=== PATIENT | female | born 1950 | race Caucasian/White ===

== ENCOUNTER → 2019-01-06 06:35 | Outpatient (CLI) | payer MEDICARE, SELFPAY ==
[2018-12-30 09:38] VITALS: BMI 32.7
--- NOTE | 2019-01-06 10:01 | STRESSREP ---
Stress Test Report Date: 01-06-2019 Procedure: Pharmacologic stress nuclear imaging study Indications: Chest pain; shortness of breath/dyspnea Consent: Per the patient Procedure: The patient underwent pharmacologic (Regadenoson) evaluation with a peak heart rate of 81 beats per minute (54% predicted maximal heart rate) and a peak blood pressure of 158/92 mmHg. The baseline ECG demonstrated Normal sinus rhythm . The peak pharmacologic ECG demonstrated no obvious ECG changes . There were no cardiac dysrhythmias pretest, during pharmacologic infusion, or recovery. There was no complaint of chest discomfort during pharmacologic infusion or recovery. The examination was discontinued secondary to completion of protocol. Impression: 1. Pharmacologic (Regadenoson) evaluation 2. Peak pharmacologic ECG with No obvious ECG changes . 3. There were no cardiac dysrhythmias pretest, during pharmacologic infusion, or recovery. 4. Nuclear images pending Myocardial perfusion imaging study: Technique: The patient was injected with 11.7 millicuries of technetium 99m Cardiolite and subsequently rest SPECT Cardiolite nuclear imaging was obtained in the horizontal long, vertical long, and short axis views. The patient underwent pharmacologic (Regadenoson) evaluation with a peak heart rate of 81 beats per minute (54 % percent predicted maximal heart rate) and a peak blood pressure of 158/92 mmHg. The patient was injected with 33.1 millicuries of technetium 99m Cardiolite and subsequently stress SPECT Cardiolite nuclear imaging was obtained in the horizontal long, vertical long, and short axis views. A gated Cardiolite study at peak stress was obtained. Interpretation: Rest and stress SPECT Cardiolite nuclear imaging status post realignment, normalization, and attenuation correction demonstrate relative uniform tracer uptake and myocardial perfusion appearing within normal limits . There is end systolic thickening and brightening. The gated Cardiolite study demonstrates myocardial thickening and inward wall motion. The reported LVEF is 91 %. Impression: 1. Rest and stress SPECT Cardiolite nuclear imaging demonstrate relative uniform tracer uptake and myocardial perfusion appearing within normal limits. 2. The gated Cardiolite study reports an LVEF of 91 %. This note was generated with [employer] software. It may contain incorrect words, spelling, and punctuation that were not noted in checking the note before signing.
== END ==
PROVIDERS: Referring Provider Physician Assistant Medical; Visit Provider Physician Assistant Medical
DX: R07.9 Chest pain, unspecified (principal); I10 Essential (primary) hypertension; E78.5 Hyperlipidemia, unspecified
CPT/HCPCS: 78452; 93017; A9500; A4216; J2785

== ENCOUNTER → 2019-03-18 10:51 | Outpatient (CLI) | payer MEDICARE, SELFPAY ==
[2019-01-28 15:16] VITALS: BMI 32.1
--- NOTE | 2019-03-18 11:13 | ART_ITS ---
Reason For Study: Pain in legs Procedure A bilateral lower extremity continuous wave Doppler with analog waveform analysis,segmental pressures,and ankle brachial indexes with exercise. Left Segmental Pressures Left brachial= 191mmHg. Left posterior tibial artery = 227mmHg. Left dorsalis pedis artery = 218mmHg. The left dorsalis pedis waveforms are triphasic. The left posterior tibial artery waveforms are triphasic. Right Segmental Pressures Right brachial= 195mmHg. Right posterior tibial artery = 240mmHg. Right dorsalis pedis artery = 208mmHg. The right dorsalis pedis waveforms are triphasic. The right posterior tibial artery waveforms are triphasic. Indices The right ankle brachial index by the dorsalis pedis is 1.07. The right ankle brachial index by the posterior tibial artery is 1.23. The right post exercise ankle brachial index is 1.45. The left ankle brachial index by the dorsalis pedis is 1.12. The left ankle brachial index by the posterior tibial artery is 1.16. The left post exercise ankle brachial index is 1.38. Interpretation Summary Triphasic Doppler waveforms are noted at ankle level bilaterally. Pulse-volume recording waveforms appear satisfactory at all levels bilaterally, including low-thigh, calf, ankle, and digital levels. Resting ankle-brachial indices are normal bilaterally. Following 5 minutes of exercise, ankle pressures augment bilaterally, which is a normal physiological response. There is no evidence of significant arterial occlusive disease in the lower extremities bilaterally. Ordering Physician: MIRANDA MORRELL Referring Physician: MIRANDA MORRELL Performed By: Franci Askew RVT
== END ==
DX: M79.606 Pain in leg, unspecified (principal); I79.8 Other disorders of arteries, arterioles and capillaries in diseases classified elsewhere
CPT/HCPCS: 93924

== ENCOUNTER → 2019-07-05 15:46 | Outpatient (CLI) | payer MEDICARE, SELFPAY ==
[2019-01-28 15:16] VITALS: BMI 32.1
== END ==
PROVIDERS: Referring Provider Family Medicine; Visit Provider Family Medicine
DX: E28.39 Other primary ovarian failure (principal)

== ENCOUNTER → 2019-07-12 14:19 | Outpatient (CLI) | payer MEDICARE, SELFPAY ==
[2019-01-28 15:16] VITALS: BMI 32.1
--- NOTE | 2019-07-12 14:22 | BI_ITS ---
MAMMOGRAPHY - BILATERAL SCREENING REASON FOR EXAM: Female, 68 years old. Routine annual screening examination. PERTINENT HISTORY: Non-contributory. TECHNIQUE: Digital bilateral breast kemar (3D mammographic acquisition) in the CC and MLO projections. 2-D mediolateral oblique (MLO) and craniocaudad (CC) views of both breasts were obtained. CAD: Full Field Digital Mammography with Computer Added Detection was performed. COMPARISON: Comparison is made with prior study dated May 06, 2012. FINDINGS: Breast Composition: There are scattered areas of fibroglandular density. There are no dominant masses or suspicious calcifications. Stable scattered bilateral calcifications more prominent on the left side. No other significant abnormalities are identified. There has been no significant change since the prior study. BI/SCREEN MAMM (CAD) W/KEMAR BILAT IMPRESSION: Stable bilateral screening mammogram. Yearly follow-up mammogram recommended. (A) ASSESSMENT CATEGORY: BIRADS Category 2: Benign. A letter regarding these results will be sent to the patient by the facility within 30 days. Approximately 10% of breast cancers are not detected by mammography. A normal mammogram should not delay biopsy of a clinically suspicious abnormality. [id number] Electronically Signed: Carlos Taylor, at 15:31 EDT , Service support ,
--- NOTE | 2019-07-12 14:44 | BD_ITS ---
STUDY: DUAL ENERGY X-RAY ABSORPTIOMETRY / DXA REASON FOR EXAM: Female, 68 years old. The patient is postmenopausal. Loss of height. TECHNIQUE: Bone Mineral Density (BMD) measurements of lumbar spine and bilateral hips were obtained. COMPARISON: None. FINDINGS: Lumbar Spine (L1-L4): g/cm2 (0.975) / T-score (-1.7) / Z-score (0.0) Findings are suggestive of osteopenia with a moderate fracture risk. Left Femur Total: g/cm2 (0.896) / T-score (-0.9) / Z-score (0.6) Left Femoral Neck: g/cm2 (0.790) / T-score (-1.8) / Z-score (-0.1) Right Femur Total: g/cm2 (0.886) / T-score (-1.0) / Z-score (0.5) Right Femoral Neck: g/cm2 (0.846) / T-score (-1.4) / Z-score (0.3) BD/Dexa Bone Density Study IMPRESSION: The patient is considered osteopenic as outlined below according to World [employer] Organization (WHO) criteria with a moderate fracture risk. Reference Information: The T-score is the number of standard deviations above or below the standard which is normal for young adults at their peak bone mineral density. The World Health Organization (WHO) interprets the T-scores as follows: Above -1 Normal bone density Between -1 and -2.5 Osteopenia Equal to / or below -2.5 Osteoporosis As a practical clinical guideline, osteopenia may be graded as follows: Mild -1 through -1.5 Moderate -1.6 through -2.0 Severe -2.1 through -2.4 The Z-score is the number of standard deviations above or below age-matched controls. A Z-score of less than -1.5 would be considered abnormal. References: 1. NIH Osteoporosis and Related Bone Diseases http://www.osteo.org 2. International Society for Clinical Densitometry http://www.iscd.org 3. National Osteoporosis Foundation http://www.nof.org Electronically Signed: Carlos Taylor, at 15:04 EDT , Service support ,
== END ==
PROVIDERS: Referring Provider Family Medicine; Visit Provider Family Medicine
DX: Z12.31 Encounter for screening mammogram for malignant neoplasm of breast (principal); Z78.0 Asymptomatic menopausal state; E28.39 Other primary ovarian failure
CPT/HCPCS: 77063; 77067; 77080

== ENCOUNTER → 2019-08-30 11:31 | Outpatient (CLI) | payer MEDICARE, SELFPAY ==
[2019-08-29 15:26] VITALS: BMI 32.0
[2019-08-30 12:33] LABS: AST(SGOT) 17 U/L (15-37); Alanine Aminotransfer ALT/SGPT 20 U/L (13-56); Albumin, Serum 4.3 g/dL (3.2-5.0); Alkaline Phosphatase 77 U/L (45-117); Bilirubin, Direct 0.15 mg/dL (0.00-0.30); Cholesterol 197 mg/dL (200); Globulin 3.4 g/dL (2.2-4.2); High Density Lipoprotein 54 mg/dL; Protein, Total 7.7 g/dL (6.4-8.2); Triglycerides 182 mg/dL; Very Low Density Lipoprotein 36 mg/dL (5-40)
== END ==
PROVIDERS: Referring Provider Internal Medicine Cardiovascular Disease; Visit Provider Internal Medicine Cardiovascular Disease
DX: E78.00 Pure hypercholesterolemia, unspecified (principal)
CPT/HCPCS: 80061; 80076

== ENCOUNTER → 2019-12-05 16:12 | Outpatient (CLI) | payer MEDICARE, SELFPAY ==
[2019-12-05 15:38] VITALS: BMI 32.7
--- NOTE | 2019-12-05 16:15 | RAD_ITS ---
STUDY: X-RAY CHEST REASON FOR EXAM: Female, 69 years old. Chest pain TECHNIQUE: Frontal and lateral views of the chest COMPARISON: 02/06/2015 FINDINGS: There is patchy airspace opacity in the right lower lobe. The lungs are otherwise clear. There are no pleural effusions. There is no pneumothorax. The heart is normal in size. The visualized osseous structures are within normal limits. RAD/Chest PA and Lateral IMPRESSION: Patchy airspace opacity in the right lower lobe which is likely infectious in etiology. Electronically Signed: Jason Clemons, at 15:22 EST Tel , Service support ,
== END ==
PROVIDERS: PCP Family Medicine; Visit Provider Physician Assistant Medical
DX: R07.89 Other chest pain (principal)
CPT/HCPCS: 71046

== ENCOUNTER → 2020-01-30 17:40 | Outpatient (CLI) | payer MEDICARE, MEDICAID, SELFPAY ==
[2019-12-05 15:38] VITALS: BMI 32.7
--- NOTE | 2020-01-30 18:00 | RAD_ITS ---
STUDY: X-RAY CHEST REASON FOR EXAM: Female, 69 years old. Follow-up pneumonia. No chest complaints currently. TECHNIQUE: PA and lateral views of the chest. COMPARISON: December 05, 2019. FINDINGS: The lungs are clear and expanded. There is no demonstrated pleural abnormality. Normal size heart. Normal mediastinum and theo. Normal visualized pulmonary arteries. There is atherosclerotic calcification of the aortic arch with tortuosity. There are diffuse degenerative changes of the visualized thoracic spine. There is degenerative osteoarthritis of the bilateral shoulders. There is no demonstrated abnormality of the visualized soft tissue structures of the upper abdomen. RAD/Chest PA and Lateral IMPRESSION: Degenerative changes, as described above. No demonstrated acute cardiopulmonary process. Electronically Signed: Sarmad Han DO at 22:44 EDT Tel [phone], Service support ,
== END ==
PROVIDERS: PCP Family Medicine
DX: J18.9 Pneumonia, unspecified organism (principal)
CPT/HCPCS: 71046

== ENCOUNTER → 2020-07-24 11:54 | Outpatient (CLI) | payer MEDICARE, SELFPAY ==
[2020-06-29 16:12] VITALS: BMI 31.4
--- NOTE | 2020-07-24 11:56 | BI_ITS ---
MAMMOGRAPHY - BILATERAL SCREENING REASON FOR EXAM: Female, 69 years old. Routine annual screening examination. PERTINENT HISTORY: Non-contributory. TECHNIQUE: Digital bilateral breast kemar (3D mammographic acquisition) in the CC and MLO projections. 2-D mediolateral oblique (MLO) and craniocaudad (CC) views of both breasts were obtained. CAD: Full Field Digital Mammography with Computer Added Detection was performed. COMPARISON: Comparison is made with prior study dated 07/12/2019 and 05/06/2012. FINDINGS: Breast Composition: There are scattered areas of fibroglandular density. There are no dominant masses or suspicious calcifications. Stable small benign appearing bilateral axillary lymph nodes. Stable scattered bilateral calcifications suggestive of secretory calcifications more prominent on the right side. A tissue clip marker is seen in the inferior central portion of the right breast. No other significant abnormalities are identified. There has been no significant change since the prior study. BI/SCREEN MAMM (CAD) W/KEMAR BILAT IMPRESSION: Stable bilateral screening mammogram. Yearly follow-up mammogram recommended. (A) ASSESSMENT CATEGORY: BIRADS Category 2: Benign. A letter regarding these results will be sent to the patient by the facility within 30 days. Approximately 10% of breast cancers are not detected by mammography. A normal mammogram should not delay biopsy of a clinically suspicious abnormality. [id number] Electronically Signed: Carlos Taylor, at 13:03 EDT , Service support ,
== END ==
PROVIDERS: PCP Family Medicine
DX: Z12.31 Encounter for screening mammogram for malignant neoplasm of breast (principal)
CPT/HCPCS: 77063; 77067

== ENCOUNTER 2021-02-24 11:46 | Emergency (ER) | payer MEDICARE, SELFPAY ==
[2020-06-29 16:12] VITALS: BMI 31.4
[2021-02-24 11:47] VITALS: BP 140/73; PULSE 58; RESP 18; TEMP 36.3; O2SAT 97; BMI 31.6
--- NOTE | 2021-02-24 12:33 | ED.DCSUM_ITS ---
History of Present Illness Chief Complaint: Lower Extremity Injury Informant: Patient Onset: Month(s) - multiple Context: Gradual Onset Timing: Continuous Quality: sharp Location: throughout BLE Current Severity: Severe Maximum Severity: Severe Worsened by: movement and walking Relieved by: rest. tylenol, ibuprofen not helping. Associated Symptoms: occ tingling in toes. no weakness. no back pain. no bowel/bladder dysfxn. Narrative: Patient has been having pain stocking glove distribution throughout both legs in their entirety. Not more in the anterior or posterior aspect, seems less in the joints though. She states the pain is sharp, does not burn or tingle except in her toes she occasionally feels some tingling. She denies any weakness. Moving while walking 10 feet hurts no less then walking a block or 2. She denies any pain in her back. She is already seen her doctor for this, states that she had an ultrasound of the veins that looked fine, as well as ABIs that were normal. She is due to follow-up later this week but states the pain has been so bad this weekend that she presents for pain control. - Past Medical History (1) Anxiety Status: Chronic (2) Essential hypertension Status: Chronic (3) Hypothyroidism Status: Chronic (4) Pure hypercholesterolemia Status: Chronic Past Medical History - Allergies and Home Meds Allergies/Adverse Reactions: Allergies No Known Allergies Allergy (Verified 02/24/21 11:46) Primary Care Physician: Omar Reyes MD [Primary Care Provider] - Smoking Status: Never smoker Review of Systems General: Denies: Chills, Fever, Sweats Eyes: Denies: Visual changes - bilaterally, Diplopia ENT: Denies: Rhinorrhea, Sore throat Cardiovascular: Denies: Chest pain, Palpitations Respiratory: Denies: Dyspnea, Cough, Dyspnea on exertion Gastrointestinal: Denies: Abdominal pain, Nausea, Vomiting, Diarrhea, Melena, Hematochezia Genitourinary: Denies: Dysuria, Hematuria, Frequency Musculoskeletal: Reports: Extremity Pain. Denies: Back pain, Swelling Skin: Denies: Rash, Wounds Neurological: Reports: Parasthesia. Denies: Headache, Weakness, Numbness Physical Exam Vital Signs/Narrative: Vital Signs Temp Pulse Resp BP Pulse Ox 02/24/21 11:47 97.4 F L 58 L 18 140/73 H 97 Inital Vital Signs reviewed: Yes General: Well nourished, Well developed, Obese, No Acute Distress Head: Normocephalic, Atraumatic Respiratory: No distress Back: Nontender, Normal Inspection Extremities: Nontender, No edema, - - All compartments soft. Bounding 2+/4 dorsalis pedis pulses bilaterally and symmetric. No palpable cords. Muscle compartments nontender on palpation.. Negative for: Calf Tenderness Skin: Normal color, No rash Neurological: Alert, Oriented x3, Cranial nerves II-XII grossly intact, Normal Strength, Normal Sensation, Normal DTR - With downgoing toes and no clonus bilaterally Psychological: Normal affect, Normal Mood Diagnostic/Tx/Re-eval - Medical Decision Making Patient was reassured she does not seem to be having claudication and this is certainly atypical for neurologic pain. It may be muscular in nature and she agrees with the way it feels. There is no neurovascular compromise at this time and I am comfortable prescribing her a short course of tramadol to use as needed for the pain and she is comfortable with that plan following up as scheduled this week with her doctor. ED Disposition - Plan for ED Patient: Disposition: Home or Assisted Living Diagnosis: Chronic lower limb pain Instructions: ED Muscle Strain, Extremity Prescriptions: traMADol [Ultram] 50 mg PO Q4H PRN PRN 3 Days #20 tablet PRN Reason: pain Transmission Status: Sent to [id number] Referrals: Omar Reyes MD [Primary Care Provider] - Keep Marvin appointment
[2021-02-24] MEDS: traMADol 50 MG Tablet PO (12:37)
[2021-02-24 12:50] VITALS: BP 137/66; PULSE 72; RESP 15; O2SAT 98
== END 2021-02-24 12:51 | disposition home or self-care (01) ==
LOC: ED 12:50
PROVIDERS: Emergency Provider Emergency Medicine; PCP Family Medicine
DX: M79.605 Pain in left leg (principal); E66.9 Obesity, unspecified; G89.29 Other chronic pain; F41.9 Anxiety disorder, unspecified; I10 Essential (primary) hypertension; E03.9 Hypothyroidism, unspecified; E78.00 Pure hypercholesterolemia, unspecified
CPT/HCPCS: 99282

== ENCOUNTER → 2021-03-05 07:42 | Outpatient (CLI) | payer MEDICARE, SELFPAY ==
--- NOTE | 2021-03-05 07:50 | RAD_ITS ---
STUDY: X-RAY - LUMBOSACRAL SPINE REASON FOR EXAM: Female, 70 years old. BILATERAL LEG PAIN/NEUROGENIC CLAUDICATION TECHNIQUE: 8 view(s) of the lumbosacral spine were obtained including oblique views and flexion-extension views.. COMPARISON: None FINDINGS: Normal lumbar lordosis. There is a mild levoscoliosis of the lumbar spine. Minimal anterior listhesis of L4 on L5. There is multilevel endplate spondylosis of the lumbar vertebrae. There is multi-level degenerative disc disease with multi-level disc space narrowing. Normal bilateral sacral ala, sacroiliac joints, and visualized sacrum. There is atherosclerotic calcification of the abdominal aorta without a demonstrated aneurysm. RAD/L/S Spine w Bend Min 6 Vw IMPRESSION: Degenerative changes of the spine, as detailed above. Minimal anterior listhesis of L4 on L5. On the flexion view, this measures 6.9 mm and on the extension view and measures 5.6 mm. Electronically Signed: Carlos Taylor MD at 15:21 EDT , Service support ,
== END ==
PROVIDERS: PCP Family Medicine; Visit Provider Family Medicine
DX: M79.604 Pain in right leg (principal); M48.062 Spinal stenosis, lumbar region with neurogenic claudication
CPT/HCPCS: 72114

== ENCOUNTER 2021-03-21 17:25 | Emergency (ER) | payer MEDICARE, MEDICAID, SELFPAY ==
[2021-03-21 17:27] VITALS: BP 154/89; PULSE 71; RESP 15; TEMP 35.8; O2SAT 98; BMI 29.2
--- NOTE | 2021-03-21 18:29 | RAD_ITS ---
STUDY: X-RAY - LEFT KNEE REASON FOR EXAM: Female, 70 years old. Injury/Pain TECHNIQUE: 2 view(s) of the knee. COMPARISON: None. FINDINGS: Normal visualized distal femur. Normal visualized proximal tibia and fibula. Normal proximal tibiofibular articulation. There is no demonstrated fracture. There is moderate narrowing of the medial femorotibial compartment. Normal lateral femorotibial compartment. Normal patellofemoral articulation. There is no demonstrated joint effusion. The soft tissue structures are unremarkable. RAD/Knee 1 or 2 Views IMPRESSION: No acute abnormality. Moderate narrowing of the medial tibiofemoral compartment. Electronically Signed: Salvador Calabrese MD at 19:37 EDT , Service support ,
--- NOTE | 2021-03-21 18:29 | RAD_ITS ---
STUDY: X-RAY - RIGHT KNEE REASON FOR EXAM: Female, 70 years old. Injury/Pain TECHNIQUE: 2 view(s) of the knee. COMPARISON: None. FINDINGS: Normal visualized distal femur. Normal visualized proximal tibia and fibula. Normal proximal tibiofibular articulation. There is no demonstrated fracture. There is moderate degenerative arthrosis of the medial femorotibial compartment with moderate joint space narrowing. Normal lateral femorotibial compartment. There is moderate to severe degenerative arthrosis of the patellofemoral articulation. There is no demonstrated joint effusion. The soft tissue structures are unremarkable. RAD/Knee 1 or 2 Views IMPRESSION: No acute fracture or dislocation. Degenerative changes. Electronically Signed: Salvador Calabrese MD at 19:44 EDT , Service support ,
--- NOTE | 2021-03-21 19:21 | ED.VIS.LOWEX ---
HPI History of Present Illness Chief Complaint: Lower Extremity Injury Narrative Narrative: 70-year-old patient of Dr. Reyes. She is a poor informant. She reports that she has bilateral knee pain for the past 2 weeks.'s an aching pain is 10-10 at worst 9-10 currently. Is worsened by walking. She is taking diclofenac without relief. She was also on a prednisone taper last month without relief. She denies any trauma. No fall, MVA, or change in activity. [facility] Medical History (Updated 03/21/21 @ 19:[address] Brady Blakely MD) Anxiety Depression Essential hypertension Hypothyroidism Palpitations Pure hypercholesterolemia Home Medications aspirin 81 mg tablet,delayed release 81 mg PO QDAY 06/28/18 [History Last Taken Unknown] levothyroxine 75 mcg capsule 75 mcg PO QDAY 06/28/18 [History Last Taken Unknown] atorvastatin 20 mg tablet 20 mg PO QHS tablet 12/05/19 [History Last Taken Unknown] amlodipine 5 mg tablet 5 mg PO DAILY #90 tablet 06/21/20 [Rx Last Taken Unknown] hydrochlorothiazide 25 mg tablet 25 mg PO DAILY #90 tablet 06/21/20 [Rx Last Taken Unknown] isosorbide mononitrate 60 mg tablet,extended release 24 hr 60 mg PO DAILY #90 tablet 06/21/20 [Rx Last Taken Unknown] atenolol 50 mg tablet 50 mg PO DAILY #90 tablet 07/03/20 [Rx Last Taken Unknown] tramadol 50 mg tablet 50 mg PO Q4H PRN tablet 02/28/21 [History Last Taken Unknown] potassium chloride 20 mEq tablet,extended release 20 meq PO DAILY 03/07/21 [History Last Taken Unknown] hydrocodone-acetaminophen 1 tab PO Q6H PRN 3 Days #10 tab 03/21/21 [Rx Last Taken Unknown] sennosides [senna] 8.6 mg PO DAILY #7 cap 03/21/21 [Rx Last Taken Unknown] Allergy/AdvReac Type Severity Reaction Status Date / Time No Known Allergies Allergy Verified 02/28/21 13:54 Family History Father , Age 65 Myocardial infarction Mother , Age 84 Dementia Sister Hypertension Sister Hypertension Sister Hyperlipidemia Surgical History History of left heart catheterization (~1993) History of partial hysterectomy Social History Smoking Status: Never smoker how long ago did patient quit smokin years ago alcohol intake: never caffeine: No ROS ROS ED Constitutional Constitutional ED: Denies chills, fever(s) or sweats Eyes Eyes: Denies change in vision ENT ENT ED: Denies sore throat Cardiovascular Cardiovascular: Denies chest pain Respiratory/Chest Respiratory/Chest: Denies cough, dyspnea or dyspnea on exertion Gastrointestinal Gastrointestinal: Denies abdominal pain, diarrhea, melena, nausea or vomiting Genitourinary Genitourinary ED: Denies dysuria or urinary frequency Musculoskeletal Musculoskeletal: Denies myalgias Integumentary Denies rash Neurologic Neurologic: Denies headache(s), paresthesias or weakness EXAM Physical Exam Const Vital Signs: 03/21/21 17:27 Temperature 96.5 F L Temperature Source Temporal Pulse Rate 71 Respiratory Rate 15 Blood Pressure 154/89 H Blood Pressure Mean 110 Pulse Ox 98 Oxygen Delivery Method Room Air Positive well nourished and well developed General Appearance ED: well developed HEENT Reports normocephalic and head/scalp atraumatic Eyes PERRL Neck no lymphadenopathy, supple and no JVD General: Negative for tenderness Resp normal respiratory effort and clear to auscultation bilaterally Cardio regular rate, regular rhythm and no murmurs GI normal to inspection, nondistended, normoactive bowel sounds and non-tender GI Narrative: No guarding, rebound, or peritoneal signs. Palpation: soft Back/Spine Back/Spine Narrative: Nontender. Extremity Extremity Narrative: Moderate tenderness palpation is diffuse over her knees bilaterally. There is a small joint effusion on the left. No appreciable joint effusion on the right. There is no overlying erythema or warmth to suggest a septic joint. She has no pain with short arc movements. She has pain, but no ligamentous instability with anterior/posterior drawer or medial/lateral stress bilaterally. She does have a 2+ dorsalis pedis pulse bilaterally normal sensation light touch. General Extremety ED: Negative for edema or tenderness General Extremity: Negative for edema Neuro oriented x3, CN's II-XII intact bilaterally and no sensory deficits noted Sensorium / Orientation: alert Motor Exam: strength 5/5 throughout Psych mental status grossly normal Skin no rashes or lesions noted MDM MDM Radiography Diagnostic Testing: Bilateral knee x-rays read by myself show degenerative changes. No acute disease. Treatment and Re-Evaluation Comments:: Emergency department course: Patient was treated with Tylenol. She is resting comfortably. Treatment plan: I had a prolonged scratch that I suspect the patient's pain is due to arthritis. She will be discharged instructions to follow-up with Dr. Casiano within 1 week for another exam. She will be given a prescription for [place] and senna. Return to the emergency department for any worsening symptoms. This note was generated with [employer] dictation software. It may contain incorrect words, spelling, and punctuation that were not noted in review of the chart prior to signing. Discharge Plan Triage Chief Complaint: Lower Extremity Injury ED Provider: Brady Blakely Dx/Rx/DC Orders Clinical Impression: Arthritis of knee, right, Arthritis of knee, left Instructions: ED Osteoarthritis Prescriptions: New hydrocodone-acetaminophen 5-325 mg tablet 1 tab PO Q6H PRN (Reason: pain) 3 Days Qty: 10 RF: 0 senna 8.6 mg capsule 8.6 mg PO DAILY Qty: 7 RF: 0 No Action aspirin [Adult Low Dose Aspirin] 81 mg tablet,delayed release (DR/EC) 81 mg PO QDAY RF: 0 levothyroxine 75 mcg capsule 75 mcg capsule 75 mcg PO QDAY RF: 0 atorvastatin 20 mg tablet 20 mg PO QHS RF: 0 tramadol 50 mg tablet 50 mg PO Q4H PRNRF: 0 amlodipine 5 mg tablet 5 mg PO DAILY Qty: 90 RF: 3 isosorbide mononitrate 60 mg tablet extended release 24 hr 60 mg PO DAILY Qty: 90 RF: 3 hydrochlorothiazide 25 mg tablet 25 mg PO DAILY Qty: 90 RF: 3 atenolol 50 mg tablet 50 mg PO DAILY Qty: 90 RF: 4 potassium chloride 20 mEq tablet extended release 20 meq PO DAILY RF: 0 Primary Care Provider: Omar Reyes Referrals: Omar Reyes MD [Primary Care Provider] - James Casiano DO [STAFF PHYSICIAN] - 1 Week
[2021-03-21] MEDS: Acetaminophen 500 MG Tablet 1000 MG PO (19:40)
== END 2021-03-21 19:44 | disposition home or self-care (01) ==
PROVIDERS: Emergency Provider Emergency Medicine; PCP Family Medicine
DX: M17.0 Bilateral primary osteoarthritis of knee (principal); Z87.891 Personal history of nicotine dependence
CPT/HCPCS: 73560; 99283

== ENCOUNTER → 2021-07-25 15:09 | Outpatient (CLI) | payer MEDICARE, MEDICAID, SELFPAY ==
--- NOTE | 2021-07-25 15:12 | BI_ITS ---
MAMMOGRAPHY - BILATERAL SCREENING REASON FOR EXAM: Female, 70 years old. Routine annual screening examination. PERTINENT HISTORY: Non-contributory. TECHNIQUE: Digital bilateral breast kemar (3D mammographic acquisition) in the CC and MLO projections. 2-D mediolateral oblique (MLO) and craniocaudad (CC) views of both breasts were obtained. CAD: Full Field Digital Mammography with Computer Added Detection was performed. COMPARISON: Comparison is made with prior examination dated 07/24/2020 and 07/12/2000 FINDINGS: Breast Composition: There are scattered areas of fibroglandular density. There are no dominant masses or suspicious calcifications. Stable benign-appearing secretory calcifications more prominent on the right side. Stable small benign-appearing axillary lymph nodes. A tissue clip marker is once again seen in the inferior central portion of the right No other significant abnormalities are identified. There has been no significant change since the prior study. BI/SCRN MAMM (CAD)W/KEMAR BILAT IMPRESSION: Stable bilateral screening mammogram. Yearly follow-up mammogram recommended. (A) ASSESSMENT CATEGORY: BIRADS Category 2: Benign. A letter regarding these results will be sent to the patient by the facility within 30 days. Approximately 10% of breast cancers are not detected by mammography. A normal mammogram should not delay biopsy of a clinically suspicious abnormality. [id number] Electronically Signed: Carlos Taylor MD at 7:52 EDT , Service support ,
--- NOTE | 2021-07-25 15:20 | BD_ITS ---
STUDY: DUAL ENERGY X-RAY ABSORPTIOMETRY / DXA REASON FOR EXAM: Female, 70 years old. M810. Patient is postmenopausal. TECHNIQUE: Bone Mineral Density (BMD) measurements of lumbar spine and bilateral hips were obtained. COMPARISON: Comparison is made with prior study 07/12/2019. FINDINGS: Lumbar Spine (L1-L4): g/cm2 (0.946) / T-score (-0.9) / Z-score (1.4) Findings are suggestive of normal bone density with a low fracture risk. Left Femur Total: g/cm2 (0.813) / T-score (-1.1) / Z-score (0.6) Left Femoral Neck: g/cm2 (0.674) / T-score (-1.6) / Z-score (0.4) Right Femur Total: g/cm2 (0.818) / T-score (-1.0) / Z-score (0.6) Right Femoral Neck: g/cm2 (0.694) / T-score (-1.4) / Z-score (0.6) The T-Scores on the most recent prior examination were: Lumbar Spine (L1-L4): There has been improvement of bone density since the previous examination. Left Femur Total: which represents a worsening of 2.4%. Right Femur Total: which represents a worsening of 0.6%. BD/Dexa Bone Density Study IMPRESSION: The patient is considered osteopenic as outlined below according to World [employer] Organization (WHO) criteria with a moderate fracture risk. There has been worsening of bone density since the previous examination. Reference Information: The T-score is the number of standard deviations above or below the standard which is normal for young adults at their peak bone mineral density. The World Health Organization (WHO) interprets the T-scores as follows: Above -1 Normal bone density Between -1 and -2.5 Osteopenia Equal to / or below -2.5 Osteoporosis As a practical clinical guideline, osteopenia may be graded as follows: Mild -1 through -1.5 Moderate -1.6 through -2.0 Severe -2.1 through -2.4 The Z-score is the number of standard deviations above or below age-matched controls. A Z-score of less than -1.5 would be considered abnormal. References: 1. NIH Osteoporosis and Related Bone Diseases www osteo.org 2. International Society for Clinical Densitometry www iscd.org 3. National Osteoporosis Foundation www nof.org Electronically Signed: Carlos Taylor MD at 12:54 EDT , Service support ,
== END ==
PROVIDERS: PCP Family Medicine; Referring Provider Family Medicine; Visit Provider Family Medicine
DX: Z12.31 Encounter for screening mammogram for malignant neoplasm of breast (principal); Z13.820 Encounter for screening for osteoporosis; Z78.0 Asymptomatic menopausal state
CPT/HCPCS: 77063; 77067; 77080

== ENCOUNTER 2021-12-23 03:40 | Emergency (ER) | payer MEDICARE, MEDICAID, SELFPAY ==
[2021-12-23 03:42] VITALS: BP 141/77; PULSE 93; RESP 17; TEMP 36.6; O2SAT 97; BMI 30.1
--- NOTE | 2021-12-23 04:17 | CT_ITS ---
EXAM: CT HEAD WITHOUT INTRAVENOUS CONTRAST CLINICAL INDICATION: headache TECHNIQUE: Multiple axial images were obtained of the head without intravenous contrast. CTDIvol = ( 44.99 ) mGy, DLP = ( 745.45 ) mGycm This CT exam was performed using one or more of the following dose reduction techniques: automated exposure control, adjustment of the mA and/or kV according to patient size, and/or use of iterative reconstruction technique. This report was created using [employer] report generation technology. COMPARISON: None. FINDINGS: BRAIN AND EXTRA-AXIAL SPACES: Unremarkable. No intra- or extra-axial hemorrhage. No evidence of acute infarct. No intracranial mass or mass effect. There is preservation of the agustin/white matter interface. Posterior fossa structures are unremarkable. Ventricles are appropriate for age. No hydrocephalus. Basal cisterns are patent. BONES/JOINTS: Unremarkable. No discrete lytic or blastic abnormalities. SINUSES: Unremarkable as visualized. Clear. MASTOID AIR CELLS: Unremarkable. Clear. ORBITS: Visualized globes, extraocular muscles, optic nerves and retrobulbar fat appear unremarkable. CT/Brain/Head without Contrast IMPRESSION: Negative head/brain CT without intravenous contrast. Electronically Signed: Julián Bran MD at 4:50 EST ,
[2021-12-23] MEDS: DiphenhydrAMINE 50 MG/ML Syringe 25 MG IV (05:16)
[2021-12-23] MEDS: Ketorolac 15 MG/ML Vial IV (05:16)
[2021-12-23] MEDS: Metoclopramide 10 MG/2 ML Vial IV (05:16)
--- NOTE | 2021-12-23 05:24 | EDS_ITS ---
HPI History of Present Illness Chief Complaint: General Illness Narrative Narrative: Patient is a 71-year-old female who states about 2 weeks ago she was walking when she was not paying attention and ran into the corner of a wall. She denies knocking herself out or any history of bleeding disorder or blood thinner use. She states since that time she has had a persistent headache and went and saw her family doctor who advised her to treat it with [id number] medication. She denies any repeat trauma but states the headache has persisted and secondary to this comes to the hospital for evaluation [facility] Medical History (Updated 12/23/21 @ 05:[address] Julián Coronel, DO) Anxiety Depression Essential hypertension Hypothyroidism Palpitations Pure hypercholesterolemia Home Medications aspirin 81 mg tablet,delayed release 81 mg PO QDAY 06/28/18 [History Last Taken Unknown] levothyroxine 75 mcg capsule 75 mcg PO QDAY 06/28/18 [History Last Taken Unknown] atorvastatin 20 mg tablet 20 mg PO QHS tablet 12/05/19 [History Last Taken Unknown] potassium chloride 20 mEq tablet,extended release 20 meq PO DAILY 03/07/21 [History Last Taken Unknown] hydrochlorothiazide 25 mg tablet 25 mg PO DAILY #90 tablet 06/10/21 [Rx Last Taken Unknown] isosorbide mononitrate 60 mg tablet,extended release 24 hr 60 mg PO DAILY #90 tablet 07/05/21 [Rx Last Taken Unknown] amlodipine 5 mg tablet 5 mg PO DAILY #90 tablet 08/27/21 [Rx Last Taken Unknown] atenolol 50 mg tablet 50 mg PO DAILY #90 tablet 08/27/21 [Rx Last Taken Unknown] calcium carbonate 600 mg calcium (1,500 mg) tablet 600 mg PO DAILY 08/27/21 [History Last Taken Unknown] Allergy/AdvReac Type Severity Reaction Status Date / Time No Known Allergies Allergy Verified 12/23/21 03:49 Family History Father , Age 65 Myocardial infarction Mother , Age 84 Dementia Sister Hypertension Sister Hypertension Sister Hyperlipidemia Surgical History History of left heart catheterization (~1993) History of partial hysterectomy Social History Smoking Status: Never smoker how long ago did patient quit smokin years ago alcohol intake: never caffeine: No ROS ROS ED Constitutional Constitutional ED: Denies chills or fever(s) Eyes Eyes: Denies change in vision ENT ENT ED: Denies sore throat Cardiovascular Cardiovascular: Denies chest pain Respiratory/Chest Respiratory/Chest: Denies cough or dyspnea Gastrointestinal Gastrointestinal: Denies abdominal pain, diarrhea, nausea or vomiting Genitourinary Genitourinary ED: Denies dysuria Musculoskeletal Musculoskeletal: Denies myalgias Integumentary Reports Abrasions; Denies rash Neurologic Neurologic: Reports headache(s) Hematologic/Lymphatic Hematologic/Lymphatic: Denies easy bleeding or easy bruising EXAM Physical Exam Const Vital Signs: 12/23/21 03:41 12/23/21 03:42 Temperature 97.8 F Temperature Source Temporal Pulse Rate 93 Respiratory Rate 17 Respiratory Effort Normal Blood Pressure 141/77 H Blood Pressure Mean 98 Pulse Ox 97 Oxygen Delivery Method Room Air Positive well nourished and well developed General Appearance ED: well developed HEENT HEENT Narrative: No signs of depressed or basilar skull fracture Eyes PERRL and EOMs intact bilaterally Neck supple Neck Narrative: No bony deformity or step-off of the cervical spine no midline pain with palpation. No meningeal signs Resp normal respiratory effort and clear to auscultation bilaterally Cardio regular rate and regular rhythm Extremity normal to inspection Neuro oriented x3 and CN's II-XII intact bilaterally Neuro Narrative: NIH stroke scale score of 0 Sensorium / Orientation: alert Motor Exam: strength 5/5 throughout Psych mental status grossly normal Skin no rashes or lesions noted Skin Narrative: Patient does have healing superficial abrasions to the midportion of her forehead consistent with trauma but no secondary changes to suggest infection MDM MDM MDM Narrative Medical decision making narrative: Patient presented to the ER in no acute distress with stable vitals and no signs of depressed or basilar skull fracture. She reported a headache after walking into the corner of a wall that have been persistent and therefore elected to perform a head CT to ensure there is no underlying trauma. Head CT revealed no acute findings and after treatment with IV fluids Toradol Benadryl and Reglan patient reported resolution of her headache and her neuro exam remained normal. Therefore at this time with normal head CT normal neurologic exam and resolution of symptoms patient can be discharged and follow-up with family doctor for further evaluation Radiography Diagnostic Testing: Clinical Impression(s) from Imaging Studies Brain CT 12/23/21 04:17 IMPRESSION: Negative head/brain CT without intravenous contrast. Electronically Signed: Julián Bran MD at 4:50 EST , Discharge Plan Triage Chief Complaint: General Illness ED Provider: Julián Coronel Dx/Rx/DC Orders Clinical Impression: Cephalalgia Instructions: Understanding Headache Pain Prescriptions: No Action aspirin [Adult Low Dose Aspirin] 81 mg tablet,delayed release (DR/EC) 81 mg PO QDAY RF: 0 levothyroxine 75 mcg capsule 75 mcg capsule 75 mcg PO QDAY RF: 0 atorvastatin 20 mg tablet 20 mg PO QHS RF: 0 calcium carbonate [Calcium 600] 600 mg calcium (1,500 mg) tablet 600 mg PO DAILY RF: 0 amlodipine 5 mg tablet 5 mg PO DAILY Qty: 90 RF: 3 atenolol 50 mg tablet 50 mg PO DAILY Qty: 90 RF: 4 potassium chloride 20 mEq tablet extended release 20 meq PO DAILY RF: 0 hydrochlorothiazide 25 mg tablet 25 mg PO DAILY Qty: 90 RF: 3 isosorbide mononitrate 60 mg tablet extended release 24 hr 60 mg PO DAILY Qty: 90 RF: 3 Primary Care Provider: Omar Reyes Referrals: Omar Reyes MD [Primary Care Provider] - Activity Restrictions/Additional Instructions: If your headache returns please take Tylenol and/or Motrin and if it persists please talk to your family doctor about a neurology referral as well as MRI and/or return to the ER for repeat evaluation Disposition Disposition: Home, Self Care
[2021-12-23 05:36] VITALS: BP 115/56; PULSE 74; RESP 16; O2SAT 96
[2021-12-23 06:17] VITALS: O2SAT 98
== END 2021-12-23 06:28 | disposition home or self-care (01) ==
PROVIDERS: Emergency Provider Emergency Medicine; PCP Family Medicine; Visit Provider Emergency Medicine
DX: R51.9 Headache, unspecified (principal); I10 Essential (primary) hypertension; E78.00 Pure hypercholesterolemia, unspecified; E03.9 Hypothyroidism, unspecified; Z79.82 Long term (current) use of aspirin
CPT/HCPCS: 70450; 96361; 96374; 96375; 99283; J7030; A4216

== ENCOUNTER 2022-02-05 10:17 | Outpatient (CLI) | payer MEDICARE, MEDICAID, SELFPAY ==
[2022-02-05 11:58] LABS: BNP,B-Type NATRIURETIC PEPTIDE 37.5 pg/mL (0-100)
[2022-02-05 11:59] LABS: Anion Gap 8 (5-15); BUN 13 mg/dL (7-18); BUN/Creat Ratio 17.6 RATIO (10-20); Calcium,Total 9.1 mg/dL (8.5-10.1); Chloride 101 mmol/L (98-107); Creatinine, Serum 0.74 mg/dL (0.55-1.02); EST Glomerular Filtration Rate 82 mL/min (>60); Est Glom Filt Rate - Afr Amer 99 mL/min (>60); Glucose 140 mg/dL (74-106); Potassium 2.8 mmol/L (3.5-5.1); Sodium Level 139 mmol/L (136-145)
== END 2022-02-05 23:59 | disposition home or self-care (01) ==
LOC: LAB 10:18
PROVIDERS: PCP Family Medicine; Referring Provider Nurse Practitioner Family; Visit Provider Nurse Practitioner Family
DX: R06.00 Dyspnea, unspecified (principal); R07.89 Other chest pain; I10 Essential (primary) hypertension; E78.00 Pure hypercholesterolemia, unspecified
CPT/HCPCS: 36415; 80048; 83880

== ENCOUNTER → 2022-03-05 | Outpatient (CLI) | payer MEDICARE, MEDICAID, SELFPAY ==
--- NOTE | 2022-03-05 07:57 | ECHOD_ITS ---
Reason For Study: Dyspnea/SOB Procedure This was a 2D Doppler, Color Flow transthoracic echocardiogram. The exam was of adequate technical quality. Exam performed in department. Left Ventricle Normal LV size. Left ventricular systolic function is normal. The estimated ejection fraction is 65 %. No evidence for diastolic dysfunction. No regional wall motion abnormalities noted. Right Ventricle Normal RV size. Normal systolic function. Atria Normal left atrium. Normal right atrium. No doppler evidence for ASD. Mitral Valve There is no mitral annular calcification. Normal mitral valve. Mild (1+) mitral valve insufficiency. Tricuspid Valve Normal tricuspid valve. Trivial tricuspid valve insufficiency. Right ventricular systolic pressure estimated to be 34 mmHg. Aortic Valve Trisinus/trileaflet aortic valve. Normal aortic valve. Mild (1+) aortic valve insufficiency. Pulmonic Valve The pulmonic valve is not well visualized. Great Vessels Normal sized aortic root. Pericardium/Pleural No pericardial effusion. MMode/2D Measurements & Calculations LVIDd: 4.5 cm IVSd: 0.79 cm Ao root diam: 3.3 cm LVIDs: 2.4 cm LVPWd: 1.1 cm LA dimension: 3.6 cm FS: 45.7 % LAV(MOD-bp): 45.2 ml LA A4 area: 16.6 cm2 RA A4 area: 10.8 cm2 LAV(MOD-bp) Indexed: 26.3 ml/m2 LAV(MOD-sp2): 42.8 ml LAV(MOD-sp4): 44.9 ml Time Measurements MV dec time: 0.21 sec Doppler Measurements & Calculations MV E max estevan: 89.5 cm/sec Lat Peak E' Estevan: 6.6 cm/sec Med Peak E' Estevan: 6.7 cm/sec MV A max estevan: 96.0 cm/sec E/E' lat: 13.5 E/E' med: 13.3 MV E/A: 0.93 MV V2 max: 110.0 cm/sec MV P1/2t max estevan: 88.6 cm/sec Ao V2 max: 148.5 cm/sec MV max P.8 mmHg MV P1/2t: 88.5 msec Ao max P.8 mmHg MV V2 mean: 49.1 cm/sec MV dec slope: 293.5 cm/sec2 MV mean P.2 mmHg MVA(P1/2t): 2.5 cm2 MV V2 VTI: 33.9 cm AI max estevan: 374.5 cm/sec LV V1 max: 121.9 cm/sec PA V2 max: 112.7 cm/sec AI max P.1 mmHg LV V1 max P.9 mmHg AI dec slope: 153.8 cm/sec2 AI P1/2t: 713.1 msec TR max estevan: 278.3 cm/sec TR max P.0 mmHg ECHO/Echo Complete Interpretation Summary Left ventricular systolic function is normal. The estimated ejection fraction is 65 %. Mild (1+) mitral valve insufficiency. Trivial tricuspid valve insufficiency. Mild (1+) aortic valve insufficiency. Right ventricular systolic pressure estimated to be 34 mmHg. No evidence for diastolic dysfunction. Ordering Physician: Efrain Hill Referring Physician: Omar Reyes Performed By: Yaw García RCS
== END | disposition home or self-care (01) ==
PROVIDERS: PCP Family Medicine; Referring Provider Nurse Practitioner Family; Visit Provider Nurse Practitioner Family
DX: R07.89 Other chest pain (principal); R06.00 Dyspnea, unspecified; Z98.890 Other specified postprocedural states
CPT/HCPCS: 93306

== ENCOUNTER → 2022-04-21 | Outpatient (CLI) | payer MEDICARE, MEDICAID, SELFPAY ==
--- NOTE | 2022-04-21 08:51 | STRESSREP_ITS ---
Stress Test Report Date: 04/21/2022 Procedure: Pharmacologic stress nuclear imaging study Indications: Chest pain; shortness of breath/dyspnea; palpitations; h yperlipidemia; hypertension Consent: Per the patient Procedure: The patient underwent pharmacologic (Regadenoson 0.4mg ) evaluation with a peak heart rate of 109 beats per minute (74%predicted maximal heart rate) and a peak blood pressure of 152/88 mmHg. The baseline ECG demonstrated normal sinus rhythm. The peak pharmacologic ECG demonstrated no obvious ECG changes. There were no cardiac dysrhythmias pretest, during pharmacologic infusion, or recovery. There was no complaint of chest discomfort during pharmacologic infusion or recovery. The examination was discontinued secondary to completion of protocol. Impression: 1. Pharmacologic (Regadenoson) evaluation 2. Peak pharmacologic ECG with no obvious ECG changes. 3. There were no cardiac dysrhythmias pretest, during pharmacologic infusion, or recovery. 4. Nuclear images pending Myocardial perfusion imaging study: Technique: The patient was injected with 11.0 millicuries of technetium 99m Cardiolite and subsequently rest SPECT Cardiolite nuclear imaging was obtained in the horizontal long, vertical long, and short axis views. The patient underwent pharmacologic (Regadenoson) evaluation with a peak heart rate of 109 beats per minute (74% percent predicted maximal heart rate) and a peak blood pressure of 152/80 mmHg. The patient was injected with 33.9 millicuries of technetium 99m Cardiolite and subsequently stress SPECT Cardiolite nuclear imaging was obtained in the horizontal long, vertical long, and short axis views. A gated Cardiolite study at peak stress was obtained. Interpretation: Rest and stress SPECT Cardiolite nuclear imaging status post realignment and normalization demonstrate relative uniform tracer uptake and myocardial perfusion appearing within normal limits. There is end systolic thickening and brightening. The gated Cardiolite study demonstrates myocardial thickening and inward wall motion. The reported LVEF is 90%. Impression: 1. Rest and stress SPECT Cardiolite nuclear imaging demonstrate relative uniform tracer uptake and myocardial perfusion appearing within normal limits. 2. The gated Cardiolite study reports an LVEF of 90%. This note was generated with [email or web address] software. It may contain incorrect words, spelling, and punctuation that were not noted in checking the note before signing.
== END | disposition home or self-care (01) ==
LOC: CVS 06:23
PROVIDERS: PCP Family Medicine; Referring Provider Nurse Practitioner Family; Visit Provider Nurse Practitioner Family
DX: R07.89 Other chest pain (principal); R06.02 Shortness of breath; E78.00 Pure hypercholesterolemia, unspecified; I10 Essential (primary) hypertension; R00.2 Palpitations
CPT/HCPCS: 78452; 93017; A9500; A4216; J2785

== ENCOUNTER → 2022-07-30 | Outpatient (CLI) | payer MEDICARE, MEDICAID, SELFPAY ==
--- NOTE | 2022-07-30 10:27 | BI_ITS ---
MAMMOGRAPHY - BILATERAL SCREENING REASON FOR EXAM: Female, 71 years old. Routine annual screening examination. PERTINENT HISTORY: Non-contributory. TECHNIQUE: Digital bilateral breast kemar (3D mammographic acquisition) in the CC and MLO projections. 2-D mediolateral oblique (MLO) and craniocaudad (CC) views of both breasts were obtained. CAD: Full Field Digital Mammography with Computer Added Detection was performed. COMPARISON: Comparison is made with prior study dated 07/25/2021. FINDINGS: Breast Composition: There are scattered areas of fibroglandular density. There are no dominant masses or suspicious calcifications. Stable appearance of the scattered bilateral microcalcifications more prominent in the upper outer aspect of the right breast. Stable small benign-appearing bilateral axillary lymph nodes. A tissue clip marker is once again seen in the inferior central portion of the right breast. No other significant abnormalities are identified. There has been no significant change since the prior study. BI/SCRN MAMM (CAD)W/KEMAR BILAT IMPRESSION: Stable bilateral screening mammogram. Yearly follow-up mammogram recommended. (A) ASSESSMENT CATEGORY: BIRADS Category 2: Benign. A letter regarding these results will be sent to the patient by the facility within 30 days. Approximately 10% of breast cancers are not detected by mammography. A normal mammogram should not delay biopsy of a clinically suspicious abnormality. [id number] Electronically Signed: Carlos Taylor MD at 11:23 EDT ,
== END | disposition home or self-care (01) ==
PROVIDERS: PCP Family Medicine; Referring Provider Family Medicine; Visit Provider Family Medicine
DX: Z12.31 Encounter for screening mammogram for malignant neoplasm of breast (principal)
CPT/HCPCS: 77063; 77067

== ENCOUNTER → 2023-01-01 | Outpatient (CLI) | payer MEDICARE, MEDICAID, SELFPAY ==
[2023-01-01 11:09] LABS: Hematocrit 46.3 % (37-47); Hemoglobin 15.3 g/dL (12.0-15.0); Mean Corpuscular Hgb 30.5 pg (27.0-32.0); Mean Corpuscular Volume 92.4 fL (81-99); Mean Platelet Vol. 9.5 fl (6.2-12.0); Platelet Count 178 K/mm3 (150-450); RBC Distribution Width CV 13.3 % (11.6-14.6); RBC Distribution Width SD 44.9 fl (35.1-43.9); Red Blood Count 5.01 M/mm3 (4.2-5.4); White Blood Count 4.7 K/mm3 (4.4-11.0)
[2023-01-01 11:46] LABS: Anion Gap 9 (5-15); BUN 15 mg/dL (7-18); Calcium,Total 9.6 mg/dL (8.5-10.1); Chloride 105 mmol/L (98-107); Creatinine, Serum 0.94 mg/dL (0.55-1.02); EST Glomerular Filtration Rate 62 mL/min (>60); Est Glom Filt Rate - Afr Amer 75 mL/min (>60); Glucose 142 mg/dL (74-106); Magnesium 2.3 mg/dL (1.6-2.6); Potassium 3.3 mmol/L (3.5-5.1); Sodium Level 141 mmol/L (136-145); Thyroid Stim Hormone (TSH) 0.71 uIU/mL (0.358-3.74)
== END | disposition home or self-care (01) ==
PROVIDERS: PCP Family Medicine; Referring Provider Nurse Practitioner Family; Visit Provider Nurse Practitioner Family
DX: E87.6 Hypokalemia (principal); R00.2 Palpitations; R06.02 Shortness of breath; R07.89 Other chest pain; R60.9 Edema, unspecified; E03.9 Hypothyroidism, unspecified
CPT/HCPCS: 36415; 80048; 83735; 84443; 85027; 93225; 93226

== ENCOUNTER → 2023-01-15 | Outpatient (CLI) | payer MEDICARE, MEDICAID, SELFPAY ==
[2023-01-15 10:50] LABS: Anion Gap 5 (5-15); BUN 21 mg/dL (7-18); BUN/Creat Ratio 31.2 RATIO (10-20); Calcium,Total 9.1 mg/dL (8.5-10.1); Chloride 111 mmol/L (98-107); Creatinine, Serum 0.67 mg/dL (0.55-1.02); EST Glomerular Filtration Rate 91 mL/min (>60); Est Glom Filt Rate - Afr Amer 110 mL/min (>60); Glucose 142 mg/dL (74-106); Potassium 3.6 mmol/L (3.5-5.1); Sodium Level 143 mmol/L (136-145)
== END | disposition home or self-care (01) ==
LOC: LAB 08:49
PROVIDERS: PCP Family Medicine; Referring Provider Nurse Practitioner Family; Visit Provider Nurse Practitioner Family
DX: E87.6 Hypokalemia (principal)
CPT/HCPCS: 36415; 80048

== ENCOUNTER 2023-04-10 21:56 | Emergency (ER) | payer MEDICARE, MEDICAID, SELFPAY ==
[2023-04-10 21:56] VITALS: BP 137/86; PULSE 89; RESP 16; TEMP 36.8; O2SAT 98; BMI 26.9
--- NOTE | 2023-04-11 00:06 | EDS_ITS ---
HPI History of Present Illness Chief Complaint: Lower Extremity Injury Informant: patient and family Narrative Narrative: Patient is a 72-year-old female with past medical history of hypertension hypothyroidism and anxiety. She states this evening she began with muscle spasms mainly in her left leg. She states she has been no recent trauma or excessive activity. She states she also noticed that her leg was slightly swollen compared to the right and has concern for a blood clot. She denies any recent surgery travel or history of DVT/PE but secondary to her spasms and pain and swelling she was concerned and therefore comes in for evaluation [facility] Medical History Anxiety Depression Essential hypertension Head injury (12/23/21) Hypothyroidism Palpitations Pure hypercholesterolemia Home Medications aspirin 81 mg tablet,delayed release (Adult Low Dose Aspirin) 81 mg PO QDAY 06/28/18 [History Last Taken Unknown] atorvastatin 20 mg tablet 20 mg PO QHS 12/05/19 [History Last Taken Unknown] levothyroxine 88 mcg tablet 88 mcg PO DAILY 02/05/22 [History Last Taken Unkn own] turmeric root extract 500 mg capsule 500 mg PO DAILY 02/05/22 [History Last Taken Unknown] isosorbide mononitrate 60 mg tablet,extended release 24 hr 60 mg PO DAILY this is a dose increase #90 tabs 07/01/22 [Rx Last Taken Unknown] calcium carbonate 600 mg calcium (1,500 mg) tablet (Calcium) 600 mg PO DAILY 09/03/22 [History Last Taken Unknown] cholecalciferol (vitamin D3) 25 mcg (1,000 unit) tablet 25 mcg PO DAILY 09/03/22 [History Last Taken Unknown] magnesium 250 mg tablet 250 mg PO DAILY 09/03/22 [History Last Taken Unknown] atenolol 50 mg tablet 50 mg PO DAILY #90 tabs 12/09/22 [Rx Last Taken Unknown] amlodipine 10 mg tablet 10 mg PO DAILY #90 tabs 01/01/23 [Rx Last Taken Unknown] methocarbamol 500 mg tablet 500 mg PO 4X/DAY PRN PRN Muscle pain/spasm #40 tabs 04/11/23 [Rx Last Taken Unknown] Allergy/AdvReac Type Severity Reaction Status Date / Time hydrochlorothiazide AdvReac Intermediate Hypokalemia Verified 04/10/23 21:59 even on 40 meq daily Family History Father , Age 65 Myocardial infarction Mother , Age 84 Dementia Sister Hypertension Sister Hypertension Sister Hyperlipidemia Surgical History History of left heart catheterization (~1993) History of partial hysterectomy Social History Smoking Status: Former smoker how long ago did patient quit smokin years ago alcohol intake: never substance use type: does not use caffeine: No ROS ROS ED Constitutional Constitutional ED: Denies chills or fever(s) ENT ENT ED: Denies rhinorrhea or sore throat Cardiovascular Cardiovascular: Denies chest pain or racing heartbeat Respiratory/Chest Respiratory/Chest: Denies cough or dyspnea Gastrointestinal Gastrointestinal: Denies abdominal pain, diarrhea, nausea or vomiting Genitourinary Genitourinary ED: Denies dysuria Musculoskeletal Musculoskeletal: Reports other Details: Positive muscle spasm ; Denies back pain Integumentary Denies rash Neurologic Neurologic: Denies headache(s), paresthesias or weakness Hematologic/Lymphatic Hematologic/Lymphatic: Denies easy bleeding or easy bruising EXAM Physical Exam Const Vital Signs: 04/10/23 21:56 Temperature 98.2 F Temperature Source Temporal Pulse Rate 89 Respiratory Rate 16 Blood Pressure 137/86 H Blood Pressure Mean 103 Pulse Ox 98 Oxygen Delivery Method Room Air Positive well nourished and well developed General Appearance ED: well developed Eyes PERRL and EOMs intact bilaterally Neck supple and no JVD Resp normal respiratory effort and clear to auscultation bilaterally Cardio regular rate and regular rhythm Rate: other Other Details: Radial pulses are plus 2 out of 4 bilaterally are equal and symmetric Extremity Extremity Narrative: There is trace asymmetric swelling of the left leg compared to right. No bony deformity or joint effusion. No overlying erythema or warmth. Negative Homans' sign bilaterally Neuro oriented x3, CN's II-XII intact bilaterally and no sensory deficits noted Sensorium / Orientation: alert Psych mental status grossly normal Skin no rashes or lesions noted MDM MDM MDM Narrative Medical decision making narrative: Patient presented to the ER with stable vitals and reported left leg pain and spasm and swelling with no known injury. Differential diagnosis includes muscle tension/spasm versus a strain/sprain versus overlying soft tissue infection such as cellulitis versus DVT. The patient's history and exam is consistent with a muscular spasm as she is low risk for DVT/PE and does not have any chest pain or hypoxia. Therefore this time I do not feel there is need for emergent imaging or laboratory studies. Based on the asymmetric swelling patient will require a venous duplex but I cannot perform one at this time night. Therefore should be covered with Lovenox for cardiovascular protection and we discharged home given order form to have a venous duplex obtained in the morning. History & Record Review Discussion w/independent historian: Patient and Family Discharge Plan Triage Chief Complaint: Lower Extremity Injury ED Provider: Julián Coronel Dx/Rx/DC Orders Clinical Impression: Peripheral edema, Muscle spasm Instructions: ED Muscle Spasm Prescriptions: New methocarbamol 500 mg tablet 500 mg PO 4X/DAY PRN PRN (Reason: Muscle pain/spasm) Qty: 40 0RF No Action aspirin [Adult Low Dose Aspirin] 81 mg tablet,delayed release (DR/EC) 81 mg PO QDAY atorvastatin 20 mg tablet 20 mg PO QHS cholecalciferol (vitamin D3) 25 mcg (1,000 unit) tablet 25 mcg PO DAILY magnesium 250 mg tablet 250 mg PO DAILY calcium carbonate [Calcium 600] 600 mg calcium (1,500 mg) tablet 600 mg PO DAILY levothyroxine 88 mcg tablet 88 mcg PO DAILY turmeric root extract 500 mg capsule 500 mg PO DAILY isosorbide mononitrate 60 mg tablet extended release 24 hr 60 mg PO DAILY Qty: 90 3RF atenolol 50 mg tablet 50 mg PO DAILY Qty: 90 4RF amlodipine 10 mg tablet 10 mg PO DAILY Qty: 90 3RF Other Ambulatory Orders: Venous Duplex US, Unilateral (Stat) Facility: [facility] - Location: [facility] Ordered By: Dr. Julián Coronel Primary Care Provider: Omar Reyes Referrals: Omar Reyes MD [Primary Care Provider] - Activity Restrictions/Additional Instructions: Please return to the hospital for the venous duplex/ultrasound to rule out blood clot/DVT in your left leg. You were given Lovenox which is a blood thinner to protect you for the next 24-hours. Also begin taking the muscle relaxer that was prescribed to help control/reduce any spasms Disposition Disposition: Home, Self Care Discharge Date/Time: 04/11/23 00:47
[2023-04-11] MEDS: Ketorolac 15 MG/ML Vial IM (00:16)
[2023-04-11] MEDS: Enoxaparin 100 MG/ML Syringe SC (00:17)
[2023-04-11] MEDS: Orphenadrine 60 MG/2 ML Ampul IM (00:17)
== END 2023-04-11 00:47 | disposition home or self-care (01) ==
PROVIDERS: Emergency Provider Emergency Medicine; PCP Family Medicine; Visit Provider Emergency Medicine
DX: M62.838 Other muscle spasm (principal); F41.9 Anxiety disorder, unspecified; Z87.891 Personal history of nicotine dependence; E78.00 Pure hypercholesterolemia, unspecified; I10 Essential (primary) hypertension; R60.0 Localized edema; E03.9 Hypothyroidism, unspecified; Z79.82 Long term (current) use of aspirin
CPT/HCPCS: 99282

== ENCOUNTER → 2023-04-11 | Outpatient (CLI) | payer MEDICARE, MEDICAID, SELFPAY ==
--- NOTE | 2023-04-11 10:50 | VDLE_ITS ---
Reason For Study: LLE PAIN RIGHT LEFT CFV is compressible, spontaneous, phasic, GSV is normal. competent and demonstrates normal CFV is compressible, spontaneous, phasic, augmentation. competent, and demonstrates normal Procedure augmentation. This is a venous duplex using B-mode, color FV is compressible, spontaneous, phasic, flow and spectral Doppler. competent and demonstrates normal Exam performed in department. augmentation. The exam was diagnostic. POP V is compressible, spontaneous, phasic, A preliminary report was called and/or faxed competent and demonstrates normal to DR. Omar Reyes @ [phone] @ 11:30 augmentation. am. T/P Trunk is compressible. PTV is compressible. LT PerV is compressible. VL/Venous Duplex US, Unilateral Interpretation Summary Deep veins of the left lower extremity are patent and compressible segmentally. There is no evidence of left lower extremity deep vein thrombosis. Valvular competence appears intac t within the proximal deep venous system on the left . The left great saphenous vein appears patent a nd compressible segmentally. The right common femoral vein is patent and compressible . Ordering Physician: Julián Coronel Referring Physician: Omar Reyes Performed By: Paula Ware, ADELINE, RVT
== END | disposition home or self-care (01) ==
PROVIDERS: PCP Family Medicine; Visit Provider Emergency Medicine
DX: M79.605 Pain in left leg (principal)
CPT/HCPCS: 93971

== ENCOUNTER → 2023-04-17 | Outpatient (CLI) | payer MEDICARE, MEDICAID, SELFPAY ==
[2023-04-17 15:41] LABS: Anion Gap 6 (5-15); BUN 22 mg/dL (7-18); BUN/Creat Ratio 25.1 RATIO (10-20); Calcium,Total 9.5 mg/dL (8.5-10.1); Chloride 108 mmol/L (98-107); Creatinine, Serum 0.88 mg/dL (0.55-1.02); EST Glomerular Filtration Rate 67 mL/min (>60); Est Glom Filt Rate - Afr Amer 81 mL/min (>60); Glucose 134 mg/dL (74-106); Magnesium 1.8 mg/dL (1.6-2.6); Potassium 3.2 mmol/L (3.5-5.1); Sodium Level 141 mmol/L (136-145)
== END | disposition home or self-care (01) ==
PROVIDERS: PCP Family Medicine; Referring Provider Nurse Practitioner Family; Visit Provider Nurse Practitioner Family
DX: M62.838 Other muscle spasm (principal)
CPT/HCPCS: 36415; 80048; 83735

== ENCOUNTER → 2023-04-24 | Outpatient (CLI) | payer MEDICARE, MEDICAID, SELFPAY ==
[2023-04-24 08:09] LABS: Anion Gap 8 (5-15); BUN 23 mg/dL (7-18); BUN/Creat Ratio 26.7 RATIO (10-20); Calcium,Total 9.6 mg/dL (8.5-10.1); Chloride 106 mmol/L (98-107); Creatinine, Serum 0.86 mg/dL (0.55-1.02); EST Glomerular Filtration Rate 68 mL/min (>60); Est Glom Filt Rate - Afr Amer 83 mL/min (>60); Glucose 142 mg/dL (74-106); Potassium 3.8 mmol/L (3.5-5.1); Sodium Level 139 mmol/L (136-145)
== END | disposition home or self-care (01) ==
PROVIDERS: PCP Family Medicine; Referring Provider Nurse Practitioner Family; Visit Provider Nurse Practitioner Family
DX: M62.838 Other muscle spasm (principal); E87.6 Hypokalemia
CPT/HCPCS: 36415; 80048

== ENCOUNTER 2023-05-06 15:48 | Emergency (ER) | payer MEDICARE, MEDICAID, SELFPAY ==
[2023-05-06 15:50] VITALS: BP 107/80; PULSE 83; RESP 14; TEMP 36.1; O2SAT 98; BMI 27.3
--- NOTE | 2023-05-06 16:00 | EX.ED.VIS.HA ---
HPI History of Present Illness Chief Complaint: Headache Informant: patient Onset/Context/Timing Onset: Month(s) Narrative Narrative: Patient presents secondary to chronic headaches. She states she hit her head early last year and since that time has had right frontal headaches. She is scheduled to see a neurologist to [place] next week, but states because of the pain she could not wait another week. She states her family doctor has seen her multiple times and told her to take Tylenol or ibuprofen. She states those medicines do not work. She denies light sensitivity, nausea, vomiting, or vision changes. She has had no recent head injuries. She was seen here after her initial head injury in December of last year and had a negative CT scan. Patient was observed ambulating to her room without difficulty. [facility] Medical History Anxiety Depression Essential hypertension Head injury (12/23/21) Hypothyroidism Palpitations Pure hypercholesterolemia Home Medications aspirin 81 mg tablet,delayed release (Adult Low Dose Aspirin) 81 mg PO QDAY 06/28/18 [History Last Taken Unknown] atorvastatin 20 mg tablet 20 mg PO QHS 12/05/19 [History Last Taken Unknown] levothyroxine 88 mcg tablet 88 mcg PO DAILY 02/05/22 [History Last Taken Unknown] turmeric root extract 500 mg capsule 500 mg PO DAILY 02/05/22 [History Last Taken Unknown] isosorbide mononitrate 60 mg tablet,extended release 24 hr 60 mg PO DAILY this is a dose increase #90 tabs 07/01/22 [Rx Last Taken Unknown] calcium carbonate 600 mg calcium (1,500 mg) tablet (Calcium) 600 mg PO DAILY 09/03/22 [History Last Taken Unknown] cholecalciferol (vitamin D3) 25 mcg (1,000 unit) tablet 25 mcg PO DAILY 09/03/22 [History Last Taken Unknown] magnesium 250 mg tablet 250 mg PO DAILY 09/03/22 [History Last Taken Unknown] atenolol 50 mg tablet 50 mg PO DAILY #90 tabs 12/09/22 [Rx Last Taken Unknown] amlodipine 10 mg tablet 10 mg PO DAILY #90 tabs 01/01/23 [Rx Last Taken Unknown] methocarbamol 500 mg tablet 500 mg PO 4X/DAY PRN PRN Muscle pain/spasm #40 tabs 04/11/23 [Rx Last Taken Unknown] potassium chloride 20 mEq tablet,extended release 20 meq PO DAILY #30 tabs 04/17/23 [Rx Last Taken Unknown] diphenhydramine HCl 25 mg capsule (Benadryl) 25 mg PO BID PRN PRN headache #10 caps 05/06/23 [Rx Last Taken Unknown] ketorolac 10 mg tablet 10 mg PO BID PRN PRN headache #10 tabs 05/06/23 [Rx Last Taken Unknown] prochlorperazine maleate 5 mg tablet (Compazine) 5 mg PO BID PRN headache #10 tabs 05/06/23 [Rx Last Taken Unknown] Allergy/AdvReac Type Severity Reaction Status Date / Time hydrochlorothiazide AdvReac Intermediate Hypokalemia Verified 05/06/23 15:50 even on 40 meq daily Family History Father , Age 65 Myocardial infarction Mother , Age 84 Dementia Sister Hypertension Sister Hypertension Sister Hyperlipidemia Surgical History History of left heart catheterization (~1993) History of partial hysterectomy Social History Smoking Status: Former smoker how long ago did patient quit smokin years ago alcohol intake: never substance use type: does not use caffeine: No ROS ROS ED Constitutional Constitutional ED: Denies chills or fever(s) Eyes Eyes: Denies change in vision or discharge from eye(s) ENT ENT ED: Denies discharge from eye(s), rhinorrhea or sore throat Cardiovascular Cardiovascular: Denies chest pain or palpitations Respiratory/Chest Respiratory/Chest: Denies cough or dyspnea Gastrointestinal Gastrointestinal: Denies abdominal pain, nausea or vomiting Genitourinary Genitourinary ED: Denies dysuria Musculoskeletal Musculoskeletal: Denies back pain or extremity pain Integumentary Denies Abrasions or rash Neurologic Neurologic: Reports headache(s); Denies paresthesias or weakness Psychiatric Psychiatric: Denies anxiety or depression Allergic/Immunologic Allergic/Immunologic ED: Denies lip swelling or urticaria EXAM Physical Exam Narrative Exam Narrative: Patient sitting upright in bed no well lit room. She is pleasant and talkative. No acute distress. Const Vital Signs: 05/06/23 15:50 05/06/23 16:18 Temperature 97 F L Temperature Source Temporal Temporal Pulse Rate 83 Respiratory Rate 14 Blood Pressure 107/80 Blood Pressure Mean 89 Pulse Ox 98 Oxygen Delivery Method Room Air Positive well nourished and well developed General Appearance ED: well developed HEENT Reports normocephalic and moist mucous membranes Eyes EOMs intact bilaterally Neck no lymphadenopathy Resp normal respiratory effort and clear to auscultation bilaterally Cardio regular rate and regular rhythm GI non-tender Auscultation: normoactive bowel sounds Extremity normal to inspection Neuro oriented x3 and no sensory deficits noted Sensorium / Orientation: alert Speech: speech normal Motor Exam: strength 5/5 throughout Psych mental status grossly normal MDM MDM MDM Narrative Medical decision making narrative: Patient given 15 mg of Toradol, 5 mg of Compazine, 12.5 mg of Benadryl IV. She is also given a 500 cc IV fluid bolus. On repeat evaluation patient states that she feels significantly improved. She will be given p.o. meds that she can use as needed this week until she is seen by neurology. Return instructions given. Discharge Plan Triage Chief Complaint: Headache ED Provider: Frieda Wiseman Dx/Rx/DC Orders Clinical Impression: Cephalgia Instructions: ED Headache Unspecified Prescriptions: New ketorolac 10 mg tablet 10 mg PO BID PRN PRN (Reason: headache) Qty: 10 0RF prochlorperazine maleate [Compazine] 5 mg tablet 5 mg PO BID PRN (Reason: headache) Qty: 10 0RF diphenhydramine HCl [Benadryl] 25 mg capsule 25 mg PO BID PRN PRN (Reason: headache) Qty: 10 0RF No Action aspirin [Adult Low Dose Aspirin] 81 mg tablet,delayed release (DR/EC) 81 mg PO QDAY atorvastatin 20 mg tablet 20 mg PO QHS cholecalciferol (vitamin D3) 25 mcg (1,000 unit) tablet 25 mcg PO DAILY magnesium 250 mg tablet 250 mg PO DAILY calcium carbonate [Calcium 600] 600 mg calcium (1,500 mg) tablet 600 mg PO DAILY levothyroxine 88 mcg tablet 88 mcg PO DAILY turmeric root extract 500 mg capsule 500 mg PO DAILY methocarbamol 500 mg tablet 500 mg PO 4X/DAY PRN PRN (Reason: Muscle pain/spasm) Qty: 40 0RF isosorbide mononitrate 60 mg tablet extended release 24 hr 60 mg PO DAILY Qty: 90 3RF atenolol 50 mg tablet 50 mg PO DAILY Qty: 90 4RF amlodipine 10 mg tablet 10 mg PO DAILY Qty: 90 3RF potassium chloride 20 mEq tablet extended release 20 meq PO DAILY Qty: 30 11RF Primary Care Provider: Omar Reyes Referrals: Omar Reyes MD [Primary Care Provider] - Activity Restrictions/Additional Instructions: Follow-up with your neurologist next week as scheduled. Disposition Disposition: Home, Self Care
[2023-05-06] MEDS: proCHLORPERazine 10 MG/2 ML Vial 5 MG IV (16:07)
[2023-05-06] MEDS: Ketorolac 15 MG/ML Vial IV (16:07)
[2023-05-06] MEDS: DiphenhydrAMINE 50 MG/ML Syringe 12.5 MG IV (16:07)
== END 2023-05-06 17:16 | disposition home or self-care (01) ==
PROVIDERS: Emergency Provider Emergency Medicine; PCP Family Medicine; Visit Provider Emergency Medicine
DX: R51.9 Headache, unspecified (principal); I10 Essential (primary) hypertension; Z87.891 Personal history of nicotine dependence; E78.00 Pure hypercholesterolemia, unspecified; Z79.82 Long term (current) use of aspirin; E03.9 Hypothyroidism, unspecified; Z90.710 Acquired absence of both cervix and uterus
CPT/HCPCS: 96361; 96374; 96375; 99282; J7040; A4216

== ENCOUNTER → 2023-06-05 | Outpatient (CLI) | payer MEDICARE, MEDICAID, SELFPAY ==
[2023-06-05 12:34] LABS: Anion Gap 7 (5-15); BUN 20 mg/dL (7-18); BUN/Creat Ratio 19.8 RATIO (10-20); Calcium,Total 9.6 mg/dL (8.5-10.1); Chloride 107 mmol/L (98-107); Creatinine, Serum 1.01 mg/dL (0.55-1.02); EST Glomerular Filtration Rate 57 mL/min (>60); Est Glom Filt Rate - Afr Amer 69 mL/min (>60); Glucose 118 mg/dL (74-106); Sodium Level 141 mmol/L (136-145)
== END | disposition home or self-care (01) ==
PROVIDERS: PCP Family Medicine; Referring Provider Internal Medicine Cardiovascular Disease; Visit Provider Internal Medicine Cardiovascular Disease
DX: R60.0 Localized edema (principal); E78.5 Hyperlipidemia, unspecified; R06.02 Shortness of breath; I10 Essential (primary) hypertension
CPT/HCPCS: 36415; 80048

== ENCOUNTER 2023-06-09 12:38 | Emergency (ER) | payer MEDICARE, MEDICAID, SELFPAY ==
[2023-06-09 12:40] VITALS: BP 141/86; PULSE 84; RESP 18; TEMP 36.1; O2SAT 98; BMI 27.5
--- NOTE | 2023-06-09 13:10 | ED.VIS.CHEST ---
HPI History of Present Illness Chief Complaint: Chest Pain [facility] Medical History Anxiety Depression Essential hypertension Head injury (12/23/21) Hypothyroidism Palpitations Pure hypercholesterolemia Home Medications aspirin 81 mg tablet,delayed release (Adult Low Dose Aspirin) 81 mg PO QDAY 06/28/18 [History Last Taken Unknown] atorvastatin 20 mg tablet 20 mg PO QHS 12/05/19 [History Last Taken Unknown] levothyroxine 88 mcg tablet 88 mcg PO DAILY 02/05/22 [History Last Taken Unknown] turmeric root extract 500 mg capsule 500 mg PO DAILY 02/05/22 [History Last Taken Unknown] isosorbide mononitrate 60 mg tablet,extended release 24 hr 60 mg PO DAILY this is a dose increase #90 tabs 07/01/22 [Rx Last Taken Unknown] calcium carbonate 600 mg calcium (1,500 mg) tablet (Calcium) 600 mg PO DAILY 09/03/22 [History Last Taken Unknown] cholecalciferol (vitamin D3) 25 mcg (1,000 unit) tablet 25 mcg PO DAILY 09/03/22 [History Last Taken Unknown] magnesium 250 mg tablet 250 mg PO DAILY 09/03/22 [History Last Taken Unknown] atenolol 50 mg tablet 50 mg PO DAILY #90 tabs 12/09/22 [Rx Last Taken Unknown] methocarbamol 500 mg tablet 500 mg PO 4X/DAY PRN PRN Muscle pain/spasm #40 tabs 04/11/23 [Rx Last Taken Unknown] diphenhydramine HCl 25 mg capsule (Benadryl) 25 mg PO BID PRN PRN headache #10 caps 05/06/23 [Rx Last Taken Unknown] prochlorperazine maleate 5 mg tablet (Compazine) 5 mg PO BID PRN headache #10 tabs 05/06/23 [Rx Last Taken Unknown] tizanidine 4 mg capsule 4 mg PO QHS PRN 05/14/23 [History Last Taken Unknown] triamterene 37.5 mg-hydrochlorothiazide 25 mg tablet 1 tab PO DAILY 05/14/23 [History Last Taken Unknown] losartan 50 mg tablet 50 mg PO DAILY #90 tabs 05/29/23 [Rx Last Taken Unknown] potassium chloride 20 mEq tablet,extended release 20 meq PO DAILY 05/29/23 [History Last Taken Unknown] riboflavin (vitamin B2) 400 mg tablet 400 mg PO DAILY 05/29/23 [History Last Taken Unknown] zonisamide 25 mg capsule 25 mg PO DAILY 05/29/23 [History Last Taken Unknown] meloxicam 7.5 mg tablet 7.5 mg PO DAILY #30 tabs 06/09/23 [Rx Last Taken Unknown] Allergy/AdvReac Type Severity Reaction Status Date / Time hydrochlorothiazide AdvReac Intermediate Hypokalemia Verified 06/09/23 12:40 even on 40 meq daily Family History Father , Age 65 Myocardial infarction Mother , Age 84 Dementia Sister Hypertension Sister Hypertension Sister Hyperlipidemia Surgical History History of left heart catheterization (~1993) History of partial hysterectomy Social History Smoking Status: Former smoker how long ago did patient quit smokin years ago alcohol intake: never substance use type: does not use caffeine: No EXAM Physical Exam Const Vital Signs: 06/09/23 12:40 06/09/23 13:26 06/09/23 15:27 Temperature 96.9 F L Temperature Source Temporal Pulse Rate 84 58 L Respiratory Rate 18 14 Blood Pressure 141/86 H 113/72 Blood Pressure Mean 104 85 Pulse Ox 98 96 97 Oxygen Delivery Method Room Air Room Air Room Air Heart Score History: Slightly/Non-Suspicious ECG: Normal Age: >/= 65 years Risk Factors: >/= 3 Risk Factors or History of CAD Troponin: </= Normal Limit Score: 4 MDM MDM MDM Narrative Medical decision making narrative: HISTORY OF PRESENT ILLNESS: 72-year-old female here with chest pain. Patient states she had years of chest pain. Does not endorse it significantly getting worse no shortness of breath no obvious fatigue or syncope. States he has a stress test scheduled for June. Denies any cough. The patient denies recent surgery in the last 4 weeks or immobilization in the last 3 days, denies previous diagnosis of DVT or PE, hemoptysis, unilateral leg swelling or malignancy with treatment the last 6 months. No estrogen use noted. Patient denies sudden onset of pain, no tearing sensation, no migratory symptoms, no new numbness, weakness or loss of sensation. Patient denies family history or personal history of Marfan syndrome or Travis-Danlos REVIEW OF SYSTEMS: Pertinent positives: Chest pain Pertinent negatives: [Syncope or focal deficit PHYSICAL EXAM: Nursing triage notes reviewed, Vital signs reviewed Constitutional: please see mdm HENT: MMM Eyes: Pupils equal round and reactive to light, Extraocular muscles intact Neck: No stridor, no JVD, full neck ROM Lungs: Clear to auscultation, No wheezing or rales. No increased work of breathing, no conversational dyspnea, no accessory muscle use, no nasal flaring. No respiratory distress noted Heart: Regular rate and rhythm, No murmurs, No rubs and No gallops, 2+ distal pulses (radial, femoral, posterior tibial) in all extremities Abdomen: Soft, there is no tenderness, rigidity, rebound or guarding, no obvious peritoneal signs, no palpable pulsatile abdominal masses, no auscultated abdominal bruit : No CVAT Extremities: No edema Neuro: No focal neurological deficits, cranial nerves II through XII intact, 5/5 strength in all extremities. Intact sensation to light touch in all extremities, 2+ reflexes bilateral patella tendons. Normal gait. No ataxia. Skin: No rash or lesions noted MEDICAL DECISION MAKING: Chief Complaint: Chest pain External records reviewed: Stress test in 2021 shows normal perfusion. EF is 90% Factors affecting care: Hypertension, palpitations, hyperlipidemia, status post left heart cath ALL IMAGES (IF OBTAINED) HAVE BEEN PERSONALLY REVIEWED AND INTERPRETED BY MYSELF. EKG with normal sinus rhythm, left axis deviation, no intervals, no STEMI [facility] Narrative: Patient was hemodynamically stable, afebrile, nontoxic-appearing. Exam I considered the following differential diagnosis: PE less likely given low risk Wells score. Aortic dissection is thought to be less likely given no sudden ripping or tearing pain, migratory pain, palpable pulse inequalities, no focal neurologic deficits concurrent with chest pain. Chance of dissection less than 11/1999. Pericarditis less likely given no pathognomonic EKG changes (no diffuse ST elevations, AL depressions). GI etiology (i.e. Boerhaave syndrome) less likely given no chest or neck crepitus, no vomiting or forced retching. I obtained labs images to further elucidate the etiology of change patient complaint. Calculated heart score. Initial EKG showed no evidence of myocardial ischemia. Initial troponin was negative. Gave aspirin for mortality benefit. Chest x-ray without evidence of intrathoracic abnormalities. Troponins were negative x2. Patient's heart score is 4. Did offer admission for confirmatory testing of the patient refused Sara to follow-up as an outpatient to start taking meloxicam for anti-inflammatory effect. Risk and benefits of admission versus discharge were discussed. The patient was alert and oriented x3 no capacity make own decisions and chose to be discharged home with close outpatient follow-up. Patient is appropriate for discharge home. The patient and/or family, caregivers express understanding. The patient and/or family, caregivers agrees with the plan. Shared decision making: I will have a discussion with the patient and or visitors regarding risk/benefits of further testing or admission. They will be made aware of of the risk/benefits inherent in this decision they will be given the opportunity to voice understanding. Total critical care time today provided was at least 0 minutes. This excludes separately billable procedures. Critical care time (if documented) is secondary to the patient having high probability of clinically significant/life threatening deterioration in the patient's condition which required my urgent intervention. Lab Data Attestation: I reviewed the patient's lab results. Lab results narrative: CBC without leukocytosis, severe anemia, no thrombocytopenia. BMP without evidence of significant electrolyte abnormalities, no anion gap, no acute kidney injury. Troponin is negative, no evidence of myocardial ischemia, negative x2 Labs: Laboratory Results - last 24 hr 06/09/23 13:20 WBC 4.6 RBC 4.70 Hgb 14.6 Hct 43.8 MCV 93.2 MCH 31.1 MCHC 33.3 RDW Std Deviation 45.1 H RDW Coeff of Emiliana 13.1 Plt Count 162 MPV 9.5 Immature Gran % (Auto) 0.200 Neut % (Auto) 64.8 Lymph % (Auto) 26.1 Pierce % (Auto) 7.4 Eos % (Auto) 1.1 Baso % (Auto) 0.4 Absolute Neuts (auto) 3.0 Absolute Lymphs (auto) 1.20 Nucleated RBC % 0 Sodium 139 Potassium 3.6 Chloride 106 Carbon Dioxide 27.0 Anion Gap 6 BUN 17 Creatinine 1.08 H Estim Creat Clear Calc 34.49 Est GFR (MDRD) Af Amer 64 Est GFR (MDRD) Non-Af 53 L BUN/Creatinine Ratio 15.7 Glucose 133 H Calcium 10.0 Troponin I High Sens < 3 L Radiography Chest X-Ray - ED: Read by ED Physician Diagnostic Testing: Clinical Impression(s) from Imaging Studies Chest X-Ray 06/09/23 13:30 IMPRESSION: The lungs are clear. Prominence of the central pulmonary arteries. Electronically Signed: Carlos Taylor MD at 14:03 EDT , I have personally reviewed the patient's chest x-ray. Chest x-ray is unremarkable for pulmonary edema, pneumothorax, pneumonia or focal cardiopulmonary abnormality. Discharge Plan Triage Chief Complaint: Chest Pain ED Provider: Juan Monae Dx/Rx/DC Orders Clinical Impression: Chest pain Instructions: Chest Pain [facility] Prescriptions: New meloxicam 7.5 mg tablet 7.5 mg PO DAILY Qty: 30 0RF No Action aspirin [Adult Low Dose Aspirin] 81 mg tablet,delayed release (DR/EC) 81 mg PO QDAY atorvastatin 20 mg tablet 20 mg PO QHS cholecalciferol (vitamin D3) 25 mcg (1,000 unit) tablet 25 mcg PO DAILY magnesium 250 mg tablet 250 mg PO DAILY calcium carbonate [Calcium 600] 600 mg calcium (1,500 mg) tablet 600 mg PO DAILY levothyroxine 88 mcg tablet 88 mcg PO DAILY turmeric root extract 500 mg capsule 500 mg PO DAILY tizanidine 4 mg capsule 4 mg PO QHS PRN triamterene-hydrochlorothiazid 37.5-25 mg tablet 1 tab PO DAILY zonisamide 25 mg capsule 25 mg PO DAILY Patient Comments: TAKE 1 CAPSULE BY MOUTH ONCE DAILY riboflavin (vitamin B2) 400 mg tablet 400 mg PO DAILY potassium chloride 20 mEq tablet extended release 20 meq PO DAILY losartan 50 mg tablet 50 mg PO DAILY Qty: 90 1RF methocarbamol 500 mg tablet 500 mg PO 4X/DAY PRN PRN (Reason: Muscle pain/spasm) Qty: 40 0RF prochlorperazine maleate [Compazine] 5 mg tablet 5 mg PO BID PRN (Reason: headache) Qty: 10 0RF diphenhydramine HCl [Benadryl] 25 mg capsule 25 mg PO BID PRN PRN (Reason: headache) Qty: 10 0RF isosorbide mononitrate 60 mg tablet extended release 24 hr 60 mg PO DAILY Qty: 90 3RF atenolol 50 mg tablet 50 mg PO DAILY Qty: 90 4RF Primary Care Provider: Omar Reyes Referrals: Omar Reyes MD [Primary Care Provider] - Activity Restrictions/Additional Instructions: Thank you for trusting us with your care today! Please take Tylenol (2 pills, 650 mg) and meloxicam daily every 6 hours as needed for pain and fever control. Please return to the emergency department if your symptoms change or worsen. Please follow with your primary care physician for further outpatient evaluation and management. Disposition Disposition: Home, Self Care
--- NOTE | 2023-06-09 13:11 | EKG12_ITS ---
Test Reason : CP Blood Pressure : / mmHG Vent. Rate : 065 BPM Atrial Rate : 065 BPM P-R Int : 172 ms QRS Dur : 074 ms QT Int : 408 ms P-R-T Axes : 018 -13 016 degrees QTc Int : 424 ms Normal sinus rhythm Normal ECG Confirmed by RADHA SAUNDERS, JELLY ([id number]), medical transcription editor MUKESH NORMAN ([id number]) on 06/10/2023 2:25:50 PM Referred By: SABINO/ALVA Confirmed By:JELLY GARCIA MD
[2023-06-09] MEDS: Aspirin 81 MG TAB.CHEW 324 MG PO (13:23)
[2023-06-09 13:26] VITALS: O2SAT 96
--- NOTE | 2023-06-09 13:30 | RAD_ITS ---
STUDY: X-RAY CHEST REASON FOR EXAM: Female, 72 years old. Chest pain TECHNIQUE: COMPARISON: None. FINDINGS: The lungs are clear and expanded. There is no demonstrated pleural abnormality. Normal size heart. Normal mediastinum and theo. There is prominence of the pulmonary hilar arteries without peripheral pulmonary vascular congestion, suggesting pulmonary hypertension. There is atherosclerotic calcification of the aortic arch with tortuosity. There are diffuse degenerative changes of the visualized thoracic spine. Normal visualized ribs, clavicles, and shoulders. There is no demonstrated abnormality of the visualized soft tissue structures of the upper abdomen. RAD/Chest 1 View (Portable) IMPRESSION: The lungs are clear. Prominence of the central pulmonary arteries. Electronically Signed: Carlos Taylor MD at 14:03 EDT ,
[2023-06-09 13:43] LABS: Basophil# 0.02 X10^3/uL; Basophil% 0.4 % (0-1); Eosinophil# 0.05 X10^3/uL; Eosinophils% 1.1 % (0-5); Hematocrit 43.8 % (37-47); Hemoglobin 14.6 g/dL (12.0-15.0); Lymphocyte % 26.1 % (19-41); Mean Corp Hgb Conc 33.3 g/dL (32-36); Mean Corpuscular Hgb 31.1 pg (27.0-32.0); Mean Corpuscular Volume 93.2 fL (81-99); Mean Platelet Vol. 9.5 fl (6.2-12.0); Monocyte# 0.34 X10^3/uL; Monocyte% 7.4 % (0-10); NRBC Flagged by Analyzer 0 % (0-5); Neutrophil # 2.98 X10^3/uL (2.7-7.7); Neutrophil % 64.8 % (47-70); Platelet Count 162 K/mm3 (150-450); RBC Distribution Width CV 13.1 % (11.6-14.6); RBC Distribution Width SD 45.1 fl (35.1-43.9); White Blood Count 4.6 K/mm3 (4.4-11.0)
[2023-06-09 13:56] LABS: Anion Gap 6 (5-15); BUN 17 mg/dL (7-18); BUN/Creat Ratio 15.7 RATIO (10-20); Chloride 106 mmol/L (98-107); Creatinine, Serum 1.08 mg/dL (0.55-1.02); EST Glomerular Filtration Rate 53 mL/min (>60); Est Glom Filt Rate - Afr Amer 64 mL/min (>60); Estimated Creatinine Clearance 34.49 ml/min; Glucose 133 mg/dL (74-106); Potassium 3.6 mmol/L (3.5-5.1); Sodium Level 139 mmol/L (136-145); Troponin-I HS (w/2H Reflex) < 3 pg/mL (3.0-54.0)
[2023-06-09 15:27] VITALS: BP 113/72; PULSE 58; RESP 14; O2SAT 97
[2023-06-09 15:36] LABS: Reflex Troponin-HS? (from REC) Y
[2023-06-09 16:12] LABS: Troponin-I HS < 3 pg/mL (3.0-54.0)
[2023-06-09 16:46] VITALS: BP 135/70; PULSE 56; RESP 16; O2SAT 97
== END 2023-06-09 16:48 | disposition home or self-care (01) ==
PROVIDERS: Emergency Provider Emergency Medicine; PCP Family Medicine; Visit Provider Emergency Medicine
DX: R07.9 Chest pain, unspecified (principal); I10 Essential (primary) hypertension; E78.00 Pure hypercholesterolemia, unspecified; Z87.891 Personal history of nicotine dependence; E03.9 Hypothyroidism, unspecified; Z79.82 Long term (current) use of aspirin; Z82.49 Family history of ischemic heart disease and other diseases of the circulatory system
CPT/HCPCS: 71045; 80048; 84484; 85025; 93005; 99283; A4216

== ENCOUNTER 2023-06-11 12:34 | Emergency (ER) | payer MEDICARE, MEDICAID, SELFPAY ==
[2023-06-11 12:34] VITALS: BP 133/83; PULSE 68; RESP 18; TEMP 35.9; O2SAT 99; BMI 27.0
--- NOTE | 2023-06-11 13:05 | ED.RN ---
EMS CALLED REPORT OF HYPERTENSIVE PATIENT [address] CAMARENA CONSULTED AND DECISION WAS MADE TO SEE PATIENT IN THE ED DUE TO CHIEF COMPLAINT OF NOSEBLEED. OB NOTIFIED AND AGREED WITH PLAN TO SEE PT IN ED.
[2023-06-11 13:25] VITALS: O2SAT 98
--- NOTE | 2023-06-11 14:00 | EKG12_ITS ---
Test Reason : Blood Pressure : / mmHG Vent. Rate : 059 BPM Atrial Rate : 059 BPM P-R Int : 164 ms QRS Dur : 072 ms QT Int : 422 ms P-R-T Axes : 008 -25 019 degrees QTc Int : 417 ms Sinus bradycardia Otherwise normal ECG Confirmed by RADHA SAUNDERS, JELLY ([id number]), editorial director DIXON ROBLEDO ([id number]) on 06/12/2023 9:17:23 AM Referred By: KENNA Confirmed By:JELLY GARCIA MD
[2023-06-11 14:07] VITALS: BP 117/70; PULSE 60; RESP 19; TEMP 36.9; O2SAT 98
[2023-06-11 14:24] LABS: Absolute Neutrophil Count 4.2 X10^3/uL (2.0-7.7); Basophil# 0.02 X10^3/uL; Basophil% 0.3 % (0-1); Eosinophil# 0.05 X10^3/uL; Eosinophils% 0.8 % (0-5); Hematocrit 43.6 % (37-47); Hemoglobin 14.9 g/dL (12.0-15.0); Lymphocyte % 20.3 % (19-41); Mean Corp Hgb Conc 34.2 g/dL (32-36); Mean Corpuscular Hgb 32.1 pg (27.0-32.0); Mean Platelet Vol. 9.6 fl (6.2-12.0); Monocyte# 0.43 X10^3/uL; Monocyte% 7.3 % (0-10); NRBC Flagged by Analyzer 0 % (0-5); Neutrophil # 4.19 X10^3/uL (2.7-7.7); Platelet Count 164 K/mm3 (150-450); RBC Distribution Width CV 13.3 % (11.6-14.6); RBC Distribution Width SD 45.3 fl (35.1-43.9); Red Blood Count 4.64 M/mm3 (4.2-5.4); White Blood Count 5.9 K/mm3 (4.4-11.0)
[2023-06-11 14:37] LABS: D-Dimer Quantitative (DVT/PE) 0.35 FEU/ug/m (0.27-0.49)
[2023-06-11 14:43] LABS: Anion Gap 8 (5-15); BUN 20 mg/dL (7-18); BUN/Creat Ratio 18.7 RATIO (10-20); Calcium,Total 10.3 mg/dL (8.5-10.1); Chloride 107 mmol/L (98-107); Creatinine, Serum 1.07 mg/dL (0.55-1.02); EST Glomerular Filtration Rate 53 mL/min (>60); Est Glom Filt Rate - Afr Amer 64 mL/min (>60); Estimated Creatinine Clearance 34.81 ml/min; Glucose 118 mg/dL (74-106); Potassium 4.1 mmol/L (3.5-5.1); Sodium Level 140 mmol/L (136-145); Troponin-I HS 4 pg/mL (3.0-54.0)
[2023-06-11 16:16] VITALS: BP 111/68; BP 120/71; BP 124/76; BP 126/86; PULSE 63; PULSE 66; PULSE 79; RESP 16; O2SAT 97
[2023-06-11 16:28] VITALS: O2SAT 98
--- NOTE | 2023-06-11 16:52 | EX.ED.DYSGE1 ---
HPI History of Present Illness Chief Complaint: General Illness Informant: patient Narrative Narrative: Patient is a 72-year-old female with history of anxiety, hypothyroidism, hyperlipidemia, and hypertension presenting for multiple complaints including ongoing dizziness, headache, chest discomfort and now shortness of breath. Patient states she had a head injury about a year ago and has been having dizziness and frontal head pressure since. She states she follows with neurology and actually has an MRI scheduled for 2 weeks from now (June 30). She denies any recent change or dizziness. She also notes that for a while which she states is months she has been having ongoing discomfort in her epigastric region/lower chest. She does have an echo/stress test ordered by her primary care doctor. For the past few days she elicits some some increase shortness of breath and dyspnea on exertion. She denies any associated cough, wheezing, nausea, vomiting, reflux or abdominal pain. She states has been sleeping well at night. She notes she has had some mild edema of her feet. Denies any recent travel. Patient was seen in our ER 2 days ago for evaluation of her chest pain and she is also been seen in our ER multiple times for headache. She had a cardiac work-up including delta high-sensitivity troponins, EKG and chest x-ray which were normal. Patient states she might of forgotten to mention about her shortness of breath when she was seen in the ER 2 days ago. No other acute complaints at this time. Patient states that she was very concerned that it was not safe for her to wait for her outpatient testing which is why she came back to the emergency room. [facility] Medical History Anxiety Depression Essential hypertension Head injury (12/23/21) Hypothyroidism Palpitations Pure hypercholesterolemia Home Medications aspirin 81 mg tablet,delayed release (Adult Low Dose Aspirin) 81 mg PO QDAY 06/28/18 [History Last Taken Unknown] atorvastatin 20 mg tablet 20 mg PO QHS 12/05/19 [History Last Taken Unknown] levothyroxine 88 mcg tablet 88 mcg PO DAILY 02/05/22 [History Last Taken Unknown] turmeric root extract 500 mg capsule 500 mg PO DAILY 02/05/22 [History Last Taken Unknown] isosorbide mononitrate 60 mg tablet,extended release 24 hr 60 mg PO DAILY this is a dose increase #90 tabs 07/01/22 [Rx Last Taken Unknown] calcium carbonate 600 mg calcium (1,500 mg) tablet (Calcium) 600 mg PO DAILY 09/03/22 [History Last Taken Unknown] cholecalciferol (vitamin D3) 25 mcg (1,000 unit) tablet 25 mcg PO DAILY 09/03/22 [History Last Taken Unknown] magnesium 250 mg tablet 250 mg PO DAILY 09/03/22 [History Last Taken Unknown] atenolol 50 mg tablet 50 mg PO DAILY #90 tabs 12/09/22 [Rx Last Taken Unknown] methocarbamol 500 mg tablet 500 mg PO 4X/DAY PRN PRN Muscle pain/spasm #40 tabs 04/11/23 [Rx Last Taken Unknown] diphenhydramine HCl 25 mg capsule (Benadryl) 25 mg PO BID PRN PRN headache #10 caps 05/06/23 [Rx Last Taken Unknown] prochlorperazine maleate 5 mg tablet (Compazine) 5 mg PO BID PRN headache #10 tabs 05/06/23 [Rx Last Taken Unknown] tizanidine 4 mg capsule 4 mg PO QHS PRN 05/14/23 [History Last Taken Unknown] triamterene 37.5 mg-hydrochlorothiazide 25 mg tablet 1 tab PO DAILY 05/14/23 [History Last Taken Unknown] losartan 50 mg tablet 50 mg PO DAILY #90 tabs 05/29/23 [Rx Last Taken Unknown] potassium chloride 20 mEq tablet,extended release 20 meq PO DAILY 05/29/23 [History Last Taken Unknown] riboflavin (vitamin B2) 400 mg tablet 400 mg PO DAILY 05/29/23 [History Last Taken Unknown] zonisamide 25 mg capsule 25 mg PO DAILY 05/29/23 [History Last Taken Unknown] meloxicam 7.5 mg tablet 7.5 mg PO DAILY #30 tabs 06/09/23 [Rx Last Taken Unknown] Allergy/AdvReac Type Severity Reaction Status Date / Time hydrochlorothiazide AdvReac Intermediate Hypokalemia Verified 06/11/23 12:37 even on 40 meq daily Family History Father , Age 65 Myocardial infarction Mother , Age 84 Dementia Sister Hypertension Sister Hypertension Sister Hyperlipidemia Surgical History History of left heart catheterization (~1993) History of partial hysterectomy Social History Smoking Status: Former smoker how long ago did patient quit smokin years ago alcohol intake: never substance use type: does not use caffeine: No ROS ROS ED Constitutional Constitutional ED: Denies chills or fever(s) Eyes Eyes: Denies change in vision or diplopia ENT ENT ED: Denies rhinorrhea or sore throat Cardiovascular Cardiovascular: Reports chest pain; Denies palpitations Respiratory/Chest Respiratory/Chest: Reports dyspnea and dyspnea on exertion; Denies cough Gastrointestinal Gastrointestinal: Denies abdominal pain, diarrhea, nausea or vomiting Genitourinary Genitourinary ED: Denies dysuria Musculoskeletal Musculoskeletal: Denies arthralgias or myalgias Integumentary Denies rash Neurologic Neurologic: Reports headache(s); Denies paresthesias or weakness Psychiatric Psychiatric: Denies anxiety EXAM Physical Exam Const Vital Signs: 06/11/23 12:34 06/11/23 13:20 06/11/23 13:25 Temperature 96.7 F L Temperature Source Temporal Pulse Rate 68 Pulse Rate [Lying] Pulse Rate [Sitting (for 1 minute prior to obtaining)] Pulse Rate [Standing (for 1 minute prior to obtaining)] Respiratory Rate 18 Respiratory Effort Non-Labored Short of Breath Non-Labored Short of Breath Respiratory Depth Normal Respiratory Pattern Normal Blood Pressure 133/83 H Blood Pressure [Lying] Blood Pressure [Sitting (for 1 minute prior to obtaining)] Blood Pressure [Standing (for 1 minute prior to obtaining)] Blood Pressure Mean 99 Blood Pressure Mean [Lying] Blood Pressure Mean [Sitting (for 1 minute prior to obtaining)] Blood Pressure Mean [Standing (for 1 minute prior to obtaining)] Pulse Ox 99 Oxygen Delivery Method Room Air Room Air 06/11/23 14:07 06/11/23 16:16 06/11/23 16:16 Temperature 98.4 F Temperature Source Temporal Pulse Rate 60 66 Pulse Rate [Lying] 63 Pulse Rate [Sitting (for 1 minute prior to obtaining)] 66 Pulse Rate [Standing (for 1 minute prior to obtaining)] 79 Respiratory Rate 19 H 16 Respiratory Effort Respiratory Depth Respiratory Pattern Blood Pressure 117/70 111/68 Blood Pressure [Lying] 120/71 Blood Pressure [Sitting (for 1 minute prior to obtaining)] 126/86 H Blood Pressure [Standing (for 1 minute prior to obtaining)] 124/76 H Blood Pressure Mean 85 82 Blood Pressure Mean [Lying] 87 Blood Pressure Mean [Sitting (for 1 minute prior to obtaining)] 99 Blood Pressure Mean [Standing (for 1 minute prior to obtaining)] 92 Pulse Ox 98 97 Oxygen Delivery Method Room Air Room Air Positive well nourished and well developed General Appearance ED: well developed and NAD HEENT Reports moist mucous membranes Eyes PERRL and EOMs intact bilaterally Neck supple and no JVD Chest Wall inspection of chest normal and palpation of chest normal Resp normal respiratory effort and clear to auscultation bilaterally Resp Narrative: No crackles appreciated Auscultation: Negative for wheezes or diminished lung sounds Cardio regular rate, regular rhythm and no murmurs GI normal to inspection, nondistended, normoactive bowel sounds, non-tender and non-distended Extremity Extremity Narrative: 1+ bilateral pedal edema General Extremety ED: Negative for tenderness Neuro oriented x3 Sensorium / Orientation: alert Motor Exam: Negative for general weakness Psych mental status grossly normal Mood & Affect: anxious Skin no rashes or lesions noted and no wounds MDM MDM MDM Narrative Medical decision making narrative: Patient is evaluated for ongoing dizziness, chest discomfort and shortness of breath. Patient had a cardiac work-up 2 days ago and was discharged home. At that time patient felt that she was comfortable waiting for outpatient follow-up. Work-up from 2 days ago reviewed which was largely normal. She had negative high-sensitivity delta troponin. Chest x-ray showed clear lungs with prominence of central pulmonary arteries. Patient CBC is largely normal with no anemia or leukocytosis. Platelets are normal. D-dimer is normal and she is otherwise low risk for PE so I do not think she requires a CTA. Clinically she does not have findings consistent with a DVT. BMP largely unremarkable. Creatinine mildly elevated at 1.07 however this is stable over the past month. Its been slowly increasing over the past 7 months but do not think she requires admission for this. Her TSH is normal. Her high-sensitivity troponin is 4. Given that the symptoms and ongoing for days I feel that this effectively rules out ACS especially she does not have ischemic sounding pain or ischemic EKG. clinically patient does not appear to be fluid overloaded on her chest x-ray and her BNP is normal. I do not think a repeat chest x-ray is indicated at this time as she has had one 2 days ago. Her chest x-ray from 2 days ago did show prominent central pulmonary arteries which begs a question if she does have some mild underlying pulmonary hypertension. Patient's orthostatics are negative in the ER and she does not have any desaturation with ambulation. I feel that she is stable for outpatient follow-up. Encouraged to drink more water and follow-up with her PCP/cardiology after she has her stress test and to follow-up with neurology with her MRI for her chronic headaches/dizziness. Patient's had no new head injury and I do not think she requires repeat emergent imaging. Given return precautions. Patient verbalizes agreement understand this plan. Lab Data Attestation: I reviewed the patient's lab results. Labs: Laboratory Results - last 24 hr 06/11/23 06/11/23 14:05 16:25 WBC 5.9 RBC 4.64 Hgb 14.9 Hct 43.6 MCV 94.0 MCH 32.1 H MCHC 34.2 RDW Std Deviation 45.3 H RDW Coeff of Emiliana 13.3 Plt Count 164 MPV 9.6 Immature Gran % (Auto) 0.300 Neut % (Auto) 71.0 H Lymph % (Auto) 20.3 Woodson % (Auto) 7.3 Eos % (Auto) 0.8 Baso % (Auto) 0.3 Absolute Neuts (auto) 4.2 Absolute Lymphs (auto) 1.20 Nucleated RBC % 0 D-Dimer Quant (PE/DVT) 0.35 Sodium 140 Potassium 4.1 Chloride 107 Carbon Dioxide 25.0 Anion Gap 8 BUN 20 H Creatinine 1.07 H Estim Creat Clear Calc 34.81 Est GFR (MDRD) Af Amer 64 Est GFR (MDRD) Non-Af 53 L BUN/Creatinine Ratio 18.7 Glucose 118 H Calcium 10.3 H Troponin I High Sens 4 B-Natriuretic Peptide 27.2 TSH 0.50 Rhythm Strip Rhythm Strip: Sinus Rhythm Rate: 59 Ectopy: None EKG Initial EKG: Attestation: I personally reviewed and interpreted this EKG as follows: Interpretation: Sinus Bradycardia Comments: Sinus bradycardia rate of 59 bpm Normal axis Normal intervals Normal ST segments Nonspecific T wave inversion in 3, V1 and V2 which could be normal variants No change prior to prior EKG Discharge Plan Triage Chief Complaint: General Illness Other Complaint: Shortness of Breath ED Provider: Mona Schmid Dx/Rx/DC Orders Clinical Impression: Lower extremity edema, Dyspnea on exertion, Atypical chest pain Instructions: ED Chest Pain, Uncertain Cause, ED Dyspnea Prescriptions: No Action aspirin [Adult Low Dose Aspirin] 81 mg tablet,delayed release (DR/EC) 81 mg PO QDAY atorvastatin 20 mg tablet 20 mg PO QHS cholecalciferol (vitamin D3) 25 mcg (1,000 unit) tablet 25 mcg PO DAILY magnesium 250 mg tablet 250 mg PO DAILY calcium carbonate [Calcium 600] 600 mg calcium (1,500 mg) tablet 600 mg PO DAILY levothyroxine 88 mcg tablet 88 mcg PO DAILY turmeric root extract 500 mg capsule 500 mg PO DAILY tizanidine 4 mg capsule 4 mg PO QHS PRN triamterene-hydrochlorothiazid 37.5-25 mg tablet 1 tab PO DAILY zonisamide 25 mg capsule 25 mg PO DAILY Patient Comments: TAKE 1 CAPSULE BY MOUTH ONCE DAILY riboflavin (vitamin B2) 400 mg tablet 400 mg PO DAILY potassium chloride 20 mEq tablet extended release 20 meq PO DAILY losartan 50 mg tablet 50 mg PO DAILY Qty: 90 1RF methocarbamol 500 mg tablet 500 mg PO 4X/DAY PRN PRN (Reason: Muscle pain/spasm) Qty: 40 0RF prochlorperazine maleate [Compazine] 5 mg tablet 5 mg PO BID PRN (Reason: headache) Qty: 10 0RF diphenhydramine HCl [Benadryl] 25 mg capsule 25 mg PO BID PRN PRN (Reason: headache) Qty: 10 0RF meloxicam 7.5 mg tablet 7.5 mg PO DAILY Qty: 30 0RF isosorbide mononitrate 60 mg tablet extended release 24 hr 60 mg PO DAILY Qty: 90 3RF atenolol 50 mg tablet 50 mg PO DAILY Qty: 90 4RF Primary Care Provider: Omar Reyes Referrals: Omar Reyes MD [Primary Care Provider] - Activity Restrictions/Additional Instructions: Your work-up was largely normal today. I do recommend you drink some more water. There is no signs of pneumonia, COVID, heart attack, fluid overload or blood clot in your legs or your lungs. I feel that it is safe for you to follow-up with your specialist as we discussed. If you have a progression or change or symptoms please return to the emergency room.
[2023-06-11 17:08] LABS: BNP,B-Type NATRIURETIC PEPTIDE 27.2 pg/mL (0-100)
[2023-06-11 17:19] VITALS: BP 97/75; PULSE 63; RESP 16; O2SAT 95
== END 2023-06-11 17:22 | disposition home or self-care (01) ==
PROVIDERS: Emergency Provider Emergency Medicine; PCP Family Medicine; Visit Provider Emergency Medicine
DX: R07.89 Other chest pain (principal); R60.0 Localized edema; E78.00 Pure hypercholesterolemia, unspecified; Z87.891 Personal history of nicotine dependence; I10 Essential (primary) hypertension; E03.9 Hypothyroidism, unspecified; Z79.899 Other long term (current) drug therapy; Z79.82 Long term (current) use of aspirin; Z90.710 Acquired absence of both cervix and uterus; R06.00 Dyspnea, unspecified
CPT/HCPCS: 80048; 83880; 84443; 84484; 85025; 85379; 87811; 93005; 99285; A4216

== ENCOUNTER 2023-06-15 10:09 | Emergency (ER) | payer MEDICARE, MEDICAID, SELFPAY ==
[2023-06-15 10:10] VITALS: BP 152/85; PULSE 65; RESP 14; TEMP 36.1; O2SAT 99; BMI 27.1
--- NOTE | 2023-06-15 10:30 | EKG12_ITS ---
Test Reason : SOB Blood Pressure : / mmHG Vent. Rate : 058 BPM Atrial Rate : 058 BPM P-R Int : 146 ms QRS Dur : 074 ms QT Int : 420 ms P-R-T Axes : -03 -07 044 degrees QTc Int : 412 ms Sinus bradycardia Otherwise normal ECG Confirmed by RADHA SAUNDERS, JELLY ([id number]), art editor DIXON ROBLEDO ([id number]) on 06/16/2023 11:01:56 AM Referred By: SIMEON/YANN Confirmed By:JELLY GARCIA MD
--- NOTE | 2023-06-15 11:26 | ED.VIS.DYS ---
HPI History of Present Illness Chief Complaint: Shortness of Breath Narrative Narrative: 72-year-old female presenting with shortness of breath. This is worse on exertion. She denies any chest pain today. No cough or fever. No nausea or vomiting. She is eating and drinking normally. She states she is making normal urine and stool. Other than feeling short of breath she feels well. She states he is able to walk a couple 100 feet without much difficulty but then gets short of breath. She was seen by cardiology on the scheduled for stress test next Thursday and echocardiogram as well. She has been seen on the and this month in the ER for chest pain and shortness of breath and both work-ups were negative. She states he came back today because she still feels like she is little short of breath and she cannot get into her doctor's office. Her PCP is Dr. Reyes. [facility] Medical History Anxiety Depression Essential hypertension Head injury (12/23/21) Hypothyroidism Palpitations Pure hypercholesterolemia Home Medications aspirin 81 mg tablet,delayed release (Adult Low Dose Aspirin) 81 mg PO QDAY 06/28/18 [History Last Taken Unknown] atorvastatin 20 mg tablet 20 mg PO QHS 12/05/19 [History Last Taken Unknown] levothyroxine 88 mcg tablet 88 mcg PO DAILY 02/05/22 [History Last Taken Unknown] turmeric root extract 500 mg capsule 500 mg PO DAILY 02/05/22 [History Last Taken Unknown] isosorbide mononitrate 60 mg tablet,extended release 24 hr 60 mg PO DAILY this is a dose increase #90 tabs 07/01/22 [Rx Last Taken Unknown] calcium carbonate 600 mg calcium (1,500 mg) tablet (Calcium) 600 mg PO DAILY 09/03/22 [History Last Taken Unknown] cholecalciferol (vitamin D3) 25 mcg (1,000 unit) tablet 25 mcg PO DAILY 09/03/22 [History Last Taken Unknown] magnesium 250 mg tablet 250 mg PO DAILY 09/03/22 [History Last Taken Unknown] atenolol 50 mg tablet 50 mg PO DAILY #90 tabs 12/09/22 [Rx Last Taken Unknown] methocarbamol 500 mg tablet 500 mg PO 4X/DAY PRN PRN Muscle pain/spasm #40 tabs 04/11/23 [Rx Last Taken Unknown] diphenhydramine HCl 25 mg capsule (Benadryl) 25 mg PO BID PRN PRN headache #10 caps 05/06/23 [Rx Last Taken Unknown] prochlorperazine maleate 5 mg tablet (Compazine) 5 mg PO BID PRN headache #10 tabs 05/06/23 [Rx Last Taken Unknown] tizanidine 4 mg capsule 4 mg PO QHS PRN 05/14/23 [History Last Taken Unknown] triamterene 37.5 mg-hydrochlorothiazide 25 mg tablet 1 tab PO DAILY 05/14/23 [History Last Taken Unknown] losartan 50 mg tablet 50 mg PO DAILY #90 tabs 05/29/23 [Rx Last Taken Unknown] potassium chloride 20 mEq tablet,extended release 20 meq PO DAILY 05/29/23 [History Last Taken Unknown] riboflavin (vitamin B2) 400 mg tablet 400 mg PO DAILY 05/29/23 [History Last Taken Unknown] zonisamide 25 mg capsule 25 mg PO DAILY 05/29/23 [History Last Taken Unknown] meloxicam 7.5 mg tablet 7.5 mg PO DAILY #30 tabs 06/09/23 [Rx Last Taken Unknown] Allergy/AdvReac Type Severity Reaction Status Date / Time hydrochlorothiazide AdvReac Intermediate Hypokalemia Verified 06/15/23 10:10 even on 40 meq daily methocarbamol AdvReac Intermediate DIZZINESS Verified 06/15/23 10:12 Family History Father , Age 65 Myocardial infarction Mother , Age 84 Dementia Sister Hypertension Sister Hypertension Sister Hyperlipidemia Surgical History History of left heart catheterization (~1993) History of partial hysterectomy Social History Smoking Status: Former smoker how long ago did patient quit smokin years ago alcohol intake: never substance use type: does not use caffeine: No ROS ROS ED Constitutional Constitutional ED: Denies chills, fever(s) or sweats Eyes Eyes: Denies blurry vision or change in vision ENT ENT ED: Denies ear pain or sore throat Cardiovascular Cardiovascular: Denies chest pain, palpitations or racing heartbeat Respiratory/Chest Respiratory/Chest: Reports dyspnea; Denies cough or sputum Gastrointestinal Gastrointestinal: Denies abdominal pain, constipation, diarrhea, nausea or vomiting Genitourinary Genitourinary ED: Denies dysuria, hematuria or urinary frequency Musculoskeletal Musculoskeletal: Denies arthralgias, myalgias or neck pain Integumentary Denies abscess, Abrasions or rash Neurologic Neurologic: Denies headache(s), paresthesias or weakness Psychiatric Psychiatric: Denies anxiety, depression, suicidal ideation or suicidal thoughts Endocrine Endocrinology: Denies polydipsia or polyuria EXAM Physical Exam Const Vital Signs: 06/15/23 10:10 06/15/23 10:32 Temperature 96.9 F L Temperature Source Temporal Pulse Rate 65 Respiratory Rate 14 Respiratory Depth Normal Respiratory Pattern Normal Blood Pressure 152/85 H Blood Pressure Mean 107 Pulse Ox 99 Oxygen Delivery Method Room Air MDM MDM MDM Narrative Medical decision making narrative: Patient presenting with dyspnea. She had 2 work-ups here in the ED which were both negative. Her BNP was normal. Her troponins were normal. A chest x-ray was normal. Her D-dimer was normal. Vital signs of been stable and she is afebrile. I attempted a walker with a pulse ox because I do not think she needs a work-up and she states she already does at her last visit and she did fine. I was able to speak with Dr. Reyes regarding this patient he states he will work her into his schedule this week and that his medication for couple of weeks. He also states that on his last visit with her he recommended her follow-up with cardiology and she had followed up with cardiology and again she has a scheduled stress test for Thursday. This is all discussed with her and she is amenable to being discharged home with follow-up with Dr. Reyes this week as well as cardiology on Thursday return precautions were again given. Impression: 1. Dyspnea Discharge Plan Triage Chief Complaint: Shortness of Breath ED Provider: Randy Medina Dx/Rx/DC Orders Clinical Impression: Dyspnea Instructions: ED Dyspnea Prescriptions: No Action aspirin [Adult Low Dose Aspirin] 81 mg tablet,delayed release (DR/EC) 81 mg PO QDAY atorvastatin 20 mg tablet 20 mg PO QHS cholecalciferol (vitamin D3) 25 mcg (1,000 unit) tablet 25 mcg PO DAILY magnesium 250 mg tablet 250 mg PO DAILY calcium carbonate [Calcium 600] 600 mg calcium (1,500 mg) tablet 600 mg PO DAILY levothyroxine 88 mcg tablet 88 mcg PO DAILY turmeric root extract 500 mg capsule 500 mg PO DAILY tizanidine 4 mg capsule 4 mg PO QHS PRN triamterene-hydrochlorothiazid 37.5-25 mg tablet 1 tab PO DAILY zonisamide 25 mg capsule 25 mg PO DAILY Patient Comments: TAKE 1 CAPSULE BY MOUTH ONCE DAILY riboflavin (vitamin B2) 400 mg tablet 400 mg PO DAILY potassium chloride 20 mEq tablet extended release 20 meq PO DAILY losartan 50 mg tablet 50 mg PO DAILY Qty: 90 1RF methocarbamol 500 mg tablet 500 mg PO 4X/DAY PRN PRN (Reason: Muscle pain/spasm) Qty: 40 0RF prochlorperazine maleate [Compazine] 5 mg tablet 5 mg PO BID PRN (Reason: headache) Qty: 10 0RF diphenhydramine HCl [Benadryl] 25 mg capsule 25 mg PO BID PRN PRN (Reason: headache) Qty: 10 0RF meloxicam 7.5 mg tablet 7.5 mg PO DAILY Qty: 30 0RF isosorbide mononitrate 60 mg tablet extended release 24 hr 60 mg PO DAILY Qty: 90 3RF atenolol 50 mg tablet 50 mg PO DAILY Qty: 90 4RF Primary Care Provider: Omar Reyes Referrals: Omar Reyes MD [Primary Care Provider] - Disposition Disposition: Home, Self Care
== END 2023-06-15 11:29 | disposition home or self-care (01) ==
PROVIDERS: Emergency Provider Student in an Organized Health Care Education/Training Program; PCP Family Medicine; Visit Provider Student in an Organized Health Care Education/Training Program
DX: R06.00 Dyspnea, unspecified (principal); I10 Essential (primary) hypertension; Z87.891 Personal history of nicotine dependence; E78.00 Pure hypercholesterolemia, unspecified; Z79.899 Other long term (current) drug therapy; Z79.82 Long term (current) use of aspirin; E03.9 Hypothyroidism, unspecified; Z90.710 Acquired absence of both cervix and uterus
CPT/HCPCS: 93005; 99282

== ENCOUNTER → 2023-06-22 | Outpatient (CLI) | payer MEDICARE, MEDICAID, SELFPAY ==
--- NOTE | 2023-06-22 06:03 | ECHOD_ITS ---
Reason For Study: CHESTPAIN Procedure This was a 2D Doppler, Color Flow transthoracic echocardiogram. Exam performed in department. Left Ventricle Normal size and thickness. The left ventricular ejection fraction is 60 %. Stage 2 diastolic dysfunction. Right Ventricle Normal right ventricle. Atria The left atrium is moderately enlarged. Normal right atrium. Mitral Valve Mild (1+) mitral valve insufficiency. Tricuspid Valve Mild tricuspid valve insufficiency. Right ventricular systolic pressure estimated to be 41 mmHg. Aortic Valve Aortic sclerosis, no stenosis. Mild (1+) aortic valve insufficiency. Pulmonic Valve The pulmonic valve is not well visualized. Great Vessels Normal sized aortic root. Pericardium/Pleural No pericardial effusion. MMode/2D Measurements & Calculations LVIDd: 4.9 cm IVSd: 0.95 cm Ao root diam: 2.4 cm LVIDs: 2.7 cm LVPWd: 0.95 cm FS: 45.3 % LAV(MOD-bp): 53.1 ml LVAd ap4: 24.6 cm2 SV(MOD-sp4): 50.7 ml LAV(MOD-bp) Indexed: 32.4 ml/m2 LVLd ap4: 7.3 cm LAV(MOD-sp2): 57.4 ml EDV(MOD-sp4): 68.6 ml LAV(MOD-sp4): 42.3 ml EDV(sp4-el): 70.4 ml LVAs ap4: 10.5 cm2 LVLs ap4: 5.6 cm ESV(MOD-sp4): 17.9 ml ESV(sp4-el): 16.7 ml EF(MOD-sp4): 73.9 % EF(sp4-el): 76.3 % SV(sp4-el): 53.7 ml LA A4 area: 16.5 cm2 LA dimension(2D): 3.5 cm RA A4 area: 10.0 cm2 TAPSE: 1.9 cm Time Measurements MV dec time: 0.26 sec Doppler Measurements & Calculations MV E max estevan: 74.9 cm/sec Lat Peak E' Estevan: 6.0 cm/sec Med Peak E' Estevan: 3.9 cm/sec MV A max estevan: 84.4 cm/sec E/E' lat: 12.6 E/E' med: 19.2 MV E/A: 0.89 MV V2 max: 82.7 cm/sec Ao V2 max: 146.9 cm/sec MV max P.7 mmHg MV dec slope: 286.7 cm/sec2 Ao max P.6 mmHg MV V2 mean: 47.5 cm/sec Ao V2 mean: 92.8 cm/sec MV mean P.0 mmHg Ao mean P.0 mmHg MV V2 VTI: 36.9 cm Ao V2 VTI: 36.5 cm AV (velocity ratio): 0.79 AI max estevan: 328.0 cm/sec LV V1 max: 110.2 cm/sec PA V2 max: 91.2 cm/sec AI max P.0 mmHg LV V1 max P.9 mmHg PA V2 mean: 60.4 cm/sec LV V1 mean P.4 mmHg AI dec slope: 95.4 cm/sec2 LV V1 mean: 71.6 cm/sec AI P1/2t: 1007 msec LV V1 VTI: 28.8 cm TR max estevan: 264.6 cm/sec TR max P.0 mmHg ECHO/Echo Complete Interpretation Summary The left ventricular ejection fraction is 60 %. Stage 2 diastolic dysfunction. The left atrium is moderately enlarged. Mild tricuspid valve insufficiency. Right ventricular systolic pressure estimated to be 41 mmHg. Aortic sclerosis, no stenosis. Mild (1+) aortic valve insufficiency. Ordering Physician: Mili Barnett Referring Physician: Mili Barnett Performed By: Ruchi Bliss RCS
--- NOTE | 2023-06-25 12:59 | STRESSREP ---
Stress Test Report Date: 06/22/2023 Procedure: Pharmacologic stress nuclear imaging study Indications: Chest pain Consent: Per the patient Procedure: The patient underwent pharmacologic (Regadenoson 0.4mg ) evaluation with a peak heart rate of 86 beats per minute (58%predicted maximal heart rate) and a peak blood pressure of 138/82 mmHg. The baseline ECG demonstrated sinus rhythm. The peak pharmacologic ECG demonstrated no ischemic change. Rare PVC noted postinfusion. There was no complaint of chest discomfort during pharmacologic infusion or recovery. The patient was injected with 11.7 millicuries of technetium 99m Cardiolite and subsequently rest SPECT Cardiolite nuclear imaging was obtained in the horizontal long, vertical long, and short axis views. The patient underwent pharmacologic (Regadenoson) evaluation. The patient was injected with 33.3 millicuries of technetium 99m Cardiolite and subsequently stress SPECT Cardiolite nuclear imaging was obtained in the horizontal long, vertical long, and short axis views. A gated Cardiolite study at peak stress was obtained. The examination was stopped secondary to completion of protocol. Rest and stress SPECT Cardiolite nuclear imaging status post realignment, normalization, and attenuation correction demonstrate no fixed or reversible perfusion defects. There is end systolic thickening and brightening. The gated Cardiolite study demonstrates myocardial thickening and inward wall motion. The reported LVEF is 80%. Impression: 1. Pharmacologic (Regadenoson) evaluation 2. Peak pharmacologic ECG with no ischemic change. 3. Rare PVC noted. 5. Rest and stress SPECT Cardiolite nuclear imaging demonstrate relative uniform tracer uptake and myocardial perfusion appearing within normal limits. 6. The gated Cardiolite study reports an LVEF of 80%. This note was generated with [email or web address] software. It may contain incorrect words, spelling, and punctuation that were not noted in checking the note before signing.
== END | disposition home or self-care (01) ==
PROVIDERS: PCP Family Medicine; Referring Provider Internal Medicine Cardiovascular Disease; Visit Provider Internal Medicine Cardiovascular Disease
DX: R07.89 Other chest pain (principal); R60.0 Localized edema; R06.02 Shortness of breath; R00.2 Palpitations
CPT/HCPCS: 78452; 93017; 93306; A9500; A4216; J2785

== ENCOUNTER → 2023-07-06 | Outpatient (CLI) | payer MEDICARE, MEDICAID, SELFPAY | END | disposition home or self-care (01) | LOC: PSN 06:32 | PROVIDERS: PCP Family Medicine; Referring Provider Nurse Practitioner Family; Visit Provider Nurse Practitioner Family | DX: R00.2 Palpitations (principal) | CPT/HCPCS: 93225; 93226 ==

== ENCOUNTER → 2023-08-12 | Outpatient (CLI) | payer MEDICARE, MEDICAID, SELFPAY ==
--- NOTE | 2023-08-12 10:28 | BI_ITS ---
MAMMOGRAPHY - BILATERAL SCREENING REASON FOR EXAM: Female, 72 years old. Routine annual screening examination. PERTINENT HISTORY: Non-contributory. TECHNIQUE: Digital bilateral breast kemar (3D mammographic acquisition) in the CC and MLO projections. 2-D mediolateral oblique (MLO) and craniocaudad (CC) views of both breasts were obtained. CAD: Full Field Digital Mammography with Computer Added Detection was performed. COMPARISON: Comparison is made with prior study dated July 30, 2022 and July 25, 2021. FINDINGS: Breast Composition: There are scattered areas of fibroglandular density. There are no dominant masses or suspicious calcifications. Stable scattered bilateral microcalcifications most likely representing secretory calcification. A tissue clip marker is once again seen in the inferior central portion of the right breast. No other significant abnormalities are identified. There has been no significant change since the prior study. BI/SCRN MAMM (CAD)W/KEMAR BILAT IMPRESSION: Stable bilateral screening mammogram. Yearly follow-up mammogram recommended. (A) ASSESSMENT CATEGORY: BIRADS Category 2: Benign. A letter regarding these results will be sent to the patient by the facility within 30 days. Approximately 10% of breast cancers are not detected by mammography. A normal mammogram should not delay biopsy of a clinically suspicious abnormality. [id number] Electronically Signed: Carlos Taylor MD at 14:26 EDT ,
--- NOTE | 2023-08-12 10:30 | BD_ITS ---
STUDY: DUAL ENERGY X-RAY ABSORPTIOMETRY / DXA REASON FOR EXAM: Female, 72 years old. V780 TECHNIQUE: Bone Mineral Density (BMD) measurements of lumbar spine and bilateral hips were obtained. COMPARISON: Comparison is made with prior study July 25, 2021. FINDINGS: Lumbar Spine (L1-L4): g/cm2 (0.946) / T-score (-0.8) / Z-score (1.6) Findings are suggestive of normal bone density with a low fracture risk. Left Femur Total: g/cm2 (0.69) / T-score (-2.0) / Z-score (-0.2) Left Femoral Neck: g/cm2 (0.624) / T-score (-2.0) / Z-score (0.0) Right Femur Total: g/cm2 (0.731) / T-score (-1.7) / Z-score (0.0) Right Femoral Neck: g/cm2 (0.647) / T-score (-1.8) / Z-score (0.3) The T-Scores on the most recent prior examination were: Lumbar Spine (L1-L4): There has been improvement of bone density since the previous examination. Left Femur Total: which represents a worsening of 14.2%. Right Femur Total: which represents a worsening of 10.7%. BD/Dexa Bone Density Study IMPRESSION: The patient is considered osteopenic as outlined below according to World [employer] Organization (WHO) criteria with a moderate fracture risk. There has been worsening of bone density since the previous examination. Reference Information: The T-score is the number of standard deviations above or below the standard which is normal for young adults at their peak bone mineral density. The World Health Organization (WHO) interprets the T-scores as follows: Above -1 Normal bone density Between -1 and -2.5 Osteopenia Equal to / or below -2.5 Osteoporosis As a practical clinical guideline, osteopenia may be graded as follows: Mild -1 through -1.5 Moderate -1.6 through -2.0 Severe -2.1 through -2.4 The Z-score is the number of standard deviations above or below age-matched controls. A Z-score of less than -1.5 would be considered abnormal. References: 1. NIH Osteoporosis and Related Bone Diseases www osteo.org 2. International Society for Clinical Densitometry www iscd.org 3. National Osteoporosis Foundation www nof.org Electronically Signed: Carlos Taylor MD at 15:09 EDT ,
== END | disposition home or self-care (01) ==
LOC: OPBD 10:26
PROVIDERS: PCP Family Medicine
DX: Z12.31 Encounter for screening mammogram for malignant neoplasm of breast (principal); Z78.0 Asymptomatic menopausal state
CPT/HCPCS: 77063; 77067; 77080

== ENCOUNTER → 2023-10-27 | Outpatient (CLI) | payer MEDICARE, MEDICAID, SELFPAY ==
--- NOTE | 2023-10-27 10:00 | PET_ITS ---
EXAMINATION: FDG PET/CT ? 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 ? COMPARISON EXAMINATION: None available ? INDEX LESION SIZE SUV INTERPRETATION Left and right thyroid colloid? 12.7 mm 7.3 Warrants further investigation with thyroid ultrasound secondary to the quantitative degree of uptake ? TECHNIQUE: Following the intravenous administration of 14.06 mCi of F-18 deoxyglucose via the left antecubital fossa, multiplanar image acquisitions of the head, neck, chest, abdomen and pelvis to the level of the midthigh, bilateral lower extremities to the level of the forefoot obtained at one-hour post radiopharmaceutical administration contemporaneously interpreted with the current CT of the chest, abdomen and pelvis dated 10/27/2023 via coregistration reveal: SERUM GLUCOSE LEVEL:? 106 mg/dL? HEIGHT:?? 62 inches WEIGHT:?? 144 pounds ? FINDINGS: ? HEAD/NECK:? Facilitated radiopharmaceutical concentration is defined in the right and left thyroid colloid generating a calculated maximum standard uptake value of 7.3. The largest metabolic, morphologic abnormality demonstrates a maximal axial diameter of 12.7 mm. ? The visualized portion of the cerebral cortical-subcortical structures demonstrate symmetric and preserved glucose metabolism. ? CHEST:? There is no quantitative scintigraphic evidence of abnormal increased glucose metabolism within the context of the bilateral hemithorax pulmonary parenchyma, right and left hemithorax at the pleural interface, mediastinal structures, and left-right thoracic perihilum. Prominent tracer uptake is defined in the descending thoracic aorta commensurate with activated leukocytes associated with atherosclerotic plaque formation.? (Bao et al, Clinical Nuclear Medicine 29:93, 2003). ? CT of the chest demonstrates the following anatomic characteristics: Atherosclerotic calcification is defined in the thoracic aorta without evidence of dilatation, aneurysm formation. Coronary artery calcification is observed. Subcentimeter right and left axillary soft tissue densities reveal no evidence of quantitatively significant increased FDG uptake. There are no parenchymal densities-nodules defined in the right and left hemithorax with quantitatively significant increased glucose concentration. ? ABDOMEN/PELVIS:? Normal physiologic distribution of the radiopharmaceutical is identified in the hepatic (3.3) and splenic parenchyma, both renal units, urinary bladder, and visualized intestinal tract. Diffuse intestinal tract is identified in all four quadrants of the abdominal-pelvic mesentery. ? CT of the abdomen and pelvis is remarkable for the following: A prolapsed uterus is defined. Extensive colonic diverticulosis is noted without evidence of diverticulitis. Atherosclerotic calcification is defined in the abdominal aorta without evidence of dilatation, aneurysm formation. Pelvic arterial calcification is observed. Cholelithiasis is identified. ? SKELETAL:? Degenerative changes defined in the thoracic and lumbar spine demonstrate no evidence of increased glucose metabolism. Accentuated soft tissue uptake of the radiopharmaceutical is noted in the right lower extremity extending from the knee to the ankle articulation involving the right midfoot. ? PET/PET/CT Tumor WB Initial IMPRESSION: 1. The increase in radiopharmaceutical concentration defined in the anterior neck bilaterally associated with the right and left thyroid colloid may be further investigated with thyroid ultrasound secondary to the quantitative degree of uptake. 2. No quantitatively scintigraphic evidence of metastatic disease is defined on the present examination. Electronic Signature Edin Nixon D.O. Accurate Quantification of SUVs for this report are calculated using the exclusive [employer] Technology. ([place] Patent No. [id number] B2 [phone] [place] patent [phone] [id number] [phone]). Standardization and correction of the FDG SUV metric via [employer] technology allow for vendor non-specific objective quantitative examination comparison and optimization of the sensitivity and specificity of the FDG PET-CT examination. . [email or web address] Electronically Signed: Edin Nixon DO at 23:48 EST ,
== END | disposition home or self-care (01) ==
LOC: ONC 09:39
PROVIDERS: PCP Family Medicine
DX: R94.02 Abnormal brain scan (principal)
CPT/HCPCS: 78816; A9552

== ENCOUNTER → 2023-11-21 | Outpatient (CLI) | payer MEDICARE, MEDICAID, SELFPAY ==
--- NOTE | 2023-11-21 10:24 | US_ITS ---
STUDY: THYROID ULTRASOUND REASON FOR EXAM: Female, 73 years old. ABN PT SCAN TECHNIQUE: Ultrasound evaluation of the thyroid was performed with real-time and static agustin-scale imaging. COMPARISON: PET CT scan 10/27/2023 FINDINGS: RIGHT LOBE: The right lobe of the thyroid gland measures 3.6 x 1.1 x 1.5 cm. There is a heterogeneous echotexture. There are no demonstrated solid, cystic or complex lesions. LEFT LOBE: The left lobe of the thyroid gland measures 4.3 x 0.9 x 1.3 cm. There is a homogeneous echotexture. Nodule 1:8 x 9 x 12 mm solid hypoechoic wider than tall ill-defined margin nodule with no echogenic foci (TR 4) in the mid left lobe and follow-up ultrasound is recommended in one year. Nodule 2:14 x 12 x 14 mm solid isoechoic wider than tall ill-defined margin nodule with no echogenic foci (TR 3) in the inferior left lobe consistent with an adenoma. ISTHMUS: The isthmus measures 3 mm thick. . The regional lymph nodes are normal. US/Thyroid IMPRESSION: 2 dominant nodule left lobe and follow-up ultrasound is recommended in one year. The more inferior nodule may correspond to the focus of the hypermetabolism seen on PET CT scan. Electronically Signed: Edin Hughes MD at 22:05 EST ,
--- OUTSIDE RECORDS SUMMARY | 2023-11-21 10:26 | XMS RPT_ITS | CCD ---
Author Name Unknown Address [address] [place] [address] Organization [facility] Care Team Providers Care Polysomnographer Name Role Phone DeFinis, Harumi Y Unavailable Unavailable DeFinis, Harumi Y Unavailable Unavailable Armin Reynaga Unavailable Unavailable DeFinis, Harumi Y Unavailable Unavailable DeFinis, Harumi Y Unavailable Unavailable Unavailable Primary Care Provider Unavailabl e Unavailable Primary Care Provider Unavailabl e Jessica Reyes MD Primary Care Provider Jessica Reyes MD Primary Care Provider JESSICA REYES Attending Unavailable SRIDHAR, JESSICA Referring Unavailable SRIDHAR, JESSICA Primary Care Unavailable SRIDHAR, JESSICA Attending Unavailable SRIDHAR, JESSICA Referring Unavailable SRIDHAR, JESSICA Primary Care Unavailable DAKOTAH, WING Y Referring Unavailable DAKOTAH, WING Y Referring Unavailable DAKOTAH, WING Y Referring Unavailable DAKOTAH, WING Y Attending Unavailable SESE, CHAN T Referring Unavailable DAKOTAH, WING Y Referring Unavailable DAKOTAH, WING Y Attending Unavailable DAKOTAH, WING Y Referring Unavailable DAKOTAH, WING Y Attending Unavailable DAKOTAH, WING Y Attending Unavailable DAKOTAH, WING Y Attending Unavailable Medications Current Medications Medication Drug Class(es) Dates Sig (Normalized) Sig (Original) enteric contrast (will be provided with radiology test) (1 source) Start: 08-25-2023 End: 08-26-2023 enteric contrast (will be provided with radiology test) For CT CHESTABD/PEL W IVCON Routine order Administer, As Directed One Time Only, via Oral, Rectal, both Oral and Rectal, Enteric Tube, Stoma or Indwelling Catheter, Enteric Contrast as designated per enteric contrast guidelines 1 Each 0 08/25/2023 08/26/2023 Active Completed/Discontinued Medications Medication Drug Class(es) Dates Sig (Normalized) Sig (Original) amLODIPine 2.5 mg oral tablet (20 sources) Dihydropyridine Calcium Channel Sherry Start: 02-15-2014 take 1 tablet by mouth once daily AMLODIPINE BESYLATE 2.5 MG TABS One tablet by mouth daily AMLODIPINE BESYLATE [id number] Sondra Vallecillo PA-C Problems Active Problems Problem Classification Problem Date Documented Date Episodic/Chronic Disorders of lipid metabolism (5 sources) Hyperlipidemia; Translations: [Hyperlipidemia, unspecified] Onset: 02-15-2014 02-15-2014 Chronic Essential hypertension (15 sources) Hypertensive disorder; Translations: [Essential (primary) hypertension] Onset: 07-14-2013 02-15-2014 Chronic Headache; including migraine (1 source) Intractable chronic headache following trauma; 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, intractable] 09-15-2023 Chronic Headache; including migraine (5 sources) Posttraumatic headache; Translations: [Post-traumatic headache, unspecified, not intractable] Onset: 08-04-2023 Episodic Other acquired deformities (4 sources) Lumbar spondylolisthesis; Translations: [Spondylolisthesis, lumbar region] Onset: 04-22-2023 04-22-2023 Episodic Other acquired deformities (1 source) Spondylolisthesis, lumbar region; Translations: [Spondylolisthesis, lumbar region] Onset: 04-22-2023 Episodic Other connective tissue disease (3 sources) Pain in left foot; Translations: [Pain in left foot] Onset: 03-25-2023 Episodic Other connective tissue disease (1 source) Pain in left foot; Translations: [Pain in left foot] Onset: 03-25-2023 Episodic Other nervous system disorders (1 source) Lesion of brain; Translations: [Disorder of brain, unspecified] 08-25-2023 Chronic Other nervous system disorders (1 source) Disorder of brain, unspecified; Translations: [Brain lesion] Onset: 09-03-2023 Chronic Other nutritional; endocrine; and metabolic disorders (9 sources) Body mass index (BMI) 32.0-32.9, adult; Translations: [Body mass index (BMI) 30.0-30.9, adult] Onset: 02-16-2014 08-15-2016 Chronic Other nutritional; endocrine; and metabolic disorders (1 source) Body mass index (BMI) 30.0-30.9, adult; Translations: [Body mass index (BMI) 30.0-30.9, adult] Onset: 02-16-2014 02-16-2014 Chronic Peritonitis and intestinal abscess (2 sources) Infectious disease of abdomen; Translations: [Peritonitis, unspecified] Onset: 09-03-2023 08-25-2023 Episodic Spondylosis; intervertebral disc disorders; other back problems (5 sources) Lumbar radiculopathy; Translations: [Radiculopathy, lumbar region] Onset: 04-22-2023 04-22-2023 Episodic Superficial injury; contusion (4 sources) Contusion of left foot; Translations: [Contusion of left foot, initial encounter] Onset: 03-25-2023 Episodic Past or Other Problems Problem Classification Problem Date Documented Da te Episodic/Chronic Cardiac dysrhythmias (5 sources) Palpitations; Translations: [Palpitations] Onset: 02-15-2014 02-15-2014 Episodic Nonspecific chest pain (5 sources) Chest pain, unspecified; Translations: [Chest pain, unspecified] Onset: 02-15-2014 02-15-2014 Episodic Other aftercare (13 sources) Other group home (current) drug therapy; Translations: [Long-term (current) use of other medications] Onset: 11-20-2014 Resolved: 05-16-2015 05-16-2015 Episodic Other lower respiratory disease (5 sources) Dyspnea; Translations: [Shortness of breath] Onset: 02-15-2014 02-15-2014 Episodic Residual codes; unclassified (1 source) Family history of ischemic heart disease and other diseases of the circulatory system; Translations: [Family history of ischemic heart disease and other diseases of the circulatory system] 04-13-2014 Episodic Residual codes; unclassified (1 source) FH: Raised blood lipids; Translations: [Family history of other endocrine, nutritional and metabolic diseases] 06-07-2015 Episodic Residual codes; unclassified (1 source) Family history of stroke; Translations: [Family history of stroke] 04-13-2014 Episodic Unclassified (17 sources) FH: Hypertension; Translations: [Family history of stroke] 06-07-2015 Episodic Unclassified (2 sources) Long-term drug therapy; Translations: [Long-term (current) use of other medications] Onset: 11-20-2014 Resolved: 05-16-2015 11-20-2014 Results Test Name Value Interpretation Reference Range Facil ity Vital Signs Date Time Vital Sign Value Performing Clinician Garth zaragoza 09-15-2023 11:38-0400 Body height 154.9 cm Wing Johnson MD Work Phone: [facility] 09-15-2023 11:38-0400 Body weight 65.77 kg Wing Johnson MD Work Phone: [facility] 09-15-2023 11:38-0400 Diastolic blood pressure 64 mm[Hg] Wing Johnson MD Work Phone: [facility] 09-15-2023 11:38-0400 Heart rate 57 /min Wing Johnson MD Work Phone: [facility] 09-15-2023 11:38-0400 Respiratory rate 16 /min Wing Johnson MD Work Phone: [facility] 09-15-2023 11:38-0400 SaO2% (BldA) [Mass fraction] 98 % Wing Johnson MD Work Phone: [facility] 09-15-2023 11:38-0400 Systolic blood pressure 138 mm[Hg] Wing Johnson MD Work Phone: [facility] 08-28-2023 10:28-0400 Body height 125 cm Wing Johnson MD Work Phone: [facility] 08-28-2023 10:28-0400 Body weight 61.24 kg Wing Johnson MD Work Phone: [facility] 08-28-2023 10:28-0400 Diastolic blood pressure 85 mm[Hg] Wing Johnson MD Work Phone: [facility] 08-28-2023 10:28-0400 Heart rate 61 /min Wing Johnson MD Work Phone: [facility] 08-28-2023 10:28-0400 Respiratory rate 16 /min Wing Johnson MD Work Phone: [facility] 08-28-2023 10:28-0400 SaO2% (BldA) [Mass fraction] 98 % Wing Johnson MD Work Phone: [facility] 08-28-2023 10:28-0400 Systolic blood pressure 131 mm[Hg] Wing Johnson MD Work Phone: [facility] 07-02-2023 10:21-0400 Body height 157.5 cm Wing Johnson MD Work Phone: [facility] 07-02-2023 10:21-0400 Body weight 63.5 kg Wing Johnson MD Work Phone: [facility] 07-02-2023 10:21-0400 Diastolic blood pressure 82 mm[Hg] Wing Johnson MD Work Phone: [facility] 07-02-2023 10:21-0400 Heart rate 56 /min Wing Johnson MD Work Phone: [facility] 07-02-2023 10:21-0400 Respiratory rate 16 /min Wing Johnson MD Work Phone: [facility] 07-02-2023 10:21-0400 SaO2% (BldA) [Mass fraction] 98 % Wing Johnson MD Work Phone: [facility] 07-02-2023 10:21-0400 Systolic blood pressure 142 mm[Hg] Wing Johnson MD Work Phone: [facility] 02-06-2023 07:46-0400 Body height 157.5 cm Wing Johnson MD Work Phone: [facility] 02-06-2023 07:46-0400 Body weight 74.84 kg Wing Johnson MD Work Phone: [facility] 02-06-2023 07:46-0400 Diastolic blood pressure 73 mm[Hg] Wing Johnson MD Work Phone: [facility] 02-06-2023 07:46-0400 Heart rate 57 /min Wing Johnson MD Work Phone: [facility] 02-06-2023 07:46-0400 SaO2% (BldA) [Mass fraction] 98 % Wing Johnson MD Work Phone: [facility] 02-06-2023 07:46-0400 Systolic blood pressure 138 mm[Hg] Wing Johnson MD Work Phone: [facility] 06-24-2017 15:59-0400 BMI (Body Mass Index) 32.37 kg/m2 Armin Nolasco [facility] Work Phone: 06-24-2017 15:59-0400 BP Diastolic 88 mm[Hg] Armin Reynaga [facility] Work Phone: 06-24-2017 15:59-0400 BP Systolic 164 mm[Hg] Armin Reynaga [facility] Work Phone: 06-24-2017 15:59-0400 Height 157.48 cm Armin Reynaga [facility] Work Phone: 06-24-2017 15:59-0400 Pulse (Heart Rate) 68 /min Armin Reynaga [facility] Work Phone: 06-24-2017 15:59-0400 Respiratory Rate 18 /min Armin Reynaga [facility] Work Phone: 06-24-2017 15:59-0400 Weight 80.29 kg Armin Reynaga [facility] Work Phone: 08-15-2016 14:09-0400 Heart rate 77 /min Cheng Fisher [facility] Work Phone: 08-15-2016 12:39-0400 BMI (Body Mass Index) 32.26 kg/m2 Cheng Fisher [facility] Work Phone: 08-15-2016 12:39-0400 BP Diastolic 88 mm[Hg] Harumi DeFinis [facility] Work Phone: 08-15-2016 12:39-0400 BP Diastolic 100 mm[Hg] Harumi DeFinis [facility] Work Phone: 08-15-2016 12:39-0400 BP Systolic 145 mm[Hg] Harumi Unified Socialis [facility] Work Phone: 08-15-2016 12:39-0400 BP Systolic 190 mm[Hg] Harpatience Unified Socialis [facility] Work Phone: 08-15-2016 12:39-0400 BSA (Body Surface Area) 1.81 m2 [facility]Panteais [facility] Work Phone: 08-15-2016 12:39-0400 Pulse (Heart Rate) 76 /min Harumi Unified Socialis [facility] Work Phone: 08-15-2016 12:39-0400 Respiratory Rate 16 /min HarPanteais [facility] Work Phone: 08-15-2016 12:39-0400 Weight 80.02 kg Harpatience [facility] Work Phone: 02-16-2014 14:01-0400 Height 157.48 cm [facility] Work Phone: Encounters Encounter Date Encounter Type Care Provider Facility Start: 09-22-2023 Telephone encounter Wing ureña MD Work Phone: Neurology Start: 09-21-2023 Telephone encounter Diego aguiar DO Work Phone: Hematology/Oncology Procedures Date Procedure Procedure Detail Performing Clinician Start: 10-16-2021 Dup-scan xtr veins c omplete bilateral study Jessica Reyes MD Work Phone: Start: 04-05-2021 EMG REPORT Tyrese rosales MD Work Phone: Start: 06-24-2017 End: 06-24-2017 Dietary management education, guidance, and counseling Cheng Fisher Start: 06-24-2017 End: 06-24-2017 Follow Up Appt 1 year Diego Smith Start: 06-24-2017 End: 06-24-2017 Follow Up Appt Other Diego Lilly MD Start: 06-24-2017 End: 06-24-2017 PFM Diego Lilly MD Start: 08-15-2016 End: 08-15-2016 Electrocardiogram, complete Tyler Zapata Casey [employer]-C Start: 08-15-2016 End: 08-15-2016 Follow Up Appt 9 months Tyler Zapata Casey [employer]OM[employer] ASSIST[employer] -C Start: 08-15-2016 End: 08-15-2016 PFM Tyler Casey [employer]OMETRIC ASSISTANT-C Start: 04-28-2016 Lipid 1996 panel - S johny or Sean Johnson MD Work Phone: Start: 04-28-2016 End: 06-26-2017 Lipid panel [AGGREGATE] Sondra carrera PA-C Work Phone: Start: 12-12-2015 End: 12-13-2015 Follow Up Appt 6 months Diego Lilly MD Start: 12-12-2015 End: 12-13-2015 MMM Diego Lilly MD Start: 10-16-2015 End: 10-24-2015 *Hepatic Function Panel Lio Márquez Start: 10-16-2015 End: 10-24-2015 Lipid panel [AGGREGATE] Lio Márquez Start: 06-07-2015 End: 06-08-2015 Documentation of current medications Sondra Vallecillo PA-C Work Phone: Start: 06-07-2015 End: 06-07-2015 Follow Up Appt 6 months Sondra carrera PA-C Work Phone: Start: 06-07-2015 End: 06-07-2015 Follow Up BP Check Sondra Vallecillo PA-C Work Phone: Start: 06-07-2015 End: 06-07-2015 PFM Sondra Vallecillo PA-C Work Phone: Start: 05-16-2015 End: 05-16-2015 *Hepatic Function Panel Lio Márquez Start: 05-16-2015 End: 05-16-2015 Lipid panel [AGGREGATE] Lio Márquez Start: 02-14-2015 End: 02-15-2015 Documentation of current medications Diego Lilly MD Start: 02-14-2015 End: 02-14-2015 Follow Up Appt 6 months Diego Lilly MD Start: 02-14-2015 End: 02-14-2015 MMM Diego Lilly MD Start: 02-14-2015 End: 06-07-2015 Nuclear stress test -exercise Diego Lilly MD Start: 10-30-2014 End: 11-20-2014 *Hepatic Function Panel Diego Lilly MD Start: 10-30-2014 End: 10-30-2014 Follow Up Appt 6 months Diego Lilly MD Start: 10-30-2014 End: 11-20-2014 Lipid panel [AGGREGATE] Diego Lilly MD Start: 10-30-2014 End: 10-30-2014 MMM Diego Lilly MD Start: 04-13-2014 End: 04-13-2014 Follow Up Appt 6 months Sondra carrera PA-C Work Phone: Start: 04-13-2014 End: 04-13-2014 PFM Sondra Vallecillo PA-C Work Phone: Start: 02-16-2014 End: 02-16-2014 Electrocardiogram, complete Diego logan MD Start: 02-16-2014 End: 02-16-2014 Follow Up Appt 6 weeks Diego Lilly MD Start: 02-16-2014 End: 02-16-2014 Follow Up Appt Other Diego Lilly MD Start: 02-16-2014 End: 02-16-2014 MMM Diego Lilly MD Start: 08-16-2013 Lipid 1996 panel - S johny or Plasma Chan Avila MD Work Phone: Plan of Treatment Date Care Activity Detail Author Start: 12-05-2029 DTaP/Tdap/Td vaccine (2 - Td or Tdap) DTaP/Tdap/Td vaccine (2 - Td or Tdap) [facility] Start: 12-05-2029 DTaP/Tdap/Td vaccine (2 - Td) DTaP/Tdap/Td vaccine (2 - Td) [facility] Work Phone: Start: 12-05-2029 DTaP/Tdap/Td Vaccine s (2 - Td or Tdap) DTaP/Tdap/Td Vaccines (2 - Td or Tdap) [facility] Start: 12-05-2029 Urine microalbumin profile DTaP,Tdap,Td Vaccine (2 - Td or Tdap) [facility] Start: 09-02-2026 Diabetes Screening Diabetes Screenin g [facility] Start: 08-25-2023 End: 10-25-2023 CREATININE BLD CREATININE BLD Lab Routine Brain lesion Expected: 08/25/2023, Expires: 10/25/2023 [facility] Work Phone: Immunizations Immunization Date Immunization Notes Care Provider Fa [facility] 09-11-2022 influenza virus vacc ine, unspecified formulation Jessica Reyes MD Work Phone: [facility] 08-15-2013 influenza virus vacc ine, unspecified formulation Wing Johnson MD Work Phone: [facility] Payers Date Payer Category Payer Medicaid [id number] 2022 Medicaid [id number] 2022 Medicaid [id number] 2019 Medicare [id number] 2019 Medicare AN[employer]M MEDICARE ADVANTAGE BETTINA ARRIAZA [id number] 2019-Present [address] [place] [address] Medicare HMO [id number] 2019 Unknown ANTHEM BLUE [facility] S AND BLUE SHIELD ANTHEM MEDIBLUE HMO [id number] 2019-Present [phone] [address] [place] [id number] HMO [id number] Social History Date Type Detail Facility Tobacco smoking stat [facility] Unknown if ever smoked [employer] Work Phone: Start: 1950 Sex Assigned At Not on file S [employer] Work Phone: Tobacco smoking stat [facility] Tobacco smoking consumption unknown [employer] Phone: Start: 02-06-2023 Tobacco smoking stat [facility] Ex-smoker [facility] End: 07-14-1993 History of tobacco use Current smoker [facility] End: 07-14-1993 History of tobacco use Cigarette Smoker [facility] Start: 02-06-2023 End: 05-14-2023 Cigarettes smoked current (pack per day) - Reported 1 [facility] Start: 02-06-2023 Tobacco use and exposure Smokeless tobacco non-user [facility] Start: 02-06-2023 End: 09-15-2023 Alcohol intake Current non-drinker of alcohol (finding) [facility] Start: 03-15-2023 End: 04-22-2023 Exposure to SARS-CoV-2 (event) Not sure [facility] Start: 05-14-2023 End: 09-15-2023 Gender identity Not on file [facility] National Score (1-10 0), lower number is lower risk 52 [facility] Clinical Notes 02-06-2023 to 09-23-2023 Telephone Encounter - Alix Kang LPN - 09/23/2023 10:06 AM ESTTelephone Encounter - Alix Kang LPN - 09/21/2023 2:46 PM ESTTelephone Encounter - Janice Myers - 09/21/2023 12:49 PM EST Note Date & Type Note Facility 09-23-2023 Miscellaneous Notes Spoke with Dr. Mcfarland office, informed if they see something on images , or labs without a specific diagnosis of cancer, then pt. Needs to be worked up before sending to Oncology. Office nurse will inform Dr. Mcfarland to send for appropriate work up. Alix Kang LPN Left detailed message on nurse monitored voicemail as to why this pt. Was referred to to Oncology, with a DX; of chronic post traumatic headache. Spoke also with pt. She stated she didn't know why she was referred. Will await call back from Dr. Mcfarland office. Alix Kang LPN Patient presented at [facility] front desk auxiliary to schedule consultation. She has 2 referrals in for our department. Please review and advise re: scheduling. .me documented in this encounter [facility] 09-23-2023 Miscellaneous Notes Call to [place] at Dr. Jc's office. She is asking if patient already has a cancer diagnosis, advised no this is for work up. The nurse [place] states that primary care doctor needs to do work up, once primary care has completed work up and/or patient has a cancer diagnosis, then hematology/oncology can see them. Call to patient to explain above. Patient's PCP is Dr. Reyes with [facility]. Phone number : . Call to Dr. Reyes's office. Spoke to nurse Newton. Explained above, that PCP would need to do workup for possibility of metastatic disease which may include PET scan. Once PCP has exhausted workup and is unsure, or a confirmed cancer diagnosis is made, then patient could see Dr. Jc. This is per phone conversation with Dr. Jc's office. Nurse Newton verbalizes understanding and will provide information to Dr Almonte, and contact patient to schedule appointment. Janice please talk to me about that This has been explained many times in every visit to the patient The CT BRAIN showed possibility of metastatic disease because of this lesion on CT and mri Brain that was found incidentally and is not clear with all the tests we did ,may be she needs PET Oncology for checking for this possibility ,checking for malignancy (Work up for malignancy ) Patient didn't want to go ,for this visit Patient is calling to follow up on message below. Patient is hoping the provider will contact [facility] to discuss reasons why referral was placed. Patient is feeling very confused and anxious about her follow up care. Received call from [facility] from Hosea Cortez MD, [facility] LEDESMA ([phone]) calling to ascertain reason for patient's referral to Hematology/Oncology. Reason for Exam listed as Intractable chronic post-traumatic headache which Dr. Jc evaluate or treat. Is there another reason or possible dx that the referral was placed for? Return call to CALLIE Coleman, direct line [phone]. Routing to provider for review. documented in this encounter [facility] 09-15-2023 Note HNO ID: [id number] Author: Wing Johnson MD Service: ? Author Type: Physician Type: Progress Notes Filed: 09/20/2023 6:07 PM Note Text: Intermittent headache at the trauma site Above the right eye Not constant ,not daily Tylenol doesn't work Zonegran helps with breakthrough episodes Discussed test results in details TO DISCUSS TEST RESULT and clinical presentation Headache progression,s/p head trauma Follow up visit Postconcussion headache,today headache is improving, Two days a week of pressure sensation ,short time than goes away at the trauma site ,no vision changes and no change in [place] No memory changes ,no new complaint Has been doing everything at home that she was doing before . FUNCTIONAL at home as usual. She didn't know that zonegran is daily but took it as needed only. That has been discussed ,also with granddaughter Headache after head trauma ,not recalling headache before this head trauma No previous frequent headache or migraine . Pressure where she hits her head ,headache two times a week ,since the head trauma 1,5 years ago Headache is not positional,can be anywhere , lying sitting walking . Memory still same functioning normally at home Nothing new ,no falls Lab test not done ESR,CRP New prescription written,for headache control Subjective HISTORY AND PHYSICAL Avis Stallings 72 year old woman , who is complaining of post concussion headache . A year ago she bumped her head against the wall while she was going to the bathroom at night She was bruised around her right eye at that time, after this head trauma she experienced severe headache Mainly above the right eyebrow, she had steroids ice packs Tylenol Gradually pain got better, and became less frequent She never had a previous headache or migraine she had 2 CAT scans which were normal Now this headache improved she can feel it very infrequently It does not bother her and not needing medication for that There is no vision changes with this headache, no speech change no focal weakness or numbness Given the soreness of the right eye improved She is here to be checked if anything else needs to be done, also when she had this appointment Few months ago her headache was still a bit but now headache resolved Review of Systems Objective 09/15/23 1138 BP: 138/64 BP Site: Left Arm BP Position: Sitting BP Cuff Size: Regular Adult Pulse: (!) 57 Resp: 16 SpO2: 98% Weight: 65.8 kg (145 lb) Height: 154.9 cm (5' 1 ) Physical Exam EXAM: Neck supple and no adenopathy CHEST: Normal chest wall exam Neurological Exam MENTAL STATUS: Alert, oriented to person, place and time and Follows commands CRANIAL NERVES: EOM's intact, Visual gill intact to confrontation, Extraocular movements intact, Facial sensation intact, Face symmetric, No facial droop or ptosis, Hearing intact to finger rub bilaterally, No dysarthria, Palate elevates symmetrically, Tongue protrudes midline, and Shoulder shrug intact and symmetric MOTOR: No drift MOTOR STRENGTH: Upper and lower extremity 5/5 bilaterally REFLEXES: UE and LE reflexes are equal and reactive SENSATION: Intact light touch COORDINATION: Finger-to- nose-finger intact bilaterally GAIT: Normal-based PAST MEDICAL HISTORY Diagnosis Date Abnormal EKG @[facility] Hyperlipidemia Hypertension Current Outpatient Medications Medication Sig Dispense Refill atorvastatin (LIPITOR) 20 mg tablet Take 1 tablet by mouth every afternoon. riboflavin, vitamin B2, (VITAMIN B-2 ORAL) Take by mouth. sertraline (ZOLOFT) 50 mg tablet 1/2 tablet Orally Once a day Magnesium Oxide 500 mg tab 1 tablet with supper orally once a day zonisamide (ZONEGRAN) 25 mg capsule Take 1 capsule by mouth two times a day. 60 capsule 2 diclofenac (VOLTAREN) 1 % topical gel APPLY 2GM TO EACH FOOT EXTERNALLY TWICE DAILY FOR 30 DAYS potassium chloride ER (KLOR-CON) 20 mEq tablet Take 20 mEq by mouth once daily. triamterene-hydroCHLOROthiazide (MAXZIDE-25) 37.5-25 mg per tablet TAKE 1 TABLET BY MOUTH ONCE DAILY IN THE MORNING turmeric root extract 500 mg cap Take 500 mg by mouth. isosorbide dinitrate (ISORDIL, SORBITRATE) 30 mg tablet Take 30 mg by mouth four times daily. aspirin, enteric coated 81 mg EC tablet Take 1 tablet by mouth once daily. 0 CALCIUM CARBONATE/VITAMIN D3 (CALCIUM + D ORAL) Take by mouth. levothyroxine (SYNTHROID) 50 mcg tablet Take 50 mcg by mouth once daily. Taking 88 mg daily 0 atenolol 50 mg tablet Take 1 tablet by mouth once daily. 0 multivitamin tablet Take 1 tablet by mouth once daily. 0 omeprazole (PRILOSEC) 40 mg capsule (Patient not taking: Reported on 09/15/2023) potassium chloride 20 mEq TbER 1 tablet with food Orally Once a day (Patient not taking: Reported on 09/15/2023) hydroCHLOROthiazide 25 mg tablet Take 25 mg by mouth once daily. (Patient not taking: Reported on 07/02/2023) methocarbamol (more content not included)... [facility] 09-15-2023 History of Presen t illness Narrative Intermittent headache at the trauma site Above the right eye Not constant ,not daily Tylenol doesn't work Zonegran helps with breakthrough episodes Discussed test results in details TO DISCUSS TEST RESULT and clinical presentation Headache progression,s/p head trauma Follow up visit Postconcussion headache,today headache is improving, Two days a week of pressure sensation ,short time than goes away at the trauma site ,no vision changes and no change in [place] No memory changes ,no new complaint Has been doing everything at home that she was doing before . FUNCTIONAL at home as usual. She didn't know that zonegran is daily but took it as needed only. That has been discussed ,also with granddaughter Headache after head trauma ,not recalling headache before this head trauma No previous frequent headache or migraine . Pressure where she hits her head ,headache two times a week ,since the head trauma 1,5 years ago Headache is not positional,can be anywhere , lying sitting walking . Memory still same functioning normally at home Nothing new ,no falls Lab test not done ESR,CRP New prescription written,for headache control Subjective HISTORY AND PHYSICAL Avis Stallings 72 year old woman , who is complaining of post concussion headache . A year ago she bumped her head against the wall while she was going to the bathroom at night She was bruised around her right eye at that time, after this head trauma she experienced severe headache Mainly above the right eyebrow, she had steroids ice packs Tylenol Gradually pain got better, and became less frequent She never had a previous headache or migraine she had 2 CAT scans which were normal Now this headache improved she can feel it very infrequently It does not bother her and not needing medication for that There is no vision changes with this headache, no speech change no focal weakness or numbness Given the soreness of the right eye improved She is here to be checked if anything else needs to be done, also when she had this appointment Few months ago her headache was still a bit but now headache resolved Review of Systems Objective 09/15/23 1138 BP: 138/64 BP Site: Left Arm BP Position: Sitting BP Cuff Size: Regular Adult Pulse: (!) 57 Resp: 16 SpO2: 98% Weight: 65.8 kg (145 lb) Height: 154.9 cm (5' 1 ) Physical Exam EXAM: Neck supple and no adenopathy CHEST: Normal chest wall exam Neurological Exam MENTAL STATUS: Alert, oriented to person, place and time and Follows commands CRANIAL NERVES: EOM's intact, Visual igll intact to confrontation, Extraocular movements intact, Facial sensation intact, Face symmetric, No facial droop or ptosis, Hearing intact to finger rub bilaterally, No dysarthria, Palate elevates symmetrically, Tongue protrudes midline, and Shoulder shrug intact and symmetric MOTOR: No drift MOTOR STRENGTH: Upper and lower extremity 5/5 bilaterally REFLEXES: UE and LE reflexes are equal and reactive SENSATION: Intact light touch COORDINATION: Finger-to- nose-finger intact bilaterally GAIT: Normal-based PAST MEDICAL HISTORY Diagnosis Date Abnormal EKG @[facility] Hyperlipidemia Hypertension Current Outpatient Medications Medication Sig Dispense Refill atorvastatin (LIPITOR) 20 mg tablet Take 1 tablet by mouth every afternoon. riboflavin, vitamin B2, (VITAMIN B-2 ORAL) Take by mouth. sertraline (ZOLOFT) 50 mg tablet 1/2 tablet Orally Once a day Magnesium Oxide 500 mg tab 1 tablet with supper orally once a day zonisamide (ZONEGRAN) 25 mg capsule Take 1 capsule by mouth two times a day. 60 capsule 2 diclofenac (VOLTAREN) 1 % topical gel APPLY 2GM TO EACH FOOT EXTERNALLY TWICE DAILY FOR 30 DAYS potassium chloride ER (KLOR-CON) 20 mEq tablet Take 20 mEq by mouth once daily. triamterene-hydroCHLOROthiazide (MAXZIDE-25) 37.5-25 mg per tablet TAKE 1 TABLET BY MOUTH ONCE DAILY IN THE MORNING turmeric root extract 500 mg cap Take 500 mg by mouth. isosorbide dinitrate (ISORDIL, SORBITRATE) 30 mg tablet Take 30 mg by mouth four times daily. aspirin, enteric coated 81 mg EC tablet Take 1 tablet by mouth once daily. 0 CALCIUM CARBONATE/VITAMIN D3 (CALCIUM + D ORAL) Take by mouth. levothyroxine (SYNTHROID) 50 mcg tablet Take 50 mcg by mouth once daily. Taking 88 mg daily 0 atenolol 50 mg tablet Take 1 tablet by mouth once daily. 0 multivitamin tablet Take 1 tablet by mouth once daily. 0 omeprazole (PRILOSEC) 40 mg capsule (Patient not taking: Reported on 09/15/2023) potassium chloride 20 mEq TbER 1 tablet with food Orally Once a day (Patient not taking: Reported on 09/15/2023) hydroCHLOROthiazide 25 mg tablet Take 25 mg by mouth once daily. (Patient not taking: Reported on 07/02/2023) methocarbamol (ROBAXIN) 500 mg tablet Take 1 tablet by mouth twice daily as needed (headache). (Patient not taking: Reported on 09/15/2023) 60 tablet 2 amLODIPine (NORVASC) 2.5 mg tablet Take 2.5 mg by mouth once daily. (Patient not taking: Reported on 08/28/2023) fluticasone (FLOVENT) 110 mcg/actuation inhaler Inhale 1 Puff as instructed twice daily. PRN (Patient not taking: Reported on 09/15/2023) polyethylene glycol 3350 17 gram/dose powder Take by mouth once daily. (Patient not taking: Reported on 09/15/2023) OMEGA-3 FATTY ACIDS (FISH OIL CONCENTRATE ORAL) Take by mouth. (Patient not taking: Reported on 02/06/2023) valsartan (DIOVAN) 160 mg tablet Take 160 mg by mouth once daily. (Patient not taking: Reported on 09/15/2023) 0 pravastatin (PRAVACHOL) 40 mg tablet Take 1 tablet by mouth daily at bedtime. (Patient not taking: Reported on 02/06/2023) 0 naproxen 500 mg tablet Take 1 tablet by mouth twice daily as needed. FOR PAIN. TAKE WITH FOOD. (Patient not taking: Reported on 05/14/2023) 0 No current facility-administered medications for this visit. Social Connections: Not on file No diagnosis found. CT brain done locally is within normal limits Assessment and Plan Patient is 72 years old woman with posttraumatic headache mainly above the right eye, which was severe after head trauma But now it is feeling it improved and she has no other symptoms She also has no other complaint MRI of the brain with contrast as recommended ,by radiologist Due to non specific abnormality on MRI ESR CRP, reordered to be done Requesting all previous records done locally Total time in minutes spent with patient, reviewing records, labs, imaging, formulating plan, and documentin minutes with more than 50% of the time spent in patient education/counselling/coordinati ng care with the patient and /or family. Wing Johnson M.D. [facility] [place] Department of Neurology documented in this encounter [facility] 09-03-2023 Note HNO ID: [id number] Author: Jen Moore RT(R) Service: ? Author Type: Client Renewal Specialist Type: Progress Notes Filed: 09/03/2023 3:54 PM Note Text: Radiology Service Progress Note DATE OF SERVICE: September 03, 2023 TIME: 3:53 PM PATIENT IDENTITY VERIFICATION COMPLETED USING TWO (2) STANDARD IDENTIFIERS: Name and Date of confirmed by patient verbally. FALL SCREENING: Has the patient had 2 falls in the last year or 1 fall with injury or currently using an Ambulatory Assistive Device (Walker, Cane, Wheelchair, Crutches, etc.)? No PATIENT GENDER DATA: Female. status: : No status: NO. PATIENT RELEVANT IMPLANT DATA REVIEWED: Yes ALLERGIES: Reviewed and unchanged CONTRAST ALLERGY: NO. EXAM: CT -CONTRAST INDUCED NEPHROPATHY RISK FACTORS: Patient age > 60 years CREATININE: Creatinine Date Value Ref Range Status 09/02/2023 1.04 (H) 0.58 - 0.96 mg/dL Final 08/15/2013 0.77 0.70 - 1.40 mg/dL Final 08/15/2013 0.74 0.70 - 1.40 mg/dL Final Estimated Glomerular Filtration Rate Date Value Ref Range Status 09/02/2023 57 (L) >=60 mL/min/1.73m? Final Comment: Estimated Glomerular Filtration Rate (eGFR) is calculated using the 2020 CKD-EPI creatinine equation. This equation utilizes serum creatinine, sex, and age as parameters. The creatinine assay has traceable calibration to isotope dilution-mass spectrometry. Refer to KDIGO guidelines for clinical interpretation. In patients with unstable renal function, e.g. those with acute kidney injury, the eGFR may not accurately reflect actual GFR. P.O.C.T. RESULTS: POC done: Yes, See Lab Tab September 03, 2023 TREATMENT: N/A PERIPHERAL IV DATA: Ambulatory: A peripheral IV was started in the Left antecubital site with a Angio cath: 22 gauge. RADIOLOGY DEPARTMENT: CT; Exam(s) Completed: Chest Abdomen Pelvis SIGNATURE: RT Abel(R) PATIENT NAME: Avis Stallings DATE: September 03, 2023 TIME: 3:[address] [facility] 08-28-2023 Note HNO ID: [id number] Author: Wing Johnson MD Service: ? Author Type: Physician Type: Progress Notes Filed: 09/19/2023 8:55 PM Note Text: Follow-up visit to discuss test results Intermittent headache at the trauma site She comes today for follow-up to discuss test results Above the right eye Not constant ,not daily Tylenol doesn't work She had a CAT scan of the chest abdomen pelvis which did not show any suspicious lesion. She states that she is feeling good her headache got much better under control with Zonegran She receives her oncologist for any possible malignancy In the previous visit Follow up visit Postconcussion headache,today headache is improving, Two days a week of pressure sensation ,short time than goes away at the trauma site ,no vision changes and no change in [place] No memory changes ,no new complaint Has been doing everything at home that she was doing before . FUNCTIONAL at home as usual. She didn't know that zonegran is daily but took it as needed only. That has been discussed ,also with granddaughter Headache after head trauma ,not recalling headache before this head trauma No previous frequent headache or migraine . Pressure where she hits her head ,headache two times a week ,since the head trauma 1,5 years ago Headache is not positional,can be anywhere , lying sitting walking . Memory still same functioning normally at home Nothing new ,no falls Lab test not done ESR,CRP New prescription written,for headache control Subjective HISTORY AND PHYSICAL Avis Stallings 72 year old woman , who is complaining of post concussion headache . A year ago she bumped her head against the wall while she was going to the bathroom at night She was bruised around her right eye at that time, after this head trauma she experienced severe headache Mainly above the right eyebrow, she had steroids ice packs Tylenol Gradually pain got better, and became less frequent She never had a previous headache or migraine she had 2 CAT scans which were normal Now this headache improved she can feel it very infrequently It does not bother her and not needing medication for that There is no vision changes with this headache, no speech change no focal weakness or numbness Given the soreness of the right eye improved She is here to be checked if anything else needs to be done, also when she had this appointment Few months ago her headache was still a bit but now headache resolved Review of Systems Objective 08/28/23 1028 BP: 131/85 BP Site: Left Arm BP Position: Sitting BP Cuff Size: Large Adult Pulse: 61 Resp: 16 SpO2: 98% Weight: 61.2 kg (135 lb) Height: 125 cm (4' 1.2 ) Physical Exam EXAM: Neck supple and no adenopathy CHEST: Normal chest wall exam Neurological Exam MENTAL STATUS: Alert, oriented to person, place and time and Follows commands CRANIAL NERVES: EOM's intact, Visual gill intact to confrontation, Extraocular movements intact, Facial sensation intact, Face symmetric, No facial droop or ptosis, Hearing intact to finger rub bilaterally, No dysarthria, Palate elevates symmetrically, Tongue protrudes midline, and Shoulder shrug intact and symmetric MOTOR: No drift MOTOR STRENGTH: Upper and lower extremity 5/5 bilaterally REFLEXES: UE and LE reflexes are equal and reactive SENSATION: Intact light touch COORDINATION: Finger-to- nose-finger intact bilaterally GAIT: Normal-based PAST MEDICAL HISTORY Diagnosis Date Abnormal E[facility] [place] Hyperlipidemia Hypertension Current Outpatient Medications Medication Sig Dispense Refill diclofenac (VOLTAREN) 1 % topical gel APPLY 2GM TO EACH FOOT EXTERNALLY TWICE DAILY FOR 30 DAYS potassium chloride ER (KLOR-CON) 20 mEq tablet Take 20 mEq by mouth once daily. turmeric root extract 500 mg cap Take 500 mg by mouth. methocarbamol (ROBAXIN) 500 mg tablet Take 1 tablet by mouth twice daily as needed (headache). (Patient not taking: Reported on 09/15/2023) 60 tablet 2 isosorbide dinitrate (ISORDIL, SORBITRATE) 30 mg tablet Take 30 mg by mouth four times daily. fluticasone (FLOVENT) 110 mcg/actuation inhaler Inhale 1 Puff as instructed twice daily. PRN (Patient not taking: Reported on 09/15/2023) polyethylene glycol 3350 17 gram/dose powder Take by mouth once daily. (Patient not taking: Reported on 09/15/2023) aspirin, enteric coated 81 mg EC tablet Take 1 tablet by mouth once daily. 0 CALCIUM CARBONATE/VITAMIN D3 (CALCIUM + D ORAL) Take by mouth. levothyroxine (SYNTHROID) 50 mcg tablet Take 50 mcg by mouth once daily. Taking 88 mg daily 0 atenolol 50 mg tablet Take 1 tablet by mouth once daily. 0 multivitamin tablet Take 1 tablet by mouth once daily. 0 atorvastatin (LIPITOR) 20 mg tablet Take 1 tablet by mouth every afternoon. omeprazole (PRILOSEC) 40 mg capsule (Patient not taking: Reported on 09/15/2023) riboflavin, vitamin B2, (VITAMIN B- (more content not included)... [facility] 08-28-2023 Note HNO ID: [id number] Author: Janice Dillard RN Service: ? Author Type: Registered Nurse Type: Progress Notes Filed: 09/19/2023 8:55 PM Note Text: There is no data to display for this encounter [facility] 08-28-2023 Note HNO ID: [id number] Author: Frieda Francois Service: ? Author Type: ? Type: Progress Notes Filed: 09/19/2023 8:55 PM Note Text: There is no data to display for this encounter [facility] 08-28-2023 History of Presen t illness Narrative Follow-up visit to discuss test results Intermittent headache at the trauma site She comes today for follow-up to discuss test results Above the right eye Not constant ,not daily Tylenol doesn't work She had a CAT scan of the chest abdomen pelvis which did not show any suspicious lesion. She states that she is feeling good her headache got much better under control with Zonegran She receives her oncologist for any possible malignancy In the previous visit Follow up visit Postconcussion headache,today headache is improving, Two days a week of pressure sensation ,short time than goes away at the trauma site ,no vision changes and no change in [place] No memory changes ,no new complaint Has been doing everything at home that she was doing before . FUNCTIONAL at home as usual. She didn't know that zonegran is daily but took it as needed only. That has been discussed ,also with granddaughter Headache after head trauma ,not recalling headache before this head trauma No previous frequent headache or migraine . Pressure where she hits her head ,headache two times a week ,since the head trauma 1,5 years ago Headache is not positional,can be anywhere , lying sitting walking . Memory still same functioning normally at home Nothing new ,no falls Lab test not done ESR,CRP New prescription written,for headache control Subjective HISTORY AND PHYSICAL Avis Stallings 72 year old woman , who is complaining of post concussion headache . A year ago she bumped her head against the wall while she was going to the bathroom at night She was bruised around her right eye at that time, after this head trauma she experienced severe headache Mainly above the right eyebrow, she had steroids ice packs Tylenol Gradually pain got better, and became less frequent She never had a previous headache or migraine she had 2 CAT scans which were normal Now this headache improved she can feel it very infrequently It does not bother her and not needing medication for that There is no vision changes with this headache, no speech change no focal weakness or numbness Given the soreness of the right eye improved She is here to be checked if anything else needs to be done, also when she had this appointment Few months ago her headache was still a bit but now headache resolved Review of Systems Objective 08/28/23 1028 BP: 131/85 BP Site: Left Arm BP Position: Sitting BP Cuff Size: Large Adult Pulse: 61 Resp: 16 SpO2: 98% Weight: 61.2 kg (135 lb) Height: 125 cm (4' 1.2 ) Physical Exam EXAM: Neck supple and no adenopathy CHEST: Normal chest wall exam Neurological Exam MENTAL STATUS: Alert, oriented to person, place and time and Follows commands CRANIAL NERVES: EOM's intact, Visual gill intact to confrontation, Extraocular movements intact, Facial sensation intact, Face symmetric, No facial droop or ptosis, Hearing intact to finger rub bilaterally, No dysarthria, Palate elevates symmetrically, Tongue protrudes midline, and Shoulder shrug intact and symmetric MOTOR: No drift MOTOR STRENGTH: Upper and lower extremity 5/5 bilaterally REFLEXES: UE and LE reflexes are equal and reactive SENSATION: Intact light touch COORDINATION: Finger-to- nose-finger intact bilaterally GAIT: Normal-based PAST MEDICAL HISTORY Diagnosis Date Abnormal EKG @[facility] Hyperlipidemia Hypertension Current Outpatient Medications Medication Sig Dispense Refill diclofenac (VOLTAREN) 1 % topical gel APPLY 2GM TO EACH FOOT EXTERNALLY TWICE DAILY FOR 30 DAYS potassium chloride ER (KLOR-CON) 20 mEq tablet Take 20 mEq by mouth once daily. turmeric root extract 500 mg cap Take 500 mg by mouth. methocarbamol (ROBAXIN) 500 mg tablet Take 1 tablet by mouth twice daily as needed (headache). (Patient not taking: Reported on 09/15/2023) 60 tablet 2 isosorbide dinitrate (ISORDIL, SORBITRATE) 30 mg tablet Take 30 mg by mouth four times daily. fluticasone (FLOVENT) 110 mcg/actuation inhaler Inhale 1 Puff as instructed twice daily. PRN (Patient not taking: Reported on 09/15/2023) polyethylene glycol 3350 17 gram/dose powder Take by mouth once daily. (Patient not taking: Reported on 09/15/2023) aspirin, enteric coated 81 mg EC tablet Take 1 tablet by mouth once daily. 0 CALCIUM CARBONATE/VITAMIN D3 (CALCIUM + D ORAL) Take by mouth. levothyroxine (SYNTHROID) 50 mcg tablet Take 50 mcg by mouth once daily. Taking 88 mg daily 0 atenolol 50 mg tablet Take 1 tablet by mouth once daily. 0 multivitamin tablet Take 1 tablet by mouth once daily. 0 atorvastatin (LIPITOR) 20 mg tablet Take 1 tablet by mouth every afternoon. omeprazole (PRILOSEC) 40 mg capsule (Patient not taking: Reported on 09/15/2023) riboflavin, vitamin B2, (VITAMIN B-2 ORAL) Take by mouth. potassium chloride 20 mEq TbER 1 tablet with food Orally Once a day (Patient not taking: Reported on 09/15/2023) sertraline (ZOLOFT) 50 mg tablet 1/2 tablet Orally Once a day Magnesium Oxide 500 mg tab 1 tablet with supper orally once a day zonisamide (ZONEGRAN) 25 mg capsule Take 1 capsule by mouth two times a day. 60 capsule 2 triamterene-hydroCHLOROthiazide (MAXZIDE-25) 37.5-25 mg per tablet TAKE 1 TABLET BY MOUTH ONCE DAILY IN THE MORNING hydroCHLOROthiazide 25 mg tablet Take 25 mg by mouth once daily. (Patient not taking: Reported on 07/02/2023) amLODIPine (NORVASC) 2.5 mg tablet Take 2.5 mg by mouth once daily. (Patient not taking: Reported on 08/28/2023) OMEGA-3 FATTY ACIDS (FISH OIL CONCENTRATE ORAL) Take by mouth. (Patient not taking: Reported on 02/06/2023) valsartan (DIOVAN) 160 mg tablet Take 160 mg by mouth once daily. (Patient not taking: Reported on 09/15/2023) 0 pravastatin (PRAVACHOL) 40 mg tablet Take 1 tablet by mouth daily at bedtime. (Patient not taking: Reported on 02/06/2023) 0 naproxen 500 mg tablet Take 1 tablet by mouth twice daily as needed. FOR PAIN. TAKE WITH FOOD. (Patient not taking: Reported on 05/14/2023) 0 No current facility-administered medications for this visit. Social Connections: Not on file Intractable post-traumatic headache, unspecified chronicity pattern (primary encounter diagnosis) CT brain done locally is within normal limits Assessment and Plan Patient is 72 years old woman with posttraumatic headache mainly above the right eye, which was severe after head trauma But now it is feeling it improved and she has no other symptoms She also has no other complaint MRI of the brain with contrast as recommended ,by radiologist Due to non specific abnormality on MRI ESR CRP, reordered to be done Requesting all previous records done locally Total time in minutes spent with patient, reviewing records, labs, imaging, formulating plan, and documentin minutes with more than 50% of the time spent in patient education/counselling/coordinati ng care with the patient and /or family. Wing Johnson M.D. [facility] [place] Department of Neurology There is no data to display for this encounter There is no data to display for this encounter documented in this encounter [facility] 08-26-2023 Miscellaneous Notes Phone call to patient. Provided information from Dr. Johnson including scheduling CT abd/pelvis, CT chest, and consultation to oncology/hematology. Transferred patient to central scheduling to schedule CT's & consult. Patient verbalizes understanding and will keep appointment with Dr. Johnson for Thursday08-28-23 for further discussion of MRI results. Patient returning phone call, about wanting results from MRI IMPRESSION: when MRI Brain done with and without Still sclerotic lesion , Malignancy work up to r/o primary Marrow replacement lesion in the frontal calvarium without a clear expansile/extraosseous component. Little to no enhancement and hypointense signal on all sequences may indicate a sclerotic lesion, raising concern for metastasis in a patient of this age, however the finding can be further characterized by CT head as a next step. Generalized mild smooth dural thickening is redemonstrated and not substantially changed compared to 06/30/2023, remains nonspecific. No associated nodularity or measurable collection. No evidence of acute dural venous sinus thrombosis. Nonvisualization of the left transverse sinus, favored to be developmental in the setting of dominant right transverse-sigmoid sinus system. COMMUNICATION: Communicated with Dr. Avila covering the service of Dr. Johnson on 08/04/2023 10:56 AM via verbal communication. Mri brain then mri brain with contrast then ct brain Sclerotic lesion stable Will discuss that in more details in the follow up visit documented in this encounter [facility] 08-24-2023 Miscellaneous Notes Patient returned phone call. Can be reached at [phone]. Patient does have appointment Thursday with Dr Johnson however she is nervous about her results now . Thank you! documented in this encounter [facility] 08-24-2023 Note HNO ID: [id number] Author: Jen Moore RT(R) Service: ? Author Type: Client Renewal Specialist Type: Progress Notes Filed: 08/24/2023 8:43 AM Note Text: Radiology Service Progress Note PATIENT NAME: Avis Stallings DATE OF SERVICE: August 24, 2023 TIME: 8:42 AM PATIENT IDENTITY VERIFICATION COMPLETED USING TWO (2) IDENTIFIERS: Name and Date of confirmed by patient verbally. FALL SCREENING: Has the patient had 2 falls in the last year or 1 fall with injury or currently using an Ambulatory Assistive Device (Walker, Cane, Wheelchair, Crutches, etc.)? No PATIENT GENDER DATA: Female. status: : No status: NO. PATIENT RELEVANT IMPLANT DATA REVIEWED: Yes RADIOLOGY DEPARTMENT: CT; Exam(s) Completed: Brain PERIPHERAL IV DATA: Not applicable SIGNED BY: JONATHAN Roman) August 24, 2023 8:[address] [facility] 08-04-2023 Note HNO ID: [id number] Author: Reena Galaviz RT(R) Service: ? Author Type: Technologist Type: Progress Notes Filed: 08/04/2023 7:59 AM Note Text: Radiology Service Progress Note DATE OF SERVICE: August 04, 2023 TIME: 7:58 AM PATIENT IDENTITY VERIFICATION COMPLETED USING TWO (2) STANDARD IDENTIFIERS: Name and Date of confirmed by patient verbally. FALL SCREENING: Has the patient had 2 falls in the last year or 1 fall with injury or currently using an Ambulatory Assistive Device (Walker, Cane, Wheelchair, Crutches, etc.)? No PATIENT GENDER DATA: Female. status: : No status: NO. PATIENT RELEVANT IMPLANT DATA REVIEWED: Yes ALLERGIES: Reviewed and unchanged CONTRAST ALLERGY: NO. EXAM: MRI - CONTRAST TYPE: GROUP II PERIPHERAL IV DATA: Ambulatory: A peripheral IV was started in the Left antecubital site with a Angio cath: 22 gauge. RADIOLOGY DEPARTMENT: MR; Exam(s) Completed: Head: Routine Brain Sagittal Sinus MRV SIGNATURE: RT Jude(R) PATIENT NAME: Avis Stallings DATE: August 04, 2023 TIME: 7:[address] [facility] 07-02-2023 Note HNO ID: [id number] Author: Wing Johnson MD Service: ? Author Type: Physician Type: Progress Notes Filed: 07/04/2023 6:53 PM Note Text: July 02, 2023 Accompanied with family member TO DISCUSS TEST RESULT and clinical presentation Headache progression,s/p head trauma Follow up visit Postconcussion headache,today headache is improving, Two days a week of pressure sensation ,short time than goes away at the trauma site ,no vision changes and no change in [place] No memory changes ,no new complaint Has been doing everything at home that she was doing before . FUNCTIONAL at home as usual. She didn't know that zonegran is daily but took it as needed only. That has been discussed ,also with granddaughter Headache after head trauma ,not recalling headache before this head trauma No previous frequent headache or migraine . Pressure where she hits her head ,headache two times a week ,since the head trauma 1,5 years ago Headache is not positional,can be anywhere , lying sitting walking . Memory still same functioning normally at home Nothing new ,no falls Lab test not done ESR,CRP New prescription written,for headache control Subjective HISTORY AND PHYSICAL Avis Stallings 72 year old woman , who is complaining of post concussion headache . A year ago she bumped her head against the wall while she was going to the bathroom at night She was bruised around her right eye at that time, after this head trauma she experienced severe headache Mainly above the right eyebrow, she had steroids ice packs Tylenol Gradually pain got better, and became less frequent She never had a previous headache or migraine she had 2 CAT scans which were normal Now this headache improved she can feel it very infrequently It does not bother her and not needing medication for that There is no vision changes with this headache, no speech change no focal weakness or numbness Given the soreness of the right eye improved She is here to be checked if anything else needs to be done, also when she had this appointment Few months ago her headache was still a bit but now headache resolved Review of Systems Objective 07/02/23 1021 BP: 142/82 BP Site: Left Arm BP Position: Sitting BP Cuff Size: Regular Adult Pulse: (!) 56 Resp: 16 SpO2: 98% Weight: 63.5 kg (140 lb) Height: 157.5 cm (5' 2 ) Physical Exam EXAM: Neck supple and no adenopathy CHEST: Normal chest wall exam Neurological Exam MENTAL STATUS: Alert, oriented to person, place and time and Follows commands CRANIAL NERVES: EOM's intact, Visual gill intact to confrontation, Extraocular movements intact, Facial sensation intact, Face symmetric, No facial droop or ptosis, Hearing intact to finger rub bilaterally, No dysarthria, Palate elevates symmetrically, Tongue protrudes midline, and Shoulder shrug intact and symmetric MOTOR: No drift MOTOR STRENGTH: Upper and lower extremity 5/5 bilaterally REFLEXES: UE and LE reflexes are equal and reactive SENSATION: Intact light touch COORDINATION: Finger-to- nose-finger intact bilaterally GAIT: Normal-based PAST MEDICAL HISTORY Diagnosis Date Abnormal EKG @[facility] Hyperlipidemia Hypertension Current Outpatient Medications Medication Sig Dispense Refill diclofenac (VOLTAREN) 1 % topical gel APPLY 2GM TO EACH FOOT EXTERNALLY TWICE DAILY FOR 30 DAYS potassium chloride ER (KLOR-CON) 20 mEq tablet Take 20 mEq by mouth once daily. turmeric root extract 500 mg cap Take 500 mg by mouth. isosorbide dinitrate (ISORDIL, SORBITRATE) 30 mg tablet Take 30 mg by mouth four times daily. fluticasone (FLOVENT) 110 mcg/actuation inhaler Inhale 1 Puff as instructed twice daily. PRN aspirin, enteric coated 81 mg EC tablet Take 1 tablet by mouth once daily. 0 CALCIUM CARBONATE/VITAMIN D3 (CALCIUM + D ORAL) Take by mouth. atenolol 50 mg tablet Take 1 tablet by mouth once daily. 0 multivitamin tablet Take 1 tablet by mouth once daily. 0 zonisamide (ZONEGRAN) 25 mg capsule Take 1 capsule by mouth once daily. 30 capsule 1 triamterene-hydroCHLOROthiazide (MAXZIDE-25) 37.5-25 mg per tablet TAKE 1 TABLET BY MOUTH ONCE DAILY IN THE MORNING hydroCHLOROthiazide 25 mg tablet Take 25 mg by mouth once daily. (Patient not taking: Reported on 07/02/2023) methocarbamol (ROBAXIN) 500 mg tablet Take 1 tablet by mouth twice daily as needed (headache). (Patient not taking: Reported on 07/02/2023) 60 tablet 2 amLODIPine (NORVASC) 2.5 mg tablet Take 2.5 mg by mouth once daily. (Patient not taking: Reported on 07/02/2023) polyethylene glycol 3350 17 gram/dose powder Take by mouth once daily. (Patient not taking: Reported on 05/14/2023) OMEGA-3 FATTY ACIDS (FISH OIL CONCENTRATE ORAL) Take by mouth. (Patient not taking: Reported on 02/06/2023) levothyroxine (SYNTHROID) 50 mcg tablet Take 50 mcg by mouth once daily. Taking 88 mg daily (Patient not taking: Reported on (more content not included)... [facility] 07-02-2023 History of Presen t illness Narrative July 02, 2023 Accompanied with family member TO DISCUSS TEST RESULT and clinical presentation Headache progression,s/p head trauma Follow up visit Postconcussion headache,today headache is improving, Two days a week of pressure sensation ,short time than goes away at the trauma site ,no vision changes and no change in VA No memory changes ,no new complaint Has been doing everything at home that she was doing before . FUNCTIONAL at home as usual. She didn't know that zonegran is daily but took it as needed only. That has been discussed ,also with granddaughter Headache after head trauma ,not recalling headache before this head trauma No previous frequent headache or migraine . Pressure where she hits her head ,headache two times a week ,since the head trauma 1,5 years ago Headache is not positional,can be anywhere , lying sitting walking . Memory still same functioning normally at home Nothing new ,no falls Lab test not done ESR,CRP New prescription written,for headache control Subjective HISTORY AND PHYSICAL Avis Stallings 72 year old woman , who is complaining of post concussion headache . A year ago she bumped her head against the wall while she was going to the bathroom at night She was bruised around her right eye at that time, after this head trauma she experienced severe headache Mainly above the right eyebrow, she had steroids ice packs Tylenol Gradually pain got better, and became less frequent She never had a previous headache or migraine she had 2 CAT scans which were normal Now this headache improved she can feel it very infrequently It does not bother her and not needing medication for that There is no vision changes with this headache, no speech change no focal weakness or numbness Given the soreness of the right eye improved She is here to be checked if anything else needs to be done, also when she had this appointment Few months ago her headache was still a bit but now headache resolved Review of Systems Objective 07/02/23 1021 BP: 142/82 BP Site: Left Arm BP Position: Sitting BP Cuff Size: Regular Adult Pulse: (!) 56 Resp: 16 SpO2: 98% Weight: 63.5 kg (140 lb) Height: 157.5 cm (5' 2 ) Physical Exam EXAM: Neck supple and no adenopathy CHEST: Normal chest wall exam Neurological Exam MENTAL STATUS: Alert, oriented to person, place and time and Follows commands CRANIAL NERVES: EOM's intact, Visual gill intact to confrontation, Extraocular movements intact, Facial sensation intact, Face symmetric, No facial droop or ptosis, Hearing intact to finger rub bilaterally, No dysarthria, Palate elevates symmetrically, Tongue protrudes midline, and Shoulder shrug intact and symmetric MOTOR: No drift MOTOR STRENGTH: Upper and lower extremity 5/5 bilaterally REFLEXES: UE and LE reflexes are equal and reactive SENSATION: Intact light touch COORDINATION: Finger-to- nose-finger intact bilaterally GAIT: Normal-based PAST MEDICAL HISTORY Diagnosis Date Abnormal EKG @[facility] Hyperlipidemia Hypertension Current Outpatient Medications Medication Sig Dispense Refill diclofenac (VOLTAREN) 1 % topical gel APPLY 2GM TO EACH FOOT EXTERNALLY TWICE DAILY FOR 30 DAYS potassium chloride ER (KLOR-CON) 20 mEq tablet Take 20 mEq by mouth once daily. turmeric root extract 500 mg cap Take 500 mg by mouth. isosorbide dinitrate (ISORDIL, SORBITRATE) 30 mg tablet Take 30 mg by mouth four times daily. fluticasone (FLOVENT) 110 mcg/actuation inhaler Inhale 1 Puff as instructed twice daily. PRN aspirin, enteric coated 81 mg EC tablet Take 1 tablet by mouth once daily. 0 CALCIUM CARBONATE/VITAMIN D3 (CALCIUM + D ORAL) Take by mouth. atenolol 50 mg tablet Take 1 tablet by mouth once daily. 0 multivitamin tablet Take 1 tablet by mouth once daily. 0 zonisamide (ZONEGRAN) 25 mg capsule Take 1 capsule by mouth once daily. 30 capsule 1 triamterene-hydroCHLOROthiazide (MAXZIDE-25) 37.5-25 mg per tablet TAKE 1 TABLET BY MOUTH ONCE DAILY IN THE MORNING hydroCHLOROthiazide 25 mg tablet Take 25 mg by mouth once daily. (Patient not taking: Reported on 07/02/2023) methocarbamol (ROBAXIN) 500 mg tablet Take 1 tablet by mouth twice daily as needed (headache). (Patient not taking: Reported on 07/02/2023) 60 tablet 2 amLODIPine (NORVASC) 2.5 mg tablet Take 2.5 mg by mouth once daily. (Patient not taking: Reported on 07/02/2023) polyethylene glycol 3350 17 gram/dose powder Take by mouth once daily. (Patient not taking: Reported on 05/14/2023) OMEGA-3 FATTY ACIDS (FISH OIL CONCENTRATE ORAL) Take by mouth. (Patient not taking: Reported on 02/06/2023) levothyroxine (SYNTHROID) 50 mcg tablet Take 50 mcg by mouth once daily. Taking 88 mg daily (Patient not taking: Reported on 07/02/2023) 0 valsartan (DIOVAN) 160 mg tablet Take 1 tablet by mouth once daily. (Patient not taking: Reported on 02/06/2023) 0 pravastatin (PRAVACHOL) 40 mg tablet Take 1 tablet by mouth daily at bedtime. (Patient not taking: Reported on 02/06/2023) 0 naproxen 500 mg tablet Take 1 tablet by mouth twice daily as needed. FOR PAIN. TAKE WITH FOOD. (Patient not taking: Reported on 05/14/2023) 0 No current facility-administered medications for this visit. Social Connections: Not on file No diagnosis found. CT brain done locally is within normal limits Assessment and Plan Patient is 72 years old woman with posttraumatic headache mainly above the right eye, which was severe after head trauma But now it is feeling it improved and she has no other symptoms She also has no other complaint MRI of the brain with contrast as recommended ,by radiologist Due to non specific abnormality on MRI ESR CRP, reordered to be done Requesting all previous records done locally Total time in minutes spent with patient, reviewing records, labs, imaging, formulating plan, and documentin minutes with more than 50% of the time spent in patient education/counselling/coordinati ng care with the patient and /or family. Wing Johnson M.D. [facility] [place] Department of Neurology documented in this encounter [facility] 06-30-2023 Note HNO ID: [id number] Author: Reena Galaviz RT(Hortensia) Service: ? Author Type: Technologist Type: Progress Notes Filed: 06/30/2023 8:02 AM Note Text: Radiology Service Progress Note PATIENT NAME: Avis Stallings DATE OF SERVICE: June 30, 2023 TIME: 8:02 AM PATIENT IDENTITY VERIFICATION COMPLETED USING TWO (2) IDENTIFIERS: Name and Date of confirmed by patient verbally. FALL SCREENING: Has the patient had 2 falls in the last year or 1 fall with injury or currently using an Ambulatory Assistive Device (Walker, Cane, Wheelchair, Crutches, etc.)? No PATIENT GENDER DATA: Female. status: : No status: NO. PATIENT RELEVANT IMPLANT DATA REVIEWED: Yes RADIOLOGY DEPARTMENT: MR; Exam(s) Completed: Head: Routine Brain PERIPHERAL IV DATA: Not applicable SIGNED BY: RT Jude(R) June 30, 2023 8:[address] [facility] 05-26-2023 Miscellaneous Notes Called and spoke with patient. She is scheduled from Brain MRI on 06/30/2023 and follow up with Dr. Johnson on 07/02/2023 to review medication changes and MRI result. Appointment reminders mailed to address on file per patient's request. Maria Del Carmen Martínez Spoke to patient who was informed of provider's message and recommendations and verbalized understanding. Advised to call back with concerns or additional questions. Routing to scheduling to assist patient with follow up with Dr. Johnson in approximately three weeks. Post concussion headache with migrainous features and has been intractable to most medications tried Consider Botox injection Patient is also taking atenolol 50 mg daily Can add zonegran 25 mg every night Follow up visit to be scheduled after 3 weeks ARIANA: 05/14/23 NOV: 08/19/23 Spoke to patient regarding persistent headaches: Headache assessment questions: Location: same location: forehead above right eye Onset: Headaches are occurring three or four times per week (Minutes, hours, days) Lasting most of day, sometimes a few hours. Pattern: none Severity: Moderate, except 05/23/23, reported as severe. 6. Vision changes? Denies 7. Head injury/ trauma? Yes, history of postraumatic headache 8. Do you have any other symptoms such as fever, viral symptoms: denies Emergent Symptoms: denies Patient taking Methocarbamol 500 mg BID PRN. Patient does not think it is helping with number of occurrences or severity. Asking for other recommendations or another medication. documented in this encounter [facility] 05-14-2023 Note HNO ID: [id number] Author: Wing Johnson MD Service: ? Author Type: Physician Type: Progress Notes Filed: 05/14/2023 9:41 PM Note Text: February 06, 2023 Follow up visit Postconcussion headache She is her for 3 months follow up Not taking robaxin didn't know she has a prescripton She still get breakthrough episodes of headache She gets once a week of headache ,above the right eye ,right frontal At the trauma site She sits down and closes eyes She didn't have this headache before the head trauma She went to ER and was prescribed some medications that made her dizzy So didn't take them Office Visit on 05/14/23 MRI BRAIN WO IVCON New prescription written Subjective HISTORY AND PHYSICAL Avis Stallings 72 year old woman , who is complaining of post concussion headache . A year ago she bumped her head against the wall while she was going to the bathroom at night She was bruised around her right eye at that time, after this head trauma she experienced severe headache Mainly above the right eyebrow, she had steroids ice packs Tylenol Gradually pain got better, and became less frequent She never had a previous headache or migraine she had 2 CAT scans which were normal Now this headache improved she can feel it very infrequently It does not bother her and not needing medication for that There is no vision changes with this headache, no speech change no focal weakness or numbness Given the soreness of the right eye improved She is here to be checked if anything else needs to be done, also when she had this appointment Few months ago her headache was still a bit but now headache resolved Review of Systems Objective 05/14/23 1023 BP: 144/75 BP Site: Left Arm BP Position: Sitting BP Cuff Size: Regular Adult Pulse: 64 SpO2: 98% Weight: 68.1 kg (150 lb 3.2 oz) Height: 157.5 cm (5' 2 ) Physical Exam EXAM: Neck supple and no adenopathy CHEST: Normal chest wall exam Neurological Exam MENTAL STATUS: Alert, oriented to person, place and time and Follows commands CRANIAL NERVES: EOM's intact, Visual gill intact to confrontation, Extraocular movements intact, Facial sensation intact, Face symmetric, No facial droop or ptosis, Hearing intact to finger rub bilaterally, No dysarthria, Palate elevates symmetrically, Tongue protrudes midline, and Shoulder shrug intact and symmetric MOTOR: No drift MOTOR STRENGTH: Upper and lower extremity 5/5 bilaterally REFLEXES: UE and LE reflexes are equal and reactive SENSATION: Intact light touch COORDINATION: Finger-to- nose-finger intact bilaterally GAIT: Normal-based PAST MEDICAL HISTORY Diagnosis Date Abnormal E[facility] [place] [facility] Hyperlipidemia Hypertension Current Outpatient Medications Medication Sig Dispense Refill diclofenac (VOLTAREN) 1 % topical gel APPLY 2GM TO EACH FOOT EXTERNALLY TWICE DAILY FOR 30 DAYS methocarbamol (ROBAXIN) 500 mg tablet Take by mouth. potassium chloride ER (KLOR-CON) 20 mEq tablet Take 20 mEq by mouth once daily. tiZANidine (ZANAFLEX) 4 mg tablet TAKE 1 TO 2 TABLETS BY MOUTH THREE TIMES DAILY NEEDED FOR 10 DAYS triamterene-hydroCHLOROthiazide (MAXZIDE-25) 37.5-25 mg per tablet TAKE 1 TABLET BY MOUTH ONCE DAILY IN THE MORNING turmeric root extract 500 mg cap Take 500 mg by mouth. hydroCHLOROthiazide 25 mg tablet Take 25 mg by mouth once daily. isosorbide dinitrate (ISORDIL, SORBITRATE) 30 mg tablet Take 30 mg by mouth four times daily. amLODIPine (NORVASC) 2.5 mg tablet Take 2.5 mg by mouth once daily. fluticasone (FLOVENT) 110 mcg/actuation inhaler Inhale 1 Puff as instructed twice daily. PRN aspirin, enteric coated 81 mg EC tablet Take 1 tablet by mouth once daily. 0 CALCIUM CARBONATE/VITAMIN D3 (CALCIUM + D ORAL) Take by mouth. levothyroxine (SYNTHROID) 50 mcg tablet Take 50 mcg by mouth once daily. Taking 88 mg daily 0 atenolol 50 mg tablet Take 1 tablet by mouth once daily. 0 multivitamin tablet Take 1 tablet by mouth once daily. 0 polyethylene glycol 3350 17 gram/dose powder Take by mouth once daily. (Patient not taking: Reported on 05/14/2023) OMEGA-3 FATTY ACIDS (FISH OIL CONCENTRATE ORAL) Take by mouth. (Patient not taking: No sig reported) valsartan (DIOVAN) 160 mg tablet Take 1 tablet by mouth once daily. (Patient not taking: No sig reported) 0 pravastatin (PRAVACHOL) 40 mg tablet Take 1 tablet by mouth daily at bedtime. (Patient not taking: No sig reported) 0 naproxen 500 mg tablet Take 1 tablet by mouth twice daily as needed. FOR PAIN. TAKE WITH FOOD. (Patient not taking: Reported on 05/14/2023) 0 No current facility-administered medications for this visit. Social Connections: Not on file No diagnosis found. CT brain done locally is within normal limits Assessment and Plan Patient is 72 years old woman with posttraumatic headache mainly above the right eye, which was severe after head trauma But now it is feelin (more content not included)... [facility] 04-10-2023 Telephone encounter Note S: Patient spoke with [facility] nurse regarding spasms and pain to back of calf's and upper thighs. B: Onset of symptoms/concern Started today.Spoke with office this morning at 09:00 and was told to increase water. A: Pt has taken in 3 16 ounces bottles of water. Pt has urinated 5-6 times today. Pt worried that she has blood clots in calf and that is why she called back again tonight. Pt has never had blood clots. Pt has swelling to lower leg. Pt has pain with flexation and tightness. Pt denies redness at this time. R: Provider paged : Dr Alfonso returned page. Advise ER : Pt will go to [facility] . Patient understands care advice. No further needs at this time. Patient instructed to call back with new or worsening symptoms. TE entered in [facility] at 21:03 Reason for Disposition [1] Muscle jerks or tics without an obvious cause AND [2] brief (seconds, gone now) AND [3] otherwise feels normal (well) Patient sounds very sick or weak to the triager Answer Assessment - Initial Assessment Questions 1. APPEARANCE of MOVEMENT: What did the jerking or twitching look like? (e.g., body area) Back of leg and top of thigh 2. ONSET: When did this start happening? (e.g., hours, days, weeks, months ago) On and off 3. DURATION: How long does the jerk, twitch, or spasm last? Last Spasm today off and on 4. FREQUENCY: How often does this happen? On an off 5. WHEN: When does this happen? (e.g., while awake, while falling asleep, while sleeping) On and off 6. CAUSE: What do you think caused the Not sure ? Not drinking enough fluid 7. OTHER SYMPTOMS: Are there any other symptoms? (e.g., fever, headache) Denies 8. : Is there any chance you are ? When was your last menstrual period? NA Answer Assessment - Initial Assessment Questions 1. ONSET: When did the pain start? Today 2. LOCATION: Where is the pain located? Lower calf 3. PAIN: How bad is the pain? (Scale 1-10; or mild, moderate, severe) - MILD (1-3): doesn't interfere with normal activities - MODERATE (4-7): interferes with normal activities (e.g., work or school) or awakens from sleep, limping - SEVERE (8-10): excruciating pain, unable to do any normal activities, unable to walk Mild 4. WORK OR EXERCISE: Has there been any recent work or exercise that involved this part of the body? Denies 5. CAUSE: What do you think is causing the leg pain? Not sure 6. OTHER SYMPTOMS: Do you have any other symptoms? (e.g., chest pain, back pain, breathing difficulty, swelling, rash, fever, numbness, weakness) Swelling to leg mild and weakness legs today 7. : Is there any chance you are ? When was your last menstrual period? NA Protocols used: Muscle Jerks - Tics - [id number], Leg [id number] [facility] 04-10-2023 Miscellaneous Notes S: Patient spoke with [facility] nurse regarding spasms and pain to back of calf's and upper thighs. B: Onset of symptoms/concern Started today.Spoke with office this morning at 09:00 and was told to increase water. A: Pt has taken in 3 16 ounces bottles of water. Pt has urinated 5-6 times today. Pt worried that she has blood clots in calf and that is why she called back again tonight. Pt has never had blood clots. Pt has swelling to lower leg. Pt has pain with flexation and tightness. Pt denies redness at this time. R: Provider paged : Dr Alfonso returned page. Advise ER : Pt will go to [facility] . Patient understands care advice. No further needs at this time. Patient instructed to call back with new or worsening symptoms. TE entered in [facility] at 21:03 Reason for Disposition [1] Muscle jerks or tics without an obvious cause AND [2] brief (seconds, gone now) AND [3] otherwise feels normal (well) Patient sounds very sick or weak to the triager Answer Assessment - Initial Assessment Questions 1. APPEARANCE of MOVEMENT: What did the jerking or twitching look like? (e.g., body area) Back of leg and top of thigh 2. ONSET: When did this start happening? (e.g., hours, days, weeks, months ago) On and off 3. DURATION: How long does the jerk, twitch, or spasm last? Last Spasm today off and on 4. FREQUENCY: How often does this happen? On an off 5. WHEN: When does this happen? (e.g., while awake, while falling asleep, while sleeping) On and off 6. CAUSE: What do you think caused the Not sure ? Not drinking enough fluid 7. OTHER SYMPTOMS: Are there any other symptoms? (e.g., fever, headache) Denies 8. : Is there any chance you are ? When was your last menstrual period? NA Answer Assessment - Initial Assessment Questions 1. ONSET: When did the pain start? Today 2. LOCATION: Where is the pain located? Lower calf 3. PAIN: How bad is the pain? (Scale 1-10; or mild, moderate, severe) - MILD (1-3): doesn't interfere with normal activities - MODERATE (4-7): interferes with normal activities (e.g., work or school) or awakens from sleep, limping - SEVERE (8-10): excruciating pain, unable to do any normal activities, unable to walk Mild 4. WORK OR EXERCISE: Has there been any recent work or exercise that involved this part of the body? Denies 5. CAUSE: What do you think is causing the leg pain? Not sure 6. OTHER SYMPTOMS: Do you have any other symptoms? (e.g., chest pain, back pain, breathing difficulty, swelling, rash, fever, numbness, weakness) Swelling to leg mild and weakness legs today 7. : Is there any chance you are ? When was your last menstrual period? NA Protocols used: Muscle Jerks - Tics - [id number], Leg [id number] documented in this encounter [facility] 02-06-2023 Note HNO ID: [id number] Author: Wing Johnson MD Service: ? Author Type: Physician Type: Progress Notes Filed: 02/06/2023 5:06 PM Note Text: February 06, 2023 New office visit Postconcussion headache Subjective HISTORY AND PHYSICAL Avis Stallings 72 year old woman , who is complaining of post concussion headache . A year ago she bumped her head against the wall while she was going to the bathroom at night She was bruised around her right eye at that time, after this head trauma she experienced severe headache Mainly above the right eyebrow, she had steroids ice packs Tylenol Gradually pain got better, and became less frequent She never had a previous headache or migraine she had 2 CAT scans which were normal Now this headache improved she can feel it very infrequently It does not bother her and not needing medication for that There is no vision changes with this headache, no speech change no focal weakness or numbness Given the soreness of the right eye improved She is here to be checked if anything else needs to be done, also when she had this appointment Few months ago her headache was still a bit but now headache resolved Review of Systems Review of Systems Constitutional Negative for Fevers, Night Sweats, Weight Gain, Weight Loss and Fatigue Eyes Negative for Change in vison not corrected by glasses and Vision loss or change Hent Negative for Hearing Loss, Difficulty Swallowing, Tinnitus and Recent change in speech or voice Cardiovascular Positive for Lightheadedness and Leg pain with walking Negative for Chest Pain Respiratory Positive for Snoring Negative for SOB at rest, SOB with exertion, Cough and Wheezing GI Negative for Blood in Stool, Abdominal Pain, Diarrhea, Constipation, Nausea/Vomiting and Heartburn Negative for Urgency and Incontinence Endocrine Negative for Heat Intolerance and Excessive Thirst Musculoskeletal Negative for Back Pain, Joint Swelling, Stiff Joints and Muscle Pain Integumentary Negative for Rashes, Itching and Hair Changes Heme/Lymph Negative for Prolonged Bleeding, Easy Bruising and Swelling of Arm or Leg Allergy/Immunologic Negative for Nasal Congestion and Swollen Nodes Neurologic Negative for Memory Problems, Headache, Numbness/Tingling, Weakness, Double Vision, Trouble Swallowing and Slurred Speech Psychiatric Negative for Stress or Conflicts, Depression, Anxiety, Irritability, Hallucinations and Delusions Patient's Review of Systems has been reviewed with the patient and updated as appropriate. Objective 02/06/23 0746 BP: 138/73 BP Site: Left Arm BP Position: Sitting BP Cuff Size: Regular Adult Pulse: (!) 57 SpO2: 98% Weight: 74.8 kg (165 lb) Height: 157.5 cm (5' 2 ) Physical Exam EXAM: Neck supple and no adenopathy CHEST: Normal chest wall exam Neurological Exam MENTAL STATUS: Alert, oriented to person, place and time and Follows commands CRANIAL NERVES: EOM's intact, Visual gill intact to confrontation, Extraocular movements intact, Facial sensation intact, Face symmetric, No facial droop or ptosis, Hearing intact to finger rub bilaterally, No dysarthria, Palate elevates symmetrically, Tongue protrudes midline, and Shoulder shrug intact and symmetric MOTOR: No drift MOTOR STRENGTH: Upper and lower extremity 5/5 bilaterally REFLEXES: UE and LE reflexes are equal and reactive SENSATION: Intact light touch COORDINATION: Finger-to- nose-finger intact bilaterally GAIT: Normal-based PAST MEDICAL HISTORY Diagnosis Date Abnormal EKG @[facility] Hyperlipidemia Hypertension Current Outpatient Medications Medication Sig Dispense Refill isosorbide dinitrate (ISORDIL, SORBITRATE) 30 mg tablet Take 30 mg by mouth four times daily. amLODIPine (NORVASC) 2.5 mg tablet Take 2.5 mg by mouth once daily. fluticasone (FLOVENT) 110 mcg/actuation inhaler Inhale 1 Puff as instructed twice daily. polyethylene glycol 3350 17 gram/dose powder Take by mouth once daily. aspirin, enteric coated 81 mg EC tablet Take 1 tablet by mouth once daily. 0 CALCIUM CARBONATE/VITAMIN D3 (CALCIUM + D ORAL) Take by mouth. levothyroxine (SYNTHROID) 50 mcg tablet Take 1 tablet by mouth once daily. 0 atenolol 50 mg tablet Take 1 tablet by mouth once daily. 0 naproxen 500 mg tablet Take 1 tablet by mouth twice daily as needed. FOR PAIN. TAKE WITH FOOD. 0 multivitamin tablet Take 1 tablet by mouth once daily. 0 OMEGA-3 FATTY ACIDS (FISH OIL CONCENTRATE ORAL) Take by mouth. (Patient not taking: Reported on 02/06/2023) valsartan (DIOVAN) 160 mg tablet Take 1 tablet by mouth once daily. (Patient not taking: Reported on 02/06/2023) 0 pravastatin (PRAVACHOL) 40 mg tablet Take 1 tablet by mouth daily at bedtime. (Patient not taking: Reported on 02/06/2023) 0 No current facility-administered medications for this visit. Social Connections: Not on file No diagnosis foun (more content not included)... [facility] 02-06-2023 History of Presen t illness Narrative February 06, 2023 New office visit Postconcussion headache Subjective HISTORY AND PHYSICAL Avis Stallings 72 year old woman , who is complaining of post concussion headache . A year ago she bumped her head against the wall while she was going to the bathroom at night She was bruised around her right eye at that time, after this head trauma she experienced severe headache Mainly above the right eyebrow, she had steroids ice packs Tylenol Gradually pain got better, and became less frequent She never had a previous headache or migraine she had 2 CAT scans which were normal Now this headache improved she can feel it very infrequently It does not bother her and not needing medication for that There is no vision changes with this headache, no speech change no focal weakness or numbness Given the soreness of the right eye improved She is here to be checked if anything else needs to be done, also when she had this appointment Few months ago her headache was still a bit but now headache resolved Review of Systems Review of Systems Constitutional Negative for Fevers, Night Sweats, Weight Gain, Weight Loss and Fatigue Eyes Negative for Change in vison not corrected by glasses and Vision loss or change Hent Negative for Hearing Loss, Difficulty Swallowing, Tinnitus and Recent change in speech or voice Cardiovascular Positive for Lightheadedness and Leg pain with walking Negative for Chest Pain Respiratory Positive for Snoring Negative for SOB at rest, SOB with exertion, Cough and Wheezing GI Negative for Blood in Stool, Abdominal Pain, Diarrhea, Constipation, Nausea/Vomiting and Heartburn Negative for Urgency and Incontinence Endocrine Negative for Heat Intolerance and Excessive Thirst Musculoskeletal Negative for Back Pain, Joint Swelling, Stiff Joints and Muscle Pain Integumentary Negative for Rashes, Itching and Hair Changes Heme/Lymph Negative for Prolonged Bleeding, Easy Bruising and Swelling of Arm or Leg Allergy/Immunologic Negative for Nasal Congestion and Swollen Nodes Neurologic Negative for Memory Problems, Headache, Numbness/Tingling, Weakness, Double Vision, Trouble Swallowing and Slurred Speech Psychiatric Negative for Stress or Conflicts, Depression, Anxiety, Irritability, Hallucinations and Delusions Patient's Review of Systems has been reviewed with the patient and updated as appropriate. Objective 02/06/23 0746 BP: 138/73 BP Site: Left Arm BP Position: Sitting BP Cuff Size: Regular Adult Pulse: (!) 57 SpO2: 98% Weight: 74.8 kg (165 lb) Height: 157.5 cm (5' 2 ) Physical Exam EXAM: Neck supple and no adenopathy CHEST: Normal chest wall exam Neurological Exam MENTAL STATUS: Alert, oriented to person, place and time and Follows commands CRANIAL NERVES: EOM's intact, Visual gill intact to confrontation, Extraocular movements intact, Facial sensation intact, Face symmetric, No facial droop or ptosis, Hearing intact to finger rub bilaterally, No dysarthria, Palate elevates symmetrically, Tongue protrudes midline, and Shoulder shrug intact and symmetric MOTOR: No drift MOTOR STRENGTH: Upper and lower extremity 5/5 bilaterally REFLEXES: UE and LE reflexes are equal and reactive SENSATION: Intact light touch COORDINATION: Finger-to- nose-finger intact bilaterally GAIT: Normal-based PAST MEDICAL HISTORY Diagnosis Date Abnormal EKG @[facility] Hyperlipidemia Hypertension Current Outpatient Medications Medication Sig Dispense Refill isosorbide dinitrate (ISORDIL, SORBITRATE) 30 mg tablet Take 30 mg by mouth four times daily. amLODIPine (NORVASC) 2.5 mg tablet Take 2.5 mg by mouth once daily. fluticasone (FLOVENT) 110 mcg/actuation inhaler Inhale 1 Puff as instructed twice daily. polyethylene glycol 3350 17 gram/dose powder Take by mouth once daily. aspirin, enteric coated 81 mg EC tablet Take 1 tablet by mouth once daily. 0 CALCIUM CARBONATE/VITAMIN D3 (CALCIUM + D ORAL) Take by mouth. levothyroxine (SYNTHROID) 50 mcg tablet Take 1 tablet by mouth once daily. 0 atenolol 50 mg tablet Take 1 tablet by mouth once daily. 0 naproxen 500 mg tablet Take 1 tablet by mouth twice daily as needed. FOR PAIN. TAKE WITH FOOD. 0 multivitamin tablet Take 1 tablet by mouth once daily. 0 OMEGA-3 FATTY ACIDS (FISH OIL CONCENTRATE ORAL) Take by mouth. (Patient not taking: Reported on 02/06/2023) valsartan (DIOVAN) 160 mg tablet Take 1 tablet by mouth once daily. (Patient not taking: Reported on 02/06/2023) 0 pravastatin (PRAVACHOL) 40 mg tablet Take 1 tablet by mouth daily at bedtime. (Patient not taking: Reported on 02/06/2023) 0 No current facility-administered medications for this visit. Social Connections: Not on file No diagnosis found. CT brain done locally is within normal limits Assessment and Plan Patient is 72 years old woman with posttraumatic headache mainly above the right eye, which was severe after head trauma But now it is feeling it improved and she has no other symptoms She also has no other complaint Recommend MRI of the brain if headache is recurrent Patient understand if she feels recurrent headache or pain she will go to the emergency room Requesting all previous records done locally Total time in minutes spent with patient, reviewing records, labs, imaging, formulating plan, and documentin minutes with more than 50% of the time spent in patient education/counselling/coordinati ng care with the patient and /or family. February 06, 2023 Wing Johnson M.D. [facility] [place] [facility]rology documented in this encounter [facility] documented [facility] encounter [facility]* Diagnosis Contusion of left foot, initial encounter Pain in left foot Pain in soft tissues of limb documented in this encounter [facility] note* Diagnosis Spondylolisthesis, lumbar region Radiculopathy, lumbar region Thoracic or lumbosacral neuritis or radiculitis, unspecified documented in this encounter [facility] note* Diagnosis Contusion of left foot, initial encounter- Primary Pain in left foot Pain in soft tissues of limb Contusion of left foot, initial encounter Pain in left foot Pain in soft tissues of limb documented in this encounter [facility] note* Diagnosis Post-concussion headache- Primary Post-traumatic headache, unspecified documented in this encounter [facility] note* Diagnosis Spondylolisthesis, lumbar region- Primary Radiculopathy, lumbar region Thoracic or lumbosacral neuritis or radiculitis, unspecified documented in this encounter [facility] note* Diagnosis Brain lesion- Primary Other conditions of brain Infection in abdomen (HCC) Unspecified peritonitis [facility] this encounter [facility]* Diagnosis Intractable post-traumatic headache, unspecified chronicity pattern- Primary documented in this encounter [facility] note* Diagnosis Intractable chronic post-traumatic headache- Primary Chronic post-traumatic headache documented in this encounter [facility] Summary Purpose Family History No Family History Records FoundNo Family History Records FoundNo Family History Records FoundNo Family History Records Found Advance Directives No Advanced Directives Records FoundNo Advanced Directives Records FoundNo Advanced Directives Records FoundNo Advanced Directives Records Found Reason for Referral Specialty Diagnoses / Procedures Referred By Nino t Referred To Contact MR IMAGING Diagnoses Post-concussion headache Procedures MRV BRAIN WO IVCON MRA, HEAD W/O CONTRAST Wing Johnson [place] [address] [place] [id number] Referral ID Status Reason Start Date Expiration Date Visits Requested Visits Authorized [id number] Authorized Auto-Generat ed Referral 07/02/2023 07/31/2024 1 1 Specialty Diagnoses / Procedures Referred By Contac t Referred To Contact MR IMAGING Diagnoses Post-concussion headache Procedures MRI BRAIN WO/W IVCON MRI BRAIN BRAIN STEM W/O W/CONTRAST MATERIAL Wing Johnson MD [address] [place] [address] Mr Imaging [id number] Referral ID Status Reason Start Date Expiration Date Visits Requested Visits Authorized [id number] Authorized Auto-Generat ed Referral 07/02/2023 07/31/2024 1 1 Specialty Diagnoses / Procedures Referred By Contac t Referred To Contact CT IMAGING Diagnoses Brain lesion Procedures CT CHEST W IVCON DIAGNOSTIC COMPUTED TOMOGRAPHY THORAX W/CONTRAST Wing Johnson MD [address] [place] [address] Ct [facility] [place] [id number] Referral ID Status Reason Start Date Expiration Date Visits Requested Visits Authorized [id number] Authorized Auto-Generat ed Referral 3 09/23/2024 1 1 Specialty Diagnoses / Procedures Referred By Contac t Referred To Contact CT IMAGING Diagnoses Infection in abdomen (HCC) Procedures CT ABD/PEL W IVCON CT ABD & PELVIS W/CONTRAST Wing Johnson MD [address] [place] [address] Ct [facility] [place] [address] Referral ID Status Reason Start Date Expiration Date Visits Requested Visits Authorized [id number] Authorized Auto-Generat ed Referral 3 09/23/2024 1 1 Specialty Diagnoses / Procedures Referred By Contac t Referred To Contact Diagnoses Brain lesion Procedures CONSULT TO HEMATOLOGY/ONCOLOGY OFFICE/OUTPATIENT [facility] 60-74 MINUTES Wing Johnson MD [address] [place] [address] Referral ID Status Reason Start Date Expiration Date Visits Requested Visits Authorized [id number] Pending Review PCP Requested Referral 3 08/24/2024 1 1 Specialty Diagnoses / Procedures Referred By Contac t Referred To Contact Diagnoses Intractable chronic post-traumatic headache Procedures CONSULT TO HEMATOLOGY/ONCOLOGY OFFICE/OUTPATIENT [facility] 60-74 MINUTES Wing Johnson MD [facility] [place] [address] Referral ID Status Reason Start Date Expiration Date Visits Requested Visits Authorized [id number] Pending Review PCP Requested Referral 3 09/14/2024 1 1 Additional Source Comments INFORMATION SOURCE (unrecogn ized section and content) DATE CREATED AUTHOR AUTHOR'S ORGANIZ ATION 10/22/2021 [facility] DATE CREATED AUTHOR AUTHOR'S ORGANIZ ATION 04/27/2023 [facility] DATE CREATED AUTHOR AUTHOR'S ORGANIZ ATION 09/24/2023 [facility] Source Comments (unrecognize d section and content) In the event this informatio n is protected by the Federal Confidentiality of Alcohol and Drug Abuse Patient Records regulations: The Federal rules restrict any use of the information to criminally investigate or prosecute any alcohol or drug abuse [facility] the event this information is protected by the Federal Confidentiality of Alcohol and Drug Abuse Patient Records regulations: The Federal rules restrict any use of the information to criminally investigate or prosecute any alcohol or drug abuse [facility] the event this information is protected by the Federal Confidentiality of Alcohol and Drug Abuse Patient Records regulations: The Federal rules restrict any use of the information to criminally investigate or prosecute any alcohol or drug abuse [facility] the event this information is protected by the Federal Confidentiality of Alcohol and Drug Abuse Patient Records regulations: The Federal rules restrict any use of the information to criminally investigate or prosecute any alcohol or drug abuse patient.[facility] the event this information is protected by the Federal Confidentiality of Alcohol and Drug Abuse Patient Records regulations: The Federal rules restrict any use of the information to criminally investigate or prosecute any alcohol or drug abuse patient.[facility] the event this information is protected by the Federal Confidentiality of Alcohol and Drug Abuse Patient Records regulations: The Federal rules restrict any use of the information to criminally investigate or prosecute any alcohol or drug abuse patient.[facility] the event this information is protected by the Federal Confidentiality of Alcohol and Drug Abuse Patient Records regulations: The Federal rules restrict any use of the information to criminally investigate or prosecute any alcohol or drug abuse patient.[facility] the event this information is protected by the Federal Confidentiality of Alcohol and Drug Abuse Patient Records regulations: The Federal rules restrict any use of the information to criminally investigate or prosecute any alcohol or drug abuse patient.[facility] the event this information is protected by the Federal Confidentiality of Alcohol and Drug Abuse Patient Records regulations: The Federal rules restrict any use of the information to criminally investigate or prosecute any alcohol or drug abuse patient.[facility] the event this information is protected by the Federal Confidentiality of Alcohol and Drug Abuse Patient Records regulations: The Federal rules restrict any use of the information to criminally investigate or prosecute any alcohol or drug abuse patient.[facility] Reason for Visit (unrecogniz ed section and content) Reason Onset Date Comments Spasms 04/10/2023 2nd call Reason Comments Appointment Reason Comments Follow Up Mri result s Reason Comments Results Called to discuss CT findings. Left message to call me back Reason Comments Results Left message that I will send CT result to her neurologist Dr Johnson and for patient to call her Reason Comments Follow Up Results Reason Comments Follow Up Headaches Reason Comments New Patient Care Teams (unrecognized sec tion and content) Polysomnographer Relationship Specialty Start Date End Date Jessica Reyes MD [address] [place] [address] PCP - General 04/05/21 Polysomnographer Relationship Specialty Start Date End Date Jessica Reyes MD [address] [place] [address] PCP - General 04/05/21 Polysomnographer Relationship Specialty Start Date End Date Jessica Reyes MD [address] [place] [address] PCP - General 04/05/21 FOR RECORDS PERTAINING TO PATIENTS WHO ARE OR HAVE BEEN ENROLLED IN A CHEMICAL DEPENDENCY/SUBSTANCEABUSE PROGRAM, SOME INFORMATION MAY BE OMITTED. This clinical summary was aggregated from multiple sources. Caution should be exercised in using it in the provision of clinical care. This summary normalizes information from multiple sources, and as a consequence, information in this document may materially change the coding, format and clinical context of patient data. In addition, data may be omitted in some cases. CLINICAL DECISIONS SHOULD BE BASED ON THE PRIMARY CLINICAL RECORDS. [facility] [employer] [facility]. provides no warranty or guarantee of the accuracy or completeness of information in this document.
== END | disposition home or self-care (01) ==
LOC: US 10:22
PROVIDERS: PCP Family Medicine; Referring Provider Family Medicine; Visit Provider Family Medicine
DX: R94.6 Abnormal results of thyroid function studies (principal)
CPT/HCPCS: 76536

== ENCOUNTER → 2024-06-30 | Outpatient (CLI) | payer MEDICARE, MEDICAID, SELFPAY | END | disposition home or self-care (01) | LOC: PSN 10:33 | PROVIDERS: PCP Family Medicine; Referring Provider Nurse Practitioner Family; Visit Provider Nurse Practitioner Family | DX: R00.2 Palpitations (principal); E78.00 Pure hypercholesterolemia, unspecified; I10 Essential (primary) hypertension; R06.02 Shortness of breath | CPT/HCPCS: 93225; 93226 ==

== ENCOUNTER → 2024-07-22 | Outpatient (CLI) | payer MEDICARE, MEDICAID, SELFPAY ==
--- NOTE | 2024-07-22 13:00 | ECHOD_ITS ---
Reason For Study: Dyspnea/SOB Procedure This was a 2D Doppler, Color Flow transthoracic echocardiogram. Exam performed in department. Left Ventricle Normal LV size. Left ventricular systolic function is normal. The left ventricular ejection fraction is 70 %. Stage 1 diastolic dysfunction. No regional wall motion abnormalities noted. Right Ventricle Normal RV size. Normal systolic function. Atria Normal left atrium. Normal right atrium. Mitral Valve Normal mitral valve. Tricuspid Valve Normal tricuspid valve. Mild tricuspid valve insufficiency. Pulmonary artery systolic pressure is 24 mmHg. Aortic Valve Trisinus/trileaflet aortic valve. Mild (1+) aortic valve insufficiency. Pulmonic Valve Normal pulmonic valve. Great Vessels Normal aortic root. Pericardium/Pleural No pericardial effusion. MMode/2D Measurements & Calculations LVIDd: 4.2 cm IVSd: 1.4 cm LVOT diam: 1.9 cm LVIDs: 3.2 cm LVPWd: 1.1 cm LVOT area: 2.9 cm2 RVDd: 3.0 cm FS: 23.0 % LAV(MOD-bp): 47.5 ml LVAd ap4: 23.6 cm2 SV(MOD-sp4): 50.9 ml LAV(MOD-bp) Indexed: 27.6 ml/m2 LVLd ap4: 6.8 cm LAV(MOD-sp2): 53.5 ml EDV(MOD-sp4): 67.7 ml LAV(MOD-sp4): 37.3 ml EDV(sp4-el): 69.3 ml LVAs ap4: 10.9 cm2 LVLs ap4: 5.8 cm ESV(MOD-sp4): 16.8 ml ESV(sp4-el): 17.3 ml EF(MOD-sp4): 75.2 % EF(sp4-el): 75.1 % SV(sp4-el): 52.0 ml LA A4 area: 15.4 cm2 RA A4 area: 17.1 cm2 Time Measurements MV dec time: 0.35 sec Doppler Measurements & Calculations MV E max estevan: 57.4 cm/sec Lat Peak E' Estevan: 8.3 cm/sec Med Peak E' Estevan: 6.6 cm/sec MV A max estevan: 89.3 cm/sec E/E' lat: 6.9 E/E' med: 8.7 MV E/A: 0.64 MV V2 max: 112.5 cm/sec MV P1/2t max estevan: 95.3 cm/sec Ao V2 max: 143.3 cm/sec MV max P.1 mmHg MV P1/2t: 112.3 msec Ao max P.2 mmHg MV V2 mean: 50.1 cm/sec Ao V2 mean: 94.5 cm/sec MV mean P.3 mmHg MV dec slope: 248.5 cm/sec2 Ao mean P.1 mmHg MV V2 VTI: 33.1 cm MVA(P1/2t): 2.0 cm2 Ao V2 VTI: 28.9 cm AV (velocity ratio): 0.88 MVA(VTI): 2.2 cm2 WILL(I,D): 2.5 cm2 WILL(V,D): 2.3 cm2 AI max estevan: 394.3 cm/sec LV V1 max: 113.7 cm/sec SV(LVOT): 72.7 ml AI max P.2 mmHg LV V1 max P.2 mmHg AI dec slope: 212.1 cm/sec2 LV V1 mean P.6 mmHg AI P1/2t: 544.5 msec LV V1 mean: 73.8 cm/sec LV V1 VTI: 25.3 cm PA V2 max: 108.0 cm/sec TR max estevan: 232.0 cm/sec PA max PG (full): 2.7 mmHg TR max P.5 mmHg ECHO/Echo Complete Interpretation Summary Normal LV size. Left ventricular systolic function is normal. The left ventricular ejection fraction is 70 %. Stage 1 diastolic dysfunction. Mild (1+) aortic valve insufficiency. Ordering Physician: Efrain Hill Referring Physician: Efrain Hill Performed By: Yaw Lau and Student
== END | disposition home or self-care (01) ==
LOC: PSN 12:58 → CVS 13:00
PROVIDERS: PCP Family Medicine; Referring Provider Nurse Practitioner Family; Visit Provider Nurse Practitioner Family
DX: R06.02 Shortness of breath (principal); R00.2 Palpitations; E78.00 Pure hypercholesterolemia, unspecified; I10 Essential (primary) hypertension
CPT/HCPCS: 93306

== ENCOUNTER → 2024-08-16 | Outpatient (CLI) | payer MEDICARE, MEDICAID, SELFPAY ==
--- NOTE | 2024-08-16 08:28 | BI_ITS ---
MAMMOGRAPHY - BILATERAL SCREENING REASON FOR EXAM: Female, 73 years old. Routine annual screening examination. PERTINENT HISTORY: Non-contributory. TECHNIQUE: Digital bilateral breast kemar (3D mammographic acquisition) in the CC and MLO projections. 2-D mediolateral oblique (MLO) and craniocaudad (CC) views of both breasts were obtained. CAD: Full Field Digital Mammography with Computer Added Detection was performed. COMPARISON: Comparison is made with prior study dated August 12, 2023 and July 30, 2022. FINDINGS: Breast Composition: There are scattered areas of fibroglandular density. There are no dominant masses or suspicious calcifications. Stable bilateral fat containing axillary lymph nodes. Stable scattered bilateral microcalcifications in the retroareolar regions of both breasts suggestive of secretory calcification. A tissue clip marker is once again seen in the inferior central portion of the right breast. No other significant abnormalities are identified. There has been no significant change since the prior study. BI/SCRN MAMM (CAD)W/KEMAR BILAT IMPRESSION: Stable bilateral screening mammogram. Yearly follow-up mammogram recommended. (A) ASSESSMENT CATEGORY: BIRADS Category 2: Benign. A letter regarding these results will be sent to the patient by the facility within 30 days. Approximately 10% of breast cancers are not detected by mammography. A normal mammogram should not delay biopsy of a clinically suspicious abnormality. [id number] Electronically Signed: Carlos Taylor MD at 9:28 EDT ,
== END | disposition home or self-care (01) ==
PROVIDERS: PCP Family Medicine
DX: Z12.31 Encounter for screening mammogram for malignant neoplasm of breast (principal)
CPT/HCPCS: 77063; 77067

== ENCOUNTER → 2025-01-31 | Outpatient (CLI) | payer MEDICARE, MEDICAID, SELFPAY ==
[2025-01-31 13:28] LABS: Anion Gap 8 (5-15); BUN 18 mg/dL (4-19); BUN/Creat Ratio 18.3 RATIO (10-20); Calcium,Total 9.9 mg/dL (7.6-11.0); Carbon Dioxide 24.9 mmol/L (21.0-32.0); Chloride 105 mmol/L (98-108); Creatinine, Serum 0.99 mg/dL (0.70-1.20); EST Glomerular Filtration Rate 59 (>60); Glucose 109 mg/dL (70-99); Potassium 4.4 mmol/L (3.3-5.1); Sodium Level 138 mmol/L (133-145)
== END | disposition home or self-care (01) ==
LOC: LAB 12:50
PROVIDERS: PCP Family Medicine; Referring Provider Internal Medicine Cardiovascular Disease; Visit Provider Internal Medicine Cardiovascular Disease
DX: I10 Essential (primary) hypertension (principal); R00.2 Palpitations; R06.02 Shortness of breath
CPT/HCPCS: 36415; 80048

== ENCOUNTER → 2025-02-23 | Outpatient (CLI) | payer MEDICARE, MEDICAID, SELFPAY ==
--- NOTE | 2025-02-23 07:48 | ECHOD_ITS ---
Reason For Study Reason For Study: Dyspnea/SOB Procedure This was a 2D Doppler, Color Flow transthoracic echocardiogram. Exam performed in department. Left Ventricle Normal size and thickness. The LV systolic function is normal. EF is 65 %. Normal diastology for age. Right Ventricle Mildly dilated right ventricle. Mild global right ventricular systolic dysfunction. Atria The left and right atria are normal. Mitral Valve Mild (1+) mitral valve insufficiency. Tricuspid Valve Mild tricuspid valve insufficiency. Right ventricular systolic pressure estimated to be 39 mmHg. Aortic Valve Trisinus/trileaflet aortic valve. Mild (1+) aortic valve insufficiency. Pulmonic Valve The pulmonic valve is not well visualized. Great Vessels Normal sized aortic root. Pericardium/Pleural No pericardial effusion. MMode/2D Measurements & Calculations LVIDd: 4.5 cm IVSd: 1.0 cm Ao root diam: 3.6 cm LVIDs: 2.2 cm LVPWd: 0.92 cm RVDd: 4.5 cm FS: 51.0 % LAV(MOD-bp): 54.3 ml LVAd ap4: 24.1 cm2 SV(MOD-sp4): 46.3 ml LAV(MOD-bp) Indexed: 31.6 ml/m2 LVLd ap4: 7.1 cm SI(MOD-sp4): 26.9 ml/m2 LAV(MOD-sp2): 55.5 ml EDV(MOD-sp4): 68.6 ml LAV(MOD-sp4): 52.8 ml EDV(sp4-el): 69.4 ml LVAs ap4: 12.2 cm2 LVLs ap4: 5.7 cm ESV(MOD-sp4): 22.4 ml ESV(sp4-el): 22.4 ml EF(MOD-sp4): 67.4 % EF(sp4-el): 67.7 % SV(sp4-el): 47.0 ml LA A4 area: 19.5 cm2 LA dimension(2D): 3.9 cm RA A4 area: 15.1 cm2 TAPSE: 2.3 cm Time Measurements MV dec time: 0.18 sec Doppler Measurements & Calculations MV E max estevan: 76.0 cm/sec Lat Peak E' Estevan: 12.3 cm/sec Med Peak E' Estevan: 7.3 cm/sec MV A max estevan: 82.5 cm/sec E/E' lat: 6.2 E/E' med: 10.4 MV E/A: 0.92 MV V2 max: 106.8 cm/sec MV P1/2t max estevan: 103.9 cm/sec Ao V2 max: 151.9 cm/sec MV max P.6 mmHg MV P1/2t: 70.7 msec Ao max P.2 mmHg MV V2 mean: 48.9 cm/sec Ao V2 mean: 97.9 cm/sec MV mean P.2 mmHg MV dec slope: 430.3 cm/sec2 Ao mean P.7 mmHg MV V2 VTI: 36.0 cm MVA(P1/2t): 3.1 cm2 Ao V2 VTI: 37.3 cm AV (velocity ratio): 0.87 AI max estevan: 380.5 cm/sec LV V1 max: 128.5 cm/sec MR max estevan: 448.6 cm/sec AI max P.9 mmHg LV V1 max P.6 mmHg MR max P.5 mmHg LV V1 mean P.1 mmHg AI dec slope: 151.3 cm/sec2 LV V1 mean: 81.1 cm/sec AI P1/2t: 736.4 msec LV V1 VTI: 32.4 cm PA V2 max: 91.1 cm/sec TR max estevan: 268.6 cm/sec TR max P.9 mmHg ECHO/Echo Complete Interpretation Summary The LV systolic function is normal. EF is 65 %. Mildly dilated right ventricle. Mild global right ventricular systolic dysfunction. Mild (1+) mitral valve insufficiency. Mild tricuspid valve insufficiency. Right ventricular systolic pressure estimated to be 39 mmHg. Mild (1+) aortic valve insufficiency. Ordering Physician: Mili Barnett Referring Physician: Mili Barnett Performed By: Yaw García RCS
== END | disposition home or self-care (01) ==
PROVIDERS: PCP Family Medicine; Referring Provider Internal Medicine Cardiovascular Disease; Visit Provider Internal Medicine Cardiovascular Disease
DX: R06.02 Shortness of breath (principal); I10 Essential (primary) hypertension; R00.2 Palpitations; I35.1 Nonrheumatic aortic (valve) insufficiency
CPT/HCPCS: 93306

== ENCOUNTER → 2025-08-09 | Outpatient (CLI) | payer MEDICARE, MEDICAID, SELFPAY ==
--- OUTSIDE RECORDS SUMMARY | 2025-08-09 07:28 | XMS RPT_ITS | CCD ---
Author Organization [facility] Care Team Providers Care Online Advertising Manager Name Role Phone DeFinis, Harumi Y Unavailable Unavailable DeFinis, Harumi Y Unavailable Unavailable Armin Reynaga Unavailable Unavailable DeFinis, Harumi Y Unavailable Unavailable DeFinis, Harumi Y Unavailable Unavailable Unavailable Primary Care Provider Dr. Jessica Valverde Primary Care Provider Dr. Jessica Reyes Referring Provider Sergio PIEROGI MAKER, PIEROGI MAKER-C Efrain Moore Attending Provider Dr. Diego Lilly Attending Provider Roof PIEROGI MAKER, PIEROGI MAKER-Naseem Moore Referring Provider Roof PIEROGI MAKER, PIEROGI MAKER-C Efrain Moore Other Provider Dr. Jessica Reyes Primary Care Provider Dr. Diego Lilly Attending Provider Dr. Jessica Reyes Primary Care Provider Roof PIEROGI MAKER, PIEROGI MAKER-Naseem Moore Attending Provider Unavailable Primary Care Provider Jessica Valverde MD Primary Care Provider Dr. Jessica Reyes Primary Care Provider Sergio PIEROGI MAKER, BOBY Moore Attending Provider Jessica Reyes MD Primary Care Provider Dr. Jessica Reyes Primary Care Provider Dr. Jessica Reyes Referring Provider Juanpablo BOWIE, PIEROGI MAKERDixieC Treva Attending Provider Dr. Curly Barnettd Attending Provider Anibal, Dr. Garces Referring Provider Anibal, Dr. Garces Other Provider Sergio PIEROGI MAKER, BOBY Moore Attending Provider Anibal, Dr. Garces Referring Provider Unavailable Primary Care Provider Unavailabl e DAKOTAH, WING Y Referring Unavailable DAKOTAH, WING Y Attending Unavailable SESE, JIMMY T Referring Unavailable DAKOTAH, WING Y Attending Unavailable DAKOTAH, WING Y Attending Unavailable DAKOTAH, WING Y Referring Unavailable DAKOTAH, WING Y Referring Unavailable Dr. Jessica Reyes Primary Care Provider Sergio PIEROGI MAKER, BOBY Moore Attending Provider Dr. Jessica Reyes MD Primary Care Provider Amy SAUNDERS, Dr. Nelson Referring Provider Dr. Mili Barnett MD Attending Provider Dr. Mili Barnett MD Referring Provider Amy SAUNDERS, Dr. Nelson Primary Care Physician [phone] Dr. Jessica Reyes MD Referring Provider Dr. Mili Barnett MD Attending Physician Amy, Jessica Referring Unavailable Amy, Jessica Primary Care Unavailable Anibal, Mili Attending Unavailable Anibal, Mili Attending Unavailable Amy, Jessica Primary Care Unavailable Amy, Jessica Primary Care Unavailable ANTONIO, RAFA Attending Unavailable ANTONIO, RAFA Referring Unavailable Amy, Jessica Referring Unavailable Anibla, Mili Attending Unavailable Amy, Jessica Primary Care Unavailable ANTONIO, RAFA Attending Unavailable ANTONIO, RAFA Referring Unavailable Amy, Jessica Primary Care Unavailable Anibal, Mili Attending Unavailable Anibal, Mili Referring Unavailable Amy, Jessica Primary Care Unavailable Anibal, Mili Attending Unavailable Anibal, Mili Referring Unavailable Amy, Jessica Primary Care Unavailable Allergies Allergy Classification Reported Allergen(s) Allergy Type Date of Onset Reaction(s) Facility Methocarbamol (1 source) Methocarbamol Drug Allergy Dizziness [facility] Prochlorperazine (1 source) Prochlorperazine Drug Allergy Dizziness [facility] tiZANidine (1 source) tiZANidine Drug Allergy [facility] Unclassified (1 source) Ketorolac Propensity to adverse reactions Dizziness [facility] (16 sources) hydroCHLOROthiazide Drug Allergy Other: See Comments [facility] (10 sources) Methocarbamol Drug Allergy Other: See Comments [facility] (4 sources) Ketorolac Drug Allergy Other: See Comments [facility] (4 sources) Prochlorperazine Drug Allergy Other: See Comments [facility] (4 sources) tiZANidine Drug Allergy Other: See Comments [facility] (1 source) hydroCHLOROthiazide Drug Allergy 025 [facility] (1 source) Ketorolac Drug Allergy 025 [facility] (1 source) Methocarbamol Drug Allergy 025 [facility] (1 source) Prochlorperazine Drug Allergy 025 [facility] (1 source) tiZANidine Drug Allergy 025 [facility] Medications Current Medications Medication Drug Class(es) Dates Sig (Normalized) Sig (Original) 8 hr acetaminophen 650 mg extended release oral tablet (1 source) Start: 08-29-2019 acetaminophen 650 mg CR tablet Acetaminophen Active 650 MG DAILY August 29, 2019 3:28pm 0 08/29/2019 Active aspirin 81 mg delayed release oral tablet (20 sources) Nonsteroidal Anti-inflammatory Drug Start: 08-16-2013 Aspirin (Adult Low Dose Aspirin) 81 mg tablet,delayed release (DR/EC) Active 81 mg PO daily June 28, 2018 12:00am Complies with drug therapy Comment on above: Take 1 tablet by sarina th once daily. atenolol 50 mg oral tablet (20 sources) beta-Adrenergic Sherry Start: 07-14-2013 End: 05-18-2025 take 1 tablet by mouth once daily Atenolol 50 mg tablet Active 50 mg PO DAILY 90 May 18, 2025 11:23am Complies with drug therapy Comment on above: Take 1 tablet by sarina th once daily. atorvastatin 20 mg oral tablet (20 sources) HMG-CoA Reductase Inhibitor Start: 2023 take 1 tablet by mouth once atorvastatin (LIPITOR) 20 mg tablet Take 1 tablet by mouth every afternoon. 0 2023 Active Start: 12-05-2019 take 1 tablet by sarina th at bedtime Atorvastatin 20 mg tablet Active 20 mg PO AT BEDTIME December 05, 2019 1:00am Complies with drug therapy Comment on above: Take 1 tablet by sarina th every afternoon. calcium carbonate 1500 mg oral tablet (20 sources) Start: 08-02-2025 take 1 tablet by mouth twice daily Calcium Carbonate (Calcium 600) 600 mg calcium (1,500 mg) tablet Active 600 mg PO TWICE A DAY August 02, 2025 2:38pm Complies with drug therapy Start: 06-24-2024 End: 08-02-2025 Calcium Carbonate (Calcium 6 00) 600 mg calcium (1,500 mg) tablet Discontinued 1200 mg PO TWICE A DAY June 24, 2024 10:45am August 02, 2025 2:41pm Start: 09-03-2022 End: 06-24-2024 take 1 tablet by mouth once daily Calcium Carbonate (Calcium 600) 600 mg calcium (1,500 mg) tablet Discontinued 600 mg PO DAILY September 03, 2022 12:00am June 24, 2024 10:49am Start: 08-27-2021 End: 02-05-2022 take 1 tablet by mouth once daily Calcium Carbonate (Calcium 600) 600 mg calcium (1,500 mg) tablet Discontinued 600 mg PO DAILY August 27, 2021 12:00am February 05, 2022 9:43am Calcium Carbonate / vitamin D3 (12 sources) CALCIUM CARBONAT E/VITAMIN D3 (CALCIUM + D ORAL) Take by mouth once daily. 0 Active CALCIUM CARBONAT E/VITAMIN D3 (CALCIUM + D ORAL) Take by mouth. 0 Active Comment on above: Take by mouth. cholecalciferol 0.025 mg oral tablet (20 sources) Vitamin D Start: take 1 tablet by mouth once daily Cholecalciferol (Vitamin D3) 25 mcg (1,000 unit) tablet Active 25 ug PO DAILY September 03, 2022 12:00am Complies with drug therapy Start: 06-24-2017 take 1 tablet by sarina th once daily VITAMIN D 2000 UNIT TABS One tablet by mouth daily CHOLECALCIFEROL [id number] Diego Lilly MD Start: 07-19-2016 End: 10-21-2019 take 1 capsule by mouth once daily Cholecalciferol (Vitamin D3) 2,000 UNIT capsule Discontinued 2000 U PO DAILY July 19, 2016 12:00am October 21, 2019 9:29am diclofenac sodium 0.01 mg/mg topical gel (11 sources) Nonsteroidal Anti-inflammatory Drug Start: 05-07-2023 apply 2 g topically twice daily diclofenac (VOLTAREN) 1 % topical gel APPLY 2GM TO EACH FOOT EXTERNALLY TWICE DAILY FOR 30 DAYS 0 05/07/2023 Active Comment on above: APPLY 2GM TO EACH FO OT EXTERNALLY TWICE DAILY FOR 30 DAYS enteric contrast (will be provided with radiology test) (1 source) Start: 08-25-2023 End: 08-26-2023 enteric contrast (will be provided with radiology test) For CT CHESTABD/PEL W IVCON Routine order Administer, As Directed One Time Only, via Oral, Rectal, both Oral and Rectal, Enteric Tube, Stoma or Indwelling Catheter, Enteric Contrast as designated per enteric contrast guidelines 1 Each 0 08/25/2023 08/26/2023 Active Comment on above: For CT CHESTABD/PEL W IVCON Routine order Administer, As Directed One Time Only, via Oral, Rectal, both Oral and Rectal, Enteric Tube, Stoma or Indwelling Catheter, Enteric Contrast as designated per enteric contrast guidelines 120 actuat fluticasone propionate 0.11 mg/actuat metered dose inhaler (12 sources) Corticosteroid take 1 puff(s) by inhalation twice daily as needed fluticasone (FLOVENT) 110 mcg/actuation inhaler Inhale 1 Puff as instructed twice daily. PRN 0 Active Comment on above: Inhale 1 Puff as ins tructed twice daily. Inhale 1 Puff as ins tructed twice daily. PRN hydroCHLOROthiazide 25 mg / triamterene 37.5 mg oral tablet (20 sources) Potassium-sparing Diuretic, Thiazide Diuretic Start: 05-14-2023 take 1 tablet by mouth once daily Triamterene-Hy drochlorothiaz id Active 1 TABLET PO DAILY May 13, 2023 11:00pm Start: 03-11-2023 Triamterene-Hy drochlorothiazid 37.5-25 mg tablet Active 1 {tbl} PO DAILY May 14, 2023 12:00am Complies with drug therapy Comment on above: TAKE 1 TABLET BY SARINA TH ONCE DAILY IN THE MORNING isosorbide dinitrate 30 mg oral tablet (12 sources) Nitrate Vasodilator isosorbide d initrate (ISORDIL, SORBITRATE) 30 mg tablet Take 60 mg by mouth once daily. 0 Active take 1 tablet by mouth four time s daily isosorbide dinitrate (ISORDIL, SORBITRATE) 30 mg tablet Take 30 mg by mouth four times daily. 0 Active Comment on above: Take 30 mg by mouth four times daily. iv contrast (will be provided with radiology test) (2 sources) Start: 08-25-2023 End: 08-26-2023 iv contrast (will be provided with radiology test) CT Chest ABD/PEL-Inject, intravenously, once for 1 dose.No IV access, insert saline lock prior to the beginning of sedation, infusion, injection of imaging exam. Discontinue saline lock post exam. If Pt. has a central line or IVAD, may access for administration according to line specific nursing protocol. Once exam is complete flush line and de-access according to line specific nursing protocol in the CT contrast administration guidelines link. 1 Each 0 08/25/2023 08/26/2023 Active Start: 07-02-2023 End: 07-03-2023 inject 1 dose intravenously once iv contrast (will be provided with radiology test) MRI Brain Inject, intravenously, once for 1 dose.No IV access, insert saline lock prior to beginning of sedation, infusion, injection of imaging exam.Discontinue saline lock post exam. If Pt. has a central line or IVAD, may access for administration according to line specific nursing protocol.Once exam is complete flush line and de-access according to line specific nursing protocol in the MR contrast administration guidelines link 1 Each 0 07/02/2023 07/03/2023 Comment on above: MRI Brain Inject, in travenously, once for 1 dose.No IV access, insert saline lock prior to beginning of sedation, infusion, injection of imaging exam.Discontinue saline lock post exam. If Pt. has a central line or IVAD, may access for administration according to line specific nursing protocol.Once exam is complete flush line and de-access according to line specific nursing protocol in the MR contrast administration guidelines link CT Chest ABD/PEL-Inj ect, intravenously, once for 1 dose.No IV access, insert saline lock prior to the beginning of sedation, infusion, injection of imaging exam. Discontinue saline lock post exam. If Pt. has a central line or IVAD, may access for administration according to line specific nursing protocol. Once exam is complete flush line and de-access according to line specific nursing protocol in the CT contrast administration guidelines link. losartan potassium 25 mg oral tablet (20 sources) Angiotensin 2 Receptor Sherry Start: take 1 tablet by mouth once daily Losartan 25 mg tablet Active 25 mg PO daily 90 January 24, 2025 12:00am Complies with drug therapy Start: 05-29-2023 End: 01-14-2024 take 1 tablet by mouth once daily Losartan 50 mg tablet Discontinued 50 mg PO DAILY May 29, 2023 12:00am January 14, 2024 10:08am Start: 06-28-2018 End: 10-21-2019 take 1 tablet by mouth once daily Losartan 100 mg tablet Discontinued 100 mg PO daily June 28, 2018 12:00am October 21, 2019 9:52am Start: 06-25-2018 End: 06-28-2018 take 1 tablet by mouth once daily Losartan 50 mg tablet Discontinued 50 mg PO daily 30 June 25, 2018 12:00am June 28, 2018 4:19pm magnesium (20 sources) Start: 06-24-2024 take 2 tablets by [facility] twice daily Magnesium 250 mg tablet Active 500 mg PO TWICE A DAY June 24, 2024 10:46am Complies with drug therapy Start: 06-24-2024 take 2 tablets by [facility] twice daily Magnesium 250 mg tablet Active 500 mg PO TWICE A DAY June 24, 2024 10:46am Start: 09-03-2022 End: 06-24-2024 take 1 tablet by mouth once daily Magnesium 250 mg tablet Discontinued 250 mg PO DAILY September 03, 2022 12:00am [place] 9th, 2024 10:49am Start: 09-03-2022 take 250 mg by mouth once mague y Magnesium Active 250 MG PO DAILY September 03, 2022 12:00am Start: 09-03-2022 take 250 mg by mouth once mague y Magnesium Active 250 MG PO DAILY September 02, 2022 11:00pm Start: 06-24-2017 take 1 tablet by sarina th once daily MAGNESIUM 250 MG TABS One tablet by mouth daily MAGNESIUM [id number] Dieog Lilly MD magnesium oxide 500 mg oral tablet (5 sources) Start: 07-14-2022 Magnesium Oxid e 500 mg tab Take 250 mg by mouth once daily. 0 07/14/2022 Active Start: 07-14-2022 take 1 tablet by sarina th once daily Magnesium Oxide 500 mg tab 1 tablet with supper orally once a day 0 07/14/2022 Active Comment on above: 1 tablet with supper orally once a day methocarbamol 500 mg oral tablet (20 sources) Muscle Relaxant Start: take 1 tablet by mouth every twelve hours as needed methocarbamol (ROBAXIN) 500 mg tablet Take 1 tablet by mouth twice daily as needed (headache). 60 tablet 2 05/14/2023 Active Start: 04-11-2023 End: 01-14-2024 take 1 tablet by mouth four times daily as needed for pain Methocarbamol 500 mg tablet Discontinued 500 mg PO 4 TIMES DAILY NEEDED as needed for Muscle pain/spasm 40 0 April 11, 2023 12:07am January 14, 2024 10:08am Comment on above: Take 1 tablet by sarina th twice daily as needed (headache). miconazole nitrate 0.02 mg/mg topical powder (4 sources) Azole Antifungal Start: 06-24-2024 Miconazole Nitrate (Zeasorb Af) 2 % powder Active 1 NMA TOPICAL ONCE as needed June 24, 2024 12:00am Complies with drug therapy miconazole (ZEAS ORB AF) 2 % powder Apply to affected area as needed. 0 Active multivitamin tablet (12 sources) Start: 07-14-2013 take 1 tablet by mouth once daily multivitamin tablet Take 1 tablet by mouth once daily. 0 07/14/2013 Active Comment on above: Take 1 tablet by sarina th once daily. naproxen 500 mg oral tablet (12 sources) Nonsteroidal Anti-inflammatory Drug Start: 07-14-2013 take 1 tablet by mouth every twelve hours as needed naproxen 500 mg tablet Take 1 tablet by mouth twice daily as needed. FOR PAIN. TAKE WITH FOOD. 0 07/14/2013 Active Comment on above: Take 1 tablet by sarina twice daily as needed. FOR PAIN. TAKE WITH FOOD. [place] 3-Rdp-Smw-Fish Oil (Fish Oil) 1,200 (144-216) mg capsule (1 source) Start: 08-02-2025 [place] 5-Zki-Trx-Fish Oil (Fish Oil) 1,200 (144-216) mg capsule Active 1 NMA PO TWICE A DAY August 02, 2025 12:00am Complies with drug therapy OMEGA-3 FATTY ACIDS (FISH OIL CONCENTRATE ORAL) (12 sources) OMEGA-3 FATTY ACIDS (FISH OIL CONCENTRATE ORAL) Take by mouth. 0 Active Comment on above: Take by mouth. polyethylene glycol 3350 03869 mg powder for oral solution (12 sources) Osmotic Laxative polyethylene glycol 3350 17 gram/dose powder Take by mouth once daily. 0 Active Comment on above: Take by mouth once d aily. riboflavin 400 mg oral tablet (10 sources) Start: 05-29-2023 take 1 tablet by mouth once daily Riboflavin (Vitamin B2) 400 mg tablet Active 400 mg PO DAILY May 29, 2023 12:00am Complies with drug therapy riboflavin, vitamin B2, (VITAMIN B-2 ORAL) (5 sources) riboflavin, vitamin B2, (VITAMIN B-2 ORAL) Take by mouth once daily. 0 Active riboflavin, sunita min B2, (VITAMIN B-2 ORAL) Take by mouth. 0 Active Comment on above: Take by mouth. sennosides, alf 8.6 mg oral tablet (20 sources) Start: 08-02-2025 take 2 tablets by mouth once daily as needed Sennosides (Senna) 8.6 mg tablet Active 17.2 mg PO daily as needed August 02, 2025 12:00am Complies with drug therapy Start: 03-21-2021 End: 08-27-2021 take 1 capsule by mouth once daily Sennosides (Senna) 8.6 mg capsule Discontinued 8.6 mg PO DAILY 7 0 March 21, 2021 12:00am August 27, 2021 2:07pm sertraline 25 mg oral tablet (12 sources) Serotonin Reuptake Inhibitor Start: 08-02-2025 take 1 tablet by mouth once daily Sertraline 25 mg tablet Active 25 mg PO daily August 02, 2025 12:00am Complies with drug therapy Start: 06-24-2024 End: 08-02-2025 Sertraline 50 mg tablet Disc ontinued 25 mg PO DAILY June 24, 2024 12:00am August 02, 2025 2:40pm Start: 01-14-2024 End: 06-24-2024 Sertraline 25 mg tablet Disc ontinued 12.5 mg PO DAILY January 14, 2024 1:00am June 24, 2024 10:44am take 0.5 tablet by m out once daily sertraline (ZOLOFT) 50 mg tablet 1/2 tablet Orally Once a day 0 Active Comment on above: 1/2 tablet Orally On ce a day levothyroxine sodium 0.088 mg oral tablet (20 sources) l-Thyroxine Start: take 1 tablet by mouth once daily Levothyroxine 88 mcg tablet Active 88 ug PO DAILY February 05, 2022 12:00am Complies with drug therapy Start: 06-28-2018 End: 02-05-2022 take 1 capsule by mouth once daily Levothyroxine 75 mcg capsule Discontinued 75 ug PO daily June 28, 2018 12:00am February 05, 2022 9:40am Start: 02-15-2014 take 1 tablet by sarina th once daily LEVOTHYROXINE SODIUM 75 MCG TABS One tablet by mouth daily LEVOTHYROXINE SODIUM [id number] Diego Lilly MD Start: 07-14-2013 End: 06-28-2018 take 1 tablet by mouth once daily Levothyroxine 50 MCG tablet Discontinued 50 ug PO DAILY July 19, 2016 12:00am June 28, 2018 8:49am Comment on above: Take 1 tablet by sarina th once daily. Take 50 mcg by mouth once daily. Taking 88 mg daily Turmeric Root Extract (19 sources) Start: 02-05-2022 take 500 mg by mouth once daily Turmeric Root Extract Active 500 MG PO DAILY February 05, 2022 9:41am Start: 02-05-2022 End: 06-24-2024 take 1 capsule by mouth once daily Turmeric Root Extract 500 mg capsule Discontinued 500 mg PO DAILY February 05, 2022 12:00am June 24, 2024 10:49am Start: 02-05-2022 take 500 mg by mouth once mague y Turmeric Root Extract Active 500 MG PO DAILY February 04, 2022 11:00pm Start: 02-05-2022 take 500 mg by mouth once mague y Turmeric Root Extract Active 500 MG PO DAILY February 05, 2022 12:00am turmeric root extract 500 mg cap (11 sources) Start: 02-05-2022 take 1 capsule by mouth once daily turmeric root extract 500 mg cap Take 500 mg by mouth once daily. 0 02/05/2022 Active Start: 02-05-2022 turmeric root extract 500 mg cap Take 500 mg by mouth. 0 02/05/2022 Active Comment on above: Take 500 mg by mouth . Turmeric Root Extract 500 mg capsule (3 sources) Start: 06-24-2024 take 1 capsule by mouth twice daily Turmeric Root Extract 500 mg capsule Active 1000 mg PO TWICE A DAY June 24, 2024 10:45am Complies with drug therapy Start: 06-24-2024 take 1 capsule by mo uth twice daily Turmeric Root Extract 500 mg capsule Active 1000 mg PO TWICE A DAY June 24, 2024 10:45am zonisamide 25 mg oral capsule (20 sources) Anti-epileptic Agent Start: 08-02-2025 take 1 capsule by mouth once daily Zonisamide 25 mg capsule Active 25 mg PO daily August 02, 2025 2:37pm Complies with drug therapy Start: 05-24-2024 take 1 capsule by mo uth once daily zonisamide (ZONEGRAN) 25 mg capsule Take 1 capsule by mouth once daily. 90 capsule 4 05/24/2024 Active Start: 12-11-2023 End: 08-02-2025 take 1 capsule by mouth twice daily Zonisamide 25 mg capsule Discontinued 25 mg PO TWICE A DAY January 14, 2024 10:05am August 02, 2025 2:41pm Start: 08-28-2023 take 1 capsule by mo uth twice daily zonisamide (ZONEGRAN) 25 mg capsule Take 1 capsule by mouth two times a day. 60 capsule 2 08/28/2023 Active Start: 05-26-2023 End: 01-14-2024 take 1 capsule by mouth once daily Zonisamide 25 mg capsule Discontinued 25 mg PO DAILY May 29, 2023 12:00am January 14, 2024 10:10am Comment on above: Take 1 capsule by mo ut once daily. Take 1 capsule by mo [facility] two times a day. Completed/Discontinued Medications Medication Drug Class(es) Dates Sig (Normalized) Sig (Original) acetaminophen 325 mg / HYDROcodone bitartrate 5 mg oral tablet (20 sources) Opioid Agonist Start: 03-21-2021 End: 08-27-2021 Hydrocodone-Acetami nophen 5-325 mg tablet Discontinued 1 {tbl} PO EVERY 6 HOURS as needed for pain 10 3 March 21, 2021 August 27, 2021 2:07pm Arthritis of left knee Unilateral primary osteoarthritis, left knee Start: 03-21-2021 End: 08-27-2021 take 1 tablet by mouth every six hours Hydrocodone-Acetaminophen Discontinued 1 TABLET PO EVERY 6 HOURS 10 March 21, 2021 August 27, 2021 1:07pm Start: 07-19-2016 End: 06-28-2018 Hydrocodone-Acetaminophen 1 TABLET tablet Discontinued 1 {tbl} PO EVERY 6 HOURS NEEDED as needed for Pain 12 0 July 19, 2016 12:00am June 28, 2018 8:47am causes drowsiness Start: 07-19-2016 End: 06-28-2018 take 1 tablet by mouth every six hours as needed Hydrocodone-Acetaminophen Discontinued 1 TABLET PO EVERY 6 HOURS NEEDED July 18, 2016 11:00pm June 28, 2018 7:47am causes drowsiness amLODIPine 10 mg oral tablet (20 sources) Dihydropyridine Calcium Channel Sherry Start: 01-01-2023 End: 05-29-2023 take 1 tablet by mouth once daily Amlodipine 10 mg tablet Discontinued 10 mg PO DAILY 90 3 January 01, 2023 1:00am May 29, 2023 1:55pm Start: 06-21-2020 End: 01-01-2023 take 1 tablet by mouth once daily Amlodipine 5 mg tablet Discontinued 5 mg PO DAILY 90 3 August 27, 2021 2:26pm January 01, 2023 6:58pm this is a dose decrease Start: 06-20-2020 End: 06-21-2020 take 5 mg by mouth once daily Amlodipine 10 mg tablet Discontinued 5 mg PO daily June 20, 2020 3:45pm June 21, 2020 10:38am Start: 06-20-2020 End: 06-21-2020 take 5 mg by mouth once daily Amlodipine Discontinued 5 MG PO daily June 20, 2020 2:45pm June 21, 2020 9:38am Start: 10-21-2019 End: 06-20-2020 take 1 tablet by mouth once daily Amlodipine 10 mg tablet Discontinued 10 mg PO daily October 21, 2019 9:52am June 20, 2020 3:49pm Start: 06-28-2018 End: 10-21-2019 take 1 tablet by mouth once daily Amlodipine 5 mg tablet Discontinued 5 mg PO daily October 18, 2018 4:47pm October 21, 2019 9:52am Start: 02-15-2014 End: 06-28-2018 take 1 tablet by mouth once daily Amlodipine 2.5 MG tablet Discontinued 2.5 mg PO DAILY July 19, 2016 12:00am June 28, 2018 8:46am Start: 02-15-2014 take 1 tablet by sarina th once daily AMLODIPINE BESYLATE 5 MG TABS One tablet by mouth daily AMLODIPINE BESYLATE [id number] Diego Lilly MD Comment on above: Take 2.5 mg by mouth once daily. aspirin 500 mg / diphenhydrAMINE citrate 38.3 mg oral tablet (19 sources) Platelet Aggregation Inhibitor, Histamine-1 Receptor Antagonist, Nonsteroidal Anti-inflammatory Drug Start: 07-19-20 16 End: 06-28-20 18 take 1 tablet by mouth at bedtime Aspirin-Diphenhydra mine Citrat 1 EACH tablet Discontinued 1 NMA PO AT BEDTIME July 19, 2016 12:00am June 28, 2018 8:46am Start: 07-19-2016 End: 06-28-2018 Aspirin-Diphenhydramine Citr at Discontinued 1 EACH PO AT BEDTIME July 18, 2016 11:00pm June 28, 2018 7:46am azithromycin 250 mg oral tablet (19 sources) Macrolide Antimicrobial Start: 12-06-2019 End: 06-20-2020 take 2-5 tablets by mouth once daily Azithromycin (Zithromax Z-Scar) 250 mg tablet Discontinued 0 PO .COMPLEX 6 0 December 06, 2019 1:00am June 20, 2020 3:29pm take 500 mg today (day 1), then 250 mg for 4 days (days 2-5) PO BLOOD PRESSURE MONITORING (4 sources) Start: 06-07-2015 ADULT BLOOD PRESSURE CUFF LG KIT Take Blood pressure daily BLOOD PRESSURE MONITORING [id number] Sondra Vallecillo PA-C BLOOD PRESSURE MONITORING (1 source) Start: 06-07-2015 ADULT BLOOD PRESSURE CUFF LG KIT Take Blood pressure daily BLOOD PRESSURE MONITORING [id number] Sondra Vallecillo PA-C calcium carbonate 1500 mg / cholecalciferol 0.01 mg oral tablet (20 sources) Vitamin D Start: 02-05-2022 End: 09-03-2022 Calcium Carbonate-Vitamin D3 600 mg-10 mcg (400 unit) tablet Discontinued 1 {tbl} PO DAILY February 05, 2022 12:00am September 03, 2022 1:59pm Start: 02-05-2022 End: 09-03-2022 take 1 tablet by mouth once daily Calcium Carbonate-Vitamin D3 Discontinued 1 TABLET PO DAILY February 04, 2022 11:00pm September 03, 2022 12:59pm Start: 08-29-2019 End: 10-21-2019 Calcium Carbonate-Vitamin D3 (Oyster Shell Calcium-Vit D3) 500 mg(1,250mg) -200 unit tablet Discontinued 1 {tbl} PO DAILY August 29, 2019 12:00am October 21, 2019 9:29am Start: 07-19-2016 End: 06-28-2018 Calcium Carbonate-Vitamin D3 1 EACH tablet Discontinued 1 NMA PO DAILY July 19, 2016 12:00am June 28, 2018 8:51am Start: 07-19-2016 End: 06-28-2018 Calcium Carbonate-Vitamin D3 Discontinued 1 EACH PO DAILY July 18, 2016 11:00pm June 28, 2018 7:51am calcium carbonate / vitamin D (9 sources) Start: 08-15-2016 End: 06-24-2017 take 1 tablet by mouth once daily CALCIUM + D 600-200 MG-UNIT TABS One tablet by mouth daily CALCIUM CARBONATE-VITAMIN D Diego Lilly MD Start: 08-15-2016 take 1 tablet by sarina once daily CALCIUM + D 600-200 MG-UNIT TABS One tablet by mouth daily CALCIUM CARBONATE-VITAMIN D Marlee Casey PROGRAM ADMIN-C diphenhydrAMINE hydrochloride 25 mg oral capsule (11 sources) Histamine-1 Receptor Antagonist Start: 05-06-2023 End: 06-24-2024 take 1 capsule by mouth twice daily as needed for headache Diphenhydramine Hcl (Benadryl) 25 mg capsule Discontinued 25 mg PO TWICE DAILY NEEDED as needed for headache 10 0 May 06, 2023 5:10pm June 24, 2024 10:48am fish oil (5 sources) Start: 08-15-2016 take 1 tablet by mouth twice daily FISH OIL CAPS One tablet by mouth twice daily OMEGA-3 FATTY ACIDS CAPS [id number] Marlee Casey PROGRAM ADMIN-C Fish,Bora,Flax Oils-Om3,6,9no1 (16 sources) Start: 07-19-2016 End: 10-21-2019 take 1200 mg by mouth once daily Fish,Bora,Flax Oils-Om3,6,9no1 Discontinued 1200 MG PO DAILY July 19, 2016 4:35pm October 21, 2019 9:29am Start: 07-19-2016 End: 10-21-2019 take 1200 mg by mouth once daily Fish,Bora,Flax Oils-Om3,6,9no1 Discontinued 1200 MG PO DAILY July 18, 2016 11:00pm October 21, 2019 8:29am Start: 07-19-2016 End: 10-21-2019 take 1200 mg by mouth once daily Fish,Bora,Flax Oils-Om3,6,9no1 Discontinued 1200 MG PO DAILY July 19, 2016 12:00am October 21, 2019 9:29am Fish,Bora,Flax Oils-Om3,6,9no1 1,200 MG capsule (3 sources) Start: 07-19-2016 End: 10-21-2019 take 1 capsule by mouth once daily Fish,Bora,Flax Oils-Om3,6,9no1 1,200 MG capsule Discontinued 1200 mg PO DAILY July 19, 2016 12:00am October 21, 2019 9:29am hydroCHLOROthiazide 25 mg oral tablet (20 sources) Thiazide Diuretic Start: 06-20-2020 End: 01-01-2023 take 1 tablet by mouth once daily Hydrochlorothiazide 25 mg tablet Discontinued 25 mg PO DAILY 90 June 04, 2022 4:43pm January 01, 2023 6:59pm Comment on above: Take 25 mg by mouth once daily. 24 hr isosorbide mononitrate 60 mg extended release oral tablet (20 sources) Start: 06-21-2020 End: 12-19-2024 take 1 tablet by mouth once daily, then take 1 tablet by mouth every twenty-four hours Isosorbide Mononitrate 60 mg tablet extended release 24 hr Discontinued 60 mg PO DAILY 90 July 01, 2022 4:45pm June 26, 2023 1:18pm this is a dose increase Start: 06-20-2020 End: 06-21-2020 Isosorbide Mononitrate 30 mg tablet extended release 24 hr Discontinued 60 mg PO DAILY 90 June 20, 2020 3:48pm June 21, 2020 10:39am Start: 07-19-2016 End: 06-20-2020 take 1 tablet by mouth once daily, then take 1 tablet by mouth every twenty-four hours Isosorbide Mononitrate 30 mg tablet extended release 24 hr Discontinued 30 mg PO DAILY 90 May 09, 2020 4:07pm June 20, 2020 3:49pm Start: 02-16-2014 take 1 tablet by sarina th once daily ISOSORBIDE MONONITRATE ER 30 MG [id number] One tablet by mouth daily (Imdur) ISOSORBIDE MONONITRATE [id number] Diego Lilly MD Start: 02-16-2014 take 1 tablet by sarina th once daily IMDUR 30 MG [id number] One tablet by mouth daily ISOSORBIDE MONONITRATE [id number] Diego Lilly MD Start: 02-16-2014 take 1 tablet by sarina th once daily IMDUR 30 MG [id number] One tablet by mouth daily ISOSORBIDE MONONITRATE Cheng Fisher ketorolac tromethamine 10 mg oral tablet (11 sources) Nonsteroidal Anti-inflammatory Drug, Cyclooxygenase Inhibitor Start: 05-06-2023 End: 05-14-2023 take 1 tablet by mouth twice daily as needed for headache Ketorolac 10 mg tablet Discontinued 10 mg PO TWICE DAILY NEEDED as needed for headache 10 0 May 06, 2023 5:09pm May 14, 2023 1:35pm Magnesium Citrate,Mag Oxide 250 mg capsule (3 sources) Start: 06-24-2024 End: 01-24-2025 take 2 capsules by mouth twice daily Magnesium Citrate,Mag Oxide 250 mg capsule Discontinued 500 mg PO TWICE A DAY June 24, 2024 12:00am January 24, 2025 9:50am meloxicam 7.5 mg oral tablet (20 sources) Nonsteroidal Anti-inflammatory Drug Start: 06-09-2023 End: 01-14-2024 take 1 tablet by mouth once daily Meloxicam 7.5 mg tablet Discontinued 7.5 mg PO DAILY 30 0 June 09, 2023 12:00am January 14, 2024 10:08am Start: 02-15-2014 End: 10-21-2019 take 1 tablet by mouth twice daily Meloxicam 7.5 MG tablet Discontinued 7.5 mg PO TWICE A DAY July 19, 2016 12:00am October 21, 2019 9:30am Start: 02-15-2014 take 1 tablet by sarina th once daily MELOXICAM 15 MG TABS One tablet by mouth daily MELOXICAM [id number] Cheng Fisher MULTIPLE VITAMIN (10 sources) Start: 02-15-2014 End: 02-16-2014 take 1 tablet by mouth once daily MULTIVITAMINS TABS One tablet by mouth daily MULTIPLE VITAMIN Diego Lilly MD Start: 02-15-2014 take 1 tablet by sarina th once daily MULTIVITAMINS TABS One tablet by mouth daily MULTIPLE VITAMIN Dinora Duval RN omeprazole 40 mg delayed release oral capsule (11 sources) Proton Pump Inhibitor Start: 08-25-2023 End: 06-24-2024 Omeprazole 40 mg capsule,delayed release(DR/EC) Discontinued mg PO January 14, 2024 1:00am June 24, 2024 10:49am OYSTER SHELL (3 sources) Start: 06-24-2017 take 1 tablet by mouth once daily CALCIUM OYSTER SHELL 500 MG TABS One tablet by mouth daily OYSTER SHELL [id number] Diego Lilly MD OYSTER SHELL (1 source) Start: 06-24-2017 take 1 tablet by mouth once daily CALCIUM OYSTER SHELL 500 MG TABS One tablet by mouth daily OYSTER SHELL [id number] Diego Lilly MD potassium chloride 20 meq extended release oral tablet (20 sources) Start: 04-18-2023 take 1 tablet by mouth once daily potassium chloride ER (KLOR-CON) 20 mEq tablet Take 20 mEq by mouth once daily. 0 04/18/2023 Active Start: 04-17-2023 End: 01-24-2025 take 1 tablet by mouth once daily Potassium Chloride 20 mEq tablet extended release Discontinued 20 meq PO DAILY 3 May 05, 2024 4:31pm January 24, 2025 10:06am Start: 09-03-2022 End: 01-08-2023 take 2 tablets by mouth once daily Potassium Chloride 20 mEq tablet extended release Discontinued 40 meq PO DAILY September 03, 2022 2:00pm January 08, 2023 2:25pm Start: 09-03-2022 End: 01-08-2023 take 40 mEq by mouth once daily Potassium Chloride Dis continued 40 MEQ PO DAILY September 03, 2022 1:00pm January 08, 2023 1:25pm Start: 02-05-2022 End: 09-03-2022 take 1 tablet by mouth twice daily Potassium Chloride 20 mEq tablet extended release Discontinued 20 meq PO TWICE A DAY February 05, 2022 4:49pm September 03, 2022 2:00pm Start: 03-07-2021 End: 02-05-2022 take 1 tablet by mouth once daily Potassium Chloride 20 mEq tablet extended release Discontinued 20 meq PO DAILY March 07, 2021 12:00am February 05, 2022 4:49pm Comment on above: Take 20 mEq by mouth once daily. 1 tablet with food O rally Once a day pravastatin sodium 40 mg oral tablet (20 sources) HMG-CoA Reductase Inhibitor Start: 2012 End: 2019 take 1 tablet by mouth once daily Pravastatin 40 MG tablet Discontinued 40 mg PO DAILY July 19, 2016 12:00am December 05, 2019 4:57pm Comment on above: Take 1 tablet by sarina th daily at bedtime. prochlorperazine 5 mg oral tablet (11 sources) Phenothiazine Start: 2022 End: 2023 take 1 tablet by mouth twice daily as needed for headache Prochlorperazine Maleate (Compazine) 5 mg tablet Discontinued 5 mg PO TWICE A DAY as needed for headache 10 0 May 06, 2023 12:00am January 14, 2024 10:09am tiZANidine 4 mg oral capsule (10 sources) Central alpha-2 Adrenergic Agonist Start: 2022 End: 2023 take 1 capsule by mouth at bedtime as needed Tizanidine 4 mg capsule Discontinued 4 mg PO AT BEDTIME as needed May 14, 2023 12:00am January 14, 2024 10:09am traMADol hydrochloride 50 mg oral tablet (20 sources) Opioid Agonist Start: 2020 End: 2020 take 1 tablet by mouth every four hours as needed Tramadol 50 mg tablet Discontinued 50 mg PO Q4H as needed February 28, 2021 12:00am August 27, 2021 2:07pm valsartan 160 mg oral tablet (20 sources) Angiotensin 2 Receptor Sherry Start: 2012 End: 2017 take 1 tablet by mouth once daily Valsartan 160 MG tablet Discontinued 160 mg PO DAILY July 19, 2016 12:00am June 25, 2018 4:15pm Comment on above: Take 1 tablet by sarina th once daily. Take 160 mg by mouth once daily. Problems Active Problems Problem Classification Problem Date Documented Date Episodic/Chronic Abdominal pain (13 sources) Abdominal tenderness; Translations: [Abdominal tenderness, unspecified site] 03-27-2023 Episodic Anxiety disorders (19 sources) Anxiety; Translations: [Anxiety disorder, unspecified] 06-28-2018 Chronic Cardiac dysrhythmias (20 sources) Palpitations; Translations: [Palpitations] Onset: 02-15-2014 02-15-2014 Episodic Disorders of lipid metabolism (20 sources) Hyperlipidemia; Translations: [Pure hypercholesterolemia] Onset: 02-15-2014 02-15-2014 Chronic Essential hypertension (20 sources) Hypertensive disorder; Translations: [Essential hypertension] Onset: 07-14-2013 02-15-2014 Chronic Fluid and electrolyte disorders (19 sources) Hypokalemia, gastrointestinal losses; Translations: [Hypokalemia] 02-05-2022 Episodic Headache; including migraine (2 sources) Intractable chronic headache following trauma; 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, intractable] 09-15-2023 Chronic Headache; including migraine (20 sources) Headache; Translations: [Headache] Onset: 09-02-2023 12-31-2021 Episodic Heart valve disorders (7 sources) Aortic valve regurgitation; Translations: [Nonrheumatic aortic (valve) insufficiency] Onset: 08-02-2025 01-14-2024 Chronic Nausea and vomiting (13 sources) Nausea; Translations: [Nausea] 03-27-2023 Episodic Nonspecific chest pain (20 sources) Chest pain, unspecified; Translations: [Atypical chest pain] Onset: 02-15-2014 02-15-2014 Episodic Osteoarthritis (20 sources) Arthritis of knee; Translations: [Unilateral primary osteoarthritis, left knee] 03-22-2021 Chronic Other acquired deformities (3 sources) Lumbar spondylolisthesis; Translations: [Spondylolisthesis, lumbar region] 04-22-2023 Episodic Other and ill-defined heart disease (6 sources) Diastolic dysfunction; Translations: [Other ill-defined heart diseases] 01-14-2024 Chronic Other and ill-defined heart disease (1 source) Other ill-defined heart diseases; Translations: [Other ill-defined heart diseases] Onset: 08-02-2025 Chronic Other connective tissue disease (19 sources) Pain in lower limb; Translations: [Pain in leg, unspecified] 02-25-2021 Episodic Other connective tissue disease (2 sources) Pain in left foot; Translations: [Pain in left foot] Episodic Other connective tissue disease (13 sources) Spasm; Translations: [Other muscle spasm] 04-11-2023 Episodic Other lower respiratory disease (20 sources) Dyspnea; Translations: [Shortness of breath] Onset: 02-15-2014 02-15-2014 Episodic Other lower respiratory disease (19 sources) Dyspnea on exertion; Translations: [Dyspnea, unspecified] 02-05-2022 Episodic Other lower respiratory disease (5 sources) Other forms of dyspnea; Translations: [Other respiratory abnormalities] 05-29-2023 Episodic Other nervous system disorders (1 source) Lesion of brain; Translations: [Disorder of brain, unspecified] 08-25-2023 Chronic Other nervous system disorders (1 source) Disorder of brain, unspecified; Translations: [Brain lesion] Onset: 09-02-2023 Chronic Other nutritional; endocrine; and metabolic disorders (9 sources) Body mass index (BMI) 32.0-32.9, adult; Translations: [Body mass index (BMI) 30.0-30.9, adult] Onset: 02-16-2014 08-15-2016 Chronic Other nutritional; endocrine; and metabolic disorders (1 source) Body mass index (BMI) 30.0-30.9, adult; Translations: [Body mass index (BMI) 30.0-30.9, adult] Onset: 02-16-2014 02-16-2014 Chronic Other nutritional; endocrine; and metabolic disorders (10 sources) Recent weight loss; Translations: [Abnormal weight loss] 03-27-2023 Episodic Other nutritional; endocrine; and metabolic disorders (3 sources) Unintentional weight loss; Translations: [Abnormal weight loss] 01-05-2024 Episodic Other screening for suspected conditions (not mental disorders or infectious disease) (2 sources) Encounter for screening mammogram for malignant neoplasm of breast; Translations: [Encounter for screening mammogram for malignant neoplasm of breast] Onset: 11-02-2024 Episodic Residual codes; unclassified (19 sources) History of cardiac catheterization; Translations: [Other specified postprocedural states] 06-28-2018 Episodic Residual codes; unclassified (15 sources) Edema; Translations: [Edema, unspecified] 09-03-2022 Episodic Residual codes; unclassified (13 sources) Peripheral edema; Translations: [Edema, unspecified] 04-11-2023 Episodic Residual codes; unclassified (10 sources) Edema of lower extremity; Translations: [Localized edema] 06-11-2023 Episodic Residual codes; unclassified (5 sources) Edema, unspecified; Translations: [Edema] 05-14-2023 Episodic Residual codes; unclassified (5 sources) Localized edema; Translations: [Edema] 05-29-2023 Episodic Residual codes; unclassified (1 source) Asymptomatic menopausal state; Translations: [Asymptomatic menopausal state] Onset: 08-02-2025 Episodic Spondylosis; intervertebral disc disorders; other back problems (3 sources) Lumbar radiculopathy; Translations: [Radiculopathy, lumbar region] 04-22-2023 Episodic Superficial injury; contusion (2 sources) Contusion of left foot; Translations: [Contusion of left foot, initial encounter] Episodic Thyroid disorders (19 sources) Hypothyroidism; Translations: [Hypothyroidism, unspecified] 06-28-2018 Chronic Past or Other Problems Problem Classification Problem Date Documented Da te Episodic/Chronic Other aftercare (13 sources) Other rodent exterminator (current) drug therapy; Translations: [Long-term (current) use of other medications] Onset: 11-20-2014 Resolved: 05-16-2015 05-16-2015 Episodic Other lower respiratory disease (4 sources) Dyspnea, unspecified; Translations: [Other respiratory abnormalities] Onset: 03-01-2025 Episodic Peritonitis and intestinal abscess (2 sources) Infectious disease of abdomen; Translations: [Peritonitis, unspecified] Onset: 09-03-2023 08-25-2023 Episodic Residual codes; unclassified (1 source) Family [...] Results Test Name Value Interpretation Reference Range Facility Cardiology Visit Reporton Cardiology Visit Report [facility] [address] [place] [address] OFFICE VISIT Date of Service: 08/02/25 MR#: [id number] Acct: [id number] Name: AVIS TORRES Rep #: [id number] : 1950 Provider: Dr. Mili Barnett MD Age/Sex: 74/F [place] [facility] [place]: Signed HPI HPI History of Present Illness Details: This pleasant lady with past medical history significant for hypertension, diastolic dysfunction, dyslipidemia and aortic valve regurgitation is here for routine follow-up visit. Denies any complaints. No chest pain. No shortness of breath. No orthopnea PND. No ankle edema. Intake Vital Signs 01/24/25 08:21 08/02/25 14:36 Height 5 ft 1 in 5 ft 1 in Weight: 160 lb 166 lb BMI 30.2 31.4 BP 141/87 H 135/78 H Blood Pressure Location Lt brachial Lt brachial Position Sitting Sitting Respiration 16 16 Pulse 51 L 66 Pulse Source NIBP Monitor Intake Visit Reasons: 6 M FU Aircraft Pneudraulics Repairer Required: No Accompanied by: Self Is patient in pain?: No Allergies ketorolac Allergy (Severe, Verified 08/02/25 14:42) altered mental status prochlorperazine Allergy (Severe, Verified 08/02/25 14:42) altered mental status tizanidine Allergy (Severe, Verified 08/02/25 14:42) altered mental status hydrochlorothiazide Adverse Reaction (Intermediate, Verified 08/02/25 14:42) Hypokalemia even on 40 meq daily methocarbamol Adverse Reaction (Intermediate, Verified 08/02/25 14:42) DIZZINESS Medications ???Medication ???Instructions ???Recorded ???Confirmed ???Type aspirin 81 mg tablet,delayed 81 mg PO QDAY 06/28/18 08/02/25 Hi story release (Adult Low Dose Aspirin) atorvastatin 20 mg tablet 20 mg PO QHS 12/05/19 08/02/25 His tory levothyroxine 88 mcg tablet 88 mcg PO DAILY 02/05/22 08/02/25 History cholecalciferol (vitamin D3) 25 25 mcg PO DAILY 09/03/22 08/02/25 History mcg (1,000 unit) tablet triamterene 37.5 1 tab PO DAILY 05/14/23 08/02/25 H istory mg-hydrochlorothiazide 25 mg tablet riboflavin (vitamin B2) 400 mg 400 mg PO DAILY 05/29/23 08/02/25 History tablet magnesium 250 mg tablet 500 mg PO BID 06/24/24 08/02/25 Hi story miconazole nitrate 2 % topical 1 applic topical ONCE PRN 06/24/24 07/13/25 History powder (Zeasorb AF) omeprazole 40 mg capsule,delayed 40 mg PO DAILY 06/24/24 08/02/25 H istory release turmeric root extract 500 mg 1,000 mg PO BID 06/24/24 08/02/25 History capsule isosorbide mononitrate 60 mg 60 mg PO DAILY #90 tabs 12/19/24 0 08/02/25 Rx tablet,extended release 24 hr losartan 25 mg tablet 25 mg PO QDAY #90 tabs 01/24/25 Rx potassium chloride 20 mEq 20 meq PO DAILY #90 tabs 01/24/25 08/02/25 Rx tablet,extended release atenolol 50 mg tablet 50 mg PO DAILY #90 tabs 05/18/25 0 08/02/25 Rx calcium carbonate (Calcium 600) 600 mg PO BID 08/02/25 08/02/25 Hi story omega 1-zyg-lvr-fish oil 1,200 mg 1 cap PO BID 08/02/25 08/02/25 Hi story (144 mg-216 mg) capsule (Fish Oil) sennosides 8.6 mg tablet (senna) 17.2 mg PO QDAY PRN 08/02/2508/02 History sertraline 25 mg tablet 25 mg PO QDAY 08/02/25 08/02/25 Hi story zonisamide 25 mg capsule 25 mg PO QDAY 08/02/25 08/02/25 Hi story Ejection fraction %: 65 Have you fallen in the past year?: No PFSH Medical History Dyslipidemia Lower extremity edema Abdominal tenderness Nausea Recent unexplained weight loss Edema Shortness of breath Hypokalemia due to excessive gastrointestinal loss of potassium Dyspnea on exertion Head injury (12/23/21) Pure hypercholesterolemia Essential hypertension Atypical chest pain Palpitations Hypothyroidism Depression Anxiety Palpitations Surgical History History of partial hysterectomy History of left heart catheterization ( 1993) Family History Father , Age 65 Myocardial infarction Mother , Age 84 Dementia Sister Hypertension Sister Hypertension Sister Hyperlipidemia Social History Smoking Status: Former smoker how long ago did patient quit smokin years ago alcohol intake: never substance use type: does not use caffeine: No ROS Const Const: Negative for fatigue or weakness Eyes Eyes: Negative for change in vision ENT ENT: Negative for dizziness or balance problems Cardio Chest Pain: No Palpitations: Yes (fluttering occasionally) Edema: None Resp Respiratory: Negative for SOB with activity, SOB at rest or SOB orthopnea SOB lying down GI GI: Negative nausea or heartburn Musc Musc: Negative for balance problems Neuro (more content not included)... Normal [facility] BASIC METABOLIC PANEL 06-17 Calcium [Mass/Vol] 9.6 mg/dL Normal 8.6-10.4 [facility] Comment on above: Order Comment: 0; 0 FASTING:YES FASTING: YES Performed By: #### [id number], [id number] #### [facility] [place] [address] Floor Installation Mechanic: Yosi Monterroso MD Chloride [Moles/Vol] 104 mmol/L Normal 98-110 [facility] Comment on above: Order Comment: 0; 0 FASTING:YES FASTING: YES Performed By: #### [id number], [id number] #### [facility] [address], [address] [place] [address] Floor Installation Mechanic: Yosi Monterroso MD CO2 [Moles/Vol] 27 mmol/L Normal 20-32 [facility] Comment on above: Order Comment: 0; 0 FASTING:YES FASTING: YES Performed By: #### 4 [id number], [id number] #### [facility] [place] [address] Floor Installation Mechanic: Yosi Monterroso MD Creatinine [Mass/Vol] 1.01 mg/dL High 0.60-1.[address] [facility] Comment on above: Order Comment: 0; 0 FASTING:YES FASTING: YES Performed By: #### [id number], [id number] #### [facility] [place] [address] Floor Installation Mechanic: Yosi Monterroso MD GFR/1.73 sq M.predicted among non-blacks MDRD (S/P/Bld) [Vol rate/Area] 58 mL/min/{1.73_m2} Low > OR = 60 [facility] Comment on above: Order Comment: 0; 0 FASTING:YES FASTING: YES Performed By: #### 4 [id number], [id number] #### [facility] [address], [address] [place] [address] Floor Installation Mechanic: Yosi Monterroso MD Glucose [Mass/Vol] 107 mg/dL High 65-99 [facility] Comment on above: Order Comment: 0; 0 FASTING:YES FASTING: YES Result Comment: Fasting reference interval For someone without known diabetes, a glucose value between 100 and 125 mg/dL is consistent with prediabetes and should be confirmed with a follow-up test. Performed By: #### 4 [id number], [id number] #### [facility] [address], [address] [place] [address] Floor Installation Mechanic: Yosi Monterroso MD Potassium [Moles/Vol] 4.1 mmol/L Normal 3.5-5.3 [facility] Comment on above: Order Comment: 0; 0 FASTING:YES FASTING: YES Performed By: #### 4 [id number], [id number] #### [facility] [address], [address] [place] [address] Floor Installation Mechanic: Yosi Monterroso MD Sodium [Moles/Vol] 140 mmol/L Normal 135-146 [facility] Comment on above: Order Comment: 0; 0 FASTING:YES FASTING: YES Performed By: #### [id number], [id number] #### [facility] [address], [address] [place] [address] Floor Installation Mechanic: Yosi Monterroso MD Urea nitrogen [Mass/Vol] 16 mg/dL Normal 7-25 [facility] Comment on above: Order Comment: 0; 0 FASTING:YES FASTING: YES Performed By: #### 4 [id number], [id number] #### [facility] [address], [address] [place] [address] Floor Installation Mechanic: Yosi Monterroso MD Urea nitrogen/Creatinine [Mass ratio] 16 mg/mg Normal 6-22 [facility] Comment on above: Order Comment: 0; 0 FASTING:YES FASTING: YES Performed By: #### 4 [id number], [id number] #### [facility] [address], [address] [place] [phone] Floor Installation Mechanic: Yosi Monterroso MD HEMOGLOBIN A1con 07-11-2025 HbA1c (Bld) [Mass fraction] 6.2 % High <5.7 [facility] Comment on above: Result Comment: For someone without known diabetes, a hemoglobin A1c value between 5.7% and 6.4% is consistent with prediabetes and should be confirmed with a follow-up test. For someone with known diabetes, a value <7% indicates that their diabetes is well controlled. A1c targets should be individualized based on duration of diabetes, age, comorbid conditions, and other considerations. This assay result is consistent with an increased risk of diabetes. Currently, no consensus exists regarding use of hemoglobin A1c for diagnosis of diabetes for children. Performed By: #### 4 [id number], [id number] #### [facility] [address], [address] [place] [phone] Floor Installation Mechanic: Yosi Monterroso MD Echo Completeon 02-23-2025 Echo Complete [facility] [address] [place] [id number] Echo Complete 02/23/25 0802 MR#: [id number] Acct: [id number] Name: AVIS TORRES Rep #: [id number] : 1950 74 From: Mili Barnett MD Attending Dr: Dr. Mili Barnett MD Status: REG I Ordering Dr: Mili Barnett MD Date: 02/23/25 Location: [facility] Sex: F C Admitted: Reason For Study Reason For Study: Dyspnea/SOB Procedure This was a 2D Doppler, Color Flow transthoracic echocardiogram. Exam performed in department. Left Ventricle Normal size and thickness. The LV systolic function is normal. EF is 65 %. Normal diastology for age. Right Ventricle Mildly dilated right ventricle. Mild global right ventricular systolic dysfunction. Atria The left and right atria are normal. Mitral Valve Mild (1+) mitral valve insufficiency. Tricuspid Valve Mild tricuspid valve insufficiency. Right ventricular systolic pressure estimated to be 39 mmHg. Aortic Valve Trisinus/trileaflet aortic valve. Mild (1+) aortic valve insufficiency. Pulmonic Valve The pulmonic valve is not well visualized. Great Vessels Normal sized aortic root. Pericardium/Pleural No pericardial effusion. MMode/2D Measurements Calculations LVIDd: 4.5 cm IVSd: 1.0 cm Ao root diam: 3.6 cm LVIDs: 2.2 cm LVPWd: 0.92 cm RVDd: 4.5 cm FS: 51.0 % LAV(MOD-bp): 54.3 ml LVAd ap4: 24.1 cm2 SV(MOD-sp4): 46.3 ml LAV(MOD-bp) Indexed: 31.6 ml/m2 LVLd ap4: 7.1 cm SI(MOD-sp4): 26.9 ml/m2 LAV(MOD-sp2): 55.5 ml EDV(MOD-sp4): 68.6 ml LAV(MOD-sp4): 52.8 ml EDV(sp4-el): 69.4 ml LVAs ap4: 12.2 cm2 LVLs ap4: 5.7 cm ESV(MOD-sp4): 22.4 ml ESV(sp4-el): 22.4 ml EF(MOD-sp4): 67.4 % EF(sp4-el): 67.7 % SV(sp4-el): 47.0 ml LA A4 area: 19.5 cm2 LA dimension(2D): 3.9 cm RA A4 area: 15.1 cm2 TAPSE: 2.3 cm Time Measurements MV dec time: 0.18 sec Doppler Measurements Calculations MV E max stanley: 76.0 cm/sec Lat Peak E' Stanley: 12.3 cm/sec Med Peak E' Stanley: 7.3 cm/sec MV A max stanley: 82.5 cm/sec E/E' lat: 6.2 E/E' med: 10.4 MV E/A: 0.92 MV V2 max: 106.8 cm/sec MV P1/2t max stanley: 103.9 cm/sec Ao V2 max: 151.9 cm/sec MV max P.6 mmHg MV P1/2t: 70.7 msec Ao max P.2 mmHg MV V2 mean: 48.9 cm/sec Ao V2 mean: 97.9 cm/sec MV mean P.2 mmHg MV dec slope: 430.3 cm/sec2 Ao mean P.7 mmHg MV V2 VTI: 36.0 cm MVA(P1/2t): 3.1 cm2 Ao V2 VTI: 37.3 cm AV (velocity ratio): 0.87 AI max stanley: 380.5 cm/sec LV V1 max: 128.5 cm/sec MR max stanley: 448.6 cm/sec AI max P.9 mmHg LV V1 max P.6 mmHg MR max P.5 mmHg LV V1 mean P.1 mmHg AI dec slope: 151.3 cm/sec2 LV V1 mean: 81.1 cm/sec AI P1/2t: 736.4 msec LV V1 VTI: 32.4 cm PA V2 max: 91.1 cm/sec TR max stanley: 268.6 cm/sec TR max P.9 mmHg ECHO/Echo Complete Interpretation Summary The LV systolic function is normal. EF is 65 %. Mildly dilated right ventricle. Mild global right ventricular systolic dysfunction. Mild (1+) mitral valve insufficiency. Mild tricuspid valve insufficiency. Right ventricular systolic pressure estimated to be 39 mmHg. Mild (1+) aortic valve insufficiency. Ordering Physician: Mili Barnett Referring Physician: Mili Barnett Performed By: Yaw García RCS 02/23/25 0904 Date Mili Barnett MD CC: Dr. Mili Barnett MD; Dr. Jessica Reyes MD Date Dictated: 02/23/25801 Date Transcribed: 02/23/25903 Aviation Neuropsychologist: Signed Normal [facility] Echocardiogram study reportO rdered By: Mili Barnett on 02-23-2025 Study report [facility] [address] [place] [address] Echo Complete 02/23/25801 MR#: [id number] Acct: [id number] Name: AVIS TORRES Rep #:[id number] : 1950 74 From: Mili Barnett MD Attending Dr: Dr. Mili Barnett MD Status: REG CLI Ordering Dr: Mili Barnett MD Date: Location: [facility] Sex: F C Admitted: Reason For Study Reason For Study: Dyspnea/SOB Procedure This was a 2D Doppler, Color Flow transthoracic echocardiogram. Exam performed in department. Left Ventricle Normal size and thickness. The LV systolic function is normal. EF is 65 %. Normal diastology for age. Right Ventricle Mildly dilated right ventricle. Mild global right ventricular systolic dysfunction. Atria The left and right atria are normal. Mitral Valve Mild (1+) mitral valve insufficiency. Tricuspid Valve Mild tricuspid valve insufficiency. Right ventricular systolic pressure estimated to be 39 mmHg. Aortic Valve Trisinus/trileaflet aortic valve. Mild (1+) aortic valve insufficiency. Pulmonic Valve The pulmonic valve is not well visualized. Great Vessels Normal sized aortic root. Pericardium/Pleural No pericardial effusion. MMode/2D Measurements & Calculations LVIDd: 4.5 cm IVSd: 1.0 cm Ao root diam: 3.6 cm LVIDs: 2.2 cm LVPWd: 0.92 cm RVDd: 4.5 cm FS: 51.0 % LAV(MOD-bp): 54.3 ml LVAd ap4: 24.1 cm2 SV(MOD-sp4): 46.3 ml LAV(MOD-bp) Indexed: 31.6 ml/m2 LVLd ap4: 7.1 cm SI(MOD-sp4): 26.9 ml/m2 LAV(MOD-sp2): 55.5 ml EDV(MOD-sp4): 68.6 ml LAV(MOD-sp4): 52.8 ml EDV(sp4-el): 69.4 ml LVAs ap4: 12.2 cm2 LVLs ap4: 5.7 cm ESV(MOD-sp4): 22.4 ml ESV(sp4-el): 22.4 ml EF(MOD-sp4): 67.4 % EF(sp4-el): 67.7 % SV(sp4-el): 47.0 ml LA A4 area: 19.5 cm2 LA dimension(2D): 3.9 cm RA A4 area: 15.1 cm2 TAPSE: 2.3 cm Time Measurements MV dec time: 0.18 sec Doppler Measurements & Calculations MV E max stanley: 76.0 cm/sec Lat Peak E' Stanley: 12.3 cm/sec Med Peak E' Stanlye: 7.3 cm/sec MV A max stanley: 82.5 cm/sec E/E' lat: 6.2 E/E' med: 10.4 MV E/A: 0.92 MV V2 max: 106.8 cm/sec MV P1/2t max stanley: 103.9 cm/sec Ao V2 max: 151.9 cm/sec MV max P.6 mmHg MV P1/2t: 70.7 msec Ao max P.2 mmHg MV V2 mean: 48.9 cm/sec Ao V2 mean: 97.9 cm/sec MV mean P.2 mmHg MV dec slope: 430.3 cm/sec2 Ao mean P.7 mmHg MV V2 VTI: 36.0 cm MVA(P1/2t): 3.1 cm2 Ao V2 VTI: 37.3 cm AV (velocity ratio): 0.87 AI max stanley: 380.5 cm/sec LV V1 max: 128.5 cm/sec MR max stanley: 448.6 cm/sec AI max P.9 mmHg LV V1 max P.6 mmHg MR max P.5 mmHg LV V1 mean P.1 mmHg AI dec slope: 151.3 cm/sec2 LV V1 mean: 81.1 cm/sec AI P1/2t: 736.4 msec LV V1 VTI: 32.4 cm PA V2 max: 91.1 cm/sec TR max stanley: 268.6 cm/sec TR max P.9 mmHg ECHO/Echo Complete Interpretation Summary The LV systolic function is normal. EF is 65 %. Mildly dilated right ventricle. Mild global right ventricular systolic dysfunction. Mild (1+) mitral valve insufficiency. Mild tricuspid valve insufficiency. Right ventricular systolic pressure estimated to be 39 mmHg. Mild (1+) aortic valve insufficiency. Ordering Physician: Mili Barnett Referring Physician: Mili Barnett Performed By: Yaw García RCS 02/23/25903 Date _ Mili Barnett MD CC: Dr. Mili Barnett MD; Dr. Jessica Reyes MD ~ Date Dictated: 02/23/25801 Date Transcribed: 02/23/25903 Aviation Neuropsychologist: Signed [facility] Work Phone: Anion gap in Serum or Plasma Ordered By: Mili Barnett on 01-31-2025 Anion gap [Moles/Vol] 8 mmol/L 5-15 [place] BUN/creatinine ratioOrdered By: Mili Barnett on 01-31-2025 Urea nitrogen/Creatinine [Mass ratio] 18.3 mg/mg 10- [facility] Basic Metabolic Profile (BMP )on 01-31-2025 BUN/CRE 18.3 RATIO Normal 10-20 [facility] Comment on above: Performed By: #### L 500.2500 #### [facility] Laboratory [address] [place], [address] Calcium [Mass/Vol] 9.9 mg/dL Normal 7.6-11.[address] [facility] Comment on above: Performed By: #### L 500.2500 #### [facility] [address] [place], [address] Chloride [Moles/Vol] 105 mmol/L Normal 98-108 [facility] Comment on above: Performed By: #### L 500.2500 #### [facility] [address] [place], [address] CO2 [Moles/Vol] 24.9 mmol/L Normal 21.0-32.0 [facility] Comment on above: Performed By: #### L 500.2500 #### [facility] [address] [place], [address] Creatinine [Mass/Vol] 0.99 mg/dL Normal 0.70-1.20 [place] Comment on above: Performed By: #### L 500.2500 #### [facility] [address] [place], [address] GAP 8 Normal 5-15 [facility] Comment on above: Performed By: #### L 500.2500 #### [facility] [address] [place], [address] GFR/1.73 sq M.predicted among non-blacks MDRD (S/P/Bld) [Vol rate/Area] 59 mL/min/{1.73_m2} Low >60 [facility] Comment on above: Result Comment: mL/m in/1.73m2 CKD-EPI Creatinine Equation (2020) Performed By: #### L 500.2500 #### [facility] [address] [place], [address] Glucose [Mass/Vol] 109 mg/dL High 70-[address] [facility] Comment on above: Performed By: #### L 500.2500 #### [facility] [address] [place], [address] Potassium [Moles/Vol] 4.4 mmol/L Normal 3.3-5.1 [place] Comment on above: Performed By: #### L 500.2500 #### [facility] [address] [place], [address] Sodium [Moles/Vol] 138 mmol/L Normal 133-[address] [facility] Comment on above: Performed By: #### L 500.2500 #### [facility] [address] [place], [address] Urea nitrogen [Mass/Vol] 18 mg/dL Normal 4-19 [facility] Comment on above: Performed By: #### L 500.2500 #### [facility] [address] [place], [address] Carbon dioxide, total [Moles /volume] in Central venous bloodOrdered By: Mili Barnett on 01-31-2025 CO2 [Moles/Vol] 24.9 mmol/L 21.0-32.0 [facility] Chloride assayOrdered By: Vinod Barnett on 01-31-2025 Chloride [Moles/Vol] 105 mmol/L 98-108 [facility] GFR/1.73 sq M.predicted nahid g non-blacks MDRD (S/P/Bld) [Vol rate/Area]Ordered By: Mili Branett on 01-31-2025 Estimated GFR (MDRD) Non-Af Amer 59 Low >60 [facility] Comment on above: mL/min/1.73m2 CKD-EP I Creatinine Equation (2020) Potassium (Unsp spec) [Mass/ Vol]Ordered By: Mili Barnett on 01-31-2025 Potassium [Moles/Vol] 4.4 mmol/L 3.3-5.1 [place] Serum creatinine measurement (mass/volume)Ordered By: Mili Barnett on 01-31-2025 Creatinine [Mass/Vol] 0.99 mg/dL 0.70-1.20 [place] Serum glucose measurement (m ass/volume)Ordered By: Mili Barnett on 01-31-2025 Glucose [Mass/Vol] 109 mg/dL High 70-[address] [facility] Serum or plasma calcium patsy urement (mass/volume)Ordered By: Mili Barnett on 01-31-2025 Calcium [Mass/Vol] 9.9 mg/dL 7.6-11.[address] [facility] Serum or plasma urea nitroge n measurement (mass/volume)Ordered By: Mili Barnett on 01-31-2025 Urea nitrogen [Mass/Vol] 18 mg/dL 4-19 [facility] Sodium levelOrdered By: Jl Barnett on 01-31-2025 Sodium [Moles/Vol] 138 mmol/L 133-[address] [facility] Cardiology Visit Reporton Cardiology Visit Report [facility] [place] [id number] [facility]. [address] [place], [place] [address] OFFICE VISIT Date of Service: 01/24/25 MR#: [id number] Acct: [id number] Name: AVIS TORRES Rep #: [id number] : 1950 Provider: Dr. Mili Barnett MD Age/Sex: 74/F [place] [facility] Status: Signed HPI HPI History of Present Illness Details: This lady with history of hypertension, diastolic dysfunction, dyslipidemia and PVCs is here for follow-up visit. She reports doing well. Denies any complaints today. No chest pains. No shortness of breath. No palpitations. No orthopnea or PND. Occasional ankle edema. No lightheadedness or dizziness. No syncope or presyncope. Intake Vital Signs 06/24/24 10:38 01/24/25 08:21 Height 5 ft 1 in 5 ft 1 in Weight: 160 lb BMI 30.2 BP 141/87 H Blood Pressure Location Lt brachial Position Sitting Respiration 16 Pulse 51 L Pulse Source NIBP Intake Visit Reasons: 6 M FU Aircraft Pneudraulics Repairer Required: No Accompanied by: Self Is patient in pain?: No Allergies ketorolac Allergy (Severe, Verified 01/24/25 09:48) altered mental status prochlorperazine Allergy (Severe, Verified 01/24/25 09:48) altered mental status tizanidine Allergy (Severe, Verified 01/24/25 09:48) altered mental status hydrochlorothiazide Adverse Reaction (Intermediate, Verified 01/24/25 09:48) Hypokalemia even on 40 meq daily methocarbamol Adverse Reaction (Intermediate, Verified 01/24/25 09:48) DIZZINESS Medications ???Medication ???Instructions ???Recorded ???Confirmed ???Type aspirin 81 mg tablet,delayed 81 mg PO QDAY 06/28/18 01/24/25 Hi story release (Adult Low Dose Aspirin) atorvastatin 20 mg tablet 20 mg PO QHS 12/05/19 01/24/25 His tory levothyroxine 88 mcg tablet 88 mcg PO DAILY 02/05/22 01/24/25 History cholecalciferol (vitamin D3) 25 25 mcg PO DAILY 09/03/22 01/24/25 History mcg (1,000 unit) tablet triamterene 37.5 1 tab PO DAILY 05/14/23 01/24/25 H istory mg-hydrochlorothiazide 25 mg tablet riboflavin (vitamin B2) 400 mg 400 mg PO DAILY 05/29/23 01/24/25 History tablet zonisamide 25 mg capsule 25 mg PO BID 01/14/24 01/24/25 His tory atenolol 50 mg tablet 50 mg PO DAILY #90 tabs 02/29/24 0 01/24/25 Rx calcium carbonate (Calcium 600) 1,200 mg PO BID 06/24/24 01/24/25 History magnesium 250 mg tablet 500 mg PO BID 06/24/24 01/24/25 Hi story miconazole nitrate 2 % topical 1 applic topical ONCE PRN 06/24/24 01/24/25 History powder (Zeasorb AF) omeprazole 40 mg capsule,delayed 40 mg PO DAILY 06/24/24 01/24/25 H istory release sertraline 50 mg tablet 25 mg PO DAILY 06/24/24 01/24/25 H istory turmeric root extract 500 mg 1,000 mg PO BID 06/24/24 01/24/25 History capsule isosorbide mononitrate 60 mg 60 mg PO DAILY #90 tabs 12/19/24 0 01/24/25 Rx tablet,extended release 24 hr losartan 25 mg tablet 25 mg PO QDAY #90 tabs 01/24/25 Rx potassium chloride 20 mEq 20 meq PO DAILY #90 tabs 01/24/25 01/24/25 Rx tablet,extended release Ejection fraction %: 70 Have you fallen in the past year?: No PFSH Medical History Dyslipidemia Lower extremity edema Abdominal tenderness Nausea Recent unexplained weight loss Edema Shortness of breath Hypokalemia due to excessive gastrointestinal loss of potassium Dyspnea on exertion Head injury (12/23/21) Pure hypercholesterolemia Essential hypertension Atypical chest pain Palpitations Hypothyroidism Depression Anxiety Palpitations Surgical History History of partial hysterectomy History of left heart catheterization ( 1993) Family History Father , Age 65 Myocardial infarction Mother , Age 84 Dementia Sister Hypertension Sister Hypertension Sister Hyperlipidemia Social History Smoking Status: Former smoker how long ago did patient quit smokin years ago alcohol intake: never substance use type: does not use caffeine: No ROS Const Const: Negative for fatigue, weakness, headache(s) or weight gain ENT ENT: Negative for headache(s), dizziness, Nosebleed/epistaxis or balance problems Cardio Chest Pain: No Palpitations: No Edema: Bilateral Muscle aches with walking: None Resp Respiratory: Negative for SOB with activity, SOB at rest or SOB orthopnea SOB lying down GI GI: Negative nausea, vomiting or heartburn Musc Musc: Negative for muscle aches/ myalgia, muscle weakness, joint pain or balance problems Neuro Neuro: Negative for dizziness, lightheadedness, near syncope, syncope, headache(s) or weakness Endo Endo: Negative for fatigue Cardiology Exam (more content not included)... Normal [facility] COMPREHENSIVE METABOLIC PANE Ward 01-10-2025 Albumin [Mass/Vol] 4.4 g/dL Normal 3.6-5.1 [facility] Comment on above: Performed By: #### 8 66, 7600, 40629, 899, 496, 21993 #### [facility] [place] [address] Floor Installation Mechanic: Yosi Monterroso MD Albumin/Globulin [Mass ratio] 1.8 {ratio} Normal 1.0-2.5 [facility] Comment on above: Performed By: #### 8 66, 7600, 86349, 899, 496, 29340 #### [facility] [place] [address] Floor Installation Mechanic: Yosi Monterroso MD ALP [Catalytic activity/Vol] 75 U/L Normal 37-153 [facility] Comment on above: Performed By: #### 8 66, 7600, 11535, 899, 496, 99989 #### [facility] [place] [address] Floor Installation Mechanic: Yosi Monterroso MD ALT [Catalytic activity/Vol] 13 U/L Normal 6-29 [facility] Comment on above: Performed By: #### 8 66, 7600, 03906, 899, 496, 78368 #### [facility] [place] [address] Floor Installation Mechanic: Yosi Monterroso MD AST [Catalytic activity/Vol] 14 U/L Normal 10-35 [facility] Comment on above: Performed By: #### 8 66, 7600, 92826, 899, 496, 81794 #### [facility] [place] [address] Floor Installation Mechanic: Yosi Monterroso MD Bilirubin [Mass/Vol] 1.3 mg/dL High 0.2-1.2 [facility] Comment on above: Performed By: #### 8 66, 7600, 49303, 899, 496, 12798 #### [facility] [place] [address] Floor Installation Mechanic: Yosi Monterroso MD BUN/CREATININE RATIO SEE NOTE: Normal 6-22 [facility] Comment on above: Result Comment: Not Reported: BUN and Creatinine are within reference range. Performed By: #### 8 66, 7600, 44798, 899, 496, 09163 #### [facility] [place] [address] Floor Installation Mechanic: Yosi Monterroso MD Calcium [Mass/Vol] 9.8 mg/dL Normal 8.6-10.4 [facility] Comment on above: Performed By: #### 8 66, 7600, 64687, 899, 496, 07278 #### [facility] [place] [address] Floor Installation Mechanic: Yosi Monterroso MD Chloride [Moles/Vol] 107 mmol/L Normal 98-110 [facility] Comment on above: Performed By: #### 8 66, 7600, 50698, 899, 496, 39201 #### [facility] [place] [address] Floor Installation Mechanic: Yosi Monterroso MD CO2 [Moles/Vol] 28 mmol/L Normal 20-32 [facility] Comment on above: Performed By: #### 8 66, 7600, 72021, 899, 496, 28182 #### [facility] [place] [address] Floor Installation Mechanic: Yosi Monterroso MD Creatinine [Mass/Vol] 0.94 mg/dL Normal 0.60-1.[address] [facility] [address] [facility] Comment on above: Performed By: #### 8 66, 7600, 22020, 899, 496, 87386 #### [facility] [place] [address] Floor Installation Mechanic: Yosi Monterroso MD GFR/1.73 sq M.predicted among non-blacks MDRD (S/P/Bld) [Vol rate/Area] 63 mL/min/{1.73_m2} Normal > OR = 60 [facility] Comment on above: Performed By: #### 8 66, 7600, 83611, 899, 496, 43280 #### [facility] [place] [address] Floor Installation Mechanic: Yosi Monterroso MD Globulin (S) [Mass/Vol] 2.4 g/dL Normal 1.9-3.7 [facility] Comment on above: Performed By: #### 8 66, 7600, 01083, 899, 496, 43085 #### [facility] [place] [address] Floor Installation Mechanic: Yosi Monterroso MD Glucose [Mass/Vol] 121 mg/dL High 65-99 [facility] Comment on above: Result Comment: Fasting reference interval For someone without known diabetes, a glucose value between 100 and 125 mg/dL is consistent with prediabetes and should be confirmed with a follow-up test. Performed By: #### 8 66, 7600, 41293, 899, 496, 43548 #### [facility] [place] [address] Floor Installation Mechanic: Yosi Monterroso MD Potassium [Moles/Vol] 4.3 mmol/L Normal 3.5-5.[address] [facility] [address] [facility] Comment on above: Performed By: #### 8 66, 7600, 81293, 899, 496, 07593 #### [facility] [place] [address] Floor Installation Mechanic: Yosi Monterroso MD Protein [Mass/Vol] 6.8 g/dL Normal 6.1-8.1 [facility] Comment on above: Performed By: #### 8 66, 7600, 27048, 899, 496, 26466 #### [facility] [place] [address] Floor Installation Mechanic: Yosi Monterroso MD Sodium [Moles/Vol] 143 mmol/L Normal 135-146 [facility] Comment on above: Performed By: #### 8 66, 7600, 54744, 899, 496, 92046 #### [facility] [address] [place] [address] Floor Installation Mechanic: Yosi Monterroso MD Urea nitrogen [Mass/Vol] 18 mg/dL Normal 7- [facility] Comment on above: Performed By: #### 8 66, 7600, 38039, 899, 496, 50154 #### [facility] [address], [address] [place] [address] Floor Installation Mechanic: Yosi Monterroso MD HEMOGLOBIN A1con 01-10-2025 HEMOGLOBIN A1c 6.3 % of total Hgb High <5.7 [facility] Comment on above: Result Comment: For someone without known diabetes, a hemoglobin A1c value between 5.7% and 6.4% is consistent with prediabetes and should be confirmed with a follow-up test. For someone with known diabetes, a value <7% indicates that their diabetes is well controlled. A1c targets should be individualized based on duration of diabetes, age, comorbid conditions, and other considerations. This assay result is consistent with an increased risk of diabetes. Currently, no consensus exists regarding use of hemoglobin A1c for diagnosis of diabetes for children. Performed By: #### 8 66, 7600, 36999, 899, 496, 59559 #### [facility] [place] [address] Floor Installation Mechanic: Yosi Monterroso MD LIPID PANEL, STANDARDon 12-18 Cholesterol [Mass/Vol] 159 mg/dL Normal <200 [facility] Comment on above: Order Comment: 0; 0; 0; 0; 0; FASTING FASTING:YES FASTING: YES Performed By: #### 8 66, 7600, 67659, 899, 496, 76049 #### [facility] [address], [address] [place] [address] Floor Installation Mechanic: Yosi Monterroso MD Cholesterol in HDL [Mass/Vol] 42 mg/dL Low > OR = 50 [facility] Comment on above: Order Comment: 0; 0; 0; 0; 0; FASTING FASTING:YES FASTING: YES Performed By: #### 8 66, 7600, 59238, 899, 496, 06852 #### [facility] [place] [address] [place] [address] Floor Installation Mechanic: Yosi Monterroso MD Cholesterol in LDL [Mass/Vol] 90 mg/dL Normal [facility] Comment on above: Order Comment: 0; 0; 0; 0; 0; FASTING FASTING:YES FASTING: YES Result Comment: Refe rence range: <100 Desirable range <100 mg/dL for primary prevention; <70 mg/dL for patients with CHD or diabetic patients with > or = 2 CHD risk factors. LDL-C is now calculated using the Cyndie calculation, which is a validated novel method providing better accuracy than the Friedewald equation in the estimation of LDL-C. Sourav SS et al. NUBIA. 2013;310(19): 7699-4952 (http://education.[employer]/faq/WFS012) Performed By: #### 8 71, 8310, 84254, 918, 518, 48173 #### [facility] [address], [address] [place] [address] Floor Installation Mechanic: Yosi Monterroso MD Cholesterol.total/Cho lesterol in HDL [Mass ratio] 3.8 {ratio} Normal <5.0 [facility] Comment on above: Order Comment: 0; 0; 0; 0; 0; FASTING FASTING:YES FASTING: YES Performed By: #### 8 09, 3070, 71474, 898, 696, 06987 #### [facility] [address], [address] [place] [address] Floor Installation Mechanic: Yosi Monterroso MD NON HDL CHOLESTEROL 117 mg/dL (calc) Normal <130 [facility] Comment on above: Order Comment: 0; 0; 0; 0; 0; FASTING FASTING:YES FASTING: YES Result Comment: For patients with diabetes plus 1 major ASCVD risk factor, treating to a non-HDL-C goal of <100 mg/dL (LDL-C of <70 mg/dL) is considered a therapeutic option. Performed By: #### 8 53, 8010, 12916, 882, 493, 68970 #### [facility] [address], [address] [place] [address] Floor Installation Mechanic: Yosi Monterroso MD Triglyceride [Mass/Vol] 178 mg/dL High <150 [facility] Comment on above: Order Comment: 0; 0; 0; 0; 0; FASTING FASTING:YES FASTING: YES Performed By: #### 8 66, 7600, 59861, 899, 496, 11073 #### [facility] [address], [address] [place] [address] Floor Installation Mechanic: Yosi Monterroso MD T4, FREEon 01-10-2025 Free T4 [Mass/Vol] 1.4 ng/dL Normal 0.8-1.8 [facility] Comment on above: Performed By: #### 8 66, 7600, 22070, 899, 496, 22996 #### [facility] [address], [address] [place] [address] Floor Installation Mechanic: Yosi Monterroso MD TSHon 01-10-2025 TSH Qn 0.60 m[IU]/L Normal 0.40-4.50 [facility] Comment on above: Performed By: #### 8 66, 7600, 90069, 899, 496, 97926 #### [facility] [address], [address] [place] [address] Floor Installation Mechanic: Yosi Monterroso MD VITAMIN D,25-OH,TOTAL,IAon 0 01-10-2025 VITAMIN D,25-OH,TOTAL,IA 48 ng/mL Normal 30-100 [facility] Comment on above: Result Comment: Sunita min D Status 25-OH Vitamin D: Deficiency: <20 ng/mL Insufficiency: 20 - 29 ng/mL Optimal: > or = 30 ng/mL For 25-OH Vitamin D testing on patients on D2-supplementation and patients for whom quantitation of D2 and D3 fractions is required, the QuestAssureD(TM) 25-OH VIT D, (D2,D3), LC/MS/MS is recommended: order code 32726 (patients >2yrs). See Note 1 Note 1 For additional information, please refer to http://education.[employer] Optics/faq/[id number] (This link is being provided for informational/ educational purposes only.) Performed By: #### 8 66, 4720, 12592, 899, 496, 10743 #### [facility] [address], [address] [place] [address] Floor Installation Mechanic: Yosi Monterroso MD SCRN MAMM (CAD)W/KEMAR BILATo n 08-16-2024 SCRN MAMM (CAD)W/KEMAR BILAT [facility] Imaging Services [address] [place] [address] SCRN MAMM (CAD)W/KEMAR BILAT MR#: [id number] Acct: [id number] Name: AVIS TORRES Rep #: [id number] : 1950 F 73 From: Carlos blandon MD PCP: Dr. Jessica Reyes MD Status: [facility] Study: SCRN MAMM (CAD)W/KEMAR BILAT Date of Exam: 12/09 Exam# [id number] Ordering Dr: RAFA ALVAREZ PIEROGI MAKER-C [id number] MAMMOGRAPHY - BILATERAL SCREENING REASON FOR EXAM: Female, 73 years old. Routine annual screening examination. PERTINENT HISTORY: Non-contributory. TECHNIQUE: Digital bilateral breast kemar (3D mammographic acquisition) in the CC and MLO projections. 2-D mediolateral oblique (MLO) and craniocaudad (CC) views of both breasts were obtained. CAD: Full Field Digital Mammography with Computer Added Detection was performed. COMPARISON: Comparison is made with prior study dated August 12, 2023 and July 30, 2022. FINDINGS: Breast Composition: There are scattered areas of fibroglandular density. There are no dominant masses or suspicious calcifications. Stable bilateral fat containing axillary lymph nodes. Stable scattered bilateral microcalcifications in the retroareolar regions of both breasts suggestive of secretory calcification. A tissue clip marker is once again seen in the inferior central portion of the right breast. No other significant abnormalities are identified. There has been no significant change since the prior study. BI/SCRN MAMM (CAD)W/KEMAR BILAT IMPRESSION: Stable bilateral screening mammogram. Yearly follow-up mammogram recommended. (A) ASSESSMENT CATEGORY: BIRADS Category 2: Benign. A letter regarding these results will be sent to the patient by the facility within 30 days. Approximately 10% of breast cancers are not detected by mammography. A normal mammogram should not delay biopsy of a clinically suspicious abnormality. [id number] Electronically Signed: Carlos Taylor MD at 9:28 EDT , CC: Dr. Jessica Reyes MD; RAFA ALVAREZ Aviation Neuropsychologist: Signed Normal [facility] CNCOon 08-12-2024 CNCO Letter Text Normal [facility] CNOVon 05-24-2024 CNOV Office Visit (NEURMM ) AVIS TORRES ([id number]) 1950 F Date Time Provider Department 05/24/24 1:00 PM WING CLAIRE NEURMM During your visit today, we recorded the following information about you: Pulse Blood pressure Weight 59/minute 107/67 72 kg Wing Claire MD 06/09/2024 9:30 PM Signed Interval history No orders found for this visit on 05/24/24. 73 years old woman who is here for follow up for post concussion headache. Intermittent headache at the trauma site Above the right eye Not constant ,not daily ,much improved since she it her head Zonegran helps with breakthrough episodes,wants to continue with that medicine until all headaches resolve Discussed test results in details In a previous visit Follow up visit Postconcussion headache,today [...] headache control Subjective HISTORY AND PHYSICAL Avis Torres 72 year old woman , who is [...] now headache resolved Review of Systems Objective 05/24/24 1254 BP: 107/67 BP Site: Right Arm BP Position: Sitting BP Cuff Size: Regular Adult Pulse: (!) 59 Weight: 72 kg (158 lb 11.7 oz) Physical Exam EXAM: Neck supple and no [...] Current Outpatient Medications Medication Sig Dispense Refill acetaminophen 650 mg CR tablet Acetaminophen Active 650 MG DAILY August 29, 2019 3:28pm miconazole (ZEASORB AF) 2 % powder Apply to affected area as needed. atorvastatin (LIPITOR) 20 mg tablet Take 1 tablet by mouth every afternoon. omeprazole (PRILOSEC) 40 mg capsule Take 40 mg by mouth once daily. riboflavin, vitamin B2, (VITAMIN B-2 ORAL) Take by mouth once daily. sertraline (ZOLOFT) 50 mg tablet 1/2 tablet Orally Once a day Magnesium Oxide 500 mg tab Take 250 mg by mouth once daily. potassium chloride ER (KLOR-CON) 20 mEq tablet Take 20 mEq by mouth once daily. triamterene-hydroCHLORO thiazide (MAXZIDE-25) 37.5-25 mg per tablet TAKE 1 TABLET BY MOUTH ONCE DAILY IN THE MORNING turmeric root extract 500 mg cap Take 500 mg by mouth once daily. isosorbide dinitrate (ISORDIL, SORBITRATE) 30 mg tablet Take 60 mg by mouth once daily. polyethylene glycol 3350 17 gram/dose powder Take by mouth once daily. aspirin, enteric coated 81 mg EC tablet Take 1 tablet by mouth once daily. 0 CALCIUM CARBONATE/VITAMIN D3 (CALCIUM + D ORAL) Take by mouth once daily. levothyroxine (SYNTHROID) 50 mcg tablet Take 50 mcg by mouth (more content not included)... Normal [facility] 36on 05-15-2024 36 S: Patient spoke wit h CAC nurse regarding abdominal pain. B: Onset of symptoms/concern: started Thursday or Thursday morning. A: Patient states she has pain to lower abdominal area, rates pain 8/10 on pain scale, awake on & off during the night. States pain has been constant for over 1 hour. Denies vomiting, nausea on & off, but denies at this time. States abdominal area is tender to touch. Denies fever. Patient is requesting an appointment in the office tomorrow, states she will not go to the ER. States she is still eating and drinking. States she is unsure when she had her last bowel movement, she had small amount of stool a couple of days ago. R: Patient understands care advice, sips of fluids, bland diet, small meals. Advised density control puncher will be paged, ok for office visit tomorrow she will receive a call back. No further needs at this time. Patient instructed to call back with new or worsening symptoms. Paged density control puncher Dr Amina Vargas via [employer], spoke with Dr Vargas, wanting to know if tenderness is on the left side. Returned call to patient, she states tender to middle abdominal area, not specifically on left or right. Also states unsure when she had her last bowel movement, small amount of stool a couple of days ago. States pain is slightly better, states it comes and goes. Discussed any allergies, states she cannot take Tizanidine, prochlorperazine, methocarbamol or ketorolac they all cause her dizziness. Dr Vargas informed via [employer], per Dr Vargas "Ok sounds good- have her call back if there's any change, and let's get her scheduled to see Dr. Reyes tomorrow." Returned call to patient, reviewed Dr Vargas's recommendation, patient verbalizes understanding. Office visit scheduled on 05/16/24 at 8:20AM. The location, date, provider, time of appointment were reviewed with the patient. Patient verbalizes understanding. Patient advised to bring photo ID and Insurance card. No further needs at this time. Patient instructed to call back with any new or worsening symptoms. Reason for Disposition [1] SEVERE pain (e.g., excruciating) AND [2] present > 1 hour Protocols used: Abdominal [facility]-2023 36 Name of Caller: Diego zapata Contact Reason for Appointment: Avis would like to be seen today if possible Office Name: Family Medicine [facility] Brian 09-22-2023 SUHASN Telephone ([facility]) MELISSAAVIS Lopez ([id number]) 1950 F Date Time Provider Department 09/22/23 WING CLAIRE [facility] During your visit today, we recorded the following information about you: Chepe Moreland, RN 09/22/2023 10:01 AM Signed Received call from [place] from Hosea Cortez MD, [facility] ([phone]) calling to ascertain reason for patient's referral to Hematology/Oncology. Reason for Exam listed as Intractable chronic post-traumatic headache which Dr. Jc evaluate or treat. Is there another reason or possible dx that the referral was placed for? Return call to [place], [facility], direct line [phone]. Routing to provider for review. Frieda Granger 09/23/2023 8:16 AM Signed Patient is calling to follow up on message below. Patient is hoping the provider will contact Constance to discuss reasons why referral was placed. Patient is feeling very confused and anxious about her follow up care. Wing Claire MD 09/23/2023 9:25 AM Signed Janice please talk to me about that [...] didn't want to go ,for this visit Janice Dillard, TALHA 09/23/2023 10:28 AM Signed Call to [place] at Dr. Jc's office. [...] above. Patient's PCP is Dr. Reyes with [facility]. Phone number : . Call to Dr. Reyes's office. Spoke to nurse Newotn. Explained above, that PCP would need to [...] Almonte, and contact patient to schedule appointment. Allergies As of Date: 09/22/2023 (No Known Allergies) Date Reviewed: 09/15/2023 Reviewed by: Frieda Francois - Fully Assessed Prescriptions as of 09/23/2023 - atorvastatin (LIPITOR) 20 mg tablet Take 1 tablet by mouth every afternoon. - omeprazole (PRILOSEC) 40 mg capsule - riboflavin, vitamin B2, (VITAMIN B-2 ORAL) Take by mouth. - potassium chloride 20 mEq TbER 1 tablet with food Orally Once a day - sertraline (ZOLOFT) 50 mg tablet 1/2 tablet Orally Once a day - Magnesium Oxide 500 mg tab 1 tablet with supper orally once a day - zonisamide (ZONEGRAN) 25 mg capsule Take 1 capsule by mouth two times a day. - diclofenac (VOLTAREN) 1 % topical gel APPLY 2GM TO EACH FOOT EXTERNALLY TWICE DAILY FOR 30 DAYS - potassium chloride ER (KLOR-CON) 20 mEq tablet Take 20 mEq by mouth once daily. - triamterene-hydroCHLORO thiazide (MAXZIDE-25) 37.5-25 mg per tablet TAKE 1 TABLET BY MOUTH ONCE DAILY IN THE MORNING - turmeric root extract 500 mg cap Take 500 mg by mouth. - hydroCHLOROthiazide 25 mg tablet Take 25 mg by mouth once daily. - methocarbamol (ROBAXIN) 500 mg tablet Take 1 tablet by mouth twice daily as needed (headache). - isosorbide dinitrate (ISORDIL, SORBITRATE) 30 mg tablet Take 30 mg by mouth four times daily. - amLODIPine (NORVASC) 2.5 mg tablet Take 2.5 mg by mouth once daily. - fluticasone (FLOVENT) 110 mcg/actuation inhaler Inhale 1 Puff as instructed twice daily. PRN - polyethylene glycol 3350 17 gram/dose powder Take by mouth once daily. - aspirin, enteric coated 81 mg EC tablet Take 1 tablet by mouth once daily. - CALCIUM CARBONATE/VITAMIN D3 (CALCIUM + D ORAL) Take by mouth. - OMEGA-3 FATTY ACIDS (FISH OIL CONCENTRATE ORAL) Take by mouth. - levothyroxine (SYNTHROID) 50 mcg tablet Take 50 mcg by mouth once daily. Taking 88 mg daily - valsartan (DIOVAN) 160 mg tablet Take 160 mg by mouth once daily. - atenolol 50 mg tablet Take 1 tablet by mouth once daily. - pravastatin (PRAVACHOL) 40 mg tablet Take 1 tablet by mouth daily at bedtime. - naproxen 500 mg tablet Take 1 tablet by mouth twice daily as needed. FOR PAIN. TAKE WITH FOOD. - multivitamin tablet Take 1 tablet by mouth once daily. Problem List As Of Date 09/22/2023 Noted Resolved Hypertension [I10] 07/14/2013 Encounter Status:Closed by JANICE DILLARD on 09/23/23 [facility] Brian 09-21-2023 SUHASN Telephone (RADHA) AVIS TORRES ([id number]) 1950 F Date Time Provider Department 09/21/23 DIEGO JC During your visit today, we recorded the following information about you: Janice Myers 09/21/2023 12:50 PM Signed Patient presented at [facility] assistant front end manager to schedule consultation. She has 2 referrals in for our department. Please review and advise re: scheduling. .Alix Riggs LPN 09/21/2023 2:52 PM Signed Left detailed message on nurse monitored voicemail as to why this pt. Was referred to to Oncology, with a DX; of chronic post traumatic headache. Spoke also with pt. She stated she didn't know why she was referred. Will await call back from Dr. Mcfarland office. ACE Carolina Pamela RubenACE 09/23/2023 10:10 AM Signed Spoke with Dr. Mcfarland office, informed if they see something on images , or labs without a specific diagnosis of cancer, then pt. Needs to be worked up before sending to Oncology. Office nurse will inform Dr. Mcfarland to send for appropriate work up. Alix Mendez LPN Allergies As of Date: 09/21/2023 (No Known Allergies) Date Reviewed: 09/15/2023 Reviewed by: Frieda Frnacois - Fully Assessed Reason for Visit: New Patient [172] Prescriptions as of 09/23/2023 - atorvastatin (LIPITOR) 20 mg tablet Take 1 tablet by mouth every afternoon. - omeprazole (PRILOSEC) 40 mg capsule - riboflavin, vitamin B2, (VITAMIN B-2 ORAL) Take by mouth. - potassium chloride 20 mEq TbER 1 tablet with food Orally Once a day - sertraline (ZOLOFT) 50 mg tablet 1/2 tablet Orally Once a day - Magnesium Oxide 500 mg tab 1 tablet with supper orally once a day - zonisamide (ZONEGRAN) 25 mg capsule Take 1 capsule by mouth two times a day. - diclofenac (VOLTAREN) 1 % topical gel APPLY 2GM TO EACH FOOT EXTERNALLY TWICE DAILY FOR 30 DAYS - potassium chloride ER (KLOR-CON) 20 mEq tablet Take 20 mEq by mouth once daily. - triamterene-hydroCHLORO thiazide (MAXZIDE-25) 37.5-25 mg per tablet TAKE 1 TABLET BY MOUTH ONCE DAILY IN THE MORNING - turmeric root extract 500 mg cap Take 500 mg by mouth. - hydroCHLOROthiazide 25 mg tablet Take 25 mg by mouth once daily. - methocarbamol (ROBAXIN) 500 mg tablet Take 1 tablet by mouth twice daily as needed (headache). - isosorbide dinitrate (ISORDIL, SORBITRATE) 30 mg tablet Take 30 mg by mouth four times daily. - amLODIPine (NORVASC) 2.5 mg tablet Take 2.5 mg by mouth once daily. - fluticasone (FLOVENT) 110 mcg/actuation inhaler Inhale 1 Puff as instructed twice daily. PRN - polyethylene glycol 3350 17 gram/dose powder Take by mouth once daily. - aspirin, enteric coated 81 mg EC tablet Take 1 tablet by mouth once daily. - CALCIUM CARBONATE/VITAMIN D3 (CALCIUM + D ORAL) Take by mouth. - OMEGA-3 FATTY ACIDS (FISH OIL CONCENTRATE ORAL) Take by mouth. - levothyroxine (SYNTHROID) 50 mcg tablet Take 50 mcg by mouth once daily. Taking 88 mg daily - valsartan (DIOVAN) 160 mg tablet Take 160 mg by mouth once daily. - atenolol 50 mg tablet Take 1 tablet by mouth once daily. - pravastatin (PRAVACHOL) 40 mg tablet Take 1 tablet by mouth daily at bedtime. - naproxen 500 mg tablet Take 1 tablet by mouth twice daily as needed. FOR PAIN. TAKE WITH FOOD. - multivitamin tablet Take 1 tablet by mouth once daily. Problem List As Of Date 09/21/2023 Noted Resolved Hypertension [I10] 07/14/2013 Encounter Status:Closed by ALIX MENDEZ on 09/23/23 [facility] CNOVon 09-15-2023 CNOV Office Visit (NEURMM ) AVIS TORRES ([id number]) 1950 F Date Time Provider Department 09/15/23 11:30 AM [facility]ING [facility] NEURMM During your visit today, we recorded the following information about you: Pulse Respiration Blood pressure Weight 57/minute 16/minute 138/64 65.8 kg Height 1.549 m Wing Claire MD 09/20/2023 6:07 PM Signed Intermittent headache at the trauma site Above [...] headache control Subjective HISTORY AND PHYSICAL Avis Torres 72 year old woman , who is [...] kg (145 lb) Height: 154.9 cm (5' 1") Physical Exam EXAM: Neck supple and no [...] Take 20 mEq by mouth once daily. triamterene-hydroCHLORO thiazide (MAXZIDE-25) 37.5-25 mg per tablet TAKE 1 [...] 0 omeprazole (PRILOSEC) 40 mg capsule (Patient (more content not included)... Normal [facility] CT ABD/PEL W IVCONon 023 CT ABD/PEL W IVCON * * *Final Report* * * DATE OF EXAM: Sep 03 2023 9:34AM [facility] 0530 - CT ABD/PEL W IVCON / PROCEDURE REASON: Infection in abdomen (HCC) * * * * Physician Interpretation * * * * EXAMINATION: CT ABDOMEN AND PELVIS WITH IV CONTRAST CLINICAL HISTORY: Incidental skull lesion TECHNIQUE: CT of the abdomen and pelvis was performed using standard technique, scanning from just above the dome of the diaphragm to the symphysis pubis. MQ: CTAP_3 Contrast: IV: 100 ml of Omnipaque 300 Oral: 12 ml of Omni 240 10-25ml diluted with water CT Radiation dose: Integrated Dose-length product (DLP) for this visit = 539 mGy*cm. CT Dose Reduction Employed: Automated exposure control(AEC) and iterative recon COMPARISON: None. RESULT: Liver: No mass. Biliary: No bile duct dilation. Gallbladder is unremarkable. Spleen: No mass. No splenomegaly. Pancreas: No mass or duct dilation. Adrenals: No mass. Kidneys: No mass, calculus or hydronephrosis. GI tract: Marked sigmoid diverticulosis and scattered diverticulosis elsewhere throughout the colon. No dilated or thickened bowel. Lymph nodes: No abdominal or pelvic lymphadenopathy. Mesentery/Peritoneum: No ascites or mass. Retroperitoneum: No mass. Vasculature: - Abdominal aorta and iliac arteries: Atherosclerotic calcifications without aneurysm. - Celiac and SMA: Patent without stenosis. - Portal venous system (SMV, splenic vein, portal vein and branches): Patent. - Hepatic veins: Patent. Pelvis: Hysterectomy. Pelvic floor laxity. Bones/Soft Tissues: Degenerative changes. T7 hemangioma. Mild retrolisthesis of L3 on L4. Lower thorax: A chest CT performed will be reported separately. Information Assoc (topogram) images: Not provided IMPRESSION: No intra-abdominal or pelvic mass or lymphadenopathy. Aviation Neuropsychologist: [facility] Transcribe Date/Time: Sep 05 2023 10:22A Dictated by : MARCO LOU MD This examination was interpreted and the report reviewed and electronically signed by: MARCO LOU MD on Sep 05 2023 10:33AM EST [id number] Normal [facility] CT CHEST W IVCONon 3 CT CHEST W IVCON * * *Final Report* * * DATE OF EXAM: Sep 03 2023 9:34AM [facility] 0539 - CT CHEST W IVCON / PROCEDURE REASON: Brain lesion * * * * Physician Interpretation * * * * EXAMINATION: CHEST CT WITH CONTRAST CLINICAL HISTORY: Sclerotic calvarial lesion uncertain etiology. Evaluate for evidence of neoplasm. Just below the Technique: Spiral CT acquisition of the chest from the thoracic inlet to the upper abdomen following IV contrast. MQ: CTCW_6 Contrast: 100 mL Omnipaque [address] Radiation dose: Integrated Dose-length product (DLP) for this visit = 539 mGy*cm CT Dose Reduction Employed: Automated exposure control(AEC) and iterative recon Comparison: Type of study and date/time RESULT: Limitations: Mild motion artifact. Lines, tubes, and devices: None. Lung parenchyma and airways: No consolidation. No suspicious pulmonary nodule. The central airways are patent. Posterior ground glass densities likely microatelectasis. Pleural space: No pleural effusion. No pleural thickening. Lower neck, lymph nodes, and mediastinum: The imaged thyroid gland is normal. No lymphadenopathy in the supraclavicular, axillary, mediastinal, or hilar regions. Heart, pericardium, and thoracic vessels: The thoracic aorta and main pulmonary artery are normal in caliber. The cardiac chambers are normal in size. No coronary artery atherosclerotic calcifications are noted, although the study is not optimized for coronary assessment. No pericardial effusion or thickening. Bones and soft tissues: No destructive bone lesion. Chest wall is unremarkable. Upper abdomen: CT abdomen and pelvis dictated separately Information Assoc (topogram) images: Unremarkable. IMPRESSION: No CT evidence of intrathoracic mass Aviation Neuropsychologist[facility] Transcribe Date/Time: Sep 07 2023 10:41A Dictated by : MARLEE BYRNE MD This examination was interpreted and the report reviewed and electronically signed by: MARLEE BYRNE MD on Sep 07 2023 10:47AM EST [id number] Normal [facility] Basic metabolic 2000 panelon 09-02-2023 Anion gap [Moles/Vol] 9 mmol/L 9 - 18 mmol/L [facility] Calcium [Mass/Vol] 9.8 mg/dL 8.5 - 10. 2 mg/dL [facility] Chloride [Moles/Vol] 106 mmol/L High 97 - 10 5 mmol/L [facility] CO2 [Moles/Vol] 26 mmol/L 22 - 30 mmol/L [facility] Creatinine [Mass/Vol] 1.04 mg/dL High 0.58 - 0.96 mg/dL [facility] Estimated Glomerular Filtration Rate 57 mL/min/1.73m Low >=60 mL/min/1.73 m [facility] Glucose [Mass/Vol] 118 mg/dL High 74 - 99 mg/dL [facility] Potassium [Moles/Vol] 3.8 mmol/L 3.7 - 5.1 mmol/L [facility] Sodium [Moles/Vol] 141 mmol/L 136 - 144 mmol/L [facility] Urea nitrogen [Mass/Vol] 18 mg/dL 7 - 21 mg/dL [facility] Anion gap [Moles/Vol] 9 mmol/L Normal 9-18 [facility] Comment on above: Order Comment: Speci men Type: BLOOD SPECIMENOrdering Facility: [facility] Address: [address] [place] [address] Performed By: #### 2 4321-2 ####[facility] MILLWNCLIA [id number] [place] [address] [place] Calcium [Mass/Vol] 9.8 mg/dL Normal 8.5-10.2 [facility] Comment on above: Order Comment: Speci men Type: BLOOD SPECIMENOrdering Facility: [facility] Address: [address] [place] [address] Performed By: #### 2 4321-2 ####[facility]ITAL[facility]CL[facility] [id number] [place] [address] [place] Chloride [Moles/Vol] 106 mmol/L High 97-105 [facility] Comment on above: Order Comment: Speci men Type: BLOOD SPECIMENOrdering Facility: [facility] Address: [address] [place] [address] Performed By: #### 2 4321-2 ####[facility]ENT[facility] [id number] [place] [address] [place] CO2 [Moles/Vol] 26 mmol/L Normal 22-30 [facility] Comment on above: Order Comment: Speci men Type: BLOOD SPECIMENOrdering Facility: [facility] Address: [address] [place] [address] Performed By: #### 2 4321-2 ####[facility]ITAL[facility]CLIA [id number] [place] [address] [place] Creatinine [Mass/Vol] 1.04 mg/dL High 0.58-0.96 [facility] Comment on above: Order Comment: Ernie garcia Type: BLOOD SPECIMENOrdering Facility: [facility] Address: [place] [address] Performed By: #### 2 4321-2 ####[facility] [id number] [place] [address] [place] Creatinine and Glomerular filtration rate.predicted panel (S/P/Bld) 57 mL/min/1.73m??? Low >=60 [facility] Comment on above: Order Comment: Ernie garcia Type: BLOOD SPECIMENOrdering Facility: [facility] Address: [place] [address] Result Comment: Joanna mated Glomerular Filtration Rate (eGFR) is calculated using the 2020 CKD-EPI creatinine equation. This equation utilizes serum creatinine, sex, and age as parameters. The creatinine assay has traceable calibration to isotope dilution-mass spectrometry. Refer to KDIGO guidelines for clinical interpretation. In patients with unstable renal function, e.g. those with acute kidney injury, the eGFR may not accurately reflect actual GFR. Performed By: #### 2 4321-2 ####[facility] [id number] [place] [address] [place] Glucose [Mass/Vol] 118 mg/dL High 74-99 [facility] Comment on above: Order Comment: Ernie garcia Type: BLOOD SPECIMENOrdering Facility: [facility] Address: [place] [address] Result Comment: The [place] Diabetes Association (ADA) provides guidance for cutoff values for fasting glucose and random glucose. The ADA defines fasting as no caloric intake for at least 8 hours. Fasting plasma glucose results between 100 to 125 mg/dL indicate increased risk for diabetes (prediabetes). Fasting plasma glucose results greater than or equal to 126 mg/dL meet the criteria for diagnosis of diabetes. In the absence of unequivocal hyperglycemia, results should be confirmed by repeat testing. In a patient with classic symptoms of hyperglycemia or hyperglycemic crisis, random plasma glucose results greater than or equal to 200 mg/dL meet the criteria for diagnosis of diabetes. Reference: Standards of Medical Care in Diabetes 2016, [place] Diabetes Association. Diabetes Care. 2016.39(Suppl 1). Performed By: #### 2 4321-2 ####[facility] AMBIKALIJodi [id number] [place] [address] [place] Potassium [Moles/Vol] 3.8 mmol/L Normal 3.7-5.1 [facility] Comment on above: Order Comment: Ernie men Type: BLOOD SPECIMENOrdering Facility: [facility] Address: [address] [place] [address] Performed By: #### 2 4321-2 ####[facility] CENTERNCPATRICK [id number] [place] [address] [place] Sodium [Moles/Vol] 141 mmol/L Normal 136-144 [facility] Comment on above: Order Comment: Ernie garcia Type: BLOOD SPECIMENOrdering Facility: [facility] Address: [address] [place] [address] Performed By: #### 2 4321-2 ####[facility] CENTERELEONORALIJodi [id number] [place] [address] [place] Urea nitrogen [Mass/Vol] 18 mg/dL Normal 7-21 [facility] Comment on above: Order Comment: Ernie garcia Type: BLOOD SPECIMENOrdering Facility: [facility] Address: [place] [address] Performed By: #### 2 4321-2 ####[facility] CENTERNCLIA [id number] [address] [place] Brian 08-31-2023 LIDA Telephone ([facility]) AVIS TORRES ([id number]) 1950 F Date Time Provider Department 08/31/23 WING CLAIRE During your visit today, we recorded the following information about you: Frieda Francois MA 08/31/2023 9:18 AM Addendum Received reports from [facility] ct reports have been sent to Dr. Claire for review Hi Frieda Please get me these records , Daily East 09/11/2023 8:21 AM Signed Patient called this morning in regards to her CT and blood work results. Please call patient at [phone] to discuss results. Patient stated she was nervous about her results and had her testing about a week ago. Thank you!. Theresa Hadley, TALHA 09/11/2023 9:10 AM Signed Results for lab work and imaging available. Routing to provider for review Patient has been informed Dr. Claire is out of office until next week Wing Claire MD 09/11/2023 10:52 AM Signed save Wing Claire MD 09/11/2023 10:[address] abdomen pelvis ok ,no masses Theresa Menjivar, TALHA 09/11/2023 1:57 PM Signed Patient has been notified Frieda Francois MA 03/10/2024 9:[address] of head without intravenous contrast has been sent to scanning. Allergies As of Date: 08/31/2023 (No Known Allergies) Date Reviewed: 08/28/2023 Reviewed by: Frieda Francois MA - Fully Assessed Reason for Visit: Results [95] Cmt: Ct result s Prescriptions as of 03/10/2024 - zonisamide (ZONEGRAN) 25 mg capsule Take 1 capsule by mouth two times a day. - atorvastatin (LIPITOR) 20 mg tablet Take 1 tablet by mouth every afternoon. - omeprazole (PRILOSEC) 40 mg capsule - riboflavin, vitamin B2, (VITAMIN B-2 ORAL) Take by mouth. - potassium chloride 20 mEq TbER 1 tablet with food Orally Once a day - sertraline (ZOLOFT) 50 mg tablet 1/2 tablet Orally Once a day - Magnesium Oxide 500 mg tab 1 tablet with supper orally once a day - diclofenac (VOLTAREN) 1 % topical gel APPLY 2GM TO EACH FOOT EXTERNALLY TWICE DAILY FOR 30 DAYS - potassium chloride ER (KLOR-CON) 20 mEq tablet Take 20 mEq by mouth once daily. - triamterene-hydroCHLORO thiazide (MAXZIDE-25) 37.5-25 mg per tablet TAKE 1 TABLET BY MOUTH ONCE DAILY IN THE MORNING - turmeric root extract 500 mg cap Take 500 mg by mouth. - hydroCHLOROthiazide 25 mg tablet Take 25 mg by mouth once daily. - methocarbamol (ROBAXIN) 500 mg tablet Take 1 tablet by mouth twice daily as needed (headache). - isosorbide dinitrate (ISORDIL, SORBITRATE) 30 mg tablet Take 30 mg by mouth four times daily. - amLODIPine (NORVASC) 2.5 mg tablet Take 2.5 mg by mouth once daily. - fluticasone (FLOVENT) 110 mcg/actuation inhaler Inhale 1 Puff as instructed twice daily. PRN - polyethylene glycol 3350 17 gram/dose powder Take by mouth once daily. - aspirin, enteric coated 81 mg EC tablet Take 1 tablet by mouth once daily. - CALCIUM CARBONATE/VITAMIN D3 (CALCIUM + D ORAL) Take by mouth. - OMEGA-3 FATTY ACIDS (FISH OIL CONCENTRATE ORAL) Take by mouth. - levothyroxine (SYNTHROID) 50 mcg tablet Take 50 mcg by mouth once daily. Taking 88 mg daily - valsartan (DIOVAN) 160 mg tablet Take 160 mg by mouth once daily. - atenolol 50 mg tablet Take 1 tablet by mouth once daily. - pravastatin (PRAVACHOL) 40 mg tablet Take 1 tablet by mouth daily at bedtime. - naproxen 500 mg tablet Take 1 tablet by mouth twice daily as needed. FOR PAIN. TAKE WITH FOOD. - multivitamin tablet Take 1 tablet by mouth once daily. Problem List As Of Date 08/31/2023 Noted Resolved Hypertension [I10] 07/14/2013 Encounter Status:Closed by THERESA MENJIVAR on 09/11/23 [facility] LANIEOVon 08-28-2023 OV Office Visit ([facility] ) AVIS TORRES ([id number]) 1950 F Date Time Provider Department 08/28/23 10:30 AM WING CLAIRE NEURMM During your visit today, we recorded the following information about you: Pulse Respiration Blood pressure Weight 61/minute 16/minute 131/85 61.2 kg Height 1.25 m Frieda Francois 09/19/2023 8:55 PM Signed There is no data to display for this encounter Janice Dillard, TALHA 09/19/2023 8:55 PM Signed There is no data to display for this encounter Wing Claire MD 09/19/2023 8:55 PM Signed Follow-up visit to discuss test results Intermittent [...] headache control Subjective HISTORY AND PHYSICAL Avis Torres 72 year old woman , who is [...] kg (135 lb) Height: 125 cm (4' 1.2") Physical Exam EXAM: Neck supple and no [...] PAST MEDICAL HISTORY Diagnosis Date Abnormal EKG [facility] Hyperlipidemia Hypertension Current Outpatient Medications Medication [...] tablet by mouth once daily. 0 CALCIUM C (more content not included)... [facility] AVIS TORRES ([id number]) 1950 F Date Time Provider Department 08/25/23 WING CLAIRE [facility] During your visit today, we recorded the following information about you: Wing Claire MD 08/25/2023 5:25 PM Signed Mri brain then mri brain with contrast then ct brain Sclerotic lesion stable Will discuss that in more details in the follow up visit Wing Claire MD 08/25/2023 5:41 PM Signed IMPRESSION: when MRI Brain done with and [...] transverse-sigmoid sinus system. COMMUNICATION: Communicated with Dr. Craft covering the service of Dr. Claire on 08/04/2023 10:56 AM via verbal communication. Sydnee Michele 08/26/2023 10:35 AM Signed Patient returning phone call, about wanting results from MRI Janice Dillard RN 08/26/2023 11:11 AM Signed Phone call to patient. Provided information from Dr. Claire including scheduling CT abd/pelvis, CT chest, and consultation to oncology/hematology. Transferred patient to central scheduling to schedule CT's AND consult. Patient verbalizes understanding and will keep appointment with Dr. Claire for Thursday08-28-23 for further discussion of MRI results. Allergies As of Date: 08/25/2023 (No Known Allergies) Date Reviewed: 07/02/2023 Reviewed by: Frieda Francois - Fully Assessed Primary Visit Diagnosis:Brain lesion [G93.9] Other Visit Diagnosis:Infection in abdomen (HCC) [K65.9] Order(s):CONSULT TO HEMATOLOGY/ONCOLOGY [19991116] Order #: [id number]: [address] ABD/PEL W IVCON [[id number]] Order #: [id number] FUTURE CT CHEST W IVCON [[id number]] Order #: [id number] FUTURE iv contrast (will be provided with radiology test)CT Chest ABD/PEL-Inject, intravenously, once for 1 dose.No IV access, insert saline lock prior to the beginning of sedation, infusion, injection of imaging exam. Discontinue saline lock post exam. If Pt. has a central line or IVAD, may access for administration according to line specific nursing protocol. Once exam is complete flush line and de-access according to line specific nursing protocol in the CT contrast administration guidelines link.Disp: 1 EachRfl: 0 enteric contrast (will be provided with radiology test)For CT CHESTABD/PEL W IVCON Routine order Administer, As Directed One Time Only, via Oral, Rectal, both Oral and Rectal, Enteric Tube, Stoma or Indwelling Catheter, Enteric Contrast as designated per enteric contrast guidelinesDisp: 1 EachRfl: 0 CREATININE BLD [SQCRET] Order #: [id number] FUTURE Prescriptions as of 08/26/2023 - amLODIPine (NORVASC) 2.5 mg tablet Take 2.5 mg by mouth once daily. - aspirin, enteric coated 81 mg EC tablet Take 1 tablet by mouth once daily. - atenolol 50 mg tablet Take 1 tablet by mouth once daily. - CALCIUM CARBONATE/VITAMIN D3 (CALCIUM + D ORAL) Take by mouth. - diclofenac (VOLTAREN) 1 % topical gel APPLY 2GM TO EACH FOOT EXTERNALLY TWICE DAILY FOR 30 DAYS - enteric contrast (will be provided with radiology test) For CT CHESTABD/PEL W IVCON Routine order Administer, As Directed One Time Only, via Oral, Rectal, both Oral and Rectal, Enteric Tube, Stoma or Indwelling Catheter, Enteric Contrast as designated per enteric contrast guidelines - fluticasone (FLOVENT) 110 mcg/actuation inhaler Inhale 1 Puff as instructed twice daily. PRN - hydroCHLOROthiazide 25 mg tablet Take 25 mg by mouth once daily. - isosorbide dinitrate (ISORDIL, SORBITRATE) 30 mg tablet Take 30 mg by mouth four times daily. - iv contrast (will be provided with radiology test) CT Chest ABD/PEL-Inject, intravenously, once for 1 dose.No IV access, insert saline lock prior to the beginning of sedation, infusion, injection of imaging exam. Discontinue saline lock post exam. If Pt. has a central line or IVAD, may access for administration according to line specific nursing protocol. Once exam is complete flush line and de-access according to line specific nursing protocol in the CT contrast administration guidelines link. - levothyroxine (SYNTHROID) 50 mcg tablet Take 50 mcg by mouth once daily. Taking 88 mg daily - methocarbamol (ROBAXIN) 500 mg tabl (more content not included)... Normal [facility] Brian 08-24-2023 [facility] Telephone (JUSTINAV) AVIS TORRES ([id number]) 1950 F Date Time Provider Department 08/24/23 JIMMY CRAFT During your visit today, we recorded the following information about you: Daily East 08/24/2023 3:22 PM Signed Patient returned phone call. Can be reached at [phone]. Patient does have appointment Thursday with Dr Claire however she is nervous about her results now . Thank you! Chepe Moreland RN 08/25/2023 9:14 AM Signed Routing to provider for review / recommendations. Janice Dillard RN 09/23/2023 10:03 AM Addendum See next encounter dated 08-25-23 Wing Claire MD 08/26/2023 1:03 PM Signed She can be on waiting list , All the tests are the same as first one ,and will discuss that in follow up visit Allergies As of Date: 08/24/2023 (No Known Allergies) Date Reviewed: 07/02/2023 Reviewed by: Frieda Francois - Fully Assessed Reason for Visit: Results [95] Cmt: Left message that I will send CT result to her neurologist Dr Claire and for patient to call her Prescriptions as of 09/23/2023 - atorvastatin (LIPITOR) 20 mg tablet Take 1 tablet by mouth every afternoon. - omeprazole (PRILOSEC) 40 mg capsule - riboflavin, vitamin B2, (VITAMIN B-2 ORAL) Take by mouth. - potassium chloride 20 mEq TbER 1 tablet with food Orally Once a day - sertraline (ZOLOFT) 50 mg tablet 1/2 tablet Orally Once a day - Magnesium Oxide 500 mg tab 1 tablet with supper orally once a day - zonisamide (ZONEGRAN) 25 mg capsule Take 1 capsule by mouth two times a day. - diclofenac (VOLTAREN) 1 % topical gel APPLY 2GM TO EACH FOOT EXTERNALLY TWICE DAILY FOR 30 DAYS - potassium chloride ER (KLOR-CON) 20 mEq tablet Take 20 mEq by mouth once daily. - triamterene-hydroCHLORO thiazide (MAXZIDE-25) 37.5-25 mg per tablet TAKE 1 TABLET BY MOUTH ONCE DAILY IN THE MORNING - turmeric root extract 500 mg cap Take 500 mg by mouth. - hydroCHLOROthiazide 25 mg tablet Take 25 mg by mouth once daily. - methocarbamol (ROBAXIN) 500 mg tablet Take 1 tablet by mouth twice daily as needed (headache). - isosorbide dinitrate (ISORDIL, SORBITRATE) 30 mg tablet Take 30 mg by mouth four times daily. - amLODIPine (NORVASC) 2.5 mg tablet Take 2.5 mg by mouth once daily. - fluticasone (FLOVENT) 110 mcg/actuation inhaler Inhale 1 Puff as instructed twice daily. PRN - polyethylene glycol 3350 17 gram/dose powder Take by mouth once daily. - aspirin, enteric coated 81 mg EC tablet Take 1 tablet by mouth once daily. - CALCIUM CARBONATE/VITAMIN D3 (CALCIUM + D ORAL) Take by mouth. - OMEGA-3 FATTY ACIDS (FISH OIL CONCENTRATE ORAL) Take by mouth. - levothyroxine (SYNTHROID) 50 mcg tablet Take 50 mcg by mouth once daily. Taking 88 mg daily - valsartan (DIOVAN) 160 mg tablet Take 160 mg by mouth once daily. - atenolol 50 mg tablet Take 1 tablet by mouth once daily. - pravastatin (PRAVACHOL) 40 mg tablet Take 1 tablet by mouth daily at bedtime. - naproxen 500 mg tablet Take 1 tablet by mouth twice daily as needed. FOR PAIN. TAKE WITH FOOD. - multivitamin tablet Take 1 tablet by mouth once daily. Problem List As Of Date 08/24/2023 Noted Resolved Hypertension [I10] 07/14/2013 Encounter Status:Closed by JIMMY CRAFT on 08/24/23 [facility] Telephone (NEURAV) AVIS TORRES ([id number]) 1950 F Date Time Provider Department 08/24/23 JIMMY CRAFT NEURAV During your visit today, we recorded the following information about you: Allergies As of Date: 08/24/2023 (No Known Allergies) Date Reviewed: 07/02/2023 Reviewed by: Frieda Francois - Fully Assessed Reason for Visit: Results [95] Cmt: Called to discuss CT findings. Left message to call me back Prescriptions as of 08/24/2023 - zonisamide (ZONEGRAN) 25 mg capsule Take 1 capsule by mouth once daily. - diclofenac (VOLTAREN) 1 % topical gel APPLY 2GM TO EACH FOOT EXTERNALLY TWICE DAILY FOR 30 DAYS - potassium chloride ER (KLOR-CON) 20 mEq tablet Take 20 mEq by mouth once daily. - triamterene-hydroCHLORO thiazide (MAXZIDE-25) 37.5-25 mg per tablet TAKE 1 TABLET BY MOUTH ONCE DAILY IN THE MORNING - turmeric root extract 500 mg cap Take 500 mg by mouth. - hydroCHLOROthiazide 25 mg tablet Take 25 mg by mouth once daily. - methocarbamol (ROBAXIN) 500 mg tablet Take 1 tablet by mouth twice daily as needed (headache). - isosorbide dinitrate (ISORDIL, SORBITRATE) 30 mg tablet Take 30 mg by mouth four times daily. - amLODIPine (NORVASC) 2.5 mg tablet Take 2.5 mg by mouth once daily. - fluticasone (FLOVENT) 110 mcg/actuation inhaler Inhale 1 Puff as instructed twice daily. PRN - polyethylene glycol 3350 17 gram/dose powder Take by mouth once daily. - aspirin, enteric coated 81 mg EC tablet Take 1 tablet by mouth once daily. - CALCIUM CARBONATE/VITAMIN D3 (CALCIUM + D ORAL) Take by mouth. - OMEGA-3 FATTY ACIDS (FISH OIL CONCENTRATE ORAL) Take by mouth. - levothyroxine (SYNTHROID) 50 mcg tablet Take 50 mcg by mouth once daily. Taking 88 mg daily - valsartan (DIOVAN) 160 mg tablet Take 1 tablet by mouth once daily. - atenolol 50 mg tablet Take 1 tablet by mouth once daily. - pravastatin (PRAVACHOL) 40 mg tablet Take 1 tablet by mouth daily at bedtime. - naproxen 500 mg tablet Take 1 tablet by mouth twice daily as needed. FOR PAIN. TAKE WITH FOOD. - multivitamin tablet Take 1 tablet by mouth once daily. Problem List As Of Date 08/24/2023 Noted Resolved Hypertension [I10] 07/14/2013 Encounter Status:Closed by JIMMY CRAFT on 08/24/23 Normal [facility] CT BRAIN WO IVCONon 08-24-20 CT BRAIN WO IVCON * * *Final Report* * * DATE OF EXAM: Aug 24 2023 8:47AM [facility] 0504 - CT BRAIN WO IVCON / PROCEDURE REASON: multiple diagnoses * * * * Physician Interpretation * * * * COMPARISONS: MRI brain from 08/04/2023. HISTORY: Malignant neoplasm metastatic to bone. TECHNIQUE: Head CT without contrast. MQ: [id number]_3 CT Dose-Length Product (DLP): 654 mGy*cm CT Dose Reduction Employed: Automated exposure control(AEC) and iterative recon RESULT: HEAD CT: Acute abnormality: None. Stable sclerotic lesion at left frontal bone (series 2 image 22 and separately mid frontal region on image 14) corresponding to previously identified MRI marrow infiltrative areas most consistent with sclerotic metastasis without any cortical break or soft tissue component is identified. Remote possibility of this representing sclerotic nonmetastatic disease is possible but less likely given overall patient's history and further continued follow-up would be of value if clinically indicated. Senescent volume loss and microvascular ischemia is identified. Prior post biopsy changes are identified along the left frontoparietal region without any complication. For persistent high clinical concern for intracranial metastasis further workup with MRI would be of value. Allowing for change in modality stable and age expected sulci, gyri, ventricles, CSF spaces and brain. No acute infarct/hemorrhage, mass effect or collections. Normal bones and skull base soft tissues. IMPRESSION: 1. Stable sclerotic lesions within frontal bone. 2. No cortical break or soft tissue component at this time. 3. Stable senescent changes without acute disease. Aviation Neuropsychologist: PSCB Transcribe Date/Time: Aug 24 2023 10:28A Dictated by : JING ADDISON MD This examination was interpreted and the report reviewed and electronically signed by: JING ADDISON MD on Aug 24 2023 10:31AM EST [id number] Normal [facility] Brian 08-17-2023 CNPN Telephone (NEURMM) AVIS TORRES ([id number]) 1950 F Date Time Provider Department 08/17/23 WING CLAIRE NEURJUAN During your visit today, we recorded the following information about you: Daily East 08/17/2023 8:16 AM Signed Patient has an appointment with Dr Hdz this Thursday; however another MRI has been scheduled for the and she wanted to know if she should keep her appointment or wait until the other testing is done. Please advise ; Patient would like a call back to know either way. Thank you! Chepe oMreland, RN 08/17/2023 9:02 AM Signed ARIANA 07/02/[address] Claire: DX: Post-concussion headache Assessment and Plan Patient is 72 years [...] done Requesting all previous records done locally Patient is currently scheduled with Dr. Claire on 08/19/23 CT scheduled 08/24/23 Patient wants to know if she should move f/u until after imaging is completed: Routing to provider for review and recommendations Maria Del Carmen Martínez 08/18/2023 10:03 AM Addendum Patient called to follow-up on this encounter. Informed patient that her request has been sent to Dr. Claire for review. Please advise if patient should reschedule appointment until after CT scan on 08/24/2023? CT was ordered by Dr. Jimmy Craft while covering for Dr. Claire when she was [id number]. Chepe Wall, RN 08/18/2023 10:33 AM Signed Spoke to patient who reports her headaches have "stayed the same" Frequency: every 3 or 4 days. Pain ratin or 7/10 Location: above right eye 08/24/23: patient has CT scan NOV 08/19/[address] Claire recommend moving follow up until after CT? Graphic Design Teacher informs me of a opening on 08/28/23. Chepe Moreland, TALHA 08/18/2023 10:[address] Claire would recommended postponing appointment until after CT. Spoke to patient who agrees to have appointment changed to 08/28/23 at 10:30 am. Routing to scheduling to update appointment. Allergies As of Date: 08/17/2023 (No Known Allergies) Date Reviewed: 07/02/2023 Reviewed by: Frieda Francois - Fully Assessed Reason for Visit: Patient Question [1477] Prescriptions as of 08/18/2023 - zonisamide (ZONEGRAN) 25 mg capsule Take 1 capsule by mouth once daily. - diclofenac (VOLTAREN) 1 % topical gel APPLY 2GM TO EACH FOOT EXTERNALLY TWICE DAILY FOR 30 DAYS - potassium chloride ER (KLOR-CON) 20 mEq tablet Take 20 mEq by mouth once daily. - triamterene-hydroCHLORO thiazide (MAXZIDE-25) 37.5-25 mg per tablet TAKE 1 TABLET BY MOUTH ONCE DAILY IN THE MORNING - turmeric root extract 500 mg cap Take 500 mg by mouth. - hydroCHLOROthiazide 25 mg tablet Take 25 mg by mouth once daily. - methocarbamol (ROBAXIN) 500 mg tablet Take 1 tablet by mouth twice daily as needed (headache). - isosorbide dinitrate (ISORDIL, SORBITRATE) 30 mg tablet Take 30 mg by mouth four times daily. - amLODIPine (NORVASC) 2.5 mg tablet Take 2.5 mg by mouth once daily. - fluticasone (FLOVENT) 110 mcg/actuation inhaler Inhale 1 Puff as instructed twice daily. PRN - polyethylene glycol 3350 17 gram/dose powder Take by mouth once daily. - aspirin, enteric coated 81 mg EC tablet Take 1 tablet by mouth once daily. - CALCIUM CARBONATE/VITAMIN D3 (CALCIUM + D ORAL) Take by mouth. - OMEGA-3 FATTY ACIDS (FISH OIL CONCENTRATE ORAL) Take by mouth. - levothyroxine (SYNTHROID) 50 mcg tablet Take 50 mcg by mouth once daily. Taking 88 mg daily - valsartan (DIOVAN) 160 mg tablet Take 1 tablet by mouth once daily. - atenolol 50 mg tablet Take 1 tablet by mouth once daily. - pravastatin (PRAVACHOL) 40 mg tablet Take 1 tablet by mouth daily at bedtime. - naproxen 500 mg tablet Take 1 tablet by mouth twice daily as needed. FOR PAIN. TAKE WITH FOOD. - multivitamin tablet Take 1 tablet by mouth once daily. Problem List As Of Date 08/17/2023 Noted Resolved Hypertension [I10] 07/14/2013 Encounter Status:Closed by DAILY EAST on 08/17/23 Normal [facility] Absolute lymphocyte countOrd ered By: Mona Schmid on 06-11-2023 Lymphocytes Auto (Unsp spec) [#/Vol] 1.20 10*3/uL 0.83-4.51 [facility] Basophil percentageOrdered B y: Mona Schmid on 06-11-2023 Basophils/100 WBC (Bld) 0.3 % 0-1 [facility] Chloride [Moles/Vol] 107 mmol/L 98-107 [facility] Eosinophils/100 WBC (Bld) 0.8 % 0-5 [facility] Glucose [Mass/Vol] 118 mg/dL 74-[address] [facility] Comment on above: Fasting Glucose resu lt from 100 to 125 mg/dL suggests IMPAIRED HOMEOSTASIS per A.D.A. criteria. Neutrophils (Bld) [#/Vol] 4.2 10*3/uL 2.0-7.7 [facility] Neutrophils/100 WBC (Bld) 71.0 % 47-70 [facility] Potassium [Moles/Vol] 4.1 mmol/L 3.5-5.1 [place] Sodium [Moles/Vol] 140 mmol/L 136-[address] [facility] WBC (Bld) [#/Vol] 5.9 10*3/uL 4.4-11.[address] [facility] Blood erythrocytes count (nu mber/volume)Ordered By: Mona Schmid on 06-11-2023 RBC (Bld) [#/Vol] 4.64 10*6/uL 4.2-5.4 [facility] Blood hemoglobin measurement (mass/volume)Ordered By: Mona Schmid on 06-11-2023 Hemoglobin (Bld) [Mass/Vol] 14.9 g/dL 12.0-15.0 [facility] Blood lymphocytes/100 leukoc ytesOrdered By: Mona Schmid on 06-11-2023 Lymphocytes/100 WBC (Bld) 20.3 % 19-41 [facility] Blood monocytes/100 leukocyt esOrdered By: Mona Schmid on 06-11-2023 Monocytes/100 WBC (Bld) 7.3 % 0-10 [facility] Blood platelet mean volumeOr dered By: Mona Schmid on 06-11-2023 Platelet mean volume (Bld) [Entitic vol] 9.6 fL 6.2-12.0 [facility] COVID-19 virus antigen assay Ordered By: Mona Schmid on 06-11-2023 SARS-CoV-2 (COVID-19) Ag IA.rapid Ql (Resp) [facility] Determination of erythrocyte mean corpuscular volume (MCV)Ordered By: Mona Schmid on 06-11-2023 MCV (RBC) [Entitic vol] 94.0 fL 81-99 [facility] Hematocrit Auto (Bld) [Volum e fraction]Ordered By: Mona Schmid on 06-11-2023 Hematocrit (Bld) [Volume fraction] 43.6 % 37-47 [facility] Laboratory - Chemistry and C hemistry - challengeOrdered By: Mona Schmid on 06-11-2023 Natriuretic peptide B (Bld) [Mass/Vol] 27.2 pg/mL 0-100 [facility] CO2 [Moles/Vol] 25.0 mmol/L 21.0-32.0 [facility] Urea nitrogen/Creatinine [Mass ratio] 18.7 mg/mg 10-20 [facility] Laboratory - Hematology and Cell countsOrdered By: Mona Schmid on 06-11-2023 Erythrocyte distribution width (RBC) [Entitic vol] 45.3 fL 35.1-43.9 [facility] Erythrocyte distribution width (RBC) [Ratio] 13.3 % 11.6-14.6 [facility] Immature granulocytes/100 WBC (Bld) 0.300 % 0.0-0.9 [facility] Comment on above: IG% - Immature Granu locytes (promyelocytes, myelocytes and metamyelocytes) > 1% indicates that a LEFT SHIFT is Present. MCH (RBC) [Entitic mass] 32.1 pg 27.0-32.0 [facility] Nucleated RBC/100 WBC (Bld) [Ratio] 0 % 0-5 [facility] MCHC Auto (RBC) [Mass/Vol]Or dered By: Mona Schmid on 06-11-2023 MCHC (RBC) [Mass/Vol] 34.2 g/dL 32-36 [place] No Panel InformationOrdered By: Mona Schmid on 06-11-2023 D-Dimer Quantitative (PE/DVT) 0.35 FEU/ug/m 0.27-0.49 [facility] Comment on above: NORMAL D-Dimer level (<0.50) indicates no DVT or PE. Estimated Creatinine Clearance Calc 34.81 ml/min [facility] Estimated GFR (MDRD) Amer 64 mL/min >60 [facility] Comment on above: GFR Calc Estimated GFR (MDRD) Non-Af Amer 53 mL/min >60 [facility] Comment on above: Non- GFR Calc Thyroid Stimulating Hormone (TSH) 0.50 uIU/mL 0.358-3.74 [facility] Troponin I High Sensitivity 4 pg/mL 3.0-54.0 [facility] Comment on above: Please Note: [place] t Units and Gender Specific Reference Ranges. For more information see Policy Stat Procedure [place] High Sensitivity Troponin (TNIH) and attachments. Platelets bldOrdered By: Erinn Schmid on 06-11-2023 Platelets (Bld) [#/Vol] 164 10*3/uL 150-450 [facility] Serum or plasma calcium patsy urement (mass/volume)Ordered By: Mona Schmid on 06-11-2023 Calcium [Mass/Vol] 10.3 mg/dL 8.5-10.[address] [facility] Serum or plasma creatinine m easurement (mass/volume)Ordered By: Mona Schmid on 06-11-2023 Creatinine [Mass/Vol] 1.07 mg/dL 0.55-1.02 [place] Comment on above: The validity of the calculated GFR & GFRAA in patients over 70 years has not been determined. Clinical correlation is essential. Serum or plasma urea nitroge n measurement (mass/volume)Ordered By: Mona Schmid on 06-11-2023 Urea nitrogen [Mass/Vol] 20 mg/dL 7-18 [facility] Thin prep Papanicolaou smear with manual screeningOrdered By: Mona Schmid on 06-11-2023 Thin prep Papanicolaou smear with manual screening 8 5-15 [facility] Absolute lymphocyte countOrd ered By: Juan Monae on 06-09-2023 Lymphocytes Auto (Unsp spec) [#/Vol] 1.20 10*3/uL 0.83-4.51 [facility] Basophil percentageOrdered B y: Juan Monae on 06-09-2023 Basophils/100 WBC (Bld) 0.4 % 0-1 [facility] Chloride [Moles/Vol] 106 mmol/L 98-107 [facility] Eosinophils/100 WBC (Bld) 1.1 % 0-5 [facility] Glucose [Mass/Vol] 133 mg/dL 74-[address] [facility] Comment on above: Fasting Glucose resu lt greater than or equal to 126 mg/dL suggests DIABETES MELLITUS per A.D.A. criteria. Neutrophils (Bld) [#/Vol] 3.0 10*3/uL 2.0-7.7 [facility] Neutrophils/100 WBC (Bld) 64.8 % 47-70 [facility] Potassium [Moles/Vol] 3.6 mmol/L 3.5-5.1 [place] Sodium [Moles/Vol] 139 mmol/L 136-[address] [facility] WBC (Bld) [#/Vol] 4.6 10*3/uL 4.4-11.[address] [facility] Blood erythrocytes count (nu mber/volume)Ordered By: Juan Monae on 06-09-2023 RBC (Bld) [#/Vol] 4.70 10*6/uL 4.2-5.4 [facility] Blood hemoglobin measurement (mass/volume)Ordered By: uJan Monae on 06-09-2023 Hemoglobin (Bld) [Mass/Vol] 14.6 g/dL 12.0-15.0 [facility] Blood lymphocytes/100 leukoc ytesOrdered By: Juan Monae on 06-09-2023 Lymphocytes/100 WBC (Bld) 26.1 % 19-41 [facility] Blood monocytes/100 leukocyt esOrdered By: Juan Monae on 06-09-2023 Monocytes/100 WBC (Bld) 7.4 % 0-10 [facility] Blood platelet mean volumeOr dered By: Juan Monae on 06-09-2023 Platelet mean volume (Bld) [Entitic vol] 9.5 fL 6.2-12.0 [facility] Determination of erythrocyte mean corpuscular volume (MCV)Ordered By: Juan Monae on 06-09-2023 MCV (RBC) [Entitic vol] 93.2 fL 81-99 [facility] Hematocrit Auto (Bld) [Volum e fraction]Ordered By: Juan Monae on 06-09-2023 Hematocrit (Bld) [Volume fraction] 43.8 % 37-47 [facility] Laboratory - Chemistry and C hemistry - challengeOrdered By: Juan Monae on 06-09-2023 CO2 [Moles/Vol] 27.0 mmol/L 21.0-32.0 [facility] Urea nitrogen/Creatinine [Mass ratio] 15.7 mg/mg 10-20 [facility] Laboratory - Hematology and Cell countsOrdered By: Juan Monae on 06-09-2023 Erythrocyte distribution width (RBC) [Entitic vol] 45.1 fL 35.1-43.9 [facility] Erythrocyte distribution width (RBC) [Ratio] 13.1 % 11.6-14.6 [facility] Immature granulocytes/100 WBC (Bld) 0.200 % 0.0-0.9 [facility] Comment on above: IG% - Immature Granu locytes (promyelocytes, myelocytes and metamyelocytes) > 1% indicates that a LEFT SHIFT is Present. MCH (RBC) [Entitic mass] 31.1 pg 27.0-32.0 [facility] Nucleated RBC/100 WBC (Bld) [Ratio] 0 % 0-5 [facility] MCHC Auto (RBC) [Mass/Vol]Or dered By: Juan Monae on 06-09-2023 MCHC (RBC) [Mass/Vol] 33.3 g/dL 32-36 [place] No Panel InformationOrdered By: Juan Monae on 06-09-2023 Troponin I High Sensitivity < 3 pg/mL 3.0-54.0 [facility] Comment on above: Please Note: [place] t Units and Gender Specific Reference Ranges. For more information see Policy Stat Procedure [place] High Sensitivity Troponin (TNIH) and attachments. Estimated Creatinine Clearance Calc 34.49 ml/min [facility] Estimated GFR (MDRD) Amer 64 mL/min >60 [facility] Comment on above: GFR Calc Estimated GFR (MDRD) Non-Af Amer 53 mL/min >60 [facility] Comment on above: Non- GFR Calc Platelets bldOrdered By: Rachel Monae on 06-09-2023 Platelets (Bld) [#/Vol] 162 10*3/uL 150-450 [facility] Serum or plasma calcium patsy urement (mass/volume)Ordered By: Juan Monae on 06-09-2023 Calcium [Mass/Vol] 10.0 mg/dL 8.5-10.[address] [facility] Serum or plasma creatinine m easurement (mass/volume)Ordered By: Juan Monae on 06-09-2023 Creatinine [Mass/Vol] 1.08 mg/dL 0.55-1.02 [place] Comment on above: The validity of the calculated GFR & GFRAA in patients over 70 years has not been determined. Clinical correlation is essential. Serum or plasma urea nitroge n measurement (mass/volume)Ordered By: Juan Monae on 06-09-2023 Urea nitrogen [Mass/Vol] 17 mg/dL 7-18 [facility] Thin prep Papanicolaou smear with manual screeningOrdered By: Juan Monae on 06-09-2023 Thin prep Papanicolaou smear with manual screening 6 5-15 [facility] Basophil percentageOrdered B y: Mili Barnett on 06-05-2023 Chloride [Moles/Vol] 107 mmol/L 98-107 [facility] Glucose [Mass/Vol] 118 mg/dL 74-[address] [facility] Comment on above: Fasting Glucose resu lt from 100 to 125 mg/dL suggests IMPAIRED HOMEOSTASIS per A.D.A. criteria. Potassium [Moles/Vol] 4.0 mmol/L 3.5-5.1 [place] Sodium [Moles/Vol] 141 mmol/L 136-[address] [facility] Laboratory - Chemistry and C hemistry - challengeOrdered By: Mili Barnett on 06-05-2023 CO2 [Moles/Vol] 27.0 mmol/L 21.0-32.0 [facility] Urea nitrogen/Creatinine [Mass ratio] 19.8 mg/mg 10-20 [facility] No Panel InformationOrdered By: Mili Barnett on 06-05-2023 Estimated GFR (MDRD) Amer 69 mL/min >60 [facility] Comment on above: GFR Calc Estimated GFR (MDRD) Non-Af Amer 57 mL/min >60 [facility] Comment on above: Non- GFR Calc Serum or plasma calcium patsy urement (mass/volume)Ordered By: Mili Barnett on 06-05-2023 Calcium [Mass/Vol] 9.6 mg/dL 8.5-10.[address] [facility] Serum or plasma creatinine m easurement (mass/volume)Ordered By: Mili Barnett on 06-05-2023 Creatinine [Mass/Vol] 1.01 mg/dL 0.55-1.02 [place] Comment on above: The validity of the calculated GFR & GFRAA in patients over 70 years has not been determined. Clinical correlation is essential. Serum or plasma urea nitroge n measurement (mass/volume)Ordered By: Mili Barnett on 06-05-2023 Urea nitrogen [Mass/Vol] 20 mg/dL 7-18 [facility] Thin prep Papanicolaou smear with manual screeningOrdered By: Milisarah Barnett on 06-05-2023 Thin prep Papanicolaou smear with manual screening 7 5-15 [facility] Basophil percentageOrdered B y: Efrain Hill on 04-24-2023 Chloride [Moles/Vol] 106 mmol/L 98-107 [facility] Glucose [Mass/Vol] 142 mg/dL 74-[address] [facility] Comment on above: Fasting Glucose resu lt greater than or equal to 126 mg/dL suggests DIABETES MELLITUS per A.D.A. criteria. Potassium [Moles/Vol] 3.8 mmol/L 3.5-5.1 [place] Sodium [Moles/Vol] 139 mmol/L 136-[address] [facility] Laboratory - Chemistry and C hemistry - challengeOrdered By: Efrain Hill on 04-24-2023 CO2 [Moles/Vol] 25.0 mmol/L 21.0-32.0 [facility] Urea nitrogen/Creatinine [Mass ratio] 26.7 mg/mg 10-20 [facility] No Panel InformationOrdered By: Efrain Hill on 04-24-2023 Estimated GFR (MDRD) Amer 83 mL/min >60 [facility] Comment on above: GFR Calc Estimated GFR (MDRD) Non-Af Amer 68 mL/min >60 [facility] Comment on above: Non- GFR Calc Serum or plasma calcium patsy urement (mass/volume)Ordered By: Efrain Hill on 04-24-2023 Calcium [Mass/Vol] 9.6 mg/dL 8.5-10.[address] [facility] Serum or plasma creatinine m easurement (mass/volume)Ordered By: Efrain Hill on 04-24-2023 Creatinine [Mass/Vol] 0.86 mg/dL 0.55-1.02 [place] Comment on above: The validity of the calculated GFR & GFRAA in patients over 70 years has not been determined. Clinical correlation is essential. Serum or plasma urea nitroge n measurement (mass/volume)Ordered By: Efrain Hill on 04-24-2023 Urea nitrogen [Mass/Vol] 23 mg/dL 7-18 [facility] Thin prep Papanicolaou smear with manual screeningOrdered By: Efrain Hill on 04-24-2023 Thin prep Papanicolaou smear with manual screening 8 5-15 [facility] Basophil percentageOrdered B y: Efrain Hill on 04-17-2023 Chloride [Moles/Vol] 108 mmol/L 98-107 [facility] Glucose [Mass/Vol] 134 mg/dL 74-[address] [facility] Comment on above: Fasting Glucose resu lt greater than or equal to 126 mg/dL suggests DIABETES MELLITUS per A.D.A. criteria. Potassium [Moles/Vol] 3.2 mmol/L 3.5-5.1 [place] Sodium [Moles/Vol] 141 mmol/L 136-[address] [facility] Laboratory - Chemistry and C hemistry - challengeOrdered By: Efrain Hill on 04-17-2023 CO2 [Moles/Vol] 27.0 mmol/L 21.0-32.0 [facility] Magnesium [Mass/Vol] 1.8 mg/dL 1.6-2.6 [facility] Urea nitrogen/Creatinine [Mass ratio] 25.1 mg/mg 10-20 [facility] No Panel InformationOrdered By: Efrain Hill on 04-17-2023 Estimated GFR (MDRD) Amer 81 mL/min >60 [facility] Comment on above: GFR Calc Estimated GFR (MDRD) Non-Af Amer 67 mL/min >60 [facility] Comment on above: Non- GFR Calc Serum or plasma calcium patsy urement (mass/volume)Ordered By: Efrain Hill on 04-17-2023 Calcium [Mass/Vol] 9.5 mg/dL 8.5-10.[address] [facility] Serum or plasma creatinine m easurement (mass/volume)Ordered By: Efrain Hill on 04-17-2023 Creatinine [Mass/Vol] 0.88 mg/dL 0.55-1.02 [place] Comment on above: The validity of the calculated GFR & GFRAA in patients over 70 years has not been determined. Clinical correlation is essential. Serum or plasma urea nitroge n measurement (mass/volume)Ordered By: Efrain Hill on 04-17-2023 Urea nitrogen [Mass/Vol] 22 mg/dL 7-18 [facility] Thin prep Papanicolaou smear with manual screeningOrdered By: Efrain Hill on 04-17-2023 Thin prep Papanicolaou smear with manual screening 6 5-15 [facility] XR Foot - left 2 [employer] FINDINGS/IMPRESSION: Limitations: Bone mineralization appears lower limits of normal. No acute fracture or dislocation. Several hammertoe deformities. Mild to moderate osteoarthritis most pronounced at the first MTP joints, several of the IP joints, as well as several of the midfoot and hindfoot articulations. Borderline pes planus. Small plantar calcaneal spur. Soft tissue swelling along the dorsal aspect of the forefoot. Report Dictated on Electronically Signed By: Maury Goodwin Electronically Signed Date/Time: 03/26/2023 4:05 PM [email or web address] [facility] RADIOLOGY [facility] 1950 [id number] Exam Date/Time: 03/25/2023 08:11 Procedure: XR FOOT 1-2 VIEWS LEFT Ordering Provider: REYES DOUGLAS Reason For Exam: PAIN CLINICAL INDICATION: Left foot pain and swelling. TECHNIQUE: Two views of the left foot, weightbearing COMPARISON: None. [facility] RADIOLOGY SYSTEM Angela Goodwin MD - 03/26/2023 Patient Name: [facility]RES [facility] 1950 [id number] Exam Date/Time: 03/25/2023 08:11 Procedure: XR FOOT 1-2 VIEWS LEFT Ordering Provider: REYES DOUGLAS Reason For Exam: PAIN CLINICAL INDICATION: Left foot pain and swelling. TECHNIQUE: Two views of the left foot, weightbearing COMPARISON: None. IMPRESSION: FINDINGS/IMPRESSION: Limitations: Bone mineralization appears lower limits of normal. No acute fracture or dislocation. Several hammertoe deformities. Mild to moderate osteoarthritis most pronounced at the first MTP joints, several of the IP joints, as well as several of the midfoot and hindfoot articulations. Borderline pes planus. Small plantar calcaneal spur. Soft tissue swelling along the dorsal aspect of the forefoot. Report Dictated on Electronically Signed By: Maury Goodwin Electronically Signed Date/Time: 03/26/2023 4:05 PM EDT [employer]. XR Foot - left 2 ViewsOrdere d By: Angela Goodwin on 03-26-2023 [facility]: XR Foot - left 2 [facility] Radiology Study observation (narrative) [facility] [employer] Basophil percentageOrdered B y: Efrain Hill on 01-15-2023 Chloride [Moles/Vol] 111 mmol/L 98-107 [facility] Glucose [Mass/Vol] 142 mg/dL 74-[address] [facility] Comment on above: Fasting Glucose resu lt greater than or equal to 126 mg/dL suggests DIABETES MELLITUS per A.D.A. criteria. Potassium [Moles/Vol] 3.6 mmol/L 3.5-5.1 [place] Sodium [Moles/Vol] 143 mmol/L 136-[address] [facility] Laboratory - Chemistry and C hemistry - challengeOrdered By: Efrain Hill on 01-15-2023 CO2 [Moles/Vol] 27.0 mmol/L 21.0-32.0 [facility] Urea nitrogen/Creatinine [Mass ratio] 31.2 mg/mg 10-20 [facility] No Panel InformationOrdered By: Efrain Hill on 01-15-2023 Estimated GFR (MDRD) Amer 110 mL/min >60 [facility] Comment on above: GFR Calc Estimated GFR (MDRD) Non-Af Amer 91 mL/min >60 [facility] Comment on above: Non- GFR Calc Serum or plasma calcium patsy urement (mass/volume)Ordered By: Efrain Hill on 01-15-2023 Calcium [Mass/Vol] 9.1 mg/dL 8.5-10.[address] [facility] Serum or plasma creatinine m easurement (mass/volume)Ordered By: Efrain Hill on 01-15-2023 Creatinine [Mass/Vol] 0.67 mg/dL 0.55-1.02 [place] Comment on above: The validity of the calculated GFR & GFRAA in patients over 70 years has not been determined. Clinical correlation is essential. Serum or plasma urea nitroge n measurement (mass/volume)Ordered By: Efrain Hill on 01-15-2023 Urea nitrogen [Mass/Vol] 21 mg/dL 7-18 [facility] Thin prep Papanicolaou smear with manual screeningOrdered By: Efrain Hill on 01-15-2023 Thin prep Papanicolaou smear with manual screening 5 5-15 [facility] Basophil percentageOrdered B y: Efrain Hill on 01-01-2023 Chloride [Moles/Vol] 105 mmol/L 98-107 [facility] Glucose [Mass/Vol] 142 mg/dL 74-[address] [facility] Comment on above: Fasting Glucose resu lt greater than or equal to 126 mg/dL suggests DIABETES MELLITUS per A.D.A. criteria. Potassium [Moles/Vol] 3.3 mmol/L 3.5-5.1 [place] Sodium [Moles/Vol] 141 mmol/L 136-[address] [facility] WBC (Bld) [#/Vol] 4.7 10*3/uL 4.4-11.[address] [facility] Blood erythrocytes count (nu mber/volume)Ordered By: Efrain Hill on 01-01-2023 RBC (Bld) [#/Vol] 5.01 10*6/uL 4.2-5.4 [facility] Blood hemoglobin measurement (mass/volume)Ordered By: Efrain Hill on 01-01-2023 Hemoglobin (Bld) [Mass/Vol] 15.3 g/dL 12.0-15.0 [facility] Blood platelet mean volumeOr dered By: Efrain Hill on 01-01-2023 Platelet mean volume (Bld) [Entitic vol] 9.5 fL 6.2-12.0 [facility] Determination of erythrocyte mean corpuscular volume (MCV)Ordered By: Efrain Hill on 01-01-2023 MCV (RBC) [Entitic vol] 92.4 fL 81-99 [facility] Hematocrit Auto (Bld) [Volum e fraction]Ordered By: Efrain Hill on 01-01-2023 Hematocrit (Bld) [Volume fraction] 46.3 % 37-47 [facility] Laboratory - Chemistry and C hemistry - challengeOrdered By: Efrain Hill on 01-01-2023 CO2 [Moles/Vol] 27.0 mmol/L 21.0-32.0 [facility] Magnesium [Mass/Vol] 2.3 mg/dL 1.6-2.6 [facility] Urea nitrogen/Creatinine [Mass ratio] 16.0 mg/mg 10-20 [facility] Laboratory - Hematology and Cell countsOrdered By: Efrain Hill on 01-01-2023 Erythrocyte distribution width (RBC) [Entitic vol] 44.9 fL 35.1-43.9 [facility] Erythrocyte distribution width (RBC) [Ratio] 13.3 % 11.6-14.6 [facility] MCH (RBC) [Entitic mass] 30.5 pg 27.0-32.0 [facility] MCHC Auto (RBC) [Mass/Vol]Or dered By: Efrain Hill on 01-01-2023 MCHC (RBC) [Mass/Vol] 33.0 g/dL 32-36 [place] No Panel InformationOrdered By: Efrain Hill on 01-01-2023 Estimated GFR (MDRD) Amer 75 mL/min >60 [facility] Comment on above: GFR Calc Estimated GFR (MDRD) Non-Af Amer 62 mL/min >60 [facility] Comment on above: Non- GFR Calc Thyroid Stimulating Hormone (TSH) 0.71 uIU/mL 0.358-3.74 [facility] Platelets bldOrdered By: Jaun Hill on 01-01-2023 Platelets (Bld) [#/Vol] 178 10*3/uL 150-450 [facility] Serum or plasma calcium patsy urement (mass/volume)Ordered By: Efrain Hill on 01-01-2023 Calcium [Mass/Vol] 9.6 mg/dL 8.5-10.[address] [facility] Serum or plasma creatinine m easurement (mass/volume)Ordered By: Efrain Hill on 01-01-2023 Creatinine [Mass/Vol] 0.94 mg/dL 0.55-1.02 [place] Comment on above: The validity of the calculated GFR & GFRAA in patients over 70 years has not been determined. Clinical correlation is essential. Serum or plasma urea nitroge n measurement (mass/volume)Ordered By: Efrain Hill on 01-01-2023 Urea nitrogen [Mass/Vol] 15 mg/dL 7-18 [facility] Thin prep Papanicolaou smear with manual screeningOrdered By: Efrain Hill on 01-01-2023 Thin prep Papanicolaou smear with manual screening 9 5-15 [facility] Basophil percentageon 2021 Chloride [Moles/Vol] 101 mmol/L 98-107 [facility] Work Phone: Glucose [Mass/Vol] 140 mg/dL 74-[address] [facility] Work Phone: Comment on above: Fasting Glucose resu lt greater than or equal to 126 mg/dL suggests DIABETES MELLITUS per A.D.A. criteria. Potassium [Moles/Vol] 2.8 mmol/L 3.5-5.1 [place] Work Phone: Sodium [Moles/Vol] 139 mmol/L 136-[address] [facility] Work Phone: Laboratory - Chemistry and C hemistry - challengeon 02-05-2022 CO2 [Moles/Vol] 30.0 mmol/L 21.0-32.0 [facility] Work Phone: Natriuretic peptide B (Bld) [Mass/Vol] 37.5 pg/mL 0-100 [facility] Work Phone: Urea nitrogen/Creatinine [Mass ratio] 17.6 mg/mg 10-20 [facility] Work Phone: No Panel Informationon 02-05 Estimated GFR (MDRD) Amer 99 mL/min >60 [facility] Work Phone: Comment on above: GFR Calc Estimated GFR (MDRD) Non-Af Amer 82 mL/min >60 [facility] Work Phone: Comment on above: Non- GFR Calc Serum or plasma calcium patsy urement (mass/volume)on 02-05-2022 Calcium [Mass/Vol] 9.1 mg/dL 8.5-10.[address] [facility] Work Phone: Serum or plasma creatinine m easurement (mass/volume)on 02-05-2022 Creatinine [Mass/Vol] 0.74 mg/dL 0.55-1.02 [place] Work Phone: Comment on above: The validity of the calculated GFR & GFRAA in patients over 70 years has not been determined. Clinical correlation is essential. Serum or plasma urea nitroge n measurement (mass/volume)on 02-05-2022 Urea nitrogen [Mass/Vol] 13 mg/dL 7-18 [facility] Work Phone: Thin prep Papanicolaou smear with manual screeningon 02-05-2022 Thin prep Papanicolaou smear with manual screening 8 5-15 [facility] Work Phone: VL LOWER EXTREMITY BILATERAL VENOUS DUPLEXon 10-16-2021 Patient Name: AVIS TORRES Ultrasound ACCESSION EXAM DATE/TIME PROCEDURE ORDERING PROVIDER [id number] 10/16/2021 11:46 EST VL Venous Duplex US MD AMY, JESSICA Zapata Lower Ext Bilateral CPT code 28324 Reason For Exam (VL Venous Duplex US Lower Ext Bilateral) bilateral leg pain Report VENOUS SONOGRAM WITH DOPPLER FLOW IMAGING OF RIGHT AND LEFT LOWER EXTREMITIES History: Bilateral leg pain, concern for DVT Comparison: None available Technique: Ultrasound and Doppler imaging of the veins of the right and left lower extremities from the common femoral to the popliteal branches and gastrocnemius veins are provided. Findings: The deep veins of the right and left lower extremities show unremarkable color Doppler flow and compressibility without evidence of clot. There is normal augmentation. The Doppler waveforms are normal. IMPRESSION: No evidence of DVT in the right or left lower extremities. Report Dictated on --- Final --- Dictating Physician: MD NYE AHMAD Signed Date and Time: 10/16/2021 11:55 am Signed by: MD NYE AHMAD Transcribed Date and Time: 10/16/2021 11:56 Cardiovascular ACCESSION EXAM DATE/TIME PROCEDURE [id number] 10/16/2021 11:46 EST VL Venous Duplex US Lower Ext Bilateral CPT code 56378 Reason For Exam (VL Venous Duplex US Lower Ext Bilateral) bilateral leg pain Cardiovascular Report VENOUS SONOGRAM WITH DOPPLER FLOW IMAGING OF RIGHT AND LEFT LOWER EXTREMITIES History: Bilateral leg pain, concern for DVT Comparison: None available Technique: Ultrasound and Doppler imaging of the veins of the right and left lower extremities from the common femoral to the popliteal branches and gastrocnemius veins are provided. Findings: The deep veins of the right and left lower extremities show unremarkable color Doppler flow and compressibility without evidence of clot. There is normal augmentation. The Doppler waveforms are normal. IMPRESSION: No evidence of DVT in the right or left lower extremities. Report Dictated on --- Final --- Dictating Physician: MD NYE AHMAD Signed Date and Time: 10/16/2021 11:55 am Signed by: MD NYE AHMAD Transcribed Date and Time: 10/16/2021 11:56 [facility] Dimas Nye MD - 10/16/2021 Patient Name: AVIS TORRES Ultrasound ACCESSION EXAM DATE/TIME PROCEDURE ORDERING PROVIDER [id number] 10/16/2021 11:46 EST VL Venous Duplex US MD AMY, JESSICA A Lower Ext Bilateral CPT code 39268 Reason For Exam (VL Venous Duplex US Lower Ext Bilateral) bilateral leg pain Report VENOUS SONOGRAM WITH DOPPLER FLOW IMAGING OF RIGHT AND LEFT LOWER EXTREMITIES History: Bilateral leg pain, concern for DVT Comparison: None available Technique: Ultrasound and Doppler imaging of the veins of the right and left lower extremities from the common femoral to the popliteal branches and gastrocnemius veins are provided. Findings: The deep veins of the right and left lower extremities show unremarkable color Doppler flow and compressibility without evidence of clot. There is normal augmentation. The Doppler waveforms are normal. IMPRESSION: No evidence of DVT in the right or left lower extremities. Report Dictated on --- Final --- Dictating Physician: MD NYE AHMAD Signed Date and Time: 10/16/2021 11:55 am Signed by: MD NYE AHMAD Transcribed Date and Time: 10/16/2021 11:56 Cardiovascular ACCESSION EXAM DATE/TIME PROCEDURE [id number] 10/16/2021 11:46 EST VL Venous Duplex US Lower Ext Bilateral CPT code 88615 Reason For Exam (VL Venous Duplex US Lower Ext Bilateral) bilateral leg pain Cardiovascular Report VENOUS SONOGRAM WITH DOPPLER FLOW IMAGING OF RIGHT AND LEFT LOWER EXTREMITIES History: Bilateral leg pain, concern for DVT Comparison: None available Technique: Ultrasound and Doppler imaging of the veins of the right and left lower extremities from the common femoral to the popliteal branches and gastrocnemius veins are provided. Findings: The deep veins of the right and left lower extremities show unremarkable color Doppler flow and compressibility without evidence of clot. There is normal augmentation. The Doppler waveforms are normal. IMPRESSION: No evidence of DVT in the right or left lower extremities. Report Dictated on --- Final --- Dictating Physician: MD NYE AHMAD Signed Date and Time: 10/16/2021 11:55 am Signed by: MD NYE AHMAD Transcribed Date and Time: 10/16/2021 11:56 [facility] Work Phone: Radiology Study observation (narrative) [facility] Work Phone: VL LOWER EXTREMITY BILATERAL VENOUS DUPLEXOrdered By: Dimas Nye on 10-16-2021 [facility] Work Phone: VL Venous Duplex US Lower Ex t Bilateralon 10-16-2021 VL Venous Duplex US Lower Ext Bilateral [facility]: [id number] ACCESSION EXAM DATE/TIME PROCEDURE ORDERING PROVIDER [id number] 10/16/2021 11:46 EST VL Venous Duplex US MD AMY, JESSICA A Lower Ext Bilateral CPT code 73014 Reason For Exam (VL Venous Duplex US Lower Ext Bilateral) bilateral leg pain Report VENOUS SONOGRAM WITH DOPPLER FLOW IMAGING OF RIGHT AND LEFT LOWER EXTREMITIES History: Bilateral leg pain, concern for DVT Comparison: None available Technique: Ultrasound and Doppler imaging of the veins of the right and left lower extremities from the common femoral to the popliteal branches and gastrocnemius veins are provided. Findings: The deep veins of the right and left lower extremities show unremarkable color Doppler flow and compressibility without evidence of clot. There is normal augmentation. The Doppler waveforms are normal. IMPRESSION: No evidence of DVT in the right or left lower extremities. Report Dictated on Final Dictating Physician: MD NYE AHMAD Signed Date and Time: 10/16/2021 11:55 am Signed by: MD NYE AHMAD Transcribed Date and Time: 10/16/2021 11:56 Cardiovascular ACCESSION EXAM DATE/TIME PROCEDURE [id number] 10/16/2021 11:46 EST VL Venous Duplex US Lower Ext Bilateral CPT code 75039 Reason For Exam (VL Venous Duplex US Lower Ext Bilateral) bilateral leg pain Cardiovascular Report VENOUS SONOGRAM WITH DOPPLER FLOW IMAGING OF RIGHT AND LEFT LOWER EXTREMITIES History: Bilateral leg pain, concern for DVT Comparison: None available Technique: Ultrasound and Doppler imaging of the veins of the right and left lower extremities from the common femoral to the popliteal branches and gastrocnemius veins are provided. Findings: The deep veins of the right and left lower extremities show unremarkable color Doppler flow and compressibility without evidence of clot. There is normal augmentation. The Doppler waveforms are normal. IMPRESSION: No evidence of DVT in the right or left lower extremities. Report Dictated on Final Dictating Physician: MD NYE AHMAD Signed Date and Time: 10/16/2021 11:55 am Signed by: MD NYE AHMAD Transcribed Date and Time: 10/16/2021 11:56 Normal [facility] EMG REPORTOrdered By: Tyrese Abel on 04-05-2021 Tyrese Abel MD - 04/05/2021 2:51 PM EDT PATIENT: AVIS TORRES DATE OF SERVICE: 04/05/2021 ORDER NUMBER: DATE OF : 1950 AGE: 70 ADMITTING PHYSICIAN: Jessica Reyes MD ATTENDING PHYSICIAN: Jessica Reyes MD DICTATING PHYSICIAN: Tyrese Abel MD EMG REFERRING PHYSICIAN: Dr. Reyes TEST #: [id number] and [id number]. A REPORT OF NERVE CONDUCTION STUDIES AND ELECTROMYOGRAPHY OF THE LEFT LOWER EXTREMITY LOCATION: Testing was conducted at [facility] as an outpatient. FINDINGS: Sensory nerve conduction studies disclosed a prolonged latency in the left superficial peroneal nerve; the response amplitude was normal. The response latency and amplitude were normal in the left sural nerve. Motor nerve conduction studies disclosed normal distal latencies, response amplitudes and conduction velocities in the left peroneal/fibular and tibial nerves. F-waves were normal in the left peroneal/fibular and tibial nerves. The H-reflex was normal in the left tibial nerve. Needle EMG examination disclosed occasional positive sharp waves in the left tibialis anterior. Spontaneous activity was normal in the left vastus medialis and lateralis, lateral gastrocnemius, extensor hallucis longus, extensor digitorum brevis, abductor hallucis, and low lumbar and S1 paraspinal muscles. Motor unit potential recruitment was moderately decreased in the left extensor digitorum brevis, mildly decreased in the left tibialis anterior, and slightly decreased in the left extensor hallucis longus and abductor hallucis; there were enlarged motor unit potentials in all of these muscles. Motor unit potential recruitment and morphology were normal in the left vastus medialis and lateralis, and lateral gastrocnemius. 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 The findings did not support the diagnosis of a peripheral polyneuropathy. Clinical correlation is advised. Brianne Job ID: [id number] DOD:04/05/2021 02:00 P CARLOS/dsk DOT:04/05/2021 02:51 P Job Number: [id number] Document Number: [id number] ###### cc: Jessica Reyes MD [address] [place] [id number] [facility] Work Phone: [facility] Work Phone: Vitamin D 25 Hydroxyon 06-19 Vitamin D 25 Hydroxy 41.6 ng/mL Normal 31.0-80.0 [facility] Reference Lab Comment on above: Performed By: #### C MP, LIPB, TSH, FT4, CBCDIF, HBA1C, VITD #### [facility] Routine Lab [address] [place] [address] CBC and Differentialon 06-18 Abs Baso 0.03 k/uL Normal <0.11 [facility] Reference Lab Comment on above: Performed By: #### C MP, LIPB, TSH, FT4, CBCDIF, HBA1C, VITD #### [facility] Routine Lab [address] [place] [address] Abs Barber 0.33 k/uL Normal <0.87 [facility] Reference Lab Comment on above: Performed By: #### C MP, LIPB, TSH, FT4, CBCDIF, HBA1C, VITD #### [facility] Routine Lab [address] [place] [address] Abs Neut 2.27 k/uL Normal 1.45-7.50 [facility] Reference Lab Comment on above: Performed By: #### C MP, LIPB, TSH, FT4, CBCDIF, HBA1C, VITD #### [facility] Routine Lab [address] [place] [address] Absolute nRBC <0.01 Normal <0.01 [facility] Reference Lab Comment on above: Performed By: #### C MP, LIPB, TSH, FT4, CBCDIF, HBA1C, VITD #### [facility] Routine Lab [address] [place], [place] [address] Basophils/100 WBC (Bld) 0.8 % Normal [facility] Reference Lab Comment on above: Performed By: #### C MP, LIPB, TSH, FT4, CBCDIF, HBA1C, VITD #### [facility] Routine Lab [address] [place] [address] DTYPE ADIFF Normal [facility] Reference Lab Comment on above: Performed By: #### C MP, LIPB, TSH, FT4, CBCDIF, HBA1C, VITD #### [facility] Routine Lab [address] [place] [phone] Eosinophils (Bld) [#/Vol] 0.08 10*3/uL Normal <0.46 [facility] Reference Lab Comment on above: Performed By: #### C MP, LIPB, TSH, FT4, CBCDIF, HBA1C, VITD #### [facility] Routine Lab [address] [place] [phone] Eosinophils/100 WBC (Bld) 2.2 % Normal [facility] Reference Lab Comment on above: Performed By: #### C MP, LIPB, TSH, FT4, CBCDIF, HBA1C, VITD #### [facility] Routine Lab [address] [place] [address] Erythrocyte distribution width (RBC) [Ratio] 13.4 % Normal 11.5-15.0 [facility] Reference Lab Comment on above: Performed By: #### C MP, LIPB, TSH, FT4, CBCDIF, HBA1C, VITD #### [facility] Routine Lab [address] [place] [address] Hematocrit (Bld) [Volume fraction] 44.6 % Normal 36.0-46.0 [facility] Reference Lab Comment on above: Performed By: #### C MP, LIPB, TSH, FT4, CBCDIF, HBA1C, VITD #### [facility] Routine Lab [address] [place], [place] [address] Hemoglobin (Bld) [Mass/Vol] 14.0 g/dL Normal 11.5-15.5 [facility] Reference Lab Comment on above: Performed By: #### C MP, LIPB, TSH, FT4, CBCDIF, HBA1C, VITD #### [facility] Routine Lab [address] [place] [address] Lymphocytes (Bld) [#/Vol] 0.95 10*3/uL Low 1.00-4.00 [facility] Reference Lab Comment on above: Performed By: #### C MP, LIPB, TSH, FT4, CBCDIF, HBA1C, VITD #### [facility] Routine Lab [address] [place] [address] Lymphocytes/100 WBC (Bld) 25.9 % Normal [facility] Reference Lab Comment on above: Performed By: #### C MP, LIPB, TSH, FT4, CBCDIF, HBA1C, VITD #### [facility] Routine Lab [address] [place], [place] [address] MCH (RBC) [Entitic mass] 29.8 pG Normal 26.0-34.0 [facility] Reference Lab Comment on above: Performed By: #### C MP, LIPB, TSH, FT4, CBCDIF, HBA1C, VITD #### [facility] Routine Lab [address] [place], [place] [address] MCHC (RBC) [Mass/Vol] 31.4 g/dL Normal 30.5-36.0 [facility] Reference Lab Comment on above: Performed By: #### C MP, LIPB, TSH, FT4, CBCDIF, HBA1C, VITD #### [facility] Routine Lab [address] [place] [address] MCV (RBC) [Entitic vol] 94.9 fL Normal 80.0-100.0 [facility] Reference Lab Comment on above: Performed By: #### C MP, LIPB, TSH, FT4, CBCDIF, HBA1C, VITD #### [facility] Routine Lab [address] [place], [place] [address] Monocytes/100 WBC (Bld) 9.0 % Normal [facility] Reference Lab Comment on above: Performed By: #### C MP, LIPB, TSH, FT4, CBCDIF, HBA1C, VITD #### [facility] Routine Lab [address] [place] [address] Neutrophils/100 WBC (Bld) 62.1 % Normal [facility] Reference Lab Comment on above: Performed By: #### C MP, LIPB, TSH, FT4, CBCDIF, HBA1C, VITD #### [facility] Routine Lab [address] [place] [address] NRBCs 0.0 /100 WBC Normal 0 [facility] Reference Lab Comment on above: Performed By: #### C MP, LIPB, TSH, FT4, CBCDIF, HBA1C, VITD #### [facility] Routine Lab [address] [place] [address] Platelet mean volume (Bld) [Entitic vol] 10.2 fL Normal 9.0-12.7 [facility] Reference Lab Comment on above: Performed By: #### C MP, LIPB, TSH, FT4, CBCDIF, HBA1C, VITD #### [facility] Routine Lab [address] [place] [address] Platelets (Bld) [#/Vol] 160 10*3/uL Normal 150-400 [facility] Reference Lab Comment on above: Performed By: #### C MP, LIPB, TSH, FT4, CBCDIF, HBA1C, VITD #### [facility] Routine Lab [address] [place] [phone] RBC (Bld) [#/Vol] 4.70 10*6/uL Normal 3.90-5.20 [facility] Reference Lab Comment on above: Performed By: #### C MP, LIPB, TSH, FT4, CBCDIF, HBA1C, VITD #### [facility] Routine Lab [address] [place] [phone] WBC (Bld) [#/Vol] 3.67 10*3/uL Low 3.70-11.00 [facility] Reference Lab Comment on above: Performed By: #### C MP, LIPB, TSH, FT4, CBCDIF, HBA1C, VITD #### [facility] Routine Lab [address] [place] [address] Comp Metabolic Panelon 06-18 Albumin [Mass/Vol] 4.6 g/dL Normal 3.9-4.9 [facility] Lab Comment on above: Performed By: #### C MP, LIPB, TSH, FT4, CBCDIF, HBA1C, VITD #### [facility] Routine Lab [address] [place] [address] ALP [Catalytic activity/Vol] 66 U/L Normal 34-123 [facility] Lab Comment on above: Performed By: #### C MP, LIPB, TSH, FT4, CBCDIF, HBA1C, VITD #### [facility] Routine Lab [address] [place] [address] ALT [Catalytic activity/Vol] 13 U/L Normal 7-38 [facility] Reference Lab Comment on above: Performed By: #### C MP, LIPB, TSH, FT4, CBCDIF, HBA1C, VITD #### [facility] Routine Lab [address] [place] [address] Anion gap [Moles/Vol] 12 mmol/L Normal 9-18 [facility] Lab Comment on above: Performed By: #### C MP, LIPB, TSH, FT4, CBCDIF, HBA1C, VITD #### [facility] Routine Lab [address] [place], [place] [address] AST [Catalytic activity/Vol] 22 U/L Normal 13-35 [facility] Reference Lab Comment on above: Performed By: #### C MP, LIPB, TSH, FT4, CBCDIF, HBA1C, VITD #### [facility] Routine Lab [address] [place], [place] [address] Bilirubin Ql (U) 0.9 mg/dL Normal 0.2-1.3 [facility] Reference Lab Comment on above: Performed By: #### C MP, LIPB, TSH, FT4, CBCDIF, HBA1C, VITD #### [facility] Routine Lab [address] [place] [address] Calcium [Mass/Vol] 10.1 mg/dL Normal 8.5-10.2 [facility] Reference Lab Comment on above: Performed By: #### C MP, LIPB, TSH, FT4, CBCDIF, HBA1C, VITD #### [facility] Routine Lab [address] [place], [place] [address] Chloride [Moles/Vol] 102 mmol/L Normal 97-105 [facility] Reference Lab Comment on above: Performed By: #### C MP, LIPB, TSH, FT4, CBCDIF, HBA1C, VITD #### [facility] Routine Lab [address] [place] [address] CO2 [Moles/Vol] 27 mmol/L Normal 22-30 [facility] Reference Lab Comment on above: Performed By: #### C MP, LIPB, TSH, FT4, CBCDIF, HBA1C, VITD #### [facility] Routine Lab [address] [place], [place] [address] Creatinine [Mass/Vol] 0.81 mg/dL Normal 0.58-0.96 [facility] Reference Lab Comment on above: Performed By: #### C MP, LIPB, TSH, FT4, CBCDIF, HBA1C, VITD #### [facility] Routine Lab [address] [place], [place] [address] eGFR- Amer. >60 Normal [facility] Reference Lab Comment on above: Performed By: #### C MP, LIPB, TSH, FT4, CBCDIF, HBA1C, VITD #### [facility] Routine Lab [address] [place], [place] [address] GFR/1.73 sq M predicted among non-blacks MDRD (S/P/Bld) [Vol rate/Area] mL/min/{1.73_m2} Normal [facility] Reference Lab Comment on above: Performed By: #### C MP, LIPB, TSH, FT4, CBCDIF, HBA1C, VITD #### [facility] Routine Lab [address] [place], [place] [address] Glucose [Mass/Vol] 116 mg/dL High 74-99 [facility] Reference Lab Comment on above: Performed By: #### C MP, LIPB, TSH, FT4, CBCDIF, HBA1C, VITD #### [facility] Routine Lab [address] [place] [address] Potassium [Moles/Vol] 3.9 mmol/L Normal 3.7-5.1 [facility] Reference Lab Comment on above: Performed By: #### C MP, LIPB, TSH, FT4, CBCDIF, HBA1C, VITD #### [facility] Routine Lab [address] [place] [address] Protein [Mass/Vol] 7.4 g/dL Normal 6.3-8.0 [facility] Reference Lab Comment on above: Performed By: #### C MP, LIPB, TSH, FT4, CBCDIF, HBA1C, VITD #### [facility] Routine Lab [address] [place], [place] [address] Sodium [Moles/Vol] 141 mmol/L Normal 136-144 [facility] Reference Lab Comment on above: Performed By: #### C MP, LIPB, TSH, FT4, CBCDIF, HBA1C, VITD #### [facility] Routine Lab [address] [place], [place] [address] Urea nitrogen [Mass/Vol] 18 mg/dL Normal 7-21 [facility] Reference Lab Comment on above: Performed By: #### C MP, LIPB, TSH, FT4, CBCDIF, HBA1C, VITD #### [facility] Routine Lab [address] [place], [place] [address] Free T4on 06-18-2019 Free T4 [Mass/Vol] 1.2 ng/dL Normal 0.9-1.7 [facility] Reference Lab Comment on above: Performed By: #### C MP, LIPB, TSH, FT4, CBCDIF, HBA1C, VITD #### [facility] Routine Lab [address] [place] [address] Hemoglobin A1con 06-18-2019 HbA1c (Bld) [Mass fraction] 117 mg/dL Normal [facility] Reference Lab Comment on above: Performed By: #### C MP, LIPB, TSH, FT4, CBCDIF, HBA1C, VITD #### [facility] Routine Lab [address] [place] [address] HbA1c (Bld) [Mass fraction] 5.7 % High 4.3-5.6 [facility] Reference Lab Comment on above: Performed By: #### C MP, LIPB, TSH, FT4, CBCDIF, HBA1C, VITD #### [facility] Routine Lab [address] [place] [address] Lipid Panel, Basicon 019 Cholesterol [Mass/Vol] 203 mg/dL High <200 [facility] Reference Lab Comment on above: Performed By: #### C MP, LIPB, TSH, FT4, CBCDIF, HBA1C, VITD #### [facility] Routine Lab [address] [place], [place] [address] Cholesterol in HDL [Mass/Vol] 47 mg/dL Normal >39 [facility] Reference Lab Comment on above: Performed By: #### C MP, LIPB, TSH, FT4, CBCDIF, HBA1C, VITD #### [facility] Routine Lab [address] [place] [address] Cholesterol in LDL [Mass/Vol] 131 mg/dL High <100 [facility] Reference Lab Comment on above: Performed By: #### C MP, LIPB, TSH, FT4, CBCDIF, HBA1C, VITD #### [facility] Routine Lab [address] [place] [phone] Cholesterol in VLDL [Mass/Vol] 25 mg/dL Normal <30 [facility] Reference Lab Comment on above: Performed By: #### C MP, LIPB, TSH, FT4, CBCDIF, HBA1C, VITD #### [facility] Routine Lab [address] [place] [address] Cholesterol non HDL [Mass/Vol] 156 mg/dL High <130 [facility] Reference Lab Comment on above: Performed By: #### C MP, LIPB, TSH, FT4, CBCDIF, HBA1C, VITD #### [facility] Routine Lab [address] [place] [phone] LDL:HDL Ratio 2.79 High <2.54 [facility] Reference Lab Comment on above: Performed By: #### C MP, LIPB, TSH, FT4, CBCDIF, HBA1C, VITD #### [facility] Routine Lab [address] [place] [address] TC:HDL Ratio 4.32 Normal <5.10 [facility] Reference Lab Comment on above: Performed By: #### C MP, LIPB, TSH, FT4, CBCDIF, HBA1C, VITD #### [facility] Routine Lab [address] [place] [address] Triglyceride [Mass/Vol] 125 mg/dL Normal <150 [facility] Reference Lab Comment on above: Performed By: #### C MP, LIPB, TSH, FT4, CBCDIF, HBA1C, VITD #### [facility] Routine Lab [address] [place] [phone] Fasting Time 12 hrs Normal [facility] Reference Lab Comment on above: Performed By: #### C MP, LIPB, TSH, FT4, CBCDIF, HBA1C, VITD #### [facility] Routine Lab [address] [place] [phone] TSHon 06-18-2019 TSH Qn 1.840 uU/mL Normal 0.400-5.500 [facility] Reference Lab Comment on above: Performed By: #### C MP, LIPB, TSH, FT4, CBCDIF, HBA1C, VITD #### [facility] Routine Lab [address] [place] [phone] CBC and Differentialon 03-09 Abs Baso 0.03 k/uL Normal <0.11 [facility] Reference Lab Comment on above: Performed By: #### C MP, LIPB, TSH, FT4, CBCDIF, HBA1C, VITD #### [facility] Routine Lab [address] [place] [phone] Abs Barber 0.32 k/uL Normal <0.87 [facility] Reference Lab Comment on above: Performed By: #### C MP, LIPB, TSH, FT4, CBCDIF, HBA1C, VITD #### [facility] Routine Lab [address] [place] [phone] Abs Neut 2.19 k/uL Normal 1.45-7.50 [facility] Reference Lab Comment on above: Performed By: #### C MP, LIPB, TSH, FT4, CBCDIF, HBA1C, VITD #### [facility] Routine Lab [address] [place] [phone] Absolute nRBC <0.01 Normal <0.01 [facility] Reference Lab Comment on above: Performed By: #### C MP, LIPB, TSH, FT4, CBCDIF, HBA1C, VITD #### [facility] Routine Lab [address] [place] [phone] Basophils/100 WBC (Bld) 0.8 % Normal [facility] Reference Lab Comment on above: Performed By: #### C MP, LIPB, TSH, FT4, CBCDIF, HBA1C, VITD #### [facility] Routine Lab [address] [place] [address] DTYPE ADIFF Normal [facility] Reference Lab Comment on above: Performed By: #### C MP, LIPB, TSH, FT4, CBCDIF, HBA1C, VITD #### [facility] Routine Lab [address] [place] [address] Eosinophils (Bld) [#/Vol] 0.14 10*3/uL Normal <0.46 [facility] Reference Lab Comment on above: Performed By: #### C MP, LIPB, TSH, FT4, CBCDIF, HBA1C, VITD #### [facility] Routine Lab [address] [place] [phone] Eosinophils/100 WBC (Bld) 3.8 % Normal [facility] Reference Lab Comment on above: Performed By: #### C MP, LIPB, TSH, FT4, CBCDIF, HBA1C, VITD #### [facility] Routine Lab [address] [place] [phone] Erythrocyte distribution width (RBC) [Ratio] 13.4 % Normal 11.5-15.0 [facility] Reference Lab Comment on above: Performed By: #### C MP, LIPB, TSH, FT4, CBCDIF, HBA1C, VITD #### [facility] Routine Lab [address] [place] [address] Hematocrit (Bld) [Volume fraction] 40.9 % Normal 36.0-46.0 [facility] Reference Lab Comment on above: Performed By: #### C MP, LIPB, TSH, FT4, CBCDIF, HBA1C, VITD #### [facility] Routine Lab [address] [place] [address] Hemoglobin (Bld) [Mass/Vol] 13.3 g/dL Normal 11.5-15.5 [facility] Reference Lab Comment on above: Performed By: #### C MP, LIPB, TSH, FT4, CBCDIF, HBA1C, VITD #### [facility] Routine Lab [address] [place] [phone] Lymphocytes (Bld) [#/Vol] 1.01 10*3/uL Normal 1.00-4.00 [facility] Reference Lab Comment on above: Performed By: #### C MP, LIPB, TSH, FT4, CBCDIF, HBA1C, VITD #### [facility] Routine Lab [facility] [place] [address] Lymphocytes/100 WBC (Bld) 27.3 % Normal [facility] Reference Lab Comment on above: Performed By: #### C MP, LIPB, TSH, FT4, CBCDIF, HBA1C, VITD #### [facility] Routine Lab [address] [place] [address] MCH (RBC) [Entitic mass] 30.7 pG Normal 26.0-34.0 [facility] Reference Lab Comment on above: Performed By: #### C MP, LIPB, TSH, FT4, CBCDIF, HBA1C, VITD #### [facility] Routine Lab [address] [place], [place] [phone] MCHC (RBC) [Mass/Vol] 32.5 g/dL Normal 30.5-36.0 [facility] Reference Lab Comment on above: Performed By: #### C MP, LIPB, TSH, FT4, CBCDIF, HBA1C, VITD #### [facility] Routine Lab [address] [address] MCV (RBC) [Entitic vol] 94.5 fL Normal 80.0-100.0 [facility] Lab Comment on above: Performed By: #### C MP, LIPB, TSH, FT4, CBCDIF, HBA1C, VITD #### [facility] Routine [facility] [address] [place] [address] Monocytes/100 WBC (Bld) 8.6 % Normal [facility] Lab Comment on above: Performed By: #### C MP, LIPB, TSH, FT4, CBCDIF, HBA1C, VITD #### [facility] [address] [place], [place] [address] Neutrophils/100 WBC (Bld) 59.5 % Normal [facility] Comment on above: Performed By: #### C MP, LIPB, TSH, FT4, CBCDIF, HBA1C, VITD #### [facility]ine [facility] [address] [address] NRBCs 0.0 /100 WBC Normal 0 [facility] Comment on above: Performed By: #### C MP, LIPB, TSH, FT4, CBCDIF, HBA1C, VITD #### [facility] [address] [place], [place] [address] Platelet mean volume (Bld) [Entitic vol] 9.9 fL Normal 9.0-12.7 [facility] Comment on above: Performed By: #### C MP, LIPB, TSH, FT4, CBCDIF, HBA1C, VITD #### [facility] [address] [address] Platelets (Bld) [#/Vol] 165 10*3/uL Normal 150-400 [facility] Comment on above: Performed By: #### C MP, LIPB, TSH, FT4, CBCDIF, HBA1C, VITD #### [facility] [address] [place], [place] [address] RBC (Bld) [#/Vol] 4.33 10*6/uL Normal 3.90-5.20 [facility] Reference Lab Comment on above: Performed By: #### C MP, LIPB, TSH, FT4, CBCDIF, HBA1C, VITD #### [facility] [address] [place], [place] [address] WBC (Bld) [#/Vol] 3.70 10*3/uL Normal 3.70-11.00 [facility] Comment on above: Performed By: #### C MP, LIPB, TSH, FT4, CBCDIF, HBA1C, VITD #### [facility] [address] [place], [place] [address] Comp Metabolic Panelon 03-09 Albumin [Mass/Vol] 4.5 g/dL Normal 3.9-4.9 [facility] Lab Comment on above: Performed By: #### C MP, LIPB, TSH, FT4, CBCDIF, HBA1C, VITD #### [facility] [address] [place], [place] [id number] ALP [Catalytic activity/Vol] 73 U/L Normal 34-123 [facility] Lab Comment on above: Performed By: #### C MP, LIPB, TSH, FT4, CBCDIF, HBA1C, VITD #### [facility] [address] [place], [place] [id number] ALT [Catalytic activity/Vol] 11 U/L Normal 7-38 [facility] Comment on above: Performed By: #### C MP, LIPB, TSH, FT4, CBCDIF, HBA1C, VITD #### [facility] [address] [place], [place] [address] Anion gap [Moles/Vol] 12 mmol/L Normal 9-18 [facility] Reference Lab Comment on above: Performed By: #### C MP, LIPB, TSH, FT4, CBCDIF, HBA1C, VITD #### [facility] [address] [place], [place] [address] AST [Catalytic activity/Vol] 18 U/L Normal 13-35 [facility] Comment on above: Performed By: #### C MP, LIPB, TSH, FT4, CBCDIF, HBA1C, VITD #### [facility] [address] [address] Bilirubin Ql (U) 0.4 mg/dL Normal 0.2-1.3 [facility] Reference Lab Comment on above: Performed By: #### C MP, LIPB, TSH, FT4, CBCDIF, HBA1C, VITD #### [facility] Routine [facility] [address] [place] [address] Calcium [Mass/Vol] 9.7 mg/dL Normal 8.5-10.2 [facility] Comment on above: Performed By: #### C MP, LIPB, TSH, FT4, CBCDIF, HBA1C, VITD #### [facility] [address] [place] [phone] Chloride [Moles/Vol] 109 mmol/L High 97-105 [facility] Reference Lab Comment on above: Performed By: #### C MP, LIPB, TSH, FT4, CBCDIF, HBA1C, VITD #### [facility] [address] [place] [address] CO2 [Moles/Vol] 25 mmol/L Normal 22-30 [facility] Lab Comment on above: Performed By: #### C MP, LIPB, TSH, FT4, CBCDIF, HBA1C, VITD #### [facility] [address] [place] [phone] Creatinine [Mass/Vol] 0.75 mg/dL Normal 0.58-0.96 [facility] Lab Comment on above: Performed By: #### C MP, LIPB, TSH, FT4, CBCDIF, HBA1C, VITD #### [facility] [address] [place] [address] eGFR- Amer. >60 Normal [facility] Comment on above: Performed By: #### C MP, LIPB, TSH, FT4, CBCDIF, HBA1C, VITD #### [facility] Routine Lab [address] [place], [place] [address] GFR/1.73 sq M predicted among non-blacks MDRD (S/P/Bld) [Vol rate/Area] mL/min/{1.73_m2} Normal [facility] Lab Comment on above: Performed By: #### C MP, LIPB, TSH, FT4, CBCDIF, HBA1C, VITD #### [facility] Routine Lab [address] [place], [place] [address] Glucose [Mass/Vol] 119 mg/dL High 74-99 [facility] Comment on above: Performed By: #### C MP, LIPB, TSH, FT4, CBCDIF, HBA1C, VITD #### [facility] [address] [place] [address] Potassium [Moles/Vol] 4.1 mmol/L Normal 3.7-5.1 [facility] Lab Comment on above: Performed By: #### C MP, LIPB, TSH, FT4, CBCDIF, HBA1C, VITD #### [facility] [address] [place] [address] Protein [Mass/Vol] 7.1 g/dL Normal 6.3-8.0 [facility] Comment on above: Performed By: #### C MP, LIPB, TSH, FT4, CBCDIF, HBA1C, VITD #### [facility] [address] [place], [place] [address] Sodium [Moles/Vol] 146 mmol/L High 136-144 [facility] Comment on above: Performed By: #### C MP, LIPB, TSH, FT4, CBCDIF, HBA1C, VITD #### [facility] [address] [place], [place] [address] Urea nitrogen [Mass/Vol] 20 mg/dL Normal 7-21 [facility] Comment on above: Performed By: #### C MP, LIPB, TSH, FT4, CBCDIF, HBA1C, VITD #### [facility] [address] [place], [place] [address] Free T4on 03-09-2019 Free T4 [Mass/Vol] 1.1 ng/dL Normal 0.9-1.7 [facility] Comment on above: Performed By: #### C MP, LIPB, TSH, FT4, CBCDIF, HBA1C, VITD #### [facility] [address] [place], [place] [address] Hemoglobin A1con 03-09-2019 HbA1c (Bld) [Mass fraction] 117 mg/dL Normal [facility] Lab Comment on above: Performed By: #### C MP, LIPB, TSH, FT4, CBCDIF, HBA1C, VITD #### [facility] Rout[facility] [address] [place] [address] HbA1c (Bld) [Mass fraction] 5.7 % High 4.3-5.6 [facility] Comment on above: Performed By: #### C MP, LIPB, TSH, FT4, CBCDIF, HBA1C, VITD #### [facility] [address] [place] [address] Lipid Panel, Basicon 019 Cholesterol [Mass/Vol] 180 mg/dL Normal <200 [facility] Lab Comment on above: Performed By: #### C MP, LIPB, TSH, FT4, CBCDIF, HBA1C, VITD #### [facility] Routine Lab [address] [place], [place] [address] Cholesterol in HDL [Mass/Vol] 46 mg/dL Normal >39 [facility] Comment on above: Performed By: #### C MP, LIPB, TSH, FT4, CBCDIF, HBA1C, VITD #### [facility] Routine Lab [address] [place], [place] [address] Cholesterol in LDL [Mass/Vol] 105 mg/dL High <100 [facility] Comment on above: Performed By: #### C MP, LIPB, TSH, FT4, CBCDIF, HBA1C, VITD #### [facility] Routine [facility] [address] [phone] Cholesterol in VLDL [Mass/Vol] 29 mg/dL Normal <30 [facility] Comment on above: Performed By: #### C MP, LIPB, TSH, FT4, CBCDIF, HBA1C, VITD #### [facility] Routine Lab [address] [place], [place] [phone] Cholesterol non HDL [Mass/Vol] 134 mg/dL High <130 [facility] Comment on above: Performed By: #### C MP, LIPB, TSH, FT4, CBCDIF, HBA1C, VITD #### [facility] Rout[facility] Lab [address] [place], [place] [phone] LDL:HDL Ratio 2.28 Normal <2.54 [facility] Comment on above: Performed By: #### C MP, LIPB, TSH, FT4, CBCDIF, HBA1C, VITD #### [facility] Routine Lab [address] [place], [place] [phone] TC:HDL Ratio 3.91 Normal <5.10 [facility] Comment on above: Performed By: #### C MP, LIPB, TSH, FT4, CBCDIF, HBA1C, VITD #### [facility] Routine Lab [address] [phone] Triglyceride [Mass/Vol] 145 mg/dL Normal <150 [facility] Comment on above: Performed By: #### C MP, LIPB, TSH, FT4, CBCDIF, HBA1C, VITD #### [facility] Routine Lab [address] [phone] Fasting Time 12 hrs Normal [facility] Comment on above: Performed By: #### C MP, LIPB, TSH, FT4, CBCDIF, HBA1C, VITD #### [facility] Routine Lab [address] [address] TSHon 03-09-2019 TSH Qn 1.030 uU/mL Normal 0.400-5.500 [facility] Comment on above: Performed By: #### C MP, LIPB, TSH, FT4, CBCDIF, HBA1C, VITD #### [facility] [address] [address] Vitamin D 25 Hydroxyon 03-09 Vitamin D 25 Hydroxy 38.2 ng/mL Normal 31.0-80.0 [facility] Lab Comment on above: Performed By: #### C MP, LIPB, TSH, FT4, CBCDIF, HBA1C, VITD #### [facility] [address] [place] [address] CBC and Differentialon 12-01 Abs Baso <0.03 Normal <0.11 [facility] Lab Comment on above: Performed By: #### C MP, LIPB, TSH, FT4, CBCDIF, HBA1C, VITD #### [facility] [address] [address] Abs Barber 0.39 k/uL Normal <0.87 [facility] Comment on above: Performed By: #### C MP, LIPB, TSH, FT4, CBCDIF, HBA1C, VITD #### [facility] [address] [address] Abs Neut 2.72 k/uL Normal 1.45-7.50 [facility] Comment on above: Performed By: #### C MP, LIPB, TSH, FT4, CBCDIF, HBA1C, VITD #### [facility] [address] [address] Absolute nRBC <0.01 Normal <0.01 [facility] Comment on above: Performed By: #### C MP, LIPB, TSH, FT4, CBCDIF, HBA1C, VITD #### [facility] Routine Lab [address] [phone] Basophils/100 WBC (Bld) 0.4 % Normal [facility] Lab Comment on above: Performed By: #### C MP, LIPB, TSH, FT4, CBCDIF, HBA1C, VITD #### [facility] [address] [address] DTYPE ADIFF Normal [facility] Comment on above: Performed By: #### C MP, LIPB, TSH, FT4, CBCDIF, HBA1C, VITD #### [facility] Rout[facility] [address] [phone] Eosinophils (Bld) [#/Vol] 0.16 10*3/uL Normal <0.46 [facility] Comment on above: Performed By: #### C MP, LIPB, TSH, FT4, CBCDIF, HBA1C, VITD #### [facility] [address] [phone] Eosinophils/100 WBC (Bld) 3.6 % Normal [facility] Comment on above: Performed By: #### C MP, LIPB, TSH, FT4, CBCDIF, HBA1C, VITD #### [facility] Routine Lab [address] [place] [phone] Erythrocyte distribution width (RBC) [Ratio] 13.5 % Normal 11.5-15.0 [facility] Comment on above: Performed By: #### C MP, LIPB, TSH, FT4, CBCDIF, HBA1C, VITD #### [facility] [address] [phone] Hematocrit (Bld) [Volume fraction] 43.2 % Normal 36.0-46.0 [facility] Comment on above: Performed By: #### C MP, LIPB, TSH, FT4, CBCDIF, HBA1C, VITD #### [facility] [address] [address] Hemoglobin (Bld) [Mass/Vol] 13.8 g/dL Normal 11.5-15.5 [facility] Comment on above: Performed By: #### C MP, LIPB, TSH, FT4, CBCDIF, HBA1C, VITD #### [facility] [address] [place], [place] [address] Lymphocytes (Bld) [#/Vol] 1.18 10*3/uL Normal 1.00-4.00 [facility] Comment on above: Performed By: #### C MP, LIPB, TSH, FT4, CBCDIF, HBA1C, VITD #### [facility] [address] [address] Lymphocytes/100 WBC (Bld) 26.3 % Normal [facility] Comment on above: Performed By: #### C MP, LIPB, TSH, FT4, CBCDIF, HBA1C, VITD #### [facility] [address] [place], [place] [address] MCH (RBC) [Entitic mass] 31.2 pG Normal 26.0-34.0 [facility] Comment on above: Performed By: #### C MP, LIPB, TSH, FT4, CBCDIF, HBA1C, VITD #### [facility] Rout[facility] [address] [place], [place] [address] MCHC (RBC) [Mass/Vol] 31.9 g/dL Normal 30.5-36.0 [facility] Lab Comment on above: Performed By: #### C MP, LIPB, TSH, FT4, CBCDIF, HBA1C, VITD #### [facility] [address] [place], [place] [address] MCV (RBC) [Entitic vol] 97.5 fL Normal 80.0-100.0 [facility] Comment on above: Performed By: #### C MP, LIPB, TSH, FT4, CBCDIF, HBA1C, VITD #### [facility] [address] [place], [place] [address] Monocytes/100 WBC (Bld) 8.7 % Normal [facility] Comment on above: Performed By: #### C MP, LIPB, TSH, FT4, CBCDIF, HBA1C, VITD #### [facility] [address] [place], [place] [address] Neutrophils/100 WBC (Bld) 61.0 % Normal [facility] Comment on above: Performed By: #### C MP, LIPB, TSH, FT4, CBCDIF, HBA1C, VITD #### [facility] [address] [address] NRBCs 0.0 /100 WBC Normal 0 [facility] Lab Comment on above: Performed By: #### C MP, LIPB, TSH, FT4, CBCDIF, HBA1C, VITD #### [facility] [address] [place], [place] [address] Platelet mean volume (Bld) [Entitic vol] 10.4 fL Normal 9.0-12.7 [facility] Lab Comment on above: Performed By: #### C MP, LIPB, TSH, FT4, CBCDIF, HBA1C, VITD #### [facility] [address] [place], [place] [address] Platelets (Bld) [#/Vol] 155 10*3/uL Normal 150-400 [facility] Lab Comment on above: Performed By: #### C MP, LIPB, TSH, FT4, CBCDIF, HBA1C, VITD #### [facility] Rout[facility] [address] [place], [place] [address] RBC (Bld) [#/Vol] 4.43 10*6/uL Normal 3.90-5.20 [facility] Reference Lab Comment on above: Performed By: #### C MP, LIPB, TSH, FT4, CBCDIF, HBA1C, VITD #### [facility] [address] [place], [place] [address] WBC (Bld) [#/Vol] 4.48 10*3/uL Normal 3.70-11.00 [facility] Lab Comment on above: Performed By: #### C MP, LIPB, TSH, FT4, CBCDIF, HBA1C, VITD #### [facility] [address] [address] Comp Metabolic Panelon 12-01 Albumin [Mass/Vol] 4.7 g/dL Normal 3.9-4.9 [facility] Lab Comment on above: Performed By: #### C MP, LIPB, FT4, TSH, CBCDIF, HBA1C, VITD #### [facility] [address] [address] ALP [Catalytic activity/Vol] 78 U/L Normal 34-123 [facility] Lab Comment on above: Performed By: #### C MP, LIPB, FT4, TSH, CBCDIF, HBA1C, VITD #### [facility] [address] [place], [place] [address] ALT [Catalytic activity/Vol] 17 U/L Normal 7-38 [facility] Lab Comment on above: Performed By: #### C MP, LIPB, FT4, TSH, CBCDIF, HBA1C, VITD #### [facility] [address] [place], [place] [address] Anion gap [Moles/Vol] 11 mmol/L Normal 9-18 [facility] Lab Comment on above: Performed By: #### C MP, LIPB, FT4, TSH, CBCDIF, HBA1C, VITD #### [facility] [address] [place], [place] [address] AST [Catalytic activity/Vol] 23 U/L Normal 13-35 [facility] Comment on above: Performed By: #### C MP, LIPB, FT4, TSH, CBCDIF, HBA1C, VITD #### [facility] [address] [address] Bilirubin Ql (U) 0.6 mg/dL Normal 0.2-1.3 [facility] Reference Lab Comment on above: Performed By: #### C MP, LIPB, FT4, TSH, CBCDIF, HBA1C, VITD #### [facility] [address] [address] Calcium [Mass/Vol] 9.7 mg/dL Normal 8.5-10.2 [facility] Comment on above: Performed By: #### C MP, LIPB, FT4, TSH, CBCDIF, HBA1C, VITD #### [facility] Routine Lab [address] [place] [address] Chloride [Moles/Vol] 104 mmol/L Normal 97-105 [facility] Lab Comment on above: Performed By: #### C MP, LIPB, FT4, TSH, CBCDIF, HBA1C, VITD #### [facility] [address] [place] [address] CO2 [Moles/Vol] 27 mmol/L Normal 22-30 [facility] Lab Comment on above: Performed By: #### C MP, LIPB, FT4, TSH, CBCDIF, HBA1C, VITD #### [facility] [address] [place] [address] Creatinine [Mass/Vol] 0.83 mg/dL Normal 0.58-0.96 [facility] Lab Comment on above: Performed By: #### C MP, LIPB, FT4, TSH, CBCDIF, HBA1C, VITD #### [facility]ine Lab [address] [place] [address] eGFR- Amer. >60 Normal [facility] Lab Comment on above: Performed By: #### C MP, LIPB, FT4, TSH, CBCDIF, HBA1C, VITD #### [facility] Rout[facility] Lab [address] [place], [place] [address] GFR/1.73 sq M predicted among non-blacks MDRD (S/P/Bld) [Vol rate/Area] mL/min/{1.73_m2} Normal [facility] Lab Comment on above: Performed By: #### C MP, LIPB, FT4, TSH, CBCDIF, HBA1C, VITD #### [facility] [address] [place], [place] [address] Glucose [Mass/Vol] 108 mg/dL High 74-99 [facility] Lab Comment on above: Performed By: #### C MP, LIPB, FT4, TSH, CBCDIF, HBA1C, VITD #### [facility] Rout[facility] Lab [address] [place] [address] Potassium [Moles/Vol] 4.3 mmol/L Normal 3.7-5.1 [facility] Lab Comment on above: Performed By: #### C MP, LIPB, FT4, TSH, CBCDIF, HBA1C, VITD #### [facility] [address] [place], [place] [address] Protein [Mass/Vol] 7.4 g/dL Normal 6.3-8.0 [facility] Comment on above: Performed By: #### C MP, LIPB, FT4, TSH, CBCDIF, HBA1C, VITD #### [facility] [address] [place], [place] [address] Sodium [Moles/Vol] 142 mmol/L Normal 136-144 [facility] Comment on above: Performed By: #### C MP, LIPB, FT4, TSH, CBCDIF, HBA1C, VITD #### [facility] [address] [place], [place] [address] Urea nitrogen [Mass/Vol] 21 mg/dL Normal 7-21 [facility] Lab Comment on above: Performed By: #### C MP, LIPB, FT4, TSH, CBCDIF, HBA1C, VITD #### [facility] [address] [place], [place] [address] Free T4on 12-01-2018 Free T4 [Mass/Vol] 1.1 ng/dL Normal 0.9-1.7 [facility] Lab Comment on above: Performed By: #### C MP, LIPB, FT4, TSH, CBCDIF, HBA1C, VITD #### [facility] [address] [place], [place] [address] Hemoglobin A1con 12-01-2018 HbA1c (Bld) [Mass fraction] 117 mg/dL Normal [facility] Lab Comment on above: Performed By: #### C MP, LIPB, TSH, FT4, CBCDIF, HBA1C, VITD #### [facility] Lab [address] [place] [address] HbA1c (Bld) [Mass fraction] 5.7 % High 4.3-5.6 [facility] Comment on above: Performed By: #### C MP, LIPB, TSH, FT4, CBCDIF, HBA1C, VITD #### [facility] [address] [place], [place] [address] Lipid Panel, Basicon 019 Cholesterol [Mass/Vol] 177 mg/dL Normal <200 [facility] Comment on above: Performed By: #### C MP, LIPB, FT4, TSH, CBCDIF, HBA1C, VITD #### [facility] [address] [place], [place] [address] Cholesterol in HDL [Mass/Vol] 47 mg/dL Normal >39 [facility] Comment on above: Performed By: #### C MP, LIPB, FT4, TSH, CBCDIF, HBA1C, VITD #### [facility] [address] [place], [place] [address] Cholesterol in LDL [Mass/Vol] 98 mg/dL Normal <100 [facility] Comment on above: Performed By: #### C MP, LIPB, FT4, TSH, CBCDIF, HBA1C, VITD #### [facility] [address] [phone] Cholesterol in VLDL [Mass/Vol] 32 mg/dL High <30 [facility] Comment on above: Performed By: #### C MP, LIPB, FT4, TSH, CBCDIF, HBA1C, VITD #### [facility] Routine Lab [address] [place] [phone] Cholesterol non HDL [Mass/Vol] 130 mg/dL High <130 [facility] Comment on above: Performed By: #### C MP, LIPB, FT4, TSH, CBCDIF, HBA1C, VITD #### [facility]ine Lab [address] [place] [phone] LDL:HDL Ratio 2.09 Normal <2.54 [facility] Lab Comment on above: Performed By: #### C MP, LIPB, FT4, TSH, CBCDIF, HBA1C, VITD #### [facility] Routine Lab [address] [place], [place] [phone] TC:HDL Ratio 3.77 Normal <5.10 [facility] Comment on above: Performed By: #### C MP, LIPB, FT4, TSH, CBCDIF, HBA1C, VITD #### [facility] [address] [place] [phone] Triglyceride [Mass/Vol] 158 mg/dL High <150 [facility] Comment on above: Performed By: #### C MP, LIPB, FT4, TSH, CBCDIF, HBA1C, VITD #### [facility] [address] [place] [phone] Fasting Time 12 hrs Normal [facility] Lab Comment on above: Performed By: #### C MP, LIPB, FT4, TSH, CBCDIF, HBA1C, VITD #### [facility] Lab [address] [place] [address] TSHon 12-01-2018 TSH Qn 2.200 uU/mL Normal 0.400-5.500 [facility] Comment on above: Performed By: #### C MP, LIPB, TSH, FT4, CBCDIF, HBA1C, VITD #### [facility] [address] [place] [phone] Vitamin D 25 Hydroxyon 12-01 Vitamin D 25 Hydroxy 39.4 ng/mL Normal 31.0-80.0 [facility] Lab Comment on above: Performed By: #### C MP, LIPB, TSH, FT4, CBCDIF, HBA1C, VITD #### [facility] [address] [place] [address] CBC and Differentialon 08-25 Abs Baso 0.03 k/uL Normal <0.11 [facility] Comment on above: Performed By: #### C MP, LIPB, TSH, FT4, CBCDIF, HBA1C, VITD #### [facility] [address] [place] [address] Abs Barber 0.22 k/uL Normal <0.87 [facility] Comment on above: Performed By: #### C MP, LIPB, TSH, FT4, CBCDIF, HBA1C, VITD #### [facility] [address] [place] [address] Abs Neut 2.60 k/uL Normal 1.45-7.50 [facility] Comment on above: Performed By: #### C MP, LIPB, TSH, FT4, CBCDIF, HBA1C, VITD #### [facility] [address] [place] [address] Absolute nRBC <0.01 Normal <0.01 [facility] Comment on above: Performed By: #### C MP, LIPB, TSH, FT4, CBCDIF, HBA1C, VITD #### [facility]ine Lab [address] [phone] Basophils/100 WBC (Bld) 0.7 % Normal [facility] [facility] Comment on above: Performed By: #### C MP, LIPB, TSH, FT4, CBCDIF, HBA1C, VITD #### [facility] Routine Lab [address] [phone] DTYPE ADIFF Normal [facility] Reference Lab Comment on above: Performed By: #### C MP, LIPB, TSH, FT4, CBCDIF, HBA1C, VITD #### [facility] Routine Lab [address] [phone] Eosinophils (Bld) [#/Vol] 0.13 10*3/uL Normal <0.46 [facility] Reference Lab Comment on above: Performed By: #### C MP, LIPB, TSH, FT4, CBCDIF, HBA1C, VITD #### [facility] Routine Lab [address] [phone] Eosinophils/100 WBC (Bld) 3.0 % Normal [facility] Reference Lab Comment on above: Performed By: #### C MP, LIPB, TSH, FT4, CBCDIF, HBA1C, VITD #### [facility] Routine Lab [address] [phone] Erythrocyte distribution width (RBC) [Ratio] 14.2 % Normal 11.5-15.0 [facility] Reference Lab Comment on above: Performed By: #### C MP, LIPB, TSH, FT4, CBCDIF, HBA1C, VITD #### [facility] Routine Lab [address] [phone] Hematocrit (Bld) [Volume fraction] 45.3 % Normal 36.0-46.0 [facility] Reference Lab Comment on above: Performed By: #### C MP, LIPB, TSH, FT4, CBCDIF, HBA1C, VITD #### [facility] Routine Lab [address] [place], [place] [address] Hemoglobin (Bld) [Mass/Vol] 14.2 g/dL Normal 11.5-15.5 [facility] Reference Lab Comment on above: Performed By: #### C MP, LIPB, TSH, FT4, CBCDIF, HBA1C, VITD #### [facility] Routine Lab [address] [place], [place] [address] Lymphocytes (Bld) [#/Vol] 1.30 10*3/uL Normal 1.00-4.00 [facility] Reference Lab Comment on above: Performed By: #### C MP, LIPB, TSH, FT4, CBCDIF, HBA1C, VITD #### [facility] Routine Lab [address] [place], [place] [address] Lymphocytes/100 WBC (Bld) 30.3 % Normal [facility] Reference Lab Comment on above: Performed By: #### C MP, LIPB, TSH, FT4, CBCDIF, HBA1C, VITD #### [facility] Routine Lab [address] [place], [place] [address] MCH (RBC) [Entitic mass] 31.1 pG Normal 26.0-34.0 [facility] Reference Lab Comment on above: Performed By: #### C MP, LIPB, TSH, FT4, CBCDIF, HBA1C, VITD #### [facility] Routine Lab [address] [place], [place] [address] MCHC (RBC) [Mass/Vol] 31.3 g/dL Normal 30.5-36.0 [facility] Reference Lab Comment on above: Performed By: #### C MP, LIPB, TSH, FT4, CBCDIF, HBA1C, VITD #### [facility] Routine Lab [address] [place], [place] [address] MCV (RBC) [Entitic vol] 99.1 fL Normal 80.0-100.0 [facility] Reference Lab Comment on above: Performed By: #### C MP, LIPB, TSH, FT4, CBCDIF, HBA1C, VITD #### [facility] Routine Lab [address] [place], [place] [address] Monocytes/100 WBC (Bld) 5.1 % Normal [facility] Reference Lab Comment on above: Performed By: #### C MP, LIPB, TSH, FT4, CBCDIF, HBA1C, VITD #### [facility] Routine Lab [address] [place], [place] [phone] Neutrophils/100 WBC (Bld) 60.9 % Normal [facility] Reference Lab Comment on above: Performed By: #### C MP, LIPB, TSH, FT4, CBCDIF, HBA1C, VITD #### [facility] Routine Lab [address] [place] [address] NRBCs 0.0 /100 WBC Normal 0 [facility] Reference Lab Comment on above: Performed By: #### C MP, LIPB, TSH, FT4, CBCDIF, HBA1C, VITD #### [facility] Routine Lab [address] [place] [address] Platelet mean volume (Bld) [Entitic vol] 9.8 fL Normal 9.0-12.7 [facility] Reference Lab Comment on above: Performed By: #### C MP, LIPB, TSH, FT4, CBCDIF, HBA1C, VITD #### [facility] Routine Lab [address] [place] [address] Platelets (Bld) [#/Vol] 177 10*3/uL Normal 150-400 [facility] Reference Lab Comment on above: Performed By: #### C MP, LIPB, TSH, FT4, CBCDIF, HBA1C, VITD #### [facility] Routine Lab [address] [place] [address] RBC (Bld) [#/Vol] 4.57 10*6/uL Normal 3.90-5.20 [facility] Reference Lab Comment on above: Performed By: #### C MP, LIPB, TSH, FT4, CBCDIF, HBA1C, VITD #### [facility] Routine Lab [address] [place], [place] [phone] WBC (Bld) [#/Vol] 4.29 10*3/uL Normal 3.70-11.00 [facility] Reference Lab Comment on above: Performed By: #### C MP, LIPB, TSH, FT4, CBCDIF, HBA1C, VITD #### [facility] Routine Lab [address] [place], [place] [address] Comp Metabolic Panelon 08-25 Albumin [Mass/Vol] 4.9 g/dL Normal 3.9-4.9 [facility] Reference Lab Comment on above: Performed By: #### C MP, LIPB, TSH, FT4, CBCDIF, HBA1C, VITD #### [facility] Routine Lab [address] [place], [place] [address] ALP [Catalytic activity/Vol] 76 U/L Normal 34-123 [facility] Reference Lab Comment on above: Performed By: #### C MP, LIPB, TSH, FT4, CBCDIF, HBA1C, VITD #### [facility] Routine Lab [address] [place], [place] [address] ALT [Catalytic activity/Vol] 15 U/L Normal 7-38 [facility] Reference Lab Comment on above: Performed By: #### C MP, LIPB, TSH, FT4, CBCDIF, HBA1C, VITD #### [facility] Routine Lab [address] [place], [place] [address] Anion gap [Moles/Vol] 11 mmol/L Normal 9-18 [facility] Reference Lab Comment on above: Performed By: #### C MP, LIPB, TSH, FT4, CBCDIF, HBA1C, VITD #### [facility] Routine Lab [address] [place], [place] [address] AST [Catalytic activity/Vol] 22 U/L Normal 13-35 [facility] Reference Lab Comment on above: Performed By: #### C MP, LIPB, TSH, FT4, CBCDIF, HBA1C, VITD #### [facility] Routine Lab [address] [address] Bilirubin Ql (U) 0.5 mg/dL Normal 0.2-1.3 [facility] Reference Lab Comment on above: Performed By: #### C MP, LIPB, TSH, FT4, CBCDIF, HBA1C, VITD #### [facility] Routine Lab [address] [place] [address] Calcium [Mass/Vol] 10.3 mg/dL High 8.5-10.2 [facility] Reference Lab Comment on above: Performed By: #### C MP, LIPB, TSH, FT4, CBCDIF, HBA1C, VITD #### [facility] Routine Lab [address] [place] [address] Chloride [Moles/Vol] 107 mmol/L High 97-105 [facility] Reference Lab Comment on above: Performed By: #### C MP, LIPB, TSH, FT4, CBCDIF, HBA1C, VITD #### [facility] Routine Lab [address] [place] [address] CO2 [Moles/Vol] 26 mmol/L Normal 22-30 [facility] Reference Lab Comment on above: Performed By: #### C MP, LIPB, TSH, FT4, CBCDIF, HBA1C, VITD #### [facility] Routine Lab [address] [place] [address] Creatinine [Mass/Vol] 0.79 mg/dL Normal 0.58-0.96 [facility] Reference Lab Comment on above: Performed By: #### C MP, LIPB, TSH, FT4, CBCDIF, HBA1C, VITD #### [facility] Routine Lab [address] [place] [address] eGFR- Amer. >60 Normal [facility] Reference Lab Comment on above: Performed By: #### C MP, LIPB, TSH, FT4, CBCDIF, HBA1C, VITD #### [facility] Routine Lab [address] [place], [place] [address] GFR/1.73 sq M predicted among non-blacks MDRD (S/P/Bld) [Vol rate/Area] mL/min/{1.73_m2} Normal [facility] Reference Lab Comment on above: Performed By: #### C MP, LIPB, TSH, FT4, CBCDIF, HBA1C, VITD #### [facility] Routine Lab [address] [place], [place] [address] Glucose [Mass/Vol] 109 mg/dL High 74-99 [facility] Reference Lab Comment on above: Performed By: #### C MP, LIPB, TSH, FT4, CBCDIF, HBA1C, VITD #### [facility] Routine Lab [address] [place], [place] [address] Potassium [Moles/Vol] 4.6 mmol/L Normal 3.7-5.1 [facility] Reference Lab Comment on above: Performed By: #### C MP, LIPB, TSH, FT4, CBCDIF, HBA1C, VITD #### [facility] Routine Lab [address] [place], [place] [address] Protein [Mass/Vol] 7.4 g/dL Normal 6.3-8.0 [facility] Reference Lab Comment on above: Performed By: #### C MP, LIPB, TSH, FT4, CBCDIF, HBA1C, VITD #### [facility] Routine Lab [address] [place], [place] [address] Sodium [Moles/Vol] 144 mmol/L Normal 136-144 [facility] Reference Lab Comment on above: Performed By: #### C MP, LIPB, TSH, FT4, CBCDIF, HBA1C, VITD #### [facility] Routine Lab [address] [place] [address] Urea nitrogen [Mass/Vol] 15 mg/dL Normal 7-21 [facility] Reference Lab Comment on above: Performed By: #### C MP, LIPB, TSH, FT4, CBCDIF, HBA1C, VITD #### [facility] Routine Lab [address] [place], [place] [address] Free T4on 08-25-2018 Free T4 [Mass/Vol] 1.3 ng/dL Normal 0.9-1.7 [facility] Reference Lab Comment on above: Performed By: #### C MP, LIPB, TSH, FT4, CBCDIF, HBA1C, VITD #### [facility] Routine Lab [address] [place], [place] [address] Hemoglobin A1con 08-25-2018 HbA1c (Bld) [Mass fraction] 117 mg/dL Normal [facility] Reference Lab Comment on above: Performed By: #### C MP, LIPB, TSH, FT4, CBCDIF, HBA1C, VITD #### [facility] Routine Lab [address] [address] HbA1c (Bld) [Mass fraction] 5.7 % High 4.3-5.6 [facility] Reference Lab Comment on above: Performed By: #### C MP, LIPB, TSH, FT4, CBCDIF, HBA1C, VITD #### [facility] Routine Lab [address] [place], [place] [address] Lipid Panel, Basicon 018 Cholesterol [Mass/Vol] 181 mg/dL Normal <200 [facility] Reference Lab Comment on above: Performed By: #### C MP, LIPB, TSH, FT4, CBCDIF, HBA1C, VITD #### [facility] Routine Lab [address] [place], [place] [address] Cholesterol in HDL [Mass/Vol] 48 mg/dL Normal >39 [facility] Reference Lab Comment on above: Performed By: #### C MP, LIPB, TSH, FT4, CBCDIF, HBA1C, VITD #### [facility] Routine Lab [address] [address] Cholesterol in LDL [Mass/Vol] 100 mg/dL High <100 [facility] Reference Lab Comment on above: Performed By: #### C MP, LIPB, TSH, FT4, CBCDIF, HBA1C, VITD #### [facility] Routine Lab [address] [address] Cholesterol in VLDL [Mass/Vol] 33 mg/dL High <30 [facility] Reference Lab Comment on above: Performed By: #### C MP, LIPB, TSH, FT4, CBCDIF, HBA1C, VITD #### [facility] Routine Lab [address] [address] Cholesterol non HDL [Mass/Vol] 133 mg/dL High <130 [facility] Reference Lab Comment on above: Performed By: #### C MP, LIPB, TSH, FT4, CBCDIF, HBA1C, VITD #### [facility] Routine Lab [address] [address] LDL:HDL Ratio 2.08 Normal <2.54 [facility] Reference Lab Comment on above: Performed By: #### C MP, LIPB, TSH, FT4, CBCDIF, HBA1C, VITD #### [facility] Routine Lab [address] [address] TC:HDL Ratio 3.77 Normal <5.10 [facility] Reference Lab Comment on above: Performed By: #### C MP, LIPB, TSH, FT4, CBCDIF, HBA1C, VITD #### [facility] Routine Lab [address] [address] Triglyceride [Mass/Vol] 166 mg/dL High <150 [facility] Reference Lab Comment on above: Performed By: #### C MP, LIPB, TSH, FT4, CBCDIF, HBA1C, VITD #### [facility] Routine Lab [address] [address] Fasting Time UN Normal [facility] Reference Lab Comment on above: Performed By: #### C MP, LIPB, TSH, FT4, CBCDIF, HBA1C, VITD #### [facility] Routine Lab [address] [address] TSHon 08-25-2018 TSH Qn 1.470 uU/mL Normal 0.400-5.500 [facility] Reference Lab Comment on above: Performed By: #### C MP, LIPB, TSH, FT4, CBCDIF, HBA1C, VITD #### [facility] Routine Lab [address] [address] Vitamin D 25 Hydroxyon 08-25 Vitamin D 25 Hydroxy 43.2 ng/mL Normal 31.0-80.0 [facility] Reference Lab Comment on above: Performed By: #### C MP, LIPB, TSH, FT4, CBCDIF, HBA1C, VITD #### [facility] Routine Lab [address] [address] 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 Alanine aminotransferase (ALT) 50 U/L High [facility] Work Phone: [phone] Albumin 4.6 g/dL Invalid Interpretation Code [facility] Work Phone: [phone] Alkaline phosphatase (ALP) 73 U/L Invalid Interpretation Code [facility] Work Phone: [phone] Anion gap 16 mmol/L Invalid Interpretation Code [facility] Work Phone: [phone] Aspartate aminotransferase (AST) 46 U/L High [facility] Work Phone: [phone] Bilirubin (total) 0.9 mg/dL Invalid Interpretation Code [facility] Work Phone: [phone] Calcium 10.4 mg/dL Abnormal [facility] Work Phone: [phone] Chloride 101 mmol/L Invalid Interpretation Code [facility] Work Phone: [phone] Cholesterol 200 mg/dL High [facility] Work Phone: [phone] CO2 25 mmol/L Invalid Interpretation Code [facility] Work Phone: [phone] Creatinine 0.70 mg/dL Invalid Interpretation Code [facility] Work Phone: [phone] Erythrocytes (RBC) 4.73 10*6/uL Invalid Interpretation Code [facility] Work Phone: [phone] Glucose 98 mg/dL Invalid Interpretation Code [facility] Work Phone: [phone] HbA1c 5.7 % High [facility] Work Phone: [phone] HDL Cholesterol 46 mg/dL Low [facility] Work Phone: [phone] Hematocrit (HCT) 44.1 % Invalid Interpretation Code [facility] Work Phone: [phone] Hemoglobin (HGB) 14.5 g/dL Invalid Interpretation Code [facility] Work Phone: [phone] LDL Cholesterol 110 mg/dL Invalid Interpretation Code [facility] Work Phone: [phone] MCH 30.7 pg Invalid Interpretation Code [facility] Work Phone: [phone] MCHC 32.9 g/dL Invalid Interpretation Code [facility] Work Phone: [phone] MCV 93.2 fL Invalid Interpretation Code [facility] Work Phone: [phone] Platelets 172 10*3/mm3 Invalid Interpretation Code [facility] Work Phone: [phone] PMV by Linette 10.1 fL Invalid Interpretation Code [facility] Work Phone: [phone] Potassium 4.4 mmol/L Invalid Interpretation Code [facility] Work Phone: [phone] Protein 7.2 g/dL Invalid Interpretation Code [facility] Work Phone: [phone] RDW-CA 13.0 % Invalid Interpretation Code [facility] Work Phone: [phone] Sodium 142 mmol/L Invalid Interpretation Code [facility] Work Phone: [phone] Thyroid stimulating hormone (TSH) 1.630 u[iU]/mL Invalid Interpretation Code [facility] Work Phone: [phone] Thyroxine (T4) free 1.3 ng/dL Invalid Interpretation Code [facility] Work Phone: [phone] Triglyceride 221 mg/dL High [facility] Work Phone: [phone] Urea nitrogen 13 mg/dL Invalid Interpretation Code [facility] Work Phone: [phone] very low density lipoproteins 44 mg/dL High [facility] Work Phone: [phone] WBC (Leukocytes) 3.89 10*3/uL Invalid Interpretation Code [facility] Work Phone: [phone] Office Visiton 06-24-2017 Dietary management education, guidance, and counseling (procedure) yes Invalid Interpretation Code [facility] Work Phone: [phone] Documentation of current medications (procedure) Done Invalid Interpretation Code [facility] Work Phone: [phone] Fall risk assessment No Invalid Interpretation Code [facility] Work Phone: [phone] Protein mass conc Done [facility] Work Phone: [phone] Tobacco smoking status NHIS Former smoker [facility] Work Phone: [phone] Tobacco use CPHS Former smoker Invalid Interpretation Code [facility] Work Phone: [phone] 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 Anion gap 14 mmol/L Invalid Interpretation Code [facility] Work Phone: [phone] Anion gap molar conc 14 mmol/L [facility] Work Phone: [phone] Calcium 9.3 mg/dL [facility] Work Phone: [phone] Chloride 102 mmol/L [facility] Work Phone: [phone] Cholesterol 191 mg/dL [facility] Work Phone: [phone] Cholesterol to HDL Ratio 4.06 {ratio} Invalid Interpretation Code [facility] Work Phone: [phone] CO2 26 mmol/L Invalid Interpretation Code [facility] Work Phone: [phone] CO2 ppres (BldV) 26 mmol/L [facility] Work Phone: [phone] Creatinine 0.77 mg/dL [facility] Work Phone: [phone] Glucose 120 mg/dL High [facility] Work Phone: [phone] Glucose mass conc 120 mg/dL High [facility] Work Phone: [phone] HDL Cholesterol 47 mg/dL Low [facility] Work Phone: [phone] LDL Cholesterol 113 mg/dL [facility] Work Phone: [phone] LDL/HDL ratio, serum 2.40 Invalid Interpretation Code [facility] Work Phone: [phone] Potassium 4.7 mmol/L [facility] Work Phone: [phone] Sodium 142 mmol/L [facility] Work Phone: [phone] Thyroid stimulating hormone (TSH) 4.550 u[iU]/mL [facility] Work Phone: [phone] Triglyceride 154 mg/dL High [facility] Work Phone: [phone] Urea nitrogen 15 mg/dL [facility] Work Phone: [phone] very low density lipoproteins 31 mg/dL [facility] Work Phone: [phone] Office Visit: [facility] 08-15-20 16 Dietary management education, guidance, and counseling (procedure) yes Invalid Interpretation Code [facility] Work Phone: [phone] Documentation of current medications (procedure) Done Invalid Interpretation Code [facility] Work Phone: [phone] Replaced Document: [facility] [place] 08-15-2016 EKG QRS axis -10 deg [facility] Work Phone: [phone] electrocardiogram interpretation Sinus Rhythm WITHIN NORMAL LIMITS Invalid Interpretation Code [facility] Work Phone: [phone] GE use only - for [employer] import when terms are not otherwise specified 407 ms Invalid Interpretation Code [facility] Work Phone: [phone] Interpretation Sinus Rhythm WITHIN NORMAL LIMITS [facility] Work Phone: [phone] P [place] 38 deg [facility] Work Phone: [phone] P wave axis, electrocardiogram 38 deg Invalid Interpretation Code [facility] Work Phone: [phone] MS Interval 162 ms [facility] Work Phone: [phone] MS interval, electrocardiogram 162 ms Invalid Interpretation Code [facility] Work Phone: [phone] Pulse (Heart Rate) 77 /min Invalid Interpretation Code [facility] Work Phone: [phone] QRS axis, electrocardiogram -10 deg Invalid Interpretation Code [facility] Work Phone: [phone] QRS Duration 82 ms [facility] Work Phone: [phone] QRS duration, electrocardiogram 82 ms Invalid Interpretation Code [facility] Work Phone: [phone] QT Interval new path ms [facility] Work Phone: [phone] QT interval, electrocardiogram new path ms Invalid Interpretation Code [facility] Work Phone: [phone] QTc Fournier 407 ms [facility] Work Phone: [phone] T [place] 31 deg [facility] Work Phone: [phone] T wave axis, electrocardiogram 31 deg Invalid Interpretation Code [facility] Work Phone: [phone] Clinical Lists 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 building and construction manager 01-16-2016 Anion gap 14 mmol/L Invalid Interpretation Code [facility] Work Phone: [phone] Calcium 9.8 mg/dL Invalid Interpretation Code [facility] Work Phone: [phone] Chloride 105 mmol/L Invalid Interpretation Code [facility] Work Phone: [phone] Cholesterol 208 mg/dL High [facility] Work Phone: [phone] Cholesterol to HDL Ratio 4.73 {ratio} Invalid Interpretation Code [facility] Work Phone: [phone] CO2 25 mmol/L Invalid Interpretation Code [facility] Work Phone: [phone] Creatinine 0.72 mg/dL Invalid Interpretation Code [facility] Work Phone: [phone] Erythrocyte distribution width Ratio (RBC) 14.3 % [facility] Work Phone: [phone] Erythrocytes (RBC) 4.69 10*6/uL Invalid Interpretation Code [facility] Work Phone: [phone] Glucose 101 mg/dL High [facility] Work Phone: [phone] HDL Cholesterol 44 mg/dL Invalid Interpretation Code [facility] Work Phone: [phone] Hematocrit (HCT) 44.7 % Invalid Interpretation Code [facility] Work Phone: [phone] Hematocrit Volume Fraction (Bld) 44.7 % [facility] Work Phone: ) 0 Hemoglobin (HGB) 14.6 g/dL [facility] Work Phone: [phone] LDL Cholesterol 135 mg/dL High [facility] Work Phone: ) 0 LDL/HDL ratio, serum 3.07 Invalid Interpretation Code [facility] Work Phone: [phone] MCH 31.1 pg Invalid Interpretation Code [facility] Work Phone: [phone] MCH Entitic mass (RBC) 31.1 pg [facility] Work Phone: ) 0 MCHC 32.7 g/dL Invalid Interpretation Code [facility] Work Phone: ) 0 MCHC mass conc (RBC) 32.7 g/dL [facility] Work Phone: ) 0 MCV 95.3 fL Invalid Interpretation Code [facility] Work Phone: ) 0 MCV Entitic volume (RBC) 95.3 fL [facility] Work Phone: ) 0 Platelet mean volume Entitic volume (Bld) 9.7 fL [facility] Work Phone: ) 0 Platelets 179 10*3/mm3 Invalid Interpretation Code [facility] Work Phone: [phone] Platelets #/vol (Bld) 179 10*3/mm3 [facility] Work Phone: ) 0 PMV by Linette 9.7 fL Invalid Interpretation Code [facility] Work Phone: () 0 Potassium 4.1 mmol/L Invalid Interpretation Code [facility] Work Phone: ) 0 RBC #/vol (Bld) 4.69 10*6/uL [facility] Work Phone: ) 0 RDW-CA 14.3 % Invalid Interpretation Code [facility] Work Phone: ) 0 Sodium 144 mmol/L Invalid Interpretation Code [facility] Work [phone] Thyroid stimulating hormone (TSH) 4.050 u[iU]/mL Invalid Interpretation Code [facility] Work Phone: [phone] Triglyceride 145 mg/dL Invalid Interpretation Code [facility] Work Phone: [phone] Urea nitrogen 19 mg/dL Invalid Interpretation Code [facility] Work Phone: [phone] very low density lipoproteins 29 mg/dL Invalid Interpretation Code [facility] Work Phone: [phone] WBC #/vol (Bld) 4.52 10*3/uL [facility] Work Phone: [phone] WBC (Leukocytes) 4.52 10*3/uL Invalid Interpretation Code [facility] Work Phone: [phone] Office Visiton 12-12-2015 General cardiovascular disease 10Y risk [#] [place].D'Agost[place] 15 % Invalid Interpretation Code [facility] Work Phone: [phone] Tobacco use CPHS Former smoker Invalid Interpretation Code [facility] Work Phone: [phone] Clinical Lists 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 10-09-2015 Alanine aminotransferase (ALT) 45 U/L [facility] Work Phone: [phone] Aspartate aminotransferase (AST) 36 U/L [facility] Work Phone: [phone] Lab Report: Liver Profileon 05-16-2015 Albumin 4.0 g/dL 3.4-5.0 [facility] Work Phone: [phone] Alkaline phosphatase (ALP) 78 U/L Invalid Interpretation Code 50-136 [facility] Work Phone: [phone] ALP enzyme act/vol (Bld) 78 U/L 50-136 [facility] Work Phone: [phone] Bilirubin (direct) 0.15 mg/dL Invalid Interpretation Code 0.00-0.30 [facility] Work Phone: [phone] Bilirubin (total) 0.80 mg/dL 0.20-1.00 [facility] Work Phone: [phone] Globulin 3.3 g/dL Invalid Interpretation Code 2.7-4.2 [facility] Work Phone: [phone] Globulin mass conc (S) 3.3 g/dL 2.7-4.2 [facility] Work Phone: [phone] Protein 7.3 g/dL 6.4-8.2 [facility] Work Phone: [phone] Clinical Lists 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 Jessica Reyes MD Work Phone: [facility] [facility] [place] 08-02-2025 14:36-0400 Body mass index (BMI) [Ratio] 31.4 kg/m2 Dr. Jessica Reyes MD Work Phone: [facility] 08-02-2025 14:36-0400 Body weight 75.[address] Jessica Reyes MD Work Phone: [facility] [place] 08-02-2025 14:36-0400 Diastolic blood pressure 78 mm[Hg] Dr. Jessica Reyes MD Work Phone: [facility] [place] 08-02-2025 14:36-0400 Heart rate 66 /min Dr. Jessica Reyes MD Work Phone: [facility] [place] 08-02-2025 14:36-0400 Respiratory rate 16 /min Dr. Jessica Reyes MD Work Phone: [facility] [place] 08-02-2025 14:36-0400 Systolic blood pressure 135 mm[Hg] Dr. Jessica Reyes MD Work Phone: [facility] 01-24-2025 08:21-0400 Body height 154.[address] Jessica Reyes MD Work Phone: [facility] [place] 01-24-2025 08:21-0400 Body mass index (BMI) [Ratio] 30.2 kg/m2 Dr. Jessica Reyes MD Work Phone: [facility] 01-24-2025 08:21-0400 Body weight 72.[address] Jessica Reyes MD Work Phone: [facility] 01-24-2025 08:21-0400 Diastolic blood pressure 87 mm[Hg] Dr. Jessica Reyes MD Work Phone: [facility] [place] 01-24-2025 08:21-0400 Heart rate 51 /min Dr. Jessica Reyes MD Work Phone: [facility] 01-24-2025 08:21-0400 Respiratory rate 16 /min Dr. Jessica Reyes MD Work Phone: [facility] 01-24-2025 08:21-0400 Systolic blood pressure 141 mm[Hg] Dr. Jessica Reyes MD Work Phone: [facility] 05-24-2024 12:54-0400 Body mass index (BMI) [Ratio] 29.99 kg/m2 Wing Claire MD Work Phone: [facility] 05-24-2024 12:54-0400 Body weight 72 kg Wing Claire MD Work Phone: [facility] 05-24-2024 12:54-0400 Diastolic blood pressure 67 mm[Hg] Wing Claire MD Work Phone: [facility] 05-24-2024 12:54-0400 Heart rate 59 /min Wing Claire MD Work Phone: [facility] 05-24-2024 12:54-0400 Systolic blood pressure 107 mm[Hg] Wing Claire MD Work Phone: [facility] 09-15-2023 11:38-0400 Body height 154.9 cm Wing Claire MD Work Phone: [facility] 09-15-2023 11:38-0400 Body weight 65.77 kg Wing Claire MD Work Phone: [facility] 09-15-2023 11:38-0400 Diastolic blood pressure 64 mm[Hg] Wing Claire MD Work Phone: [facility] 09-15-2023 11:38-0400 Heart rate 57 /min Wing Claire MD Work Phone: [facility] 09-15-2023 11:38-0400 Respiratory rate 16 /min Wing Claire MD Work Phone: [facility] 09-15-2023 11:38-0400 SaO2% (BldA) [Mass fraction] 98 % Wing Claire MD Work Phone: [facility] 09-15-2023 11:38-0400 Systolic blood pressure 138 mm[Hg] Wing Claire MD Work Phone: [facility] 08-28-2023 10:28-0400 Body height 125 cm Wing Claire MD Work Phone: [facility] 08-28-2023 10:28-0400 Body weight 61.24 kg Wing Claire MD Work Phone: [facility] 08-28-2023 10:28-0400 Diastolic blood pressure 85 mm[Hg] Wing Claire MD Work Phone: [facility] 08-28-2023 10:28-0400 Heart rate 61 /min Wing Claire MD Work Phone: [facility] 08-28-2023 10:28-0400 Respiratory rate 16 /min Wing Claire MD Work Phone: [facility] 08-28-2023 10:28-0400 SaO2% (BldA) [Mass fraction] 98 % Wing Claire MD Work Phone: [facility] 08-28-2023 10:28-0400 Systolic blood pressure 131 mm[Hg] Wing Claire MD Work Phone: [facility] 07-02-2023 [id number] Body height 157.5 cm Wing Claire MD Work Phone: [facility] 07-02-2023 [id number] Body weight 63.5 kg Wing Claire MD Work Phone: [facility] 07-02-2023 [id number] Diastolic blood pressure 82 mm[Hg] Wing Claire MD Work Phone: [facility] 07-02-2023 10:21-0400 Heart rate 56 /min Wing Claire MD Work Phone: [facility] 07-02-2023 [id number] Respiratory rate 16 /min Wing Claire MD Work Phone: [facility] 07-02-2023 10:21-0400 SaO2% (BldA) [Mass fraction] 98 % Wing Claire MD Work Phone: [facility] 07-02-2023 10:21-0400 Systolic blood pressure 142 mm[Hg] Wing Claire MD Work Phone: [facility] 06-15-2023 10:10-0400 Body height 154.[address] Jessica Reyes Work Phone: [facility] [place] 06-15-2023 10:10-0400 Body mass index (BMI) [Ratio] 27.1 kg/m2 Dr. Jessica Reyes Work Phone: [facility] [place] 06-15-2023 10:10-0400 Body temperature 96.9 [degF] Dr. Jessica Reyes Work Phone: [facility] [place] 06-15-2023 10:10-0400 Body weight 65.[address] Jessica Reyes Work Phone: [facility] [place] 06-15-2023 10:10-0400 Diastolic blood pressure 85 mm[Hg] Dr. Jessica Reyes Work Phone: [facility] 06-15-2023 10:10-0400 Heart rate 65 /min Dr. Jessica Reyes Work Phone: [facility] [place] 06-15-2023 10:10-0400 Respiratory rate 14 /min Dr. Jessica Reyes Work Phone: [facility] [place] 06-15-2023 10:10-0400 SaO2% (BldA) [Mass fraction] 99 % Dr. Jessica Reyes Work Phone: [facility] [place] 06-15-2023 10:10-0400 Systolic blood pressure 152 mm[Hg] Dr. Jessica Reyes Work Phone: [facility] [place] 06-11-2023 17:19-0400 Diastolic blood pressure 75 mm[Hg] Dr. Jessica Reyes Work Phone: [facility] [place] 06-11-2023 17:19-0400 Heart rate 63 /min Dr. Jessica Reyes Work Phone: [facility] [place] 06-11-2023 17:19-0400 Respiratory rate 16 /min Dr. Jessica Reyes Work Phone: [facility] [place] 06-11-2023 17:19-0400 SaO2% (BldA) [Mass fraction] 95 % Dr. Jessica Reyes Work Phone: [facility] [place] 06-11-2023 17:19-0400 Systolic blood pressure 97 mm[Hg] Dr. Jesisca Reyes Work Phone: [facility] [place] 06-11-2023 14:07-0400 Body temperature 98.4 [degF] Dr. Jessica Reyes Work Phone: [facility] [place] 06-11-2023 12:34-0400 Body height 154.[address] Jessica Reyes Work Phone: [facility] [place] 06-11-2023 12:34-0400 Body mass index (BMI) [Ratio] 27 kg/m2 Dr. Jessica Reyes Work Phone: [facility] [place] 06-11-2023 12:34-0400 Body weight 64.[address] Jessica Reyes Work Phone: [facility] [place] 06-09-2023 16:46-0400 Diastolic blood pressure 70 mm[Hg] Dr. Jessica Reyes Work Phone: [facility] 06-09-2023 16:46-0400 Heart rate 56 /min Dr. Jessica Reyes Work Phone: [facility] [place] 06-09-2023 16:46-0400 Respiratory rate 16 /min Dr. Jessica Reyes Work Phone: [facility] [place] 06-09-2023 16:46-0400 SaO2% (BldA) [Mass fraction] 97 % Dr. Jessica Reyes Work Phone: [facility] [place] 06-09-2023 16:46-0400 Systolic blood pressure 135 mm[Hg] Dr. Jessica Reyes Work Phone: [facility] [place] 06-09-2023 12:40-0400 Body mass index (BMI) [Ratio] 27.5 kg/m2 Dr. Jessica Reyes Work Phone: [facility] [place] 06-09-2023 12:40-0400 Body temperature 96.9 [degF] Dr. Jessica Reyes Work Phone: [facility] 06-09-2023 12:40-0400 Body weight 66.[address] Jessica Reyes Work Phone: [facility] 05-29-2023 13:38-0400 Body mass index (BMI) [Ratio] 27.9 kg/m2 Dr. Jessica Reyes Work Phone: [facility] [place] 05-29-2023 13:38-0400 Body weight 67.[address] Jessica Reyes Work Phone: [facility] [place] 05-29-2023 13:38-0400 Diastolic blood pressure 67 mm[Hg] Dr. Jessica Reyes Work Phone: [facility] [place] 05-29-2023 13:38-0400 Heart rate 66 /min Dr. Jessica Reyes Work Phone: [facility] [place] 05-29-2023 13:38-0400 Respiratory rate 18 /min Dr. Jessica Reyes Work Phone: [facility] [place] 05-29-2023 13:38-0400 Systolic blood pressure 126 mm[Hg] Dr. Jessica Reyes Work Phone: [facility] [place] 05-14-2023 13:32-0400 Body mass index (BMI) [Ratio] 28.3 kg/m2 Dr. Jessica Reyes Work Phone: [facility] [place] 05-14-2023 13:32-0400 Body weight 68.[address] Jessica Reyes Work Phone: [facility] [place] 05-14-2023 13:32-0400 Diastolic blood pressure 84 mm[Hg] Dr. Jessica Reyes Work Phone: [facility] [place] 05-14-2023 13:32-0400 Heart rate 76 /min Dr. Jessica Reyes Work Phone: [facility] [place] 05-14-2023 13:32-0400 Respiratory rate 18 /min Dr. Jessica Reyes Work Phone: [facility] [place] 05-14-2023 13:32-0400 SaO2% (BldA) [Mass fraction] 96 % Dr. Jessica Reyes Work Phone: [facility] [place] 05-14-2023 13:32-0400 Systolic blood pressure 136 mm[Hg] Dr. Jessica Reyes Work Phone: [facility] 05-06-2023 15:50-0400 Body height 154.[address] Jessica Reyes Work Phone: [facility] [place] 05-06-2023 15:50-0400 Body mass index (BMI) [Ratio] 27.3 kg/m2 Dr. Jessica Reyes Work Phone: [facility] [place] 05-06-2023 15:50-0400 Body temperature 97 [degF] Dr. Jessica Reyes Work Phone: [facility] 05-06-2023 15:50-0400 Body weight 65.[address] Jessica Reyes Work Phone: [facility] [place] 05-06-2023 15:50-0400 Diastolic blood pressure 80 mm[Hg] Dr. Jessica Reyes Work Phone: [facility] 05-06-2023 15:50-0400 Heart rate 83 /min Dr. Jessica Reyes Work Phone: [facility] [place] 05-06-2023 15:50-0400 Respiratory rate 14 /min Dr. Jessica Reyes Work Phone: [facility] 05-06-2023 15:50-0400 SaO2% (BldA) [Mass fraction] 98 % Dr. Jessica Reyes Work Phone: [facility] 05-06-2023 15:50-0400 Systolic blood pressure 107 mm[Hg] Dr. Jessica Reyes Work Phone: [facility] 04-10-2023 21:56-0400 Body height 157.[address] Jessica Reyes Work Phone: [facility] 04-10-2023 21:56-0400 Body mass index (BMI) [Ratio] 26.9 kg/m2 Dr. Jessica Reyes Work Phone: [facility] [place] 04-10-2023 21:56-0400 Body temperature 98.2 [degF] Dr. Jessica Reyes Work Phone: [facility] 04-10-2023 21:56-0400 Body weight 66.[address] Jessica Reyes Work Phone: [facility] 04-10-2023 21:56-0400 Diastolic blood pressure 86 mm[Hg] Dr. Jessica Reyes Work Phone: [facility] 04-10-2023 21:56-0400 Heart rate 89 /min Dr. Jessica Reyes Work Phone: [facility] 04-10-2023 21:56-0400 Respiratory rate 16 /min Dr. Jessica Reyes Work Phone: [facility] 04-10-2023 21:56-0400 SaO2% (BldA) [Mass fraction] 98 % Dr. Jessica Reyes Work Phone: [facility] [place] 04-10-2023 21:56-0400 Systolic blood pressure 137 mm[Hg] Dr. Jessica Reyes Work Phone: [facility] [place] 02-06-2023 07:46-0400 Body height 157.5 cm Wing Claire MD Work Phone: [facility] 02-06-2023 07:46-0400 Body weight 74.84 kg Wing Claire MD Work Phone: [facility] 02-06-2023 07:46-0400 Diastolic blood pressure 73 mm[Hg] Wing Claire MD Work Phone: [facility] 02-06-2023 07:46-0400 Heart rate 57 /min Wing Claire MD Work Phone: [facility] 02-06-2023 07:46-0400 SaO2% (BldA) [Mass fraction] 98 % Wing Claire MD Work Phone: [facility] 02-06-2023 07:46-0400 Systolic blood pressure 138 mm[Hg] Wing Claire MD Work Phone: [facility] 02-05-2022 09:36-0400 Body height 157.[address] Jessica Reyes Work Phone: [facility] Work Phone: 02-05-2022 09:36-0400 Body mass index (BMI) [Ratio] 29.8 kg/m2 Dr. Jessica Reyes Work Phone: [facility] Work Phone: 02-05-2022 09:36-0400 Body weight 73.[address] Jessica Reyes Work Phone: [facility] Work Phone: 02-05-2022 09:36-0400 Diastolic blood pressure 77 mm[Hg] Dr. Jessica Reyes Work Phone: [facility] Work Phone: 02-05-2022 09:36-0400 Heart rate 60 /min Dr. Jessica Reyes Work Phone: [facility] Work Phone: 02-05-2022 09:36-0400 Respiratory rate 18 /min Dr. Jessica Reyes Work Phone: [facility] Work Phone: 02-05-2022 09:36-0400 Systolic blood pressure 138 mm[Hg] Dr. Jessica Reyes Work Phone: [facility] Work Phone: 12-23-2021 05:17-0500 SaO2% (BldA) [Mass fraction] 98 % Dr. Jessica Reyes Work Phone: [facility] Work Phone: 12-23-2021 04:36-0500 Diastolic blood pressure 56 mm[Hg] Dr. Jessica Reyes Work Phone: [facility] Work Phone: 12-23-2021 04:36-0500 Heart rate 74 /min Dr. Jessica Reyes Work Phone: [facility] Work Phone: 12-23-2021 04:36-0500 Respiratory rate 16 /min Dr. Jessica Reyes Work Phone: [facility] Work Phone: 12-23-2021 04:36-0500 Systolic blood pressure 115 mm[Hg] Dr. Jessica Reyes Work Phone: [facility] Work Phone: 12-23-2021 02:42-0500 Body mass index (BMI) [Ratio] 30.1 kg/m2 Dr. Jessica Reyes Work Phone: [facility] Work Phone: 12-23-2021 02:42-0500 Body temperature 97.8 [degF] Dr. Jessica Reyes Work Phone: [facility] Work Phone: 12-23-2021 02:42-0500 Body weight 74.[address] Jessica Reyes Work Phone: [facility] Work Phone: 06-24-2017 15:59-0400 BMI (Body Mass Index) 32.37 kg/m2 [facility] Work Phone: 06-24-2017 15:59-0400 BP Diastolic 88 mm[Hg] [facility] Work Phone: 06-24-2017 15:59-0400 BP Systolic 164 mm[Hg] [facility] Work Phone: 06-24-2017 15:59-0400 Height 157.48 cm Armin [facility] Work Phone: 06-24-2017 15:59-0400 Pulse (Heart Rate) 68 /min Armin [facility] Work Phone: 06-24-2017 15:59-0400 Respiratory Rate 18 /min Armin Reynaga [facility] Work Phone: 06-24-2017 15:59-0400 Weight 80.29 kg Armin Reynaga [facility] Work Phone: 08-15-2016 14:09-0400 Heart rate 77 /min Harpatience DeFingulshan [facility] Work Phone: 08-15-2016 12:39-0400 BMI (Body Mass Index) 32.26 kg/m2 Cheng DeFingulshan [facility] Work Phone: 08-15-2016 12:39-0400 BP Diastolic 88 mm[Hg] Harumi DeFinis [facility] Work Phone: 08-15-2016 12:39-0400 BP Diastolic 100 mm[Hg] Harumi DeFinis [facility] Work Phone: 08-15-2016 12:39-0400 BP Systolic 145 mm[Hg] Harumi DeFinis [facility] Work Phone: 08-15-2016 12:39-0400 BP Systolic 190 mm[Hg] Harumi DeFinis [facility] Work Phone: 08-15-2016 12:39-0400 BSA (Body Surface Area) 1.81 m2 Harumi DeFinis [facility] Work Phone: 08-15-2016 12:39-0400 Pulse (Heart Rate) 76 /min Harumi DeFinis [facility] Work Phone: 08-15-2016 12:39-0400 Respiratory Rate 16 /min Harumi DeFinis [facility] Work Phone: 08-15-2016 12:39-0400 Weight 80.02 kg Harpatience DeFinis [facility] Work Phone: 02-16-2014 14:01-0400 Height 157.48 cm Harpatience DeFinis [facility] Work Phone: Encounters Encounter Date Encounter Type Care Provider Facility Start: 08-02-2025 End: 08-02-[address] Mili Barnett MD -[facility] Work Phone: Start: 08-02-2025 End: 08-02-[address] Jessica Reyes MD Work Phone: -[facility] Start: 02-23-2025 Non-patient / Non-visit Dr. Mili lnyn MD -[facility] Start: 02-23-2025 End: 02-23-[address] Jessica Reyes MD Work Phone: [facility] Work Phone: Start: 02-23-2025 End: 02-23-[address] Mili Barnett MD -Cardiovascular Services Work Phone: Start: 02-23-2025 End: 02-23-2025 ambulatory Mili Barnett Facility:[facility] Start: 01-31-2025 End: 01-31-[address] Jessica Reyes MD Work Phone: [facility] Work Phone: Start: 01-31-2025 End: 01-31-[address] Mili Barnett MD -Laboratory Work Phone: Start: 01-31-2025 End: 01-31-2025 ambulatory Mili Barnett Facility:[facility] Start: 01-24-2025 End: 01-24-[address] Mili Barnett MD -[facility] Work Phone: Start: 01-24-2025 End: 01-24-2025 ambulatory Jessica Reyes Facility:[facility] [place] Start: 08-16-2024 End: 08-16-2024 ambulatory RAFA ALVAREZ Facility:[facility] Start: 05-24-2024 End: 05-24-2024 ambulatory WING CLAIRE Facility:[facility] Start: 05-24-2024 End: 05-24-2024 Office outpatient visit 25 minutes Wing Claire MD Work Phone: Neurology Comment on above: Intractable chronic post-traumatic headache (Primary Dx); Post-concussion headache Start: 05-15-2024 End: 05-15-2024 ambulatory Vilma Cardenas RN [facility] Clinical Communication Start: 05-15-2024 End: 05-15-2024 Patient encounter procedure Vilma Cardenas RN [facility] Clinical Communication Start: 03-10-2024 Refill Wing Claire MD Work Phone: Neurology Comment on above: Refill Request Start: 11-21-2023 End: 11-21-2023 ambulatory [facility] Work Phone: Start: 11-21-2023 End: 11-21-2023 Patient encounter procedure [facility] Work Phone: Start: 10-27-2023 End: 10-27-[address] Jessica Reyes Work Phone: [facility] Work Phone: Start: 10-27-2023 End: 10-27-[address] Jessica Reyes Work Phone: [facility] Start: 09-22-2023 Telephone encounter Wing ureña MD Work Phone: Neurology Start: 09-21-2023 Telephone encounter Diego aguiar DO Work Phone: Hematology/Oncology Comment on above: New Patient Start: 09-15-2023 End: 09-15-2023 ambulatory WING CLAIRE Facility:[facility] Start: 09-15-2023 End: 09-15-2023 Office outpatient visit 25 minutes Wing Claire MD Work Phone: Neurology Comment on above: Intractable chronic post-traumatic headache (Primary Dx) Start: 09-03-2023 End: 09-03-2023 ambulatory WING Y DAKOTAH Facility:[facility] Start: 09-02-2023 End: 09-02-2023 ambulatory WING Y DAKOTAH Facility:[facility] Start: 08-28-2023 End: 08-28-2023 ambulatory WING Y DAKOTAH Facility:[facility] Start: 08-28-2023 End: 08-28-2023 Office outpatient visit 25 minutes Wing Claire MD Work Phone: Neurology Comment on above: Intractable post-tra umatic headache, unspecified chronicity pattern (Primary Dx) Start: 08-25-2023 Telephone encounter Wing ureña MD Work Phone: Neurology Start: 08-24-2023 Telephone encounter Jimmy walsh MD Work Phone: Neurology Comment on above: Results (Called to sarah dunn CT findings. Left message to call me back) Results (Left messag e that I will send CT result to her neurologist Dr Claire and for patient to call her) Start: 08-24-2023 End: 08-24-2023 ambulatory JIMMY CRAFT Facility:[facility] Start: 08-12-2023 End: 08-12-[address] Jessica Reyes Work Phone: [facility] Work Phone: Start: 08-12-2023 End: 08-12-[address] Jessica Reyes Work Phone: [facility]-Outpatient Bone Densitometry Work Phone: Start: 07-13-2023 Non-patient / Non-visit Dr. Fuentes Work Phone: [facility] Work Phone: Start: 07-06-2023 End: 07-06-[address] Jessica Reyes Work Phone: [facility] Work Phone: Start: 07-06-2023 End: 07-06-[address] Jessica Reyes Work Phone: [facility]-Pulmonary Services/Neurology Work Phone: Start: 07-02-2023 End: 07-02-2023 Office outpatient visit 25 minutes Wing Claire MD Work Phone: Neurology Comment on above: Post-concussion head ache (Primary Dx) Start: 06-26-2023 Non-patient / Non-visit Dr. Fuentes Work Phone: [facility] Work Phone: Start: 06-25-2023 Non-patient / Non-visit Dr. Fuentes Work Phone: [facility] Start: 06-22-2023 Non-patient / Non-visit Dr. Fuentes Work Phone: [facility] Start: 06-22-2023 End: 06-22-[address] Jessica Reyes Work Phone: [facility] Work Phone: Start: 06-22-2023 End: 06-22-[address] [facility] Start: 06-15-2023 End: 06-15-2023 Emergency department patient visit Dr. Jessica Reyes Work Phone: [facility]Emergency Department Work Phone: Start: 06-11-2023 End: 06-11-2023 Emergency department patient visit Dr. Jessica Reyes Work Phone: [facility]Emergency Department Work Phone: Start: 06-09-2023 End: 06-09-2023 Emergency department patient [facility] Start: 06-05-2023 End: 06-05-[address] [facility] Start: 05-29-2023 End: 05-29-[address] Jessica Reyes Work Phone: [facility] Work Phone: Start: 05-25-2023 Telephone encounter Wing ureña MD Work Phone: Neurology Comment on above: Appointment Start: 05-14-2023 End: 05-14-[address] Jessica Reyes Work Phone: [facility] Work Phone: Start: 05-06-2023 End: 05-06-2023 Emergency department patient visit Dr. Jessica Reyes Work Phone: [facility]Emergency Department Start: 04-24-2023 End: 04-24-[address] [facility] Start: 04-22-2023 End: 04-22-2023 Subsequent hospital visit by physician Jessica Reyes MD Work Phone: [facility] Radiology Comment on above: Spondylolisthesis, l umbar region; Radiculopathy, lumbar region Spondylolisthesis, l umbar region (Primary Dx); Radiculopathy, lumbar region Start: 04-17-2023 End: 04-17-[address] Jessica Reyes Work Phone: [facility] Work Phone: Start: 04-17-2023 End: 04-17-[address] [facility] Start: 04-11-2023 End: 04-11-[address] Jessica Reyes Work Phone: [facility] Work Phone: Start: 04-11-2023 End: 04-11-[address] Jessica Reyes Work Phone: [facility] [place]-Ultrasound, [facility] Start: 04-10-2023 End: 04-11-2023 Emergency department patient visit Dr. Jessica Reyes Work Phone: [facility]-Emergency Department Start: 04-10-2023 ambulatory Susie Simon C linical Communication Start: 04-10-2023 Patient encounter procedure Susie Simon Clinical Communication Start: 03-25-2023 End: 03-25-2023 Subsequent hospital visit by physician Jessica Reyes MD Work Phone: [facility] Radiology Comment on above: Contusion of left fo ot, initial encounter; Pain in left foot Contusion of left fo ot, initial encounter (Primary Dx); Pain in left foot Start: 02-06-2023 End: 02-06-2023 Office outpatient new 45 minutes Wing Claire MD Work Phone: Neurology Comment on above: Post-traumatic heada lisa, not intractable, unspecified chronicity pattern (Primary Dx) Start: 01-15-2023 End: 01-15-[address] Jessica Reyes Work Phone: [facility] Work Phone: Start: 01-15-2023 End: 01-15-[address] Jessica Reyes Work Phone: [facility]-Laboratory Start: 01-06-2023 Non-patient / Non-visit Dr. Fuentes Work Phone: [facility] Start: 01-01-2023 End: 01-01-[address] Jessica Reyes Work Phone: [facility] Work Phone: Start: 01-01-2023 End: 01-01-[address] Jessica Reyes Work Phone: [facility]-Pulmonary Services/Neurology Start: 07-30-2022 End: 07-30-[address] Jessica Reyes Work Phone: [facility] Work Phone: Start: 07-30-2022 End: 07-30-[address] Jessica Reyes Work Phone: [facility]-Outpatient Breast Imaging Start: 04-21-2022 Non-patient / Non-visit Dr. Fuentes Work Phone: [facility] Start: 04-21-2022 End: 04-21-[address] [facility] Start: 03-05-2022 Non-patient / Non-visit Dr. Fuentes Work Phone: [facility] Start: 03-05-2022 End: 03-05-[address] [facility] Start: 02-05-2022 End: 02-05-[address] Jessica Reyes Work Phone: [facility]Laboratory Start: 12-23-2021 End: 12-23-2021 Emergency department patient visit Dr. Jessica Reyes Work Phone: [facility]-Emergency Department Start: 10-16-2021 End: 10-16-2021 Subsequent hospital visit by physician Jessica Reyes MD Work Phone: [facility] Start: 04-05-2021 End: 04-05-2021 Subsequent hospital visit by physician Jessica Reyes MD Work Phone: [facility] Comment on above: Arrived Procedures Date Procedure Procedure Detail Performing Clinician Start: 11-21-2023 US scan of thyroid Start: 10-27-[address] of whole body Dr Joss Reyes Work Phone: Start: 08-12-2023 Dual energy X-ray absorptiometry Dr. Jessica Reyes Work Phone: Start: 08-12-2023 Screening mammography Sarah Reyes Work Phone: Start: 06-22-2023 Cardiovascular stres s test using pharmacologic stress agent Dr. Jessica Reyes Work Phone: Start: 06-11-[address] Jessica Reyes Work Phone: Start: 06-09-2023 Plain chest X-ray Dr. Sarah Reyes Work Phone: Start: 07-30-2022 Screening mammography Sarah Reyes Work Phone: Start: 04-21-2022 Cardiovascular stres s test using pharmacologic stress agent Dr. Jessica Reyes Work Phone: Start: 12-23-2021 CT of head without contrast Dr. Jessica Reyes Work Phone: Start: 10-16-2021 Dup-scan xtr veins c omplete bilateral study Jessica Reyes MD Work Phone: Start: 04-05-2021 EMG REPORT Tyrese roasles MD Work Phone: Start: 06-24-2017 End: 06-24-2017 Dietary management education, guidance, and counseling Cheng Fisher Start: 06-24-2017 End: 06-24-2017 Follow Up Appt 1 year Diego Smith Start: 06-24-2017 End: 06-24-2017 Follow Up Appt Other Diego Lilly MD Start: 06-24-2017 End: 06-24-2017 PFM Diego Lilly MD Start: 08-15-2016 End: 08-15-2016 Electrocardiogram, complete Marlee Casey PROGRAM ADMIN-C Start: 08-15-2016 End: 08-15-2016 Follow Up Appt 9 months Marlee Casey PROGRAM ADMIN -C Start: 08-15-2016 End: 08-15-2016 PFM Marlee Casey PROGRAM ADMIN-C Start: 04-28-2016 Lipid 1996 panel - S johny or Sean Claire MD Work Phone: Start: 04-28-2016 End: 06-26-2017 [...] 1996 panel - S johny or Plasma Jimmy Craft MD Work Phone: Plan of Treatment Date Care Activity Detail Author Start: 12-05-2029 DTaP/Tdap/Td vaccine (2 - Td or Tdap) DTaP/Tdap/Td vaccine (2 - Td or Tdap) [facility] Start: 12-05-2029 DTaP/Tdap/Td vaccine (2 - Td) DTaP/Tdap/Td vaccine (2 - Td) [facility] Work Phone: Start: 12-05-2029 DTaP/Tdap/Td Vaccine s (2 - Td or Tdap) DTaP/Tdap/Td Vaccines (2 - Td or Tdap) [facility] Start: 12-05-2029 Urine microalbumin profile DTaP,Tdap,Td Vaccine (2 - Td or Tdap) [facility] Start: 09-02-2026 Diabetes Screening Diabetes Screenin g [facility] Start: 08-24-2025 ambulatory Ambulatory Facility:[facility] Start: 05-24-2025 BP Controlled (<130/80) BP Controlle d (<130/80) [facility] Start: 11-24-2024 End: 11-24-2024 Patient encounter procedure 11/24/2024 10:30 AM EST Office Visit Neurology [address] [address] Wing Claire MD [address] [place] [address] 6 month follow up Neurology Comment on above: 6 month follow up Start: 07-17-2024 Influenza vaccination C [facility] Start: 03-15-2024 End: 03-15-2024 Patient encounter procedure 03/15/2024 11:30 AM EDT Office Visit Neurology [address] [address] Wing Claire MD [address] [place] [address] 6 month follow up Neurology Comment on above: 6 month follow up Start: 11-16-2023 Advance Directive Discussion Advance Directive Discussion [facility] Start: 11-16-2023 Behavioral Health Screening Behavioral Health Screening [facility] Start: 11-16-2023 Medicare Advantage Annual Wellness Visit Medicare Advantage Annual Wellness Visit [facility] Start: 08-25-2023 End: 10-25-2023 CREATININE BLD CREATININE BLD Lab Routine Brain lesion Expected: 08/25/2023, Expires: 10/25/2023 [facility] Work Phone: Comment on above: Expected: 08/25/2023 , Expires: 10/25/2023 Start: 07-17-2023 Covid-19 Vaccine () Covid-19 Vaccine () [facility] Start: 07-17-2023 Influenza vaccination [facility] Start: 07-02-2023 End: 09-01-2023 Erythrocyte sedimentation rate SED RATE WESTERGREN Lab Routine Post-concussion headache Expected: 07/02/2023, Expires: 09/01/2023 [facility] Work Phone: Comment on above: Expected: 07/02/2023 , Expires: 09/01/2023 Start: 06-11-2023 [facility] Start: 06-09-2023 [facility] Start: 02-06-2023 End: 04-08-2023 C reactive protein [Mass/volume] in Serum or Plasma C-REACTIVE PROTEIN (CRP) Lab Routine Post-traumatic headache, not intractable, unspecified chronicity pattern Expected: 02/06/2023, Expires: 04/08/2023 [facility] Work Phone: Comment on above: Expected: 02/06/2023 , Expires: 04/08/2023 Start: 02-06-2023 End: 04-08-2023 Erythrocyte sedimentation rate SED RATE WESTERGREN Lab Routine Post-traumatic headache, not intractable, unspecified chronicity pattern Expected: 02/06/2023, Expires: 04/08/2023 [facility] Work Phone: Comment on above: Expected: 02/06/2023 , Expires: 04/08/2023 Start: 11-16-2022 ADVANCE DIRECTIVE DISCUSSION ADVANCE DIRECTIVE DISCUSSION [facility] Start: 11-16-2022 DEPRESSION ASSESSMENT DEPRESSION ASS ESSMENT [facility] Start: 06-26-2022 LIPID SCREEN LIPID SCREEN [facility] Start: 11-05-2021 COVID-19 VACCINE (3 - Booster for Pfizer series) COVID-19 VACCINE (3 - Booster for Pfizer series) [facility] Start: 11-05-2021 COVID-19 VACCINE (3 - Pfizer series) COVID-19 VACCINE (3 - Pfizer series) [facility] Start: 07-17-2021 Influenza vaccination Flu vaccine (# 1) [facility] Start: 04-28-2021 Lipid 1996 panel - S johny or Plasma Lipid Screening [facility] Start: 04-28-2021 Lipid panel Lipid Screening [facility] Start: 04-28-2021 LIPID SCREEN LIPID SCREEN [facility] Start: 04-07-2021 Annual Wellness Visi t (AWV) Annual Wellness Visit (AWV) [facility] Start: 01-02-2020 DTaP/Tdap/Td Vaccine s (2 - Td or Tdap) DTaP/Tdap/Td Vaccines (2 - Td or Tdap) [facility] Start: 08-16-2018 Lipid 1996 panel - S johny or Plasma Lipid Screening [facility] Start: 06-28-2018 End: 06-28-2018 Appointment Appointment [facility] Work Phone: Start: 06-24-2017 End: 06-24-2017 Appointment Appointment [facility] Work Phone: Start: 06-24-2017 End: 06-24-2017 Follow Up Appt 1 year Follow Up Appt 1 year [facility] Work Phone: Start: 06-24-2017 End: 06-24-2017 Follow Up Appt Other Follow Up Appt Other [facility] Work Phone: Start: 06-24-2017 End: 06-24-2017 PFM PFM [facility] Work Phone: Start: 08-15-2016 DIABETES SCREEN DIABETES SCREEN [facility] Start: 08-15-2016 Diabetes Screening Diabetes Screenin g [facility] Start: 08-15-2016 End: 08-15-2016 Electrocardiogram, complete EKG (In office) [facility] Work Phone: Start: 08-15-2016 End: 08-15-2016 Follow Up Appt 9 months Follow Up Appt 9 months [facility] Work Phone: Start: 08-15-2016 End: 08-15-2016 PFM PFM [facility] Work Phone: Start: 04-28-2016 End: 10-26-2015 *Hepatic Function Panel *Hepatic Function Panel [facility] Work Phone: Start: 04-28-2016 End: 06-26-2017 Lipid panel [AGGREGATE] *Lipid Profile CC PCP [facility] Work Phone: Start: 12-12-2015 End: 12-13-2015 Follow Up Appt 6 months Follow Up Appt 6 months [facility] Work Phone: Start: 12-12-2015 End: 12-13-2015 MMM MMM [facility] Work Phone: Start: 10-16-2015 End: 10-24-2015 *Hepatic Function Panel *Hepatic Function Panel [facility] Work Phone: Start: 10-16-2015 End: 10-24-2015 Lipid panel [AGGREGATE] *Lipid Profile CC PCP [facility] Work Phone: Start: 06-07-2015 End: 06-07-2015 Follow Up Appt 6 months Follow Up Appt 6 months [facility] Work Phone: Start: 06-07-2015 End: 06-07-2015 Follow Up BP Check Follow Up BP Check [facility] Work Phone: Start: 06-07-2015 End: 06-07-2015 PFM PFM [facility] Work Phone: Start: 05-16-2015 End: 05-16-2015 *Hepatic Function Panel *Hepatic Function Panel [facility] Work Phone: Start: 05-16-2015 End: 05-16-2015 Lipid panel [AGGREGATE] *Lipid Profile CC PCP [facility] Work Phone: Start: 02-14-2015 End: 02-14-2015 Follow Up Appt 6 months Follow Up Appt 6 months [facility] Work Phone: Start: 02-14-2015 End: 02-14-2015 MMM MMM [facility] Work Phone: Start: 02-14-2015 End: 02-14-2015 Nuclear stress test -exercise Nuclear stress test -exercise [facility] Work Phone: Start: 10-30-2014 End: 11-20-2014 *Hepatic Function Panel *Hepatic Function Panel [facility] Work Phone: Start: 10-30-2014 End: 10-30-2014 Follow Up Appt 6 months Follow Up Appt 6 months [facility] Work Phone: Start: 10-30-2014 End: 11-20-2014 Lipid panel [AGGREGATE] *Lipid Profile CC PCP [facility] Work Phone: Start: 10-30-2014 End: 10-30-2014 MMM MMM [facility] Work Phone: Start: 04-13-2014 End: 04-13-2014 Follow Up Appt 6 months Follow Up Appt 6 months [facility] Work Phone: Start: 04-13-2014 End: 04-13-2014 PFM PFM [facility] Work Phone: Start: 02-16-2014 End: 02-16-2014 Electrocardiogram, complete EKG (In office) [facility] Work Phone: Start: 02-16-2014 End: 02-16-2014 Follow Up Appt 6 weeks Follow Up Appt 6 weeks [facility] Work Phone: Start: 02-16-2014 End: 02-16-2014 Follow Up Appt Other Follow Up Appt Other [facility] Work Phone: Start: 02-16-2014 End: 02-16-2014 MMM MMM [facility] Work Phone: Start: 2013 BONE DENSITY BONE DENSITY [facility] Start: 2013 Bone Density Screening Bone Density Screening [facility] Start: 2013 Pneumococcal Vaccine : 65+ (1 - PCV) Pneumococcal Vaccine: 65+ (1 - PCV) [facility] Start: 2013 PNEUMOCOCCAL: 65+ (1 - PCV) PNEUMOCOCCAL: 65+ (1 - PCV) [facility] Start: 2013 Screening for osteoporosis Bone Density Screening [facility] Start: 2008 RSV Immunization age d 60 or older (1 - 1-dose 60+ series) RSV Immunization aged 60 or older (1 - 1-dose 60+ series) [facility] Start: 2008 RSV Vaccine (1 - 1-d ose 60+ series) RSV Vaccine (1 - 1-dose 60+ series) [facility] Start: 2003 Screening for osteoporosis DEXA (modify frequency per FRAX score) [facility] Start: 1998 Screening for malign ant neoplasm of breast Breast cancer screen [facility] Start: 1998 Screening for malign ant neoplasm of colon Colon cancer screen colonoscopy [facility] Work Phone: Start: 1998 Shingles Vaccine (1 of 2) Shingles Vaccine (1 of 2) [facility] Start: 1998 SHINGRIX VACCINE (1 of 2) SHINGRIX VACCINE (1 of 2) [facility] Start: 1998 Zoster Vaccines (1 of 2) Zoste r Vaccines (1 of 2) [facility] Start: 1993 COLOGUARD (FIT-DNA) COLOGUARD (FIT-D NA) [facility] Start: 1993 Colonoscopy COLONOSCOPY [facility] Start: 1993 COLORECTAL CANCER SCREENING COLORECTAL CANCER SCREENING [facility] Start: [address] COLONOGRAPHY [facility] Start: 1993 FECAL OCCULT BLOOD FECAL OCCULT BLOO D [facility] Start: 1993 Screening for malign ant neoplasm of colon 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 Start: 1960 Depression Screening Depression Scre ening [facility] Start: 1948 Hepatitis B Vaccines (1 of 3 - 3-dose series) Hepatitis B Vaccines (1 of 3 - 3-dose series) [facility] Start: 1948 Hepatitis C screening Hepatitis C sc reen [facility] Start: 1948 Lipid panel Lipid Panel [facility] Start: 1948 Screening for malign ant neoplasm of colon [facility] Start: 1948 Screening for osteoporosis Bone Density Scan [facility] 24 Hour ECG [facility] End: 09-23-2024 Ct abdomen & pelvis w/contrast material CT ABD/PEL W IVCON Radiology Routine Infection in abdomen (HCC) 1 Occurrences starting 08/25/2023 until 09/23/2024 [facility] Work Phone: Comment on above: 1 Occurrences starti ng 08/25/2023 until 09/23/2024 End: 09-23-2024 CT CHEST W IVCON CT CHEST W IVCON Radiology Routine Brain lesion 1 Occurrences starting 08/25/2023 until 09/23/2024 [facility] Work Phone: Comment on above: 1 Occurrences starti ng 08/25/2023 until 09/23/2024 End: 07-31-2024 Mra head w/o contrst material MRV BRAIN WO IVCON Radiology Routine Post-concussion headache 1 Occurrences starting 07/02/2023 until 07/31/2024 [facility] Work Phone: Comment on above: 1 Occurrences starti ng 07/02/2023 until 07/31/2024 End: 07-31-2024 Mri brain brain stem w/o w/contrast material MRI BRAIN WO/W IVCON Radiology Routine Post-concussion headache 1 Occurrences starting 07/02/2023 until 07/31/2024 [facility] Work Phone: Comment on above: 1 Occurrences starti ng 07/02/2023 until 07/31/2024 NM Heart Views W str ess and W radionuclide IV [facility] OUTSIDE PROCEDURE SCAN OUTSIDE P ROCEDURE SCAN Procedures Ordered: 03/25/[address] [facility] [employer] Comment on above: Ordered: 03/25/2023 OUTSIDE PROCEDURE SCAN OUTSIDE P ROCEDURE SCAN Procedures Ordered: 04/22/[address] [facility] [employer] Comment on above: Ordered: 04/22/2023 Patient Education [facility] Work Phone: Patient referral [facility] Work Phone: [facility] End: 03-25-2023 XR Foot - left [facility] Work Phone: Comment on above: Once for 1 Occurrenc es starting 03/25/2023 until 03/25/2023 End: 04-22-2023 XR Lumbar spine Views W flexion and W extension [facility] [employer] Work Phone: Comment on above: Once for 1 Occurrenc es starting 04/22/2023 until 04/22/2023 [facility] Immunizations Immunization Date Immunization Notes Care Provider Sor[facility] 10-06-2023 influenza virus vacc ine, unspecified formulation Wing Claire MD Work Phone: [facility] 09-11-2022 influenza virus vacc ine, unspecified formulation Jessica Reyes MD Work Phone: [facility] 08-15-2013 influenza virus vacc ine, unspecified formulation Wing Claire MD Work Phone: [facility] Payers Date Payer Category Payer Medicaid [id number] 2024 Self-pay [id number] 2022 Medicaid [id number] 2022 Unknown [id number] 2019 Medicare [employer] MEDICARE ADVANTAGE [facility] [id number] 2019-Present [address] [place] [address] Medicare HMO [id number] 2019 Unknown [id number] 2019 Medicare [id number] Medicare [id number] Unknown [id number] Unknown [id number] Unknown [id number] Unknown [id number] Unknown [id number] Unknown [id number] Unknown [id number] Social History Date Type Detail Facility Tobacco smoking stat us FLIS Unknown if ever smoked [facility] Work Phone: Start: 1950 Sex Assigned At Not on file S [facility] Work Phone: Start: 02-05-2022 End: 06-15-2023 Tobacco smoking status FLIS Tobacco smoking consumption unknown [facility] Start: 03-21-2021 Non-smoker [facility] Start: 1950 Sex Assigned At Female [facility] Start: 02-06-2023 End: 01-14-2024 Tobacco smoking status FLIS Ex-smoker [facility] End: 07-14-1993 History of tobacco use Current smoker [facility] End: 07-14-1993 History of tobacco use Cigarette Smoker [facility] Start: 02-06-2023 End: 05-14-2023 Cigarettes smoked current (pack per day) - Reported 1 [facility] Start: 02-06-2023 Tobacco use and exposure Smokeless tobacco non-user [facility] Start: 02-06-2023 End: 05-24-2024 Alcohol intake Current non-drinker of alcohol (finding) [facility] Start: 03-15-2023 End: 04-22-2023 Exposure to SARS-CoV-2 (event) Not sure [facility] Start: 05-14-2023 End: 05-24-2024 Gender identity Not on file [facility] National Score (1-10 0), lower number is lower risk 52 [facility] Start: 02-09-2025 End: 03-01-2025 Sex Female (finding) [facility] Mental Status Date Assessment Result Facility 06-11-2023 Cognitive function Level Of Cons ciousness Awake;Alert;Appropriate;Follow s Commands [facility] Work Phone: 06-09-2023 Cognitive function Voice/Name [facility] Work Phone: 05-06-2023 Cognitive function Level Of Cons ciousness Awake;Alert;Appropriate;Follow s Commands [facility] Work Phone: 12-23-2021 Cognitive function Level Of Cons ciousness Awake;Alert;Appropriate;Follow s Commands [facility] Work Phone: Clinical Notes 02-06-2023 to 08-02-2025 Note Date & Type Note Facility 08-02-2025 Progress note [facility] 08-02-2025 Progress note Note Date/Time August 02, 2025 2:58pm [facility] [address] [place] [address] OFFICE VISIT Date of Service: 08/02/25 MR#: [id number] Acct: [id number] Name: AVIS TORRES Rep #: [id number] : 1950 Provider: Dr. Jl Barnett MD Age/Sex: 74/F Location: [facility] [place] Status: Signed HPI HPI History of Present Illness Details: This pleasant lady with past medical history significant for hypertension, diastolic dysfunction, dyslipidemia and aortic valve regurgitation is here for routine follow-up visit. Denies any complaints. No chest pain. No shortness of breath. No orthopnea PND. No ankle edema. Intake Vital Signs 01/24/25 08:21 08/02/25 14:36 Height 5 ft 1 in 5 ft 1 in Weight: 160 lb 166 lb BMI 30.2 31.4 BP 141/87 H 135/78 H Blood Pressure Location Lt brachial Lt brachial Position Sitting Sitting Respiration 16 16 Pulse 51 L 66 Pulse Source NIBP Monitor Intake Visit Reasons: 6 M FU [employer] Required: No Accompanied by: Self Is patient in pain?: No Allergies ketorolac Allergy (Severe, Verified 08/02/25 14:42) altered mental status prochlorperazine Allergy (Severe, Verified 08/02/25 14:42) altered mental status tizanidine Allergy (Severe, Verified 08/02/25 14:42) altered mental status hydrochlorothiazide Adverse Reaction (Intermediate, Verified 08/02/25 14:42) Hypokalemia even on 40 meq daily methocarbamol Adverse Reaction (Intermediate, Verified 08/02/25 14:42) DIZZINESS Medications ?Medication ?Instructions ?Recorded ?Confirmed ?Type aspirin 81 mg tablet,delayed 81 mg PO QDAY 06/28/18 History release (Adult Low Dose Aspirin) atorvastatin 20 mg tablet 20 mg PO QHS 12/05/19 History levothyroxine 88 mcg tablet 88 mcg PO DAILY 02/05/22 0 08/02/25 History cholecalciferol (vitamin D3) 25 25 mcg PO DAILY 08/02/25 History mcg (1,000 unit) tablet triamterene 37.5 1 tab PO DAILY 05/14/2307/17 History mg-hydrochlorothiazide 25 mg tablet riboflavin (vitamin B2) 400 mg 400 mg PO DAILY 3 08/02/25 History tablet magnesium 250 mg tablet 500 mg PO BID 06/24/2408/02 History miconazole nitrate 2 % topical 1 applic topical ONCE P RN 06/24/24 07/13/25 History powder (Zeasorb AF) omeprazole 40 mg capsule,delayed 40 mg PO DAILY 08/02/25 History release turmeric root extract 500 mg 1,000 mg PO BID 06/24/24 08/02/25 History capsule isosorbide mononitrate 60 mg 60 mg PO DAILY #90 tabs 0 12/19/24 08/02/25 Rx tablet,extended release 24 hr losartan 25 mg tablet 25 mg PO QDAY #90 tabs 01/2408/02/25 Rx potassium chloride 20 mEq 20 meq PO DAILY #90 tabs 10/1008/02/25 Rx tablet,extended release atenolol 50 mg tablet 50 mg PO DAILY #90 tabs 0702/0708/02/25 Rx calcium carbonate (Calcium 600) 600 mg PO BID 08/02/25 08/02/25 History omega 7-ghs-rex-fish oil 1,200 mg 1 cap PO BID 5 08/02/25 History (144 mg-216 mg) capsule (Fish Oil) sennosides 8.6 mg tablet (senna) 17.2 mg PO QDAY PRN 0 08/02/25 08/02/25 History sertraline 25 mg tablet 25 mg PO QDAY 08/02/2508/02 History zonisamide 25 mg capsule 25 mg PO QDAY 08/02/2508/02 History Ejection fraction %: 65 Have you fallen in the past year?: No PFSH Medical History Dyslipidemia Lower extremity edema Abdominal tenderness Nausea Recent unexplained weight loss Edema Shortness of breath Hypokalemia due to excessive gastrointestinal loss of potassium Dyspnea on exertion Head injury (12/23/21) Pure hypercholesterolemia Essential hypertension Atypical chest pain Palpitations Hypothyroidism Depression Anxiety Palpitations Surgical History History of partial hysterectomy History of left heart catheterization (~1993) Family History Father , Age 63 Myocardial infarction Mother , Age 84 Dementia Sister Hypertension Sister Hypertension Sister Hyperlipidemia Social History Smoking Status: Former smoker how long ago did patient quit smokin years ago alcohol intake: never substance use type: does not use caffeine: No ROS Const Const: Negative for fatigue or weakness Eyes Eyes: Negative for change in vision ENT ENT: Negative for dizziness or balance problems Cardio Chest Pain: No Palpitations: Yes (fluttering occasionally) Edema: None Resp Respiratory: Negative for SOB with activity, SOB at rest or SOB orthopnea\\SOB lying down GI GI: Negative nausea or heartburn Musc Musc: Negative for balance problems Neuro Neuro: Negative for dizziness, lightheadedness, near syncope, syncope or weakness Endo Endo: Negative for fatigue Cardiology Exam Const Appearance: comfortable and no acute distress Nutritional Appearance: well nourished Neck Neck: no JVD Carotids: Negative bruit Chest Auscultation: Bilateral: Clear to Auscultation Cardio Rate: regular rate Rhythm: regular rhythm Heart sounds: S1 normal and S2 normal Neuro General: patient alert, patient awake and patient oriented x3 Extremities Lower Extremity Edema: Trace: Bilateral Supplemental Info Supplemental Information Diagnostics: Electrocardiogram Echocardiogram Stress Test Stress Test Nuclear Medicine Chest X-Ray Extremity Arterial Study Venous Doppler Study Past Visits: Cardiology Visit Today Assessment and Plan Assessment and Plan (1) Essential hypertension: Status: Chronic Plan: Atenolol and triamterene hydrochlorothiazide. Also on losartan. It is also noted that she is on isosorbide. I do not see any indication for that. Stop isosorbide. Increase losartan to 50 mg daily. (2) Diastolic dysfunction without heart failure: Status: Chronic Plan: Blood pressure control. Monitor. Echocardiogram also showed possible mild right heart dilatation with mild RV systolic dysfunction. Will check cardiac MRI to confirm. (3) Aortic regurgitation: Status: Chronic Plan: Periodic echo and clinical surveillance. (4) Dyslipidemia: Status: Chronic Plan: Continue atorvastatin. Check lipid profile. Plan Details Follow Up: 6 Months Coding Level of Care Code Off vis,est,level 4 Diagnoses Essential hypertension I10 Diastolic dysfunction without heart failure I51.89 Aortic regurgitation I35.1 Dyslipidemia E78.5 Coding Level of Care Code Off vis,est,level 4 Diagnoses Essential hypertension I10 Diastolic dysfunction without heart failure I51.89 Aortic regurgitation I35.1 Dyslipidemia E78.5 Clinical Quality Measures Falls Risk Screening/Assistive Devices Have you fallen in the past year?: No Cardiac Ejection fraction %: 65 08/02/25 1458 <Electronically signed by Mili Barnett MD> Date _ Mili Barnett MD Cosigner Signature: Date (if applicable) CC: Dr. Jessica Reyes MD ~ [facility] Work Phone: [phone]) 215-146603-11-2025 Evaluation note* Diagnosis Onset Date Resolution Status Admit Date Aortic regurgitation chronic [facility] 2024 9:27am Diastolic dysfunction withou t heart failure chronic January 24, 2025 9:27am Dyslipidemia chronic January 24, 2025 9:27am Essential hypertension [facility] 2024 9:27am [facility] Work Phone: 1(499) 734-709007-09-2024 NoteHNO ID: [id number] Author: WING CLAIRE MD Service: ? Author Type: Physician Type: Progress Notes Filed: 06/09/2024 21:30 Note Text: Look at other note [facility]gran [facility] History of Present illness Narrative* Wing Claire MD - 05/24/2024 1:18 PM EDT Look at other note Headache on zonegran has no side effects * Wing Claire MD - 05/24/2024 1:07 PM EDT Interval history No orders found for this visit on 05/24/24. 73 years old woman who is here for follow up for post concussion headache. Intermittent headache at the trauma site Above the right eye Not constant ,not daily ,much improved since she it her head Zonegran helps with breakthrough episodes,wants to continue with that medicine until all headaches resolve Discussed test results in details In a previous visit Follow up visit Postconcussion headache,today [...] headache control Subjective HISTORY AND PHYSICAL Avis Torres 72 year old woman , who is [...] now headache resolved Review of Systems Objective 05/24/24 1254 BP: 107/67 BP Site: Right Arm BP Position: Sitting BP Cuff Size: Regular Adult Pulse: (!) 59 Weight: 72 kg (158 lb 11.7 oz) Physical Exam EXAM: Neck supple and no [...] elevates symmetrically, Tongue protrudes midline, and Shoulder shrugintact and symmetric MOTOR: No drift MOTOR STRENGTH: Upper and lower extremity 5/5 bilaterally REFLEXES: UE and LE reflexes are equal and reactive SENSATION: Intact light touch COORDINATION: Finger-to- nose-finger intact bilaterally GAIT: Normal-based PAST MEDICAL HISTORY Diagnosis Date Abnormal EKG @[facility] Hyperlipidemia Hypertension Current Outpatient Medications Medication Sig Dispense Refill acetaminophen 650 mg CR tablet Acetaminophen Active 650 MG DAILY August 29, 2019 3:28pm miconazole (ZEASORB AF) 2 % powder Apply to affected area as needed. atorvastatin (LIPITOR) 20 mg tablet Take 1 tablet by mouth every afternoon. omeprazole (PRILOSEC) 40 mg capsule Take 40 mg by mouth once daily. riboflavin, vitamin B2, (VITAMIN B-2 ORAL) Take by mouth once daily. sertraline (ZOLOFT) 50 mg tablet 1/2 tablet Orally Once a day Magnesium Oxide 500 mg tab Take 250 mg by mouth once daily. potassium chloride ER (KLOR-CON) 20 mEq tablet Take 20 mEq by mouth once daily. triamterene-hydroCHLOROthiazide (MAXZIDE-25) 37.5-25 mg per tablet TAKE 1 TABLET BY MOUTH ONCE DAILY IN THE MORNING turmeric root extract 500 mg cap Take 500 mg by mouth once daily. isosorbide dinitrate (ISORDIL, SORBITRATE) 30 mg tablet Take 60 mg by mouth once daily. polyethylene glycol 3350 17 gram/dose powder Take by mouth once daily. aspirin, enteric coated 81 mg EC tablet Take 1 tablet by mouth once daily. 0 CALCIUM CARBONATE/VITAMIN D3 (CALCIUM + D ORAL) Take by mouth once daily. levothyroxine (SYNTHROID) 50 mcg tablet Take 50 mcg by mouth once daily. Taking 88 mg daily 0 atenolol 50 mg tablet Take 1 tablet by mouth once daily. 0 multivitamin tablet Take 1 tablet by mouth once daily. 0 zonisamide (ZONEGRAN) 25 mg capsule Take 1 capsule by mouth two times a day. 60 capsule 2 zonisamide (ZONEGRAN) 25 mg capsule Take 1 capsule by mouth once daily. 90 capsule 4 potassium chloride 20 mEq TbER 1 tablet with food Orally Once a day (Patient not taking: Reported on 09/15/2023) diclofenac (VOLTAREN) 1 % topical gel APPLY 2GM TO EACH FOOT EXTERNALLY TWICE DAILY FOR 30 DAYS (Patient not taking: Reported on 05/24/2024) hydroCHLOROthiazide 25 mg tablet Take 25 mg [...] PRN (Patient not taking: Reported on 09/15/2023) OMEGA-3 [...] 72 years old woman with posttraumatic headache much improved ,with zonegran as preventive medication. 1-Maintain regular sleep schedule. 2-Limit over the counter medications and prescription rescue meds to 2 days per week or less 3-Maintain headache diary. 4-Limit caffeine to 1-2, 8 oz cups per day or less (300 mg) 5-Limit diet sodas to12 oz or less per day. Avoid other sources of nutrasweet. 6-Avoid dietary triggers. (list given to pt) 7-Eat regular, frequent meals. 8- Keep hydrated. Drink at least 6-8, 8 oz glasses of water/d Total time in minutes spent with patient, reviewing records, labs, imaging, formulating plan, and documentin minutes with more than 50% of the time spent in patient education/counselling/coordinating care with the patient and /or family. Wing Claire M.D. [facility] Department of Neurology documented in this encounterP[facility]07-[facility]-2024 NoteHNO ID: [id number] Author: WING CLAIRE MD Service: ? Author Type: Physician Type: Progress Notes Filed: 06/09/2024 21:30 Note Text: Interval history No orders found for this visit on 05/24/24. 73 years old woman who is here for follow up for post concussion headache. Intermittent headache at the trauma site Above the right eye Not constant ,not daily ,much improved since she it her head Zonegran helps with breakthrough episodes,wants to continue with that medicine until all headaches resolve Discussed test results in details In a previous visit Follow up visit Postconcussion headache,today [...] headache control Subjective HISTORY AND PHYSICAL Avis Torres 72 year old woman , who is [...] now headache resolved Review of Systems Objective 05/24/24 1254 BP: 107/67 BP Site: Right Arm BP Position: Sitting BP Cuff Size: Regular Adult Pulse: (!) 59 Weight: 72 kg (158 lb 11.7 oz) Physical Exam EXAM: Neck supple and no [...] PAST MEDICAL HISTORY Diagnosis Date Abnormal EKG @[facility] Hyperlipidemia Hypertension Current Outpatient Medications Medication Sig Dispense Refill acetaminophen 650 mg CR tablet Acetaminophen Active 650 MG DAILY August 29, 2019 3:28pm miconazole (ZEASORB AF) 2 % powder Apply to affected area as needed. atorvastatin (LIPITOR) 20 mg tablet Take 1 tablet by mouth every afternoon. omeprazole (PRILOSEC) 40 mg capsule Take 40 mg by mouth once daily. riboflavin, vitamin B2, (VITAMIN B-2 ORAL) Take by mouth once daily. sertraline (ZOLOFT) 50 mg tablet 1/2 tablet Orally Once a day Magnesium Oxide 500 mg tab Take 250 mg by mouth once daily. potassium chloride ER (KLOR-CON) 20 mEq tablet Take 20 mEq by mouth once daily. triamterene-hydroCHLOROthiazide (MAXZIDE-25) 37.5-25 mg per tablet TAKE 1 TABLET BY MOUTH ONCE DAILY IN THE MORNING turmeric root extract 500 mg cap Take 500 mg by mouth once daily. isosorbide dinitrate (ISORDIL, SORBITRATE) 30 mg tablet Take 60 mg by mouth once daily. polyethylene glycol 3350 17 gram/dose powder Take by mouth once daily. aspirin, enteric coated 81 mg EC tablet Take 1 tablet by mouth once daily. 0 CALCIUM CARBONATE/VITAMIN D3 (CALCIUM + D ORAL) Take by mouth once daily. levothyroxine (SYNTHROID) 50 mcg tablet Take 50 mcg by mouth once daily. Taking 88 mg daily 0 atenolol 50 mg tablet Take 1 tablet by mouth once daily. 0 multivitamin tablet Take 1 tablet by mouth once daily. 0 zonisamide (ZONEGRAN) 25 mg capsule Take 1 capsule by mouth two times a day. 60 capsule 2 (more content not included)...[facility]06-30-[facility] Telephone encounter Note* Telephone Encounter - Vilma Cardenas RN - 05/15/2024 8:11 AM EDT S: Patient spoke with [facility] nurse regarding abdominal pain. B: Onset of symptoms/concern: started Thursday or Thursday morning. A: Patient states she has pain to lower abdominal area, rates pain 8/10 on pain scale, awake on & off during the night. States pain has been constant for over 1 hour. Denies vomiting, nausea on & off, but denies at this time. States abdominal area is tender to touch. Denies fever. Patient is requesting an appointment in the office tomorrow, states she will not go to the ER. States she is still eating and drinking. States she is unsure when she had her last bowel movement, she had small amount of stool a couple of days ago. R: Patient understands care advice, sips of fluids, bland diet, small meals. Advised density control puncher will be paged, ok for office visit tomorrow she will receive a call back. No further needs at this time. Patient instructed to call back with new or worsening symptoms. Paged density control puncher Dr Amina Vargas via [employer], spoke with Dr Vargas, wanting to know if tenderness is on the left side. Returned callto patient, she states tender to middle abdominal area, not specifically on left or right. Also states unsure when she had her last bowel movement, small amount of stool a couple of days ago. States pain is slightly better, states it comes and goes. Discussed any allergies, states she cannot take Tizanidine, prochlorperazine, methocarbamol or ketorolac they all cause her dizziness. Dr Vargas informed via [employer], per Dr Vargas "Ok sounds good - have her call back if there's any change, and let's get her scheduled to see Dr. Reyes tomorrow." Returned call to patient, reviewed Dr Vargas's recommendation, patient verbalizes understanding. Office visit scheduled on 05/16/24 at 8:20AM. The l ocation, date, provider, time of appointment were reviewed with the patient. Patient verbalizes understanding. Patient advised to bring photo ID and Insurance card. No further needs at this time. Patient instructed to call back with any new or worsening symptoms. Reason for Disposition [1] SEVERE pain (e.g., excruciating) AND [2] present > 1 hour Protocols used: Abdominal Pain - [id number] [id number] Miscellaneous Notes* Telephone Encounter - Vilma Cardenas RN - 05/15/2024 8:11 AM EDT S: Patient spoke with [facility] nurse regarding abdominal pain. B: Onset of symptoms/concern: started Thursday or Thursday morning. A: Patient states she has pain to lower abdominal area, rates pain 8/10 on pain scale, awake on & off during the night. States pain has been constant for over 1 hour. Denies vomiting, nausea on & off, but denies at this time. States abdominal area is tender to touch. Denies fever. Patient is requesting an appointment in the office tomorrow, states she will not go to the ER. States she is still eating and drinking. States she is unsure when she had her last bowel movement, she had small amount of stool a couple of days ago. R: Patient understands care advice, sips of fluids, bland diet, small meals. Advised density control puncher will be paged, ok for office visit tomorrow she will receive a call back. No further needs at this time. Patient instructed to call back with new or worsening symptoms. Paged density control puncher Dr Amina Vargas via [employer], spoke with Dr Vargas, wanting to know if tenderness is on the left side. Returned callto patient, she states tender to middle abdominal area, not specifically on left or right. Also states unsure when she had her last bowel movement, small amount of stool a couple of days ago. States pain is slightly better, states it comes and goes. Discussed any allergies, states she cannot take Tizanidine, prochlorperazine, methocarbamol or ketorolac they all cause her dizziness. Dr Vargas informed via [employer], per Dr Vargas "Ok sounds good - have her call back if there's any change, and let's get her scheduled to see Dr. Reyes tomorrow." Returned call to patient, reviewed Dr Vargas's recommendation, patient verbalizes understanding. Office visit scheduled on 05/16/24 at 8:20AM. The l ocation, date, provider, time of appointment were reviewed with the patient. Patient verbalizes understanding. Patient advised to bring photo ID and Insurance card. No further needs at this time. Patient instructed to call back with any new or worsening symptoms. Reason for Disposition [1] SEVERE pain (e.g., excruciating) AND [2] present > 1 hour Protocols used: Abdominal Pain - [id number] documented in this [facility]04-25-2024 Telephone encounter Note* Telephone Encounter - Janice Dillard RN - 03/10/2024 9:30 AM EDT Provider: Dr. Claire patient requesting refill via Phone . Please E-Scribe Last OV: 09-15-[address] Claire Future OV: 03-15-[address] Claire Last prescribed: 12-11-23 Requested Prescriptions Pending Prescriptions Disp Refills zonisamide (ZONEGRAN) 25 mg capsule 60 capsule 2 Sig: Take 1 capsule by mouth two times a day. [facility]04-25-2024 Miscellaneous Notes* Telephone Encounter - Janice Dillard RN - 03/10/2024 9:30 AM EDT Provider: Dr. Claire patient requesting refill via Phone . Please E-Scribe Last OV: 09-15-[address] Claire Future OV: 03-15-[address] Claire Last prescribed: 12-11-23 Requested Prescriptions Pending Prescriptions Disp Refills zonisamide (ZONEGRAN) 25 mg capsule 60 capsule 2 Sig: Take 1 capsule by mouth two times a day. documented in this encounterPike [facility]11-08-2023 Miscellaneous Notes* Telephone Encounter - Alix Mendez LPN - 09/23/2023 10:06 AM EST Spoke with Dr. Mcfarland office, informed if they see something on images , or labs without a specificdiagnosis of cancer, then pt. Needs to be worked up before sending to Oncology. Office nurse will inform Dr. Mcfarland to send for appropriate work up. Alix Mendez LPN * Telephone Encounter - Alix Mendez LPN - 09/21/2023 2:46 PM EST Left detailed message on nurse monitored voicemail as to why this pt. Was referred to to Oncology, with a DX; of chronic post traumatic headache. Spoke also with pt. She stated she didn't know why she was referred. Will await call back from Dr. Mcfarland office. Alix Mendez LPN * Telephone Encounter - Janice Myers - 09/21/2023 12:49 PM EST Patient presented at [facility] assistant front end manager to schedule consultation. She has 2 referrals in for our department. Please review and advise re: scheduling. .me documented in this encounterP[facility]11-08-2023 Miscellaneous Notes* Telephone Encounter - Janice Dillard RN - 09/23/2023 10:05 AM EST Call to [place] at Dr. Jc's office. She is asking if patient already has a cancer diagnosis, advisedno this is for work up. The nurse [place] states that primary care doctor needs to do work up, once primary care has completed work up and/or patient has a cancer diagnosis, then hematology/oncology can see them. Call to patient to explain above. Patient's PCP is Dr. Reyes with [facility]. Phone number : . Call to Dr. Reyes's office. Spoke to nurse Newton. Explained above, that PCP would need to do workup for possibility of metastatic disease which may include PET scan. Once PCP has exhausted workup and is unsure, or a confirmed cancer diagnosis is made, then patient could see Dr. Jc. This is perphone conversation with Dr. Jc's office. Nurse Newton verbalizes understanding and will provide information to Dr Almonte, and contact patient to schedule appointment. * Telephone Encounter - Wing Claire MD - 09/23/2023 9:19 AM EST Janice please talk to me about that [...] didn't want to go ,for this visit * Telephone Encounter - Frieda Granger - 09/23/2023 8:13 AM EST Patient is calling to follow up on message below. Patient is hoping the provider will contact Constance to discuss reasons why referral was placed. Patient is feeling very confused and anxious about her follow up care. * Telephone Encounter - Chepe Moreland RN - 09/22/2023 9:56 AM EST Received call from [place] from Hosea Cortez MD, [facility] ([phone]) calling to ascertain reasonfor patient's referral to Hematology/Oncology. Reason for Exam listed as Intractable chronic post-traumatic headache which Dr. Jc evaluate or treat. Is there another reason or possible dx that the referral was placed for? Return call to Virginia CCPedro Nolasco, direct line [phone]. Routing to provider for review. documented in this encounterP[facility]10-31-2023 NoteHNO ID: [id number] Author: Wing Claire MD Service: ? Author Type: Physician Type: [...] headache control Subjective HISTORY AND PHYSICAL Avis Torres 72 year old woman , who is [...] kg (145 lb) Height: 154.9 cm (5' 1") Physical Exam EXAM: Neck supple and no [...] Reported on 07/02/2023) methocarbamol (more content not included)...[facility]10-31-2023 History of Present illness Narrative* Wing Claire MD - 09/15/2023 11:24 AM EDT Intermittent headache at the trauma site Above [...] headache control Subjective HISTORY AND PHYSICAL Avis Torres 72 year old woman , who is [...] kg (145 lb) Height: 154.9 cm (5' 1") Physical Exam EXAM: Neck supple and no [...] elevates symmetrically, Tongue protrudes midline, and Shoulder shrugintact and symmetric MOTOR: No drift MOTOR STRENGTH: [...] 50% of the time spent in patient education/counselling/coordinating care with the patient and /or family. Wing Claire M.D. [facility] Department of Neurology documented in this encounterPike [facility]10-19-2023 NoteHNO ID: [id number] Author: Jen Moore RT(R) Service: ? Author Type: Piecer Type: Progress Notes Filed: 09/03/2023 3:54 PM [...] Pelvis SIGNATURE: RT Abel(R) PATIENT NAME: Avis Torres DATE: September 03, 2023 TIME: 3:53 [facility]10-13-2023 NoteHNO ID: [id number] Author: Wing Claire MD Service: ? Author Type: Physician Type: [...] headache control Subjective HISTORY AND PHYSICAL Avis Torres 72 year old woman , who is [...] kg (135 lb) Height: 125 cm (4' 1.2") Physical Exam EXAM: Neck supple and no [...] PAST MEDICAL HISTORY Diagnosis Date Abnormal EKG @[facility] Hyperlipidemia Hypertension Current Outpatient Medications Medication [...] vitamin B2, (VITAMIN B- (more content not included)...[facility]10-13-2023 History of Present illness Narrative* Wing Claire MD - 08/28/2023 10:49 AM EDT Follow-up visit to discuss test results Intermittent [...] headache control Subjective HISTORY AND PHYSICAL Avis Torres 72 year old woman , who is [...] kg (135 lb) Height: 125 cm (4' 1.2") Physical Exam EXAM: Neck supple and no [...] elevates symmetrically, Tongue protrudes midline, and Shoulder shrugintact and symmetric MOTOR: No drift MOTOR STRENGTH: Upper and lower extremity 5/5 bilaterally REFLEXES: UE and LE reflexes are equal and reactive SENSATION: Intact light touch COORDINATION: Finger-to- nose-finger intact bilaterally GAIT: Normal-based PAST MEDICAL HISTORY Diagnosis Date Abnormal EKG @[facility] Hyperlipidemia Hypertension Current Outpatient Medications Medication [...] 50% of the time spent in patient education/counselling/coordinating care with the patient and /or family. Wing Claire M.D. [facility] Department of Neurology * Janice Dillard RN - 08/28/2023 10:36 AM EDT There is no data to display for this encounter * Frieda Francois - 08/28/2023 10:21 AM EDT There is no data to display for this encounter documented in this encounterPike [facility] Hospital10-13-2023 NoteHNO ID: [id number] Author: Janice Dillard RN Service: ? Author Type: Registered Nurse Type: Progress Notes Filed: 09/19/2023 8:55 PM Note Text: There is no data to display for this encounterC[facility]-28-2023 NoteHNO ID: [id number] Author: Frieda Francois Service: ? Author Type: ? Type: Progress Notes Filed: 09/19/2023 8:55 PM Note Text: There is no data to display for this encounterC[facility] 08-26-2023 Miscellaneous Notes* Telephone Encounter - Janice Dillard RN - 08/26/2023 11:10 AM EDT Phone call to patient. Provided information from Dr. Claire including scheduling CT abd/pelvis, CTchest, and consultation to oncology/hematology. Transferred patient to central scheduling to schedule CT's & consult. Patient verbalizes understanding and will keep appointment with Dr. Claire for Thursday08-28-23 for further discussion of MRI results. * Telephone Encounter - Sydnee Michele - 08/26/2023 10:35 AM EDT Patient returning phone call, about wanting results from MRI * Telephone Encounter - Wing Claire MD - 08/25/2023 5:27 PM EDT IMPRESSION: when MRI Brain done with and [...] transverse-sigmoid sinus system. COMMUNICATION: Communicated with Dr. Craft covering the service of Dr. Claire on 08/04/2023 10:56 AM via verbal communication. * Telephone Encounter - Wing Claire MD - 08/25/2023 5:23 PM EDT Mri brain then mri brain with contrast then ct brain Sclerotic lesion stable Will discuss that in more details in the follow up visit documented in this encounterPike [facility] Hospital10-09-2023 Miscellaneous Notes* Telephone Encounter - DailyDaily - 08/24/2023 3:22 PM EDT Patient returned phone call. Can be reached at [phone]. Patient does have appointment Thursday with Dr Claire however she is nervous about her results now . Thank you! documented in this encounterPike [facility] Hospital10-09-2023 NoteHNO ID: [id number] Author: Jen Moore RT(R) Service: ? Author Type: Piecer Type: Progress Notes Filed: 08/24/2023 8:43 AM Note Text: Radiology Service Progress Note PATIENT NAME: Avis Torres DATE OF SERVICE: August 24, 2023 TIME: [...] IV DATA: Not applicable SIGNED BY: RT Abel(R) August 24, 2023 8:42 [facility]08-17-2023 History of Present illness Narrative* Wing Claire MD - 07/02/2023 10:35 AM EDT July 02, 2023 Accompanied with family member [...] headache control Subjective HISTORY AND PHYSICAL Avis Torres 72 year old woman , who is [...] kg (140 lb) Height: 157.5 cm (5' 2") Physical Exam EXAM: Neck supple and no [...] elevates symmetrically, Tongue protrudes midline, and Shoulder shrugintact and symmetric MOTOR: No drift MOTOR STRENGTH: Upper and lower extremity 5/5 bilaterally REFLEXES: UE and LE reflexes are equal and reactive SENSATION: Intact light touch COORDINATION: Finger-to- nose-finger intact bilaterally GAIT: Normal-based PAST MEDICAL HISTORY Diagnosis Date Abnormal EKG @[facility] Hyperlipidemia Hypertension Current Outpatient Medications Medication Sig [...] 50% of the time spent in patient education/counselling/coordinating care with the patient and /or family. Wing Claire M.D. [facility] Department of Neurology documented in [facility]07[facility] Discharge summary Author Mona [facility] June 11, 2023 5:13pm Note Date/Time June 11, 2023 4:54 pm [facility] Medical Records Department [address] [place] [id number] Emergency Department Summary 06/11/23 MR#: [id number] Acct: [id number] Name: AVIS TORRES Rep #:[id number] : 1950 72 From: Mona Leong PCP: Dr. Jessica Reyes MD Status:REG ER Location: ED HPI History of Present Illness Chief Complaint: General Illness Informant: patient Narrative Narrative: Patient is a 72-year-old female with history of anxiety, hypothyroidism, hyperlipidemia, and hypertension presenting for multiple complaints including ongoing dizziness, headache, chest discomfort and now shortness of breath. Patient states she had a head injury about a year ago and has been having dizziness and frontal head pressure since. She states she follows with neurology and actually has an MRI scheduled for 2 weeks from now (June 30). She denies any recent change or dizziness. She also notes that for "a while" which she states is months she has been having ongoing discomfort in her epigastric region/lower chest. She does have an echo/stress test ordered by [facility] care doctor. For the past few days she elicits some some increase shortness of breath and dyspnea on exertion. She denies any associated cough, wheezing, nausea, vomiting, reflux or abdominal pain. She states has been sleeping well at night. She notes she has had some mild edema of her feet. Denies any recent travel. Patient was seen in our ER 2 days ago for evaluation of her chest pain and she is also been seen in our ER multiple times for headache. She had a cardiac work-up including delta high-sensitivity troponins, EKG and chest x-ray which were normal. Patient states she might of forgotten to mention about her shortness of breath when she was seen in the ER 2 days ago. No other acute complaints at this time. Patient states that she was very concerned that it wasnot safe for her to wait for her outpatient testing which is why she came back to the emergency room. [facility] Medical History Anxiety Depression Essential hypertension Head injury (12/23/21) Hypothyroidism Palpitations Pure hypercholesterolemia Home Medications aspirin 81 mg tablet,delayed release (Adult Low Dose Aspirin) 81 mg PO QDAY 06/28/18 [History Last Taken Unknown] atorvastatin 20 mg tablet 20 mg PO QHS 12/05/19 [History Last Taken Unknown] levothyroxine 88 mcg tablet 88 mcg PO DAILY 02/05/22 [History Last Taken Unknown] turmeric root extract 500 mg capsule 500 mg PO DAILY 02/05/22 [History Last Taken Unknown] isosorbide mononitrate 60 mg tablet,extended release 24 hr 60 mg PO DAILY this is a dose increase #90 tabs 07/01/22 [Rx Last Taken Unknown] calcium carbonate 600 mg calcium (1,500 mg) tablet (Calcium) 600 mg PO DAILY 09/03/22 [History Last Taken Unknown] cholecalciferol (vitamin D3) 25 mcg (1,000 unit) tablet 25 mcg PO DAILY 09/03/22[History Last Taken Unknown] magnesium 250 mg tablet 250 mg PO DAILY 09/03/22 [History Last Taken Unknown] atenolol 50 mg tablet 50 mg PO DAILY #90 tabs 12/09/22 [Rx Last Taken Unknown] methocarbamol 500 mg tablet 500 mg PO 4X/DAY PRN PRN Muscle pain/spasm #40 tabs 04/11/23 [Rx Last Taken Unknown] diphenhydramine HCl 25 mg capsule (Benadryl) 25 mg PO BID PRN PRN headache #10 caps 05/06/23 [Rx Last Taken Unknown] prochlorperazine maleate 5 mg tablet (Compazine) 5 mg PO BID PRN headache #10 tabs 05/06/23 [Rx Last Taken Unknown] tizanidine 4 mg capsule 4 mg PO QHS PRN 05/14/23 [History Last Taken Unknown] triamterene 37.5 mg-hydrochlorothiazide 25 mg tablet 1 tab PO DAILY 05/14/23 [History Last Taken Unknown] losartan 50 mg tablet 50 mg PO DAILY #90 tabs 05/29/23 [Rx Last Taken Unknown] potassium chloride 20 mEq tablet,extended release 20 meq PO DAILY 05/29/23 [History Last Taken Unknown] riboflavin (vitamin B2) 400 mg tablet 400 mg PO DAILY 05/29/23 [History Last Taken Unknown] zonisamide 25 mg capsule 25 mg PO DAILY 05/29/23 [History Last Taken Unknown] meloxicam 7.5 mg tablet 7.5 mg PO DAILY #30 tabs 06/09/23 [Rx Last Taken Unknown] Allergy/AdvReac Type Severity Reaction Status Date / Time hydrochlorothiazide AdvReac Intermediate Hypokalemia Verified 06/11/23 12:37 even on 40 meq daily Family History Father , Age 65 Myocardial infarction Mother , Age 84 Dementia Sister Hypertension Sister Hypertension Sister Hyperlipidemia Surgical History History of left heart catheterization (~1993) History of partial hysterectomy Social History Smoking Status: Former smoker how long ago did patient quit smokin years ago alcohol intake: never substance use type: does not use caffeine: No ROS ROS ED Constitutional Constitutional ED: Denies chills or fever(s) Eyes Eyes: Denies change in vision or diplopia ENT ENT ED: Denies rhinorrhea or sore throat Cardiovascular Cardiovascular: Reports chest pain; Denies palpitations Respiratory/Chest Respiratory/Chest: Reports dyspnea and dyspnea on exertion; Denies cough Gastrointestinal Gastrointestinal: Denies abdominal pain, diarrhea, nausea or vomiting Genitourinary Genitourinary ED: Denies dysuria Musculoskeletal Musculoskeletal: Denies arthralgias or myalgias Integumentary Denies rash Neurologic Neurologic: Reports headache(s); Denies paresthesias or weakness Psychiatric Psychiatric: Denies anxiety EXAM Physical Exam Const Vital Signs: 06/11/23 12:34 06/11/23 13:20 06/11/23 13:25 Temperature 96.7 F L Temperature Source Temporal Pulse Rate 68 Pulse Rate [Lying] Pulse Rate [Sitting (for 1 minute prior to obtaining)] Pulse Rate [Standing (for 1 minute prior to obtaining)] Respiratory Rate 18 Respiratory Effort Non-Labored Short of Breath Non-Labored Short of Breath Respiratory Depth Normal Respiratory Pattern Normal Blood Pressure 133/83 H Blood Pressure [Lying] Blood Pressure [Sitting (for 1 minute prior to obtaining)] Blood Pressure [Standing (for 1 minute prior to obtaining)] Blood Pressure Mean 99 Blood Pressure Mean [Lying] Blood Pressure Mean [Sitting (for 1 minute prior to obtaining)] Blood Pressure Mean [Standing (for 1 minute prior to obtaining)] Pulse Ox 99 Oxygen Delivery Method Room Air Room Air 06/11/23 14:07 06/11/23 16:16 06/11/23 16:16 Temperature 98.4 F Temperature Source Temporal Pulse Rate 60 66 Pulse Rate [Lying] 63 Pulse Rate [Sitting (for 1 minute prior to obtaining)] 66 Pulse Rate [Standing (for 1 minute prior to obtaining)] 79 Respiratory Rate 19 H 16 Respiratory Effort Respiratory Depth Respiratory Pattern Blood Pressure 117/70 111/68 Blood Pressure [Lying] 120/71 Blood Pressure [Sitting (for 1 minute prior to obtaining)] 126/86 H Blood Pressure [Standing (for 1 minute prior to obtaining)] 124/76 H Blood Pressure Mean 85 82 Blood Pressure Mean [Lying] 87 Blood Pressure Mean [Sitting (for 1 minute prior to obtaining)] 99 Blood Pressure Mean [Standing (for 1 minute prior to obtaining)] 92 Pulse Ox 98 97 Oxygen Delivery Method Room Air Room Air Positive well nourished and well developed General Appearance ED: well developed and NAD HEENT Reports moist mucous membranes Eyes PERRL and EOMs intact bilaterally Neck supple and no JVD Chest Wall inspection of chest normal and palpation of chest normal Resp normal respiratory effort and clear to auscultation bilaterally Resp Narrative: No crackles appreciated Auscultation: Negative for wheezes or diminished lung sounds Cardio regular rate, regular rhythm and no murmurs GI normal to inspection, nondistended, normoactive bowel sounds, non-tender and non-distended Extremity Extremity Narrative: 1+ bilateral pedal edema General Extremety ED: Negative for tenderness Neuro oriented x3 Sensorium / Orientation: alert Motor Exam: Negative for general weakness Psych mental status grossly normal Mood & Affect: anxious Skin no rashes or lesions noted and no wounds MDM MDM MDM Narrative Medical decision making narrative: Patient is evaluated for ongoing dizziness, chest discomfort and shortness of breath. Patient had a cardiac work-up 2 days ago and was discharged home. At that time patient felt that she was comfortable waiting for outpatient follow-up. Work-up from 2 days ago reviewed which was largely normal. She had negative high-sensitivity delta troponin. Chest x-ray showed clear lungs with prominenceof central pulmonary arteries. Patient CBC is largely normal with no anemia or leukocytosis. Platelets are normal. D-dimer is normal and she is otherwise lowrisk for PE so I do not think she requires a CTA. Clinically she does not have findings consistent with a DVT. BMP largely unremarkable. Creatinine mildly elevated at 1.07 however this is stable over the past month. Its been slowly increasing over the past 7 months but do not think she requires admission for this. Her TSH is normal. Her high-sensitivity troponin is 4. Given that the symptoms and ongoing for days I feel that this effectively rules out ACS especially she does not have ischemic sounding pain or ischemic EKG. clinically patient does not appear to be fluid overloaded on her chest x-ray and her BNP isnormal. I do not think a repeat chest x-ray is indicated at this time as she has had one 2 days ago. Her chest x-ray from 2 days ago did show prominent central pulmonary arteries which begs a question if she does have some mild underlying pulmonary hypertension. Patient's orthostatics are negative in the ER and she does not have any desaturation with ambulation. I feel that she is stable for outpatient follow-up. Encouraged to drink more water and follow-up with her PCP/cardiology after she has her stress test and to follow-up with neurology with her MRI for her chronic headaches/dizziness. Patient's had no new head injury and I do not think she requires repeat emergent imaging. Given return precautions. Patient verbalizes agreement understand this plan. Lab Data Attestation: I reviewed the patient's lab results. Labs: Laboratory Results - last 24 hr 06/11/23 06/11/23 14:05 16:25 WBC 5.9 RBC 4.64 Hgb 14.9 Hct 43.6 MCV 94.0 MCH 32.1 H MCHC 34.2 RDW Std Deviation 45.3 H RDW Coeff of Emiliana 13.3 Plt Count 164 MPV 9.6 Immature Gran % (Auto) 0.300 Neut % (Auto) 71.0 H Lymph % (Auto) 20.3 Barber % (Auto) 7.3 Eos % (Auto) 0.8 Baso % (Auto) 0.3 Absolute Neuts (auto) 4.2 Absolute Lymphs (auto) 1.20 Nucleated RBC % 0 D-Dimer Quant (PE/DVT) 0.35 Sodium 140 Potassium 4.1 Chloride 107 Carbon Dioxide 25.0 Anion Gap 8 BUN 20 H Creatinine 1.07 H Estim Creat Clear Calc 34.81 Est GFR (MDRD) Af Amer 64 Est GFR (MDRD) Non-Af 53 L BUN/Creatinine Ratio 18.7 Glucose 118 H Calcium 10.3 H Troponin I High Sens 4 B-Natriuretic Peptide 27.2 TSH 0.50 Rhythm Strip Rhythm Strip: Sinus Rhythm Rate: 59 Ectopy: None EKG Initial EKG: Attestation: I personally reviewed and interpreted this EKG as follows: Interpretation: Sinus Bradycardia Comments: Sinus bradycardia rate of 59 bpm Normal axis Normal intervals Normal ST segments Nonspecific T wave inversion in 3, V1 and V2 which could be normal variants No change prior to prior EKG Discharge Plan Triage Chief Complaint: General Illness Other Complaint: Shortness of Breath ED Provider: Mona Schmid Dx/Rx/DC Orders Clinical Impression: Lower extremity edema, Dyspnea on exertion, Atypical chest pain Instructions: ED Chest Pain, Uncertain Cause, ED Dyspnea Prescriptions: No Action aspirin [Adult Low Dose Aspirin] 81 mg tablet,delayed release (DR/EC) 81 mg PO QDAY atorvastatin 20 mg tablet 20 mg PO QHS cholecalciferol (vitamin D3) 25 mcg (1,000 unit) tablet 25 mcg PO DAILY magnesium 250 mg tablet 250 mg PO DAILY calcium carbonate [Calcium 600] 600 mg calcium (1,500 mg) tablet 600 mg PO DAILY levothyroxine 88 mcg tablet 88 mcg PO DAILY turmeric root extract 500 mg capsule 500 mg PO DAILY tizanidine 4 mg capsule 4 mg PO QHS PRN triamterene-hydrochlorothiazid 37.5-25 mg tablet 1 tab PO DAILY zonisamide 25 mg capsule 25 mg PO DAILY Patient Comments: TAKE 1 CAPSULE BY MOUTH ONCE DAILY riboflavin (vitamin B2) 400 mg tablet 400 mg PO DAILY potassium chloride 20 mEq tablet extended release 20 meq PO DAILY losartan 50 mg tablet 50 mg PO DAILY Qty: 90 1RF methocarbamol 500 mg tablet 500 mg PO 4X/DAY PRN PRN (Reason: Muscle pain/spasm) Qty: 40 0RF prochlorperazine maleate [Compazine] 5 mg tablet 5 mg PO BID PRN (Reason: headache) Qty: 10 0RF diphenhydramine HCl [Benadryl] 25 mg capsule 25 mg PO BID PRN PRN (Reason: headache) Qty: 10 0RF meloxicam 7.5 mg tablet 7.5 mg PO DAILY Qty: 30 0RF isosorbide mononitrate 60 mg tablet extended release 24 hr 60 mg PO DAILY Qty: 90 3RF atenolol 50 mg tablet 50 mg PO DAILY Qty: 90 4RF Primary Care Provider: Jessica Reyes Referrals: Jessica Reyes MD [Primary Care Provider] - Activity Restrictions/Additional Instructions: Your work-up was largely normal today. I do recommend you drink some more water. There is no signs of pneumonia, COVID, heart attack, fluid overload or blood clot in your legs or your lungs. I feel that it is safe for you to follow-up with your specialist as we discussed. If you have a progression or change or symptoms please return to the emergency room. What to do if you have Problems For any increased pain, shortness of breath, bleeding, nausea or vomiting, chestpain, or any unexpected problems, contact your Primary Care Provider. Call [facility] ([phone]) or report to the closest Emergency Room. Call 911 if necessary. 06/11/23 [id number] <Electronically signed by Mona Schmid DO> Cosigner Signature (if applicable): CC: Dr. Jessica Reyes MD ~ Signed [facility] Work Phone: [phone] 653-992207-11-2023 Miscellaneous Notes* Telephone Encounter - Maria Del Carmen Martínez - 05/26/2023 2:23 PM EDT Called and spoke with patient. She is scheduled from Brain MRI on 06/30/2023 and follow up with Dr. Claire on 07/02/2023 to review medication changes and MRI result. Appointment reminders mailed to address on file per patient's request. Maria Del Carmen Martínez * Telephone Encounter - Chepe Moreland RN - 05/26/2023 1:00 PM EDT Spoke to patient who was informed of provider's message and recommendations and verbalized understanding. Advised to call back with concerns or additional questions. Routing to scheduling to assist patient with follow up with Dr. Claire in approximately three weeks. * Telephone Encounter - Wing Claire MD - 05/26/2023 8:59 AM EDT Post concussion headache with migrainous features and has been intractable to most medications tried Consider Botox injection * Telephone Encounter - Wing Claire MD - 05/26/2023 8:56 AM EDT Patient is also taking atenolol 50 mg daily Can add zonegran 25 mg every night Follow up visit to be scheduled after 3 weeks * Telephone Encounter - Chepe Moreland RN - 05/25/2023 1:00 PM EDT ARIANA: 05/14/23 NOV: 08/19/23 Spoke to patient [...] recommendations or another medication. [facility] Telephone encounter Note * Telephone Encounter - Susie Sutton RN - 04/10/2023 8:21 PM EDT S: Patient spoke with [facility] nurse regarding [...] Advise ER : Pt will go to [facility] . Patient understands care advice. No [...] Initial Assessment Questions 1. APPEARANCE of MOVEMENT: "What did the jerking or twitching look like?" (e.g., body area) Back of leg and top of thigh 2. ONSET: "When did this start happening?" (e.g., hours, days, weeks, months ago) On and off 3. DURATION: "How long does the jerk, twitch, or spasm last?" Last Spasm today off and on 4. FREQUENCY: "How often does this happen?" On an off 5. WHEN: "When does this happen?" (e.g., while awake, while falling asleep, while sleeping) On and off 6. CAUSE: "What do you think caused the Not sure ?" Not drinking enough fluid 7. OTHER SYMPTOMS: "Are there any other symptoms?" (e.g., fever, headache) Denies 8. : "Is there any chance you are ?" "When was your last menstrual period?" NA Answer Assessment - Initial Assessment Questions 1. ONSET: "When did the pain start?" Today 2. LOCATION: "Where is the pain located?" Lower calf 3. PAIN: "How bad is the pain?" (Scale 1-10; or mild, moderate, severe) - MILD (1-3): doesn't interfere with normal activities - MODERATE (4-7): interferes with normal activities (e.g., work or school) or awakens from sleep, limping - SEVERE (8-10): excruciating pain, unable to do any normal activities, unable to walk Mild 4. WORK OR EXERCISE: "Has there been any recent work or exercise that involved this part of the body?" Denies 5. CAUSE: "What do you think is causing the leg pain?" Not sure 6. OTHER SYMPTOMS: "Do you have any other symptoms?" (e.g., chest pain, back pain, breathing difficulty, swelling, rash, fever, numbness, weakness) Swelling to leg mild and weakness legs today 7. : "Is there any chance you are ?" "When was your last menstrual period?" NA Protocols used: Muscle Jerks - Tics - [id number], Leg [id number] [id number] Miscellaneous Notes* Telephone Encounter - Susie Sutton RN - 04/10/2023 8:21 PM EDT S: Patient spoke with [facility] nurse regarding spasms and pain to back [...] Advise ER : Pt will go to [place] . Patient understands care advice. No [...] Initial Assessment Questions 1. APPEARANCE of MOVEMENT: "What did the jerking or twitching look like?" (e.g., body area) Back of leg and top of thigh 2. ONSET: "When did this start happening?" (e.g., hours, days, weeks, months ago) On and off 3. DURATION: "How long does the jerk, twitch, or spasm last?" Last Spasm today off and on 4. FREQUENCY: "How often does this happen?" On an off 5. WHEN: "When does this happen?" (e.g., while awake, while falling asleep, while sleeping) On and off 6. CAUSE: "What do you think caused the Not sure ?" Not drinking enough fluid 7. OTHER SYMPTOMS: "Are there any other symptoms?" (e.g., fever, headache) Denies 8. : "Is there any chance you are ?" "When was your last menstrual period?" NA Answer Assessment - Initial Assessment Questions 1. ONSET: "When did the pain start?" Today 2. LOCATION: "Where is the pain located?" Lower calf 3. PAIN: "How bad is the pain?" (Scale 1-10; or mild, moderate, severe) - MILD (1-3): doesn't interfere with normal activities - MODERATE (4-7): interferes with normal activities (e.g., work or school) or awakens from sleep, limping - SEVERE (8-10): excruciating pain, unable to do any normal activities, unable to walk Mild 4. WORK OR EXERCISE: "Has there been any recent work or exercise that involved this part of the body?" Denies 5. CAUSE: "What do you think is causing the leg pain?" Not sure 6. OTHER SYMPTOMS: "Do you have any other symptoms?" (e.g., chest pain, back pain, breathing difficulty, swelling, rash, fever, numbness, weakness) Swelling to leg mild and weakness legs today 7. : "Is there any chance you are ?" "When was your last menstrual period?" NA Protocols used: Muscle Jerks - Tics - [id number], Leg [id number]-[id number] documented in this [facility]03-24-2023 History of Present illness Narrative* Wing Claire MD - 02/06/2023 8:07 AM EDT February 06, 2023 New office visit Postconcussion headache Subjective HISTORY AND PHYSICAL Avis Torres 72 year old woman , who is [...] kg (165 lb) Height: 157.5 cm (5' 2") Physical Exam EXAM: Neck supple and no [...] elevates symmetrically, Tongue protrudes midline, and Shoulder shrugintact and symmetric MOTOR: No drift MOTOR STRENGTH: Upper and lower extremity 5/5 bilaterally REFLEXES: UE and LE reflexes are equal and reactive SENSATION: Intact light touch COORDINATION: Finger-to- nose-finger intact bilaterally GAIT: Normal-based PAST MEDICAL HISTORY Diagnosis Date Abnormal EKG @[facility] Hyperlipidemia Hypertension Current Outpatient Medications Medication [...] 50% of the time spent in patient education/counselling/coordinating care with the patient and /or family. February 06, 2023 Wing Claire M.D. [facility] Department of Neurology [facility] Hospital[facility]* Diagnosis Onset Date Resolution Status Dyspnea on exertion acute Atypical chest pain chronic Essential hypertension chron ic Pure hypercholesterolemia ch [facility] Work Phone: Evaluation noteNo assessment information available [facility] Work Phone: Evaluajgra note* Diagnosis Post-traumatic headache, not intractable, unspecified chronicity pattern- Primary documented in this encounter [facility] note* Diagnosis Contusion of left foot, initial encounter Pain in left foot Pain in soft tissues of limb [facility]* Diagnosis Spondylolisthesis, lumbar region Radiculopathy, lumbar region Thoracic or lumbosacral neuritis or radiculitis, unspecified [facility]* Diagnosis Onset Date Resolution Status Edema acute Essential hypertension chron ic Palpitations chronic Pure hypercholesterolemia ch ronic Dyslipidemia chronic Dyspnea on exertion chronic Essential hypertension chron ic Lower extremity edema chroni c [facility] Work Phone: Evaluation note* Diagnosis Contusion of left foot, initial encounter- Primary Pain in left foot Pain in soft tissues of limb Contusion of left foot, initial encounter Pain in left foot Pain in soft tissues of limb documented in this encounter [facility] note* Diagnosis Post-concussion headache- Primary Post-traumatic headache, unspecified [facility]* Diagnosis Spondylolisthesis, lumbar region- Primary Radiculopathy, lumbar region Thoracic or lumbosacral neuritis or radiculitis, unspecified documented in this encounter [facility] note* Diagnosis Brain lesion- Primary Other conditions of brain Infection in abdomen (HCC) Unspecified peritonitis [facility]* Diagnosis Intractable post-traumatic headache, unspecified chronicity pattern- Primary [facility]* Diagnosis Intractable chronic post-traumatic headache- Primary Chronic post-traumatic headache documented [facility]* Diagnosis Intractable chronic post-traumatic headache- Primary Chronic post-traumatic headache Post-concussion headache Post-traumatic headache, unspecified [facility]* Diagnosis Onset Date Resolution Status Admit Date Aortic regurgitation chronic Jul 2:21pm Diastolic dysfunction withou t heart failure chronic August 02, 2025 2:21pm Dyslipidemia chronic August 022024 2:21pm Essential hypertension chronic Se ptember 2024 2:21pm [facility] Work Phone: [facility] Work Phone: [facility] Work Phone: Hospital Discharge instructions Additional Instructions Follow-up with your neurologist next week as scheduled.[facility] Work Phone: Hospital Discharge instructions Additional Instructions Your work-up was largely normal today. I do recommend you drink some more water. There is no signs of pneumonia, COVID, heart attack, fluid overload or blood clot in your legs or your lungs. I feel that it is safe for you to follow-up with your specialist as we discussed. If you have a progression or change or symptoms please return to the emergency room.[facility] Work Phone: Reason for referral (narrative)No reason for referral information availableWFirelands [facility] Work Phone: Summary Purpose Family History No Family History Records Found Relationship Condition Age at Onset Recorded Date/T thiago father Myocardial infarction Unknown mother Dementia Unknown sister Hypertension Unknown sister Hyperlipidemia Unknown Advance Directives No Advanced Directives Records Found Advance Directive Response Recorded Date/ Time Living Will No December 23 4:49am Power of Immunology Specialist No December 23, 2021 4:49am Advance Directive Response Recorded Date/ Time Living Will No December 23 3:49am Power of Immunology Specialist No December 23, 2021 3:49am Advance Directive Response Recorded Date/ Time Living Will No April 10, 2023 1 0:31pm Power of Immunology Specialist No April 10, 2023 10:31pm Advance Directive Response Recorded Date/ Time Living Will No May 06, 2023 4:18pm Power of Immunology Specialist No May 06 4:18pm Advance Directive Response Recorded Date/ Time Living Will No June 11, 2023 1:19pm Power of Immunology Specialist No June 11 1:19pm Advance Directive Response Recorded Date/ Time Living Will No June 15, 2023 10:32am Power of Immunology Specialist No June 15 10:32am Advance Directive Response Recorded Date/ Time Living Will No June 15, 2023 9:32am Power of Immunology Specialist No June 15 9:32am Chief Complaint and Reason for Visit Chief Complaint Admit Date 6 M FU January 24, 2025 9:2 7am DYSPNEA February 23, 2025 7:4 5am Reason for Visit Admit Date Aortic regurgitation January 24, 2025 9: 27am 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 January 24, 2025 9:27am Dyslipidemia January 24, 2025 9:2 7am Essential hypertension January 24, 2025 9:27am Chief Complaint general illness NECK/R ARM PAIN (Kelvin TOLBERT SPOKE TO PT) E-ORDER Reason for Visit Dyspnea on exertion Atypical chest pain Essential hypertension Pure hypercholesterolemia Chief Complaint general illness NECK/R ARM PAIN (Kelvin TOLBERT SPOKE TO PT) E-ORDER DYSPNEA Reason for Visit Dyspnea on exertion Atypical chest pain Essential hypertension Pure hypercholesterolemia Chief Complaint NECK/R ARM PAIN (Kelvin FREY SPOKE TO PT) E-ORDER DYSPNEA LEXISCAN CHEST PAIN LEXISCAN CHEST PAIN Reason for Visit Dyspnea on exertion Atypical chest pain Essential hypertension Pure hypercholesterolemia Chief Complaint LEXISCAN CHEST PAIN LEXISCAN CHEST PAIN SCREENING Chief Complaint palps E ORDERS Amb Documentation Chief Complaint palps E ORDERS Amb Documentation E ORDERS Chief Complaint palps E ORDERS Amb Documentation E ORDERS LEG PAIN Chief Complaint Amb Documentation E ORDERS LEG PAIN E ORDER HEAD Chief Complaint LEG PAIN E ORDER HEAD PT HAVING CP AND PCP WANTS HER SEEN FU PER [facility] chest pain SOB Reason for Visit Edema Essential hypertension Palpitations Pure hypercholesterolemia Dyslipidemia Dyspnea on exertion Essential hypertension Lower extremity edema Chief Complaint LEG PAIN E ORDER HEAD PT HAVING CP AND PCP WANTS HER SEEN FU PER [facility] CP INT [facility] chest pain SOB SHORTNESS OF BREATH Reason for Visit Edema Essential hypertension Palpitations Pure hypercholesterolemia Dyslipidemia Dyspnea on exertion Essential hypertension Lower extremity edema Chief Complaint LEG PAIN E ORDER HEAD PT HAVING CP AND PCP WANTS HER SEEN FU PER [facility] CP INT LABS chest pain SOB SHORTNESS OF BREATH PAIN IN LEFT LEG PAIN IN LEFT LEG Amb Documentation Reason for Visit Edema Essential hypertension Palpitations Pure hypercholesterolemia Dyslipidemia Dyspnea on exertion Essential hypertension Lower extremity edema Chief Complaint LEG PAIN E ORDER HEAD PT HAVING CP AND PCP WANTS HER SEEN FU PER [facility] CP INT LAB[facility] chest pain SOB SHORTNESS OF BREATH PAIN IN LEFT LEG PAIN IN LEFT LEG Amb Documentation PALPITATIONS Reason for Visit Edema Essential hypertension Palpitations Pure hypercholesterolemia Dyslipidemia Dyspnea on exertion Essential hypertension Lower extremity edema Chief Complaint E ORDER HEAD PT HAVING CP AND PCP WANTS HER SEEN FU PER ANDIE [facility] INT LAB[facility] chest pain SOB SHORTNESS OF BREATH PAIN IN LEFT LEG PAIN IN LEFT LEG Amb Documentation PALPITATIONS Amb Documentation SCREENING/POST STAN[place] Reason for Visit Edema Essential hypertension Palpitations Pure hypercholesterolemia Dyslipidemia Dyspnea on exertion Essential hypertension Lower extremity edema Chief Complaint SCREENING/POST [place] ABNORMAL BRAIN SCAN Abnormal results of thyroid function studies Chief Complaint PALPITATIONS Amb Documentation SCREENING/POST [place] ABNORMAL BRAIN SCAN Chief Complaint Admit Date 6 M FU January 24, 2025 9:2 7am Chief Complaint Admit Date 6 M FU August 02, 2025 2:21pm Reason for Visit Admit Date Aortic regurgitation August 02 2:21pm 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 August 02, 2025 2:21pm Dyslipidemia August 02, 2025 2:21pm Essential hypertension August 02 2:21pm Reason for Referral Specialty Diagnoses / Procedures Referred By Nino silvestre Referred To Contact MR IMAGING Diagnoses Post-concussion headache Procedures MRV BRAIN WO IVCON MRA, HEAD W/O CONTRAST Wing Claire MD [address] [place] [address] Mr Imaging [facility] Referral ID Status Reason Start Date Expiration Date Visits Requested Visits Authorized [id number] Authorized Auto-Generat ed Referral 07/02/2023 07/31/2024 1 1 Specialty Diagnoses / Procedures Referred By Nino silvestre Referred To Contact MR IMAGING Diagnoses Post-concussion headache Procedures MRI BRAIN WO/W IVCON MRI BRAIN BRAIN STEM W/O W/CONTRAST MATERIAL Wing Claire MD [address] [place] [address] Mr Imaging [id number] Referral ID Status Reason Start Date Expiration Date Visits Requested Visits Authorized [id number] Authorized Auto-Generat ed Referral 07/02/2023 07/31/2024 1 1 Specialty Diagnoses / Procedures Referred By Nino silvestre Referred To Contact CT IMAGING Diagnoses Brain lesion Procedures CT CHEST W IVCON DIAGNOSTIC COMPUTED TOMOGRAPHY THORAX W/CONTRAST Wing Claire MD [address] [place] [address] Ct Imaging [id number] Referral ID Status Reason Start Date Expiration Date Visits Requested Visits Authorized [id number] Authorized Auto-Generat ed Referral 3 09/23/2024 1 1 Specialty Diagnoses / Procedures Referred By Contac t Referred To Contact CT IMAGING Diagnoses Infection in abdomen (HCC) Procedures CT ABD/PEL W IVCON CT ABD & PELVIS W/CONTRAST Wing Claire MD [address] [place] [address] [place] [address] Referral ID Status Reason Start Date Expiration Date Visits Requested Visits Authorized [id number] Authorized Auto-Generat ed Referral 3 09/23/2024 1 1 Specialty Diagnoses / Procedures Referred By Contac t Referred To Contact Diagnoses Brain lesion Procedures CONSULT TO HEMATOLOGY/ONCOLOGY OFFICE/OUTPATIENT [facility] 60-74 MINUTES Wing Claire MD [address] [place] [address] Referral ID Status Reason Start Date Expiration Date Visits Requested Visits Authorized [id number] Pending Review PCP Requested Referral 3 08/24/2024 1 1 Specialty Diagnoses / Procedures Referred By Contac t Referred To Contact Diagnoses Intractable chronic post-traumatic headache Procedures CONSULT TO HEMATOLOGY/ONCOLOGY OFFICE/OUTPATIENT [facility] 60-74 MINUTES Wing Claire MD [address] [place] [address] Referral ID Status Reason Start Date Expiration Date Visits Requested Visits Authorized [id number] Pending Review PCP Requested Referral 3 09/14/2024 1 1 Additional Source Comments INFORMATION SOURCE (unrecogn ized section and content) DATE CREATED AUTHOR 06/18/2019 [facility] DATE CREATED AUTHOR AUTHOR'S ORGANIZ ATION 10/22/2021 [facility] DATE CREATED AUTHOR AUTHOR'S ORGANIZ ATION 05/16/2024 [facility] DATE CREATED AUTHOR AUTHOR'S ORGANIZ ATION 08/13/2024 [facility] DATE CREATED AUTHOR AUTHOR'S ORGANIZ ATION 07/12/2025 [facility] DATE CREATED AUTHOR AUTHOR'S ORGANIZ ATION 08/04/2025 [facility] Goals (unrecognized section and content) Goals may be documented in a n alternate sectionGoals may be documented in an alternate sectionGoals may be documented in an alternate sectionGoals may be documented in an alternate sectionGoals may be documented in an alternate sectionGoals may be documented in an alternate sectionGoals may be documented in an alternate sectionGoals may be documented in an alternate sectionGoals may be documented in an alternate sectionGoals may be documented in an alternate sectionGoals may be documented in an alternate sectionGoals may be documented in an alternate sectionGoals may be documented in an alternate sectionGoals may be documented in an alternate sectionGoals may be documented in an alternate sectionGoals may be documented in an alternate sectionGoals may be documented in an alternate sectionGoals may be documented in an alternate sectionGoals may be documented in an alternate section Care Teams (unrecognized sec tion and content) Team Status: Active Member Role Status Dates [facility] Family Provider Active Dr. Jessica Reyes MD Primary Care Provider Active Team Status: Active Member Role Status Dates Dr. Jessica Reyes MD Primary Care Provider Active [place] PIEROGI MAKER, PIEROGI MAKER-C Attending Provider Active Team Status: Inactive Member Role Status Dates Dr. Jessica Reyes MD Primary Care Provider Active [place] PIEROGI MAKER, PIEROGI MAKER-C Attending Provider, Referring Pro vider Active Online Advertising Manager Relationship Specialty Start Date End Date Jessica Reyes MD [address] [id number] PCP - General 04/05/21 Online Advertising Manager Relationship Specialty Start Date End Date Jessica Reyes MD [address] [place] [address] PCP - General 04/05/21 Team Status: Inactive Member Role Status Dates Dr. Jessica Reyes MD Primary Care Provider Active Dr. Julián Coronel DO Attending Provider, Emergency Pr ovider Active Team Status: Inactive Member Role Status Dates Dr. Jessica Reyes MD Primary Care Provider Active Dr. Julián Coronel DO Attending Provider Active Team Status: Active Member Role Status Dates Dr. Jessica Reyes MD Primary Care Provider Active [place] PIEROGI MAKER, PIEROGI MAKER-C Attending Provider, Referring Pro vider Active Online Advertising Manager Relationship Specialty Start Date End Date Jessica Reyes MD [address] [place] [id number] PCP - General 04/05/21 Team Status: Inactive Member Role Status Dates Dr. Jessica Reyes MD Primary Care Provider Active Dr. Frieda Wiseman MD Emergency Provider Active Team Status: Inactive Member Role Status Dates Dr. Jessica Reyes MD Primary Care Provider, Referri ng Provider Active Treva Geronimo PIEROGI MAKER, PIEROGI MAKER-C Attending Provider Active Team Status: Inactive Member Role Status Dates Dr. Jessica Reyes MD Primary Care Provider, Referri ng Provider Active Dr. Mili Barnett MD Attending Provider Active Team Status: Inactive Member Role Status Dates Dr. Jessica Reyes MD Primary Care Provider Active Dr. Frieda Wiseman MD Attending Provider, Emergency Provider Active Team Status: Inactive Member Role Status Dates Dr. Jessica Reyes MD Primary Care Provider Active Dr. Mili Barnett MD Attending Provider, Referring Pr ovider Active Team Status: Inactive Member Role Status Dates Dr. Jessica Reyes MD Primary Care Provider Active Dr. Juan Monae DO Emergency Provider Active Team Status: Inactive Member Role Status Dates Dr. Jessica Reyes MD Primary Care Provider Active Dr. Mona Schmid DO Emergency Provider Active Team Status: Inactive Member Role Status Dates Dr. Jessica Reyes MD Primary Care Provider Active Dr. Randy Medina DO Emergency Provider Active Team Status: Active Member Role Status Dates Dr. Jessica Reyes MD Primary Care Provider Active Dr. Mili Barnett MD Attending Provider Active Team Status: Active Member Role Status Dates Dr. Jessica Reyes MD Primary Care Provider Active Dr. Mili Barnett MD Attending Provider , Referring Provider, Other Provider Active Team Status: Inactive Member Role Status Dates Dr. Jessica Reyes MD Primary Care Provider Active Dr. Randy Medina DO Attending Provider, Emergency Provider Active Team Status: Inactive Member Role Status Dates Dr. Jessica Reyes MD Primary Care Provider Active Dr. Juan Dov , DO Attending Provider, Emergency P rovider Active Team Status: Inactive Member Role Status Dates Dr. Jessica Reyes MD Primary Care Provider Active Dr. Mona Schmid DO Attending Provider, Emergency P rovider Active Team Status: Active Member Role Status Dates Dr. Jessica Reyes MD Primary Care Provider Active Dr. Mili Barnett MD Attending Provider, Referring Pr ovider Active Online Advertising Manager Relationship Specialty Start Date End Date Jessica Reyes MD [address] [place] [phone] PCP - General 04/05/21 Team Status: Inactive Member Role Status Dates Dr. Jessica Reyes MD Primary Care Provider Active RAFA ALVAREZ PIEROGI MAKER-C Attending Provider, Referring P rovider Active Team Status: Inactive Member Role Status Dates Dr. Jessica Reyes MD Primary Care Pro vider, Attending Provider, Referring Provider Active Online Advertising Manager Relationship Specialty Start Date End Date Jessica Reyes MD [address] [place] [phone] PCP - General 04/05/21 Team Status: Active Member Role Status Dates Dr. Jessica Reyes MD Primary Care Provider Active Team Status: Inactive Member Role Status Dates Dr. Jessica Reyes MD Primary Care Provider Active Start: January 24, 2025 End: January 24, 2025 Dr. Jessica Reyes MD Referring Provider Active Start: January 24, 2025 End: January 24, 2025 Dr. Mili Barnett MD Attending Provider Active Start: January 24, 2025 End: January 24, 2025 Team Status: Inactive Member Role Status Dates Dr. Jessica Reyes MD Primary Care Provider Active Start: January 31, 2025 End: January 31, 2025 Dr. Mili Barnett MD Attending Provider Active Start: January 31, 2025 End: January 31, 2025 Dr. Mili Barnett MD Referring Provider Active Start: January 31, 2025 End: January 31, 2025 Team Status: Inactive Member Role Status Dates Dr. Jessica Reyes MD Primary Care Provider Active Start: February 23, 2025 End: February 23, 2025 Dr. Mili Barnett MD Attending Provider Active Start: February 23, 2025 End: February 23, 2025 Dr. Mili Barnett MD Referring Provider Active Start: February 23, 2025 End: February 23, 2025 Team Status: Active Member Role Status Dates Dr. Jessica Reyes MD Primary Care Provider Active Start: February 23, 2025 Dr. Mili Barnett MD Attending Provider Active Start: February 23, 2025 Team Status: Active Member Role/Relationship Status Dates Dr. Jessica Reyes MD Primary care physician Active Team Status: Inactive Member Role/Relationship Status Dates Dr. Jessica Reyes MD Primary care physician Active Start: August 02, 2025 End: August 02, 2025 Dr. Jessica Reyes MD Referring Provider Active Start: August 02, 2025 End: August 02, 2025 Dr. Mili Barnett MD Attending physician Active Start: August 02, 2025 End: August 02, 2025 Source Comments (unrecognize d section and content) In the event this informatio n is protected by the Federal Confidentiality of Alcohol and Drug Abuse Patient Records regulations: The Federal rules restrict any use of the information to criminally investigate or prosecute any alcohol or drug abuse patient.[facility] the event this information is protected by the Federal Confidentiality of Alcohol and Drug Abuse Patient Records regulations: The Federal rules restrict any use of the information to criminally investigate or prosecute any alcohol or drug abuse patient.[facility] the event this information is protected by the Federal Confidentiality of Alcohol and Drug Abuse Patient Records regulations: The Federal rules restrict any use of the information to criminally investigate or prosecute any alcohol or drug abuse patient.[facility] the event this information is protected by the Federal Confidentiality of Alcohol and Drug Abuse Patient Records regulations: The Federal rules restrict any use of the information to criminally investigate or prosecute any alcohol or drug abuse patient.[facility] the event this information is protected by the Federal Confidentiality of Alcohol and Drug Abuse Patient Records regulations: The Federal rules restrict any use of the information to criminally investigate or prosecute any alcohol or drug abuse patient.[facility] the event this information is protected by the Federal Confidentiality of Alcohol and Drug Abuse Patient Records regulations: The Federal rules restrict any use of the information to criminally investigate or prosecute any alcohol or drug abuse patient.[facility] the event this information is protected by the Federal Confidentiality of Alcohol and Drug Abuse Patient Records regulations: The Federal rules restrict any use of the information to criminally investigate or prosecute any alcohol or drug abuse patient.[facility] the event this information is protected by the Federal Confidentiality of Alcohol and Drug Abuse Patient Records regulations: The Federal rules restrict any use of the information to criminally investigate or prosecute any alcohol or drug abuse patient.[facility] the event this information is protected by the Federal Confidentiality of Alcohol and Drug Abuse Patient Records regulations: The Federal rules restrict any use of the information to criminally investigate or prosecute any alcohol or drug abuse patient.[facility] the event this information is protected by the Federal Confidentiality of Alcohol and Drug Abuse Patient Records regulations: The Federal rules restrict any use of the information to criminally investigate or prosecute any alcohol or drug abuse patient.[facility] the event this information is protected by the Federal Confidentiality of Alcohol and Drug Abuse Patient Records regulations: The Federal rules restrict any use of the information to criminally investigate or prosecute any alcohol or drug abuse patient.[facility] the event this information is protected by the Federal Confidentiality of Alcohol and Drug Abuse Patient Records regulations: The Federal rules restrict any use of the information to criminally investigate or prosecute any alcohol or drug abuse patient.[facility] Reason for Visit (unrecogniz ed section and content) Reason Comments New Patient Evaluation Reason Onset Date Comments Spasms 04/10/2023 2nd call Reason Comments Appointment Reason Comments Follow Up Mri result s Reason Comments Results Called to discuss CT findings. Left message to call me back Reason Comments Results Left message that I will send CT result to her neurologist Dr Claire and for patient to call her Reason Comments Follow Up Results Reason Comments Follow Up Headaches Reason Comments New Patient Reason Onset Date Comments Refill Request 03/10/2024 Reason Onset Date Comments Abdominal Pain 05/15/2024 Reason Comments 6 Month Exam FOR RECORDS PERTAINING TO PATIENTS WHO ARE [...] BE BASED ON THE PRIMARY CLINICAL RECORDS. [facility] [facility]. provides no warranty or guarantee of the accuracy or completeness of information in this document.
[2025-08-09 08:49] LABS: AST(SGOT) 19 U/L (<=31); Alanine Aminotransfer ALT/SGPT 18 U/L (<=34); Albumin, Serum 4.4 g/dL (3.4-4.8); Alkaline Phosphatase 81 U/L (35-104); Anion Gap 14 (5-15); BUN 23 mg/dL (4-19); BUN/Creat Ratio 18.1 RATIO (10-20); Calcium,Total 10.8 mg/dL (7.6-11.0); Carbon Dioxide 22.6 mmol/L (21.0-32.0); Chloride 103 mmol/L (98-108); Cholesterol 164 mg/dL (<=200); Globulin 2.9 g/dL (2.2-4.2); Glucose 140 mg/dL (70-99); Low Density Lipoprotein Calc. 86 mg/dL; Potassium 3.9 mmol/L (3.3-5.1); Triglycerides 155 mg/dL; Very Low Density Lipoprotein 31 mg/dL (5-40); cholesterol:hdl ratio screen 3.47
== END | disposition home or self-care (01) ==
LOC: LABSPEC 07:26 → LAB 07:39
PROVIDERS: PCP Family Medicine; Referring Provider Internal Medicine Cardiovascular Disease; Visit Provider Internal Medicine Cardiovascular Disease
DX: E78.00 Pure hypercholesterolemia, unspecified (principal); R00.2 Palpitations; I10 Essential (primary) hypertension; R06.02 Shortness of breath
CPT/HCPCS: 36415; 80053; 80061

== ENCOUNTER → 2025-08-24 | Outpatient (CLI) | payer MEDICARE, MEDICAID, SELFPAY ==
--- NOTE | 2025-08-24 07:47 | BD_ITS ---
PROCEDURE: DEXA BONE DENSITY STUDY 08/24/2025 REASON FOR EXAM: F, age 74 y/o . Postmenopausal. TECHNIQUE: Procedure Code: BDDBD Modality: DX Procedure: DEXA BONE DENSITY STUDY COMPARISON: DEXA examination dated 08/24/2025 FINDINGS: BMD and T-SCORES Lumbar spine: 0.843 g/cm2, T-score -1.8 Levels: L1 through L4 Change from prior: There has been a significant decrease in the bone mineral density of the lumbar spine by 10.8% since the prior study dated 08/12/2023. Left femoral neck: 0.643 g/cm2, T-score -1.9 Left total hip: 0.753 g/cm2, T-score -1.6 Change from prior: There has been a significant increase in the bone mineral density of the left hip by 7.9% since the prior study dated 08/12/2023. Right femoral neck: 0.616 g/cm2, T-score -2.1 Right total hip: 0.724 g/cm2, T-score -1.8 Change from prior: There has been a decrease in the bone mineral density of the right hip by 0.8% since the prior study dated 08/12/2023. The World Health Organization has defined the following categories based on bone density: Normal bone density: T-score equal to or greater than -1.0 Osteopenia: T-score between -1.0 and -2.5 Osteoporosis: T-score equal to or less than -2.5 FRAX (or Comparable) Fracture Risk Assessment: 10 Year Probability of Fracture: Major Osteoporotic Fracture: 14% Hip Fracture: 3.6% (Note: FRAX is not to be reported in setting of normal range bone density, osteoporosis on DEXA, known history of osteoporosis, prior osteoporotic hip or vertebral fracture, or for any patient undergoing pharmacological treatment for bone loss.) The National Osteoporosis Foundation (NOF) recommends pharmacological treatment for patients with a FRAX 10-year risk of 3% or higher for a hip fracture, or 20% or higher for a major osteoporotic fracture, to prevent osteoporosis and reduce fracture risk. The patient does meet the pharmacological treatment recommendations for prevention of osteoporosis. BD/Dexa Bone Density Study IMPRESSION: OSTEOPENIA. Recommend follow-up as clinically warranted. Reading Location: [id number]
--- NOTE | 2025-08-24 07:47 | BI_ITS ---
EXAM: SCRN MAMM (CAD)W/KEMAR BILAT DATE: 08/24/2025 CLINICAL HISTORY: F, Age 74 y/o , SCREENING TECHNIQUE: Procedure Code: [id number] Modality: MG Procedure: SCRN MAMM (CAD)W/KEMAR BILAT COMPARISON: Prior exam(s) dated 08/16/2024, 08/12/2023, 07/30/2022. FINDINGS: TISSUE DENSITY: There are scattered areas of fibroglandular density. Bilateral Breast Mammographic Findings: There is a focal asymmetry in the upper-outer right breast at middle depth. No significant masses, calcifications or other abnormalities are identified in the left breast. BI/SCRN MAMM (CAD)W/KEMAR BILAT IMPRESSION: The focal asymmetry in the upper-outer right breast at middle depth requires fu rther evaluation. Recommend diagnostic mammogram and ultrasound of the right breast. OVERALL FINAL ASSESSMENT BI-RADS 0: INCOMPLETE - NEED ADDITIONAL IMAGING EVALUATION. RECOMMENDATION: Additional Views obtained/call backs Additional Recommendation none A letter with findings and recommendations will be mailed to the patient. Reading Location: [id number]
== END | disposition home or self-care (01) ==
LOC: OPBI 07:46
PROVIDERS: PCP Family Medicine; Referring Provider Nurse Practitioner Family; Visit Provider Nurse Practitioner Family
DX: Z12.31 Encounter for screening mammogram for malignant neoplasm of breast (principal); Z78.0 Asymptomatic menopausal state
CPT/HCPCS: 77063; 77067; 77080

== ENCOUNTER → 2025-09-01 | Outpatient (CLI) | payer MEDICARE, MEDICAID, SELFPAY ==
--- NOTE | 2025-09-01 09:04 | BI_ITS ---
EXAM: DIAG MAMM W/CAD, UNILAT; RT BRST UNILAT KEMAR ADD-ON; BREAST LIMITED UNILATERAL 09/01/2025 CLINICAL HISTORY: F, Age 74 y/o , ABD MAMM; ABD MAMM R BREAST TECHNIQUE: Procedure Code: [id number]; BIRTUNITOMO; USBRSTLIMIT Modality: MG; US Procedure: DIAG MAMM W/CAD, UNILAT; RT BRST UNILAT KEMAR ADD-ON; BREAST LIMITED UNILATERAL. COMPARISON: Prior exam(s) dated 08/24/2025, 08/16/2024, 08/12/2023. FINDINGS: MAMMOGRAM: TISSUE DENSITY: There are scattered areas of fibroglandular density. Unilateral Right Breast Mammographic Findings: Follow-up examination performed for the focal asymmetry in the right breast seen on examination of 08/24/2025. On the present examination, the focal asymmetry in the upper-outer right breast at middle depth effaces. ULTRASOUND: Ultrasound performed of the upper-outer right breast demonstrates no sonographic correlate for the focal asymmetry. However, there are some incidental benign dilated ducts in the right breast at 11 o'clock 4 cm from the nipple. BI/DIAG MAMM W/CAD, UNILAT IMPRESSION: There is no evidence of malignancy in the right breast. OVERALL FINAL ASSESSMENT BI-RADS 2: BENIGN RECOMMENDATION: Routine annual follow-up in 1 Year Additional Recommendation none A letter with findings and recommendations will be mailed to the patient. Reading Location: [id number]
--- NOTE | 2025-09-01 09:04 | BI_ITS ---
EXAM: DIAG MAMM W/CAD, UNILAT; RT BRST UNILAT KEMAR ADD-ON; BREAST LIMITED UNILATERAL 09/01/2025 CLINICAL HISTORY: F, Age 74 y/o , ABD MAMM; ABD MAMM R BREAST TECHNIQUE: Procedure Code: [id number]; BIRTUNITOMO; USBRSTLIMIT Modality: MG; US Procedure: DIAG MAMM W/CAD, UNILAT; RT BRST UNILAT KEMAR ADD-ON; BREAST LIMITED UNILATERAL. COMPARISON: Prior exam(s) dated 08/24/2025, 08/16/2024, 08/12/2023. FINDINGS: MAMMOGRAM: TISSUE DENSITY: There are scattered areas of fibroglandular density. Unilateral Right Breast Mammographic Findings: Follow-up examination performed for the focal asymmetry in the right breast seen on examination of 08/24/2025. On the present examination, the focal asymmetry in the upper-outer right breast at middle depth effaces. ULTRASOUND: Ultrasound performed of the upper-outer right breast demonstrates no sonographic correlate for the focal asymmetry. However, there are some incidental benign dilated ducts in the right breast at 11 o'clock 4 cm from the nipple. BI/Rt Brst Unilat Kemar Add-On IMPRESSION: There is no evidence of malignancy in the right breast. OVERALL FINAL ASSESSMENT BI-RADS 2: BENIGN RECOMMENDATION: Routine annual follow-up in 1 Year Additional Recommendation none A letter with findings and recommendations will be mailed to the patient. Reading Location: [id number]
== END | disposition home or self-care (01) ==
LOC: OPBI 09:01
PROVIDERS: PCP Family Medicine; Referring Provider Nurse Practitioner Family; Visit Provider Nurse Practitioner Family
DX: N64.89 Other specified disorders of breast (principal)
CPT/HCPCS: 76642; 77061; 77065; G0279